=== PATIENT | male | born 1980 | race Caucasian/White ===

== ENCOUNTER 2020-07-29 08:50 | Outpatient (REF) | payer MEDICAID, SELFPAY ==
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
== END 2020-07-29 08:51 | disposition home or self-care (01) ==
LOC: HO.SH 08:50
PROVIDERS: Visit Provider Family Medicine
DX: H90.0 Conductive hearing loss, bilateral (principal); H93.12 Tinnitus, left ear
CPT/HCPCS: 92557; 92567

== ENCOUNTER 2020-10-07 15:11 | Outpatient (REF) | payer MEDICAID, SELFPAY ==
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
== END 2020-10-07 15:12 | disposition home or self-care (01) ==
LOC: HO.HAP 15:11
PROVIDERS: Visit Provider Family Medicine
DX: Z46.1 Encounter for fitting and adjustment of hearing aid (principal); H90.3 Sensorineural hearing loss, bilateral
CPT/HCPCS: 92591

== ENCOUNTER → 2020-10-21 14:46 | Outpatient (BNVA) | payer MEDICAID, SELFPAY | PROVIDERS: PCP Family Medicine; Visit Provider Nurse Practitioner Family | DX: M46.1 Sacroiliitis, not elsewhere classified (principal); M53.3 Sacrococcygeal disorders, not elsewhere classified | CPT/HCPCS: 99202 ==

== ENCOUNTER 2020-10-23 08:49 | Outpatient (REF) | payer MEDICAID, SELFPAY | END 2020-10-23 08:50 | disposition home or self-care (01) | LOC: HO.HAP 08:49 | PROVIDERS: Visit Provider Family Medicine | DX: Z46.1 Encounter for fitting and adjustment of hearing aid (principal); H90.3 Sensorineural hearing loss, bilateral | CPT/HCPCS: V5011; V5020; V5160; V5261; V5266 ==

== ENCOUNTER 2020-10-30 14:48 | Outpatient (REF) | payer MEDICAID, SELFPAY | END 2020-10-30 14:49 | disposition home or self-care (01) | LOC: HO.HAP 14:48 | PROVIDERS: Visit Provider Family Medicine | DX: Z13.89 Encounter for screening for other disorder (principal) ==

== ENCOUNTER → 2020-11-05 10:18 | Outpatient (BNVA) | payer MEDICAID, SELFPAY | PROVIDERS: PCP Family Medicine; Visit Provider Nurse Practitioner Family | DX: M53.3 Sacrococcygeal disorders, not elsewhere classified (principal); M46.1 Sacroiliitis, not elsewhere classified | CPT/HCPCS: 99212 ==

== ENCOUNTER 2020-12-10 06:06 | Outpatient (REF) | payer MEDICAID, SELFPAY ==
--- NOTE | ~2020-12-10 | FL_ITS ---
EXAMINATION: XR FLUOROSCOPY WITH IMAGES CLINICAL INFORMATION: Sacrococcygeal disorder. COMPARISON: None. TECHNIQUE: Fluoroscopy performed by Lizz Ortiz NP Fluoroscopy time: 0.3 minutes DAP: 3.41 Gycm2 Images: 1 FINDINGS: A single lateral view of the sacrum reveals needle positioned along the posterior sacrum and contrast opacifying the posterior sacral epidural space. FL/FL guidance in treatment room IMPRESSION: Fluoroscopy was provided to Lizz Ortiz for sacral epidural injection.
== END 2020-12-10 06:07 | disposition home or self-care (01) ==
LOC: HO.RADIR 06:06
PROVIDERS: Visit Provider Anesthesiology
DX: M53.3 Sacrococcygeal disorders, not elsewhere classified (principal)
CPT/HCPCS: 62323; J3300; Q9967

== ENCOUNTER → 2021-01-17 10:47 | Outpatient (BNVA) | payer MEDICAID, SELFPAY | PROVIDERS: PCP Family Medicine; Visit Provider Nurse Practitioner Family | DX: M53.3 Sacrococcygeal disorders, not elsewhere classified (principal); M46.1 Sacroiliitis, not elsewhere classified | CPT/HCPCS: 99212 ==

== ENCOUNTER 2021-01-28 12:00 | Outpatient (REF) | payer MEDICAID, SELFPAY | END 2021-01-28 12:01 | LOC: HO.HAP 12:00 | PROVIDERS: Visit Provider Family Medicine | DX: Z46.1 Encounter for fitting and adjustment of hearing aid (principal) | CPT/HCPCS: V5266 ==

== ENCOUNTER 2021-02-25 06:53 | Outpatient (REF) | payer MEDICAID, SELFPAY ==
--- NOTE | ~2021-02-25 | FL_ITS ---
EXAMINATION: XR FLUOROSCOPY WITH IMAGES CLINICAL INFORMATION: M53.3 - Sacrococcygeal disorders, not elsewhere classified COMPARISON: Fluoroscopic spot views 12/10/2020 TECHNIQUE: Fluoroscopy performed by Lizz Ortiz NP. Fluoroscopy time: 0.2 minutes DAP: 5.47 Gycm2 Images: 1 FINDINGS: There is a spinal needle overlying mid coccyx with tip just beyond the anterior cortex. There is contrast seen in the soft tissues overlying the anterior coccyx. No vascular communication. FL/FL guidance in treatment room IMPRESSION: Fluoroscopy for pain management procedure.
== END 2021-02-25 06:54 | disposition home or self-care (01) ==
LOC: HO.RADIR 06:53
PROVIDERS: Visit Provider Anesthesiology
DX: M53.3 Sacrococcygeal disorders, not elsewhere classified (principal)
CPT/HCPCS: 64999; J3300; Q9967

== ENCOUNTER 2021-03-05 08:04 | Outpatient (REF) | payer MEDICAID, SELFPAY ==
--- NOTE | 2021-03-05 08:17 | MHC.AU.P13 ---
Hearing Instrument Problem Date of Visit: 03/05/21 Right Ear: It Technical Specialist: Phonak Model: Audeo P70-13T Serial Number: [id number] Repair Warranty: 01/06/2024 Battery Size: 13 Color: P8 Black Wrapping Machine Helper: Size 1 M Type of Dome: Small power Type of Wax Guard: Cerushield Dispensed By: [facility] Date of Fittin10/23/2020 Left Ear: It Technical Specialist: Phonak Model: Audeo P70-13T Serial Number: [id number] Repair Warranty: 01/06/2024 Battery Size: 13 Color: P8 Black Wrapping Machine Helper: Size 1 M Type of Wax Guard: Cerushield Dispensed By: [facility] Date of Fittin10/23/2020 Follow-Up Summary: Right aid dropped off - lost dome. Cleaned and replaced wax guard and small power dome - amplifying clearly. Recommendations: Recommendations: Hearing instrument follow-up or maintenance as needed. Signature: Provider: OLIVE Flynn
== END 2021-03-05 08:05 | disposition home or self-care (01) ==
LOC: HO.HAP 08:04
PROVIDERS: Visit Provider Family Medicine
DX: Z13.89 Encounter for screening for other disorder (principal)

== ENCOUNTER → 2021-04-02 09:47 | Outpatient (BNVA) | payer MEDICAID, SELFPAY | PROVIDERS: PCP Family Medicine; Visit Provider Anesthesiology ==

== ENCOUNTER 2021-06-10 12:36 | Outpatient (REF) | payer MEDICAID, SELFPAY | END 2021-06-10 12:37 | disposition home or self-care (01) | LOC: HO.HAP 12:36 | PROVIDERS: Visit Provider Family Medicine | DX: Z46.1 Encounter for fitting and adjustment of hearing aid (principal); H90.3 Sensorineural hearing loss, bilateral | CPT/HCPCS: V5266 ==

== ENCOUNTER 2021-06-17 06:28 | Outpatient (REF) | payer MEDICAID, SELFPAY ==
--- NOTE | ~2021-06-17 | FL_ITS ---
EXAMINATION: XR FLUOROSCOPY WITH IMAGES CLINICAL INFORMATION: M46.1 - Sacroiliitis, not elsewhere classified COMPARISON: None. TECHNIQUE: Fluoroscopy performed by pain management physician. Fluoroscopy time: 0.2 minutes DAP: 5.47 Gycm2 Images: 1 FINDINGS: There is a spinal needle overlying the lower left sacroiliac joint. Some trace contrast is seen in the soft tissues and likely early intra-articular contrast. FL/FL guidance in treatment room IMPRESSION: Fluoroscopy for pain management procedure.
== END 2021-06-17 06:29 | disposition home or self-care (01) ==
LOC: HO.RADIR 06:28
PROVIDERS: Visit Provider Anesthesiology
DX: M47.16 Other spondylosis with myelopathy, lumbar region (principal); M46.1 Sacroiliitis, not elsewhere classified
CPT/HCPCS: 27096; J3300; Q9967

== ENCOUNTER 2021-06-17 09:56 | Outpatient (REF) | payer MEDICAID, SELFPAY | END 2021-06-17 09:57 | disposition home or self-care (01) | LOC: HO.HAP 09:56 | PROVIDERS: Visit Provider Family Medicine | DX: Z13.89 Encounter for screening for other disorder (principal) ==

== ENCOUNTER 2021-06-18 10:54 | Outpatient (REF) | payer MEDICAID, SELFPAY | END 2021-06-18 10:55 | disposition home or self-care (01) | LOC: HO.HAP 10:54 | PROVIDERS: Visit Provider Family Medicine | DX: Z13.89 Encounter for screening for other disorder (principal) ==

== ENCOUNTER 2021-07-03 10:56 | Day surgery (SDC) | payer MEDICAID, SELFPAY ==
[2021-06-27 09:18] VITALS: BMI 37.3
[2021-06-27 09:55] VITALS: BMI 37.3
--- NOTE | 2021-07-02 10:19 | P.CONAN_ITS ---
Documented by User: Paulina Bang NP 07/02/21 10:20 HPI - Anesthesia Eval Consult details Narrative: 40yo M for Bilateral Medial Branch Block L3-L4-DR L5 PMFSH Active Problems Active Problems: All Active Problems (Updated 06/27/21 @ 09:56 by Carla Ochoa RN) Sacroiliitis (Acute) Sacrococcygeal pain (Acute) Spondylosis, lumbar, with myelopathy (Acute) Past Medical History Medical History (Updated 06/27/21 @ 09:56 by Carla Ochoa RN) COVID-19 vaccine series completed Spondylosis, lumbar, with myelopathy Surgical History Surgical History (Updated 06/27/21 @ 09:18 by Carla Ochoa RN) S/P epidural steroid injection Social History Social History (System 10/10/20 @ 11:41 by Magda Hummel) Patient Tobacco Use Status: Never used Tobacco Use of substances other than those prescribed or required for medical reasons: No Have you been hit, kicked, punched, or otherwise hurt by someone within the past year? If so, by whom?: No Are you DNR?: No Advance Directives: No Advance Directives Information Provided: No Advance Directives on File: No Recently lost weight without trying: No Eating poorly because of decreased appetite: No Nutrition Risks: No Nutritional Risk Poor oral hygiene: No Meds Allergies Allergy/AdvReac Type Severity Reaction Status Date / Time No Known Drug Allergies Allergy Unknown NKDA Verified 07/03/21 11:35 Home Medications Medication Instructions Recorded Confirmed Last Taken Type aspirin 325 mg tablet 325 mg PO DAILY 10/21/20 06/27/21 06/26/21 08:00 History baclofen 20 mg tablet 30 mg PO BID tab 10/21/20 06/27/21 Unknown History gabapentin 300 mg capsule 300 mg PO BID 10/21/20 06/27/21 Unknown History zolpidem 10 mg tablet (Ambien) 10 mg PO BEDTIME PRN 10/21/20 06/27/21 Unknown History Exam Exam Date and Time: July 02, 2021 1019 Height,Weight and Vital Signs: Height 5 ft 10 in Weight 117.934 kg Assessment and Plan Assessment Anesthesia Assessment: Chart Reviewed Documented by User: Chong Duarte MD 07/03/21 12:45 [facility] Past Medical History Medical History (Updated 06/27/21 @ 09:56 by Carla Ochoa RN) COVID-19 vaccine series completed Spondylosis, lumbar, with myelopathy Family History Family history of problems with anesthesia: No Surgical History Surgical History (Updated 06/27/21 @ 09:18 by Carla Ochoa RN) S/P epidural steroid injection Social History Social History (System 10/10/20 @ 11:41 by Magda Hummel) Patient Tobacco Use Status: Never used Tobacco Use of substances other than those prescribed or required for medical reasons: No Have you been hit, kicked, punched, or otherwise hurt by someone within the past year? If so, by whom?: No Are you DNR?: No Advance Directives: No Advance Directives Information Provided: No Advance Directives on File: No Recently lost weight without trying: No Eating poorly because of decreased appetite: No Nutrition Risks: No Nutritional Risk Poor oral hygiene: No Meds Allergies Allergy/AdvReac Type Severity Reaction Status Date / Time No Known Drug Allergies Allergy Unknown NKDA Verified 07/03/21 11:35 Home Medications Medication Instructions Recorded Confirmed Last Taken Type aspirin 325 mg tablet 325 mg PO DAILY 10/21/20 06/27/21 06/26/21 08:00 History baclofen 20 mg tablet 30 mg PO BID tab 10/21/20 06/27/21 Unknown History gabapentin 300 mg capsule 300 mg PO BID 10/21/20 06/27/21 Unknown History zolpidem 10 mg tablet (Ambien) 10 mg PO BEDTIME PRN 10/21/20 06/27/21 Unknown History Assessment and Plan Assessment Anesthesia Assessment: Anesthesia Plan Discussed Final Anesthetic Review Family History of Problems with Anesthesia: No NPO: Yes ASA Class: II Final Preanesthetic Review: No Changes in Pt Med Stat, Meds/Allgs Chart Reviewed, Consent Obtained/Reviewed and Anes Risks/Benef Reviewed Patient Risk: Intermediate Procedure Risk: Low Assessment/Block/Sedation in SS: Assess/Block/Sedation-SS Anesthetic Plan Anesthetic Plan: MAC: and Regional Block Disposition: Standard PACU
--- NOTE | ~2021-07-03 | FL_ITS ---
EXAMINATION: XR FLUOROSCOPY WITH IMAGES CLINICAL INFORMATION: Medial branch block COMPARISON: None. TECHNIQUE: Fluoroscopy performed by Dr. Harry sage. Fluoroscopy time: 0.7 minutes DAP: 13.1 mGycm2 Images: 6 FINDINGS: There are needles positioned bilaterally on the lateral aspect of L5, L4 pedicles with contrast opacifying the adjacent soft tissues. No gross bony abnormality seen. FL/FL guidance in OR IMPRESSION: Fluoroscopy provided to referring physician for pain management.
[2021-07-03 11:51] VITALS: BP 141/87; PULSE 83; RESP 20; TEMP 36.6; O2SAT 98
[2021-07-03] MEDS: Lactated Ringers 1,000 ML 100 ML IVCONT (12:15)
--- NOTE | 2021-07-03 12:49 | P.HPSUR_ITS ---
Pre-Procedural Eval Section A Date of Service: 07/03/21 The patient is an INPATIENT: No Changes since office visit: Yes Patient answered all questions Section B Chief Complaint: spondylosis lumbar Details of Present Illness: as above Relevant Family History (Specify if Yes): No Relevant Social History: None Present Medications: see Short Stay Collaborative assessment Medical History: No relevant PMH History of Previous Operations: No relevant previous surgery Allergies: Allergies Allergy/AdvReac Type Severity Reaction Status Date / Time No Known Drug Allergies Allergy Unknown NKDA Verified 07/03/21 11:35 Review of Systems Sugical H&P ROS: Negative: Constitution, Cardiovascular, Respiratory, Neurological, Psychiatric, Hem-Onc, Allergic/Immunologic, Gastrointestinal, Genitourinary, Musculoskeletal, Integumentary, Endocrine and Eyes/Ears/Nose/Throat Exam Surgical H&P Exam: Normal: HEENT, Normal: Heart, Normal: Lungs, Normal: Extre mities, Normal: Abdomen, Normal: Skin and Normal: Neurological Plan Diagnosis/Plan: Unchanged I have reviewed the history and physical and performed a pertinent physical examination on my patient. No changes have occurred unless specified.
--- NOTE | 2021-07-03 13:21 | P.BOP_ITS ---
Brief Operative Note Date of Service: 07/03/21 Pre-op diagnosis: spondylosis lumbar spine Post-op diagnosis: same Procedure: diagnostic MBB L3- L4- DRL5 bilateral Implants: none Surgeon: Harry Cabral MD Anesthesia: MAC Was an Hydroelectric Plant Technician used for this Procedure?: No Estimated blood loss (mL): 0 Condition: stable Disposition: PACU
[2021-07-03 13:24] VITALS: BP 132/87; PULSE 70; RESP 16; TEMP 36.3; O2SAT 96
--- NOTE | 2021-07-03 13:28 | W.PM.OPN ---
Operative Note Operative Note Date of Service: 07/03/21 Narrative: Informed consent was obtained, risks benefits, alternatives were explained to the patient. The patient was taken to OR where he was positioned prone on OR table. [place] [employer] was applied and patient was moderately sedated. After that time-out was performed delineating correct site and side of the procedure name the patient need for antibiotic prophylaxis which is none, need for DVT prophylaxis, risk of fire. The lower back of the patient was prepped with ChloraPrep and draped with sterile utility towels. Sterilely draped C-arm was brought over the operating field and sq picture of L4-5 vertebra as and sacral bone were delineated on the screen. The point of interest were delineated as connection of superior articular process of L4 bilaterally with corresponding transverse processes of the same vertebra, as well as connection of superior articular process of L5 bilaterally with corresponding transverse processes as well as connection of the superior articular process of S1 bilaterally with bilateral sacral alae. The point of interest was injected with small amount of lidocaine 2% and after that 22 gauge 5 in needles were driven to were the point of interest in tunnel vision fashion. When needle gently contacted the bone small amount of the contrast was injected into each needle position demonstrating no intravascular and no intrathecal uptake of the contrast. After that small amount of bupivacaine 0.5% no more than 1 cc was injected into each needle position. After that needle was removed sterile dressing was applied. The patient was tolerated procedure well. He was taking outside of the operating room to recovery room where he recovered uneventfully. He went home without immediate complications.
[2021-07-03 13:40] VITALS: BP 116/74; PULSE 69; RESP 16; TEMP 36.3; O2SAT 96
--- NOTE | 2021-07-03 14:29 | PC.NURSE ---
PT STATING THAT HE HAS DRIVEN HIMSELF TO PROCEDURE. PT REEDUCATED ON NEED FOR RIDE RELATED TO ANESTHESIA. PT REFUSING ALL OFFERS OF SHUTTLE RIDE AND TAXI VOUCHER. PT STATING THAT HE HAS NO ONE TO PICK HIM UP. PT REFUSING ALL OFFERS OF TRANSPORTATION AND STATING HE IS NOT LEAVING HIS TRUCK HERE. BINDER SELECTOR LUC NOTIFIED AND INVOLVED. PT SIGNED AMA FORM WITHOUT ISSUE.
== END 2021-07-03 14:36 | disposition home or self-care (01) ==
PROVIDERS: PCP Internal Medicine Geriatric Medicine; Visit Provider Anesthesiology
PROC: (CPT 64493; principal; 2021-07-03 12:30)
DX: M47.16 Other spondylosis with myelopathy, lumbar region (principal); M46.1 Sacroiliitis, not elsewhere classified; M54.5 Low back pain
CPT/HCPCS: 64493; 64494; J2250; J3010; Q9967

== ENCOUNTER → 2021-07-10 11:11 | Outpatient (BNVA) | payer MEDICAID, SELFPAY | PROVIDERS: PCP Family Medicine; Visit Provider Anesthesiology ==

== ENCOUNTER → 2021-07-17 10:12 | Outpatient (BNVA) | payer MEDICAID, SELFPAY | PROVIDERS: PCP Family Medicine; Visit Provider Anesthesiology ==

== ENCOUNTER 2021-08-19 06:29 | Outpatient (REF) | payer MEDICAID, SELFPAY ==
--- NOTE | ~2021-08-19 | FL_ITS ---
EXAMINATION: XR FLUOROSCOPY WITH IMAGES CLINICAL INFORMATION: Sacroiliitis COMPARISON: None. TECHNIQUE: Fluoroscopy performed by Lizz Ortiz NP. Fluoroscopy time: 0.1 minutes DAP: 4.3 Gycm2 Images: 2 FINDINGS: Images demonstrate needle placement and contrast injection over the bilateral inferior sacroiliac joints. FL/FL guidance in treatment room IMPRESSION: Fluoroscopic guidance for pain management procedure.
== END 2021-08-19 06:30 | disposition home or self-care (01) ==
LOC: HO.RADIR 06:29
PROVIDERS: Visit Provider Anesthesiology
DX: M47.16 Other spondylosis with myelopathy, lumbar region (principal)
CPT/HCPCS: Q9967

== ENCOUNTER → 2021-08-27 10:55 | Outpatient (BNVA) | payer MEDICAID, SELFPAY | PROVIDERS: PCP Family Medicine; Visit Provider Anesthesiology | DX: M47.16 Other spondylosis with myelopathy, lumbar region (principal); M46.1 Sacroiliitis, not elsewhere classified | CPT/HCPCS: 99212 ==

== ENCOUNTER 2021-10-17 11:05 | Day surgery (SDC) | payer MEDICAID, SELFPAY ==
[2021-10-08 14:14] VITALS: BMI 37.5
--- NOTE | 2021-10-16 16:58 | HO.ANESPROP2 ---
Documented by User: Paulina Bang NP 10/16/21 16:59 HPI - Anesthesia Eval Consult details Narrative: 41yo M for bilateral L3-L4-L5 therapeutic Medial Branch Block s/p same 06/2021 with TIVA PMFSH Active Problems Active Problems: All Active Problems (Updated 08/27/21 @ 12:41 by Harry Cabral MD) Sacroiliitis (Acute) Sacrococcygeal pain (Acute) Chronic pain syndrome (Acute) Spondylosis, lumbar, with myelopathy (Acute) Past Medical History Medical History (Updated 08/27/21 @ 12:41 by Harry Cabral MD) Chronic pain syndrome COVID-19 vaccine series completed Spondylosis, lumbar, with myelopathy Family History Family history of problems with anesthesia: No Surgical History Surgical History (Updated 10/08/21 @ 14:10 by Carla Ochoa RN) History of surgery S/P epidural steroid injection Social History Social History (System 10/10/20 @ 11:41 by Magda Hummel) Patient Tobacco Use Status: Never used Tobacco Use of substances other than those prescribed or required for medical reasons: No Have you been hit, kicked, punched, or otherwise hurt by someone within the past year? If so, by whom?: No Are you DNR?: No Advance Directives: No Advance Directives Information Provided: Yes (informational brochure mailed) Advance Directives on File: No Recently lost weight without trying: No Eating poorly because of decreased appetite: No Nutrition Risks: No Nutritional Risk Poor oral hygiene: No Meds Allergies Allergy/AdvReac Type Severity Reaction Status Date / Time No Known Drug Allergies Allergy Unknown NKDA Verified 08/27/21 11:33 Home Medications Medication Instructions Recorded Confirmed Last Taken Type aspirin 325 mg tablet 325 mg PO DAILY 10/21/20 10/08/21 06/26/21 08:00 History baclofen 20 mg tablet 30 mg PO BID tab 10/21/20 10/08/21 Unknown History gabapentin 300 mg capsule 300 mg PO BID 10/21/20 10/08/21 Unknown History zolpidem 10 mg tablet (Ambien) 10 mg PO BEDTIME PRN 10/21/20 10/08/21 Unknown History Exam Exam Date and Time: October 16, 2021 1658 Height,Weight and Vital Signs: Height 5 ft 10 in Weight 118.841 kg Assessment and Plan Assessment Anesthesia Assessment: Chart Reviewed Final Anesthetic Review Family History of Problems with Anesthesia: No Documented by User: Fam Mejía 10/17/21 12:34 [facility] Past Medical History Medical History (Updated 08/27/21 @ 12:41 by Harry Cabral MD) Chronic pain syndrome COVID-19 vaccine series completed Spondylosis, lumbar, with myelopathy Functional capacity: independent ambulation Surgical History Surgical History (Updated 10/08/21 @ 14:10 by Carla Ochoa RN) History of surgery S/P epidural steroid injection History of Problems with Anesthesia: No Social History Social History (System 10/10/20 @ 11:41 by Magda Hummel) Patient Tobacco Use Status: Never used Tobacco Use of substances other than those prescribed or required for medical reasons: No Have you been hit, kicked, punched, or otherwise hurt by someone within the past year? If so, by whom?: No Are you DNR?: No Advance Directives: No Advance Directives Information Provided: Yes (informational brochure mailed) Advance Directives on File: No Recently lost weight without trying: No Eating poorly because of decreased appetite: No Nutrition Risks: No Nutritional Risk Poor oral hygiene: No Meds Allergies Allergy/AdvReac Type Severity Reaction Status Date / Time No Known Drug Allergies Allergy Unknown NKDA Verified 08/27/21 11:33 Home Medications Medication Instructions Recorded Confirmed Last Taken Type aspirin 325 mg tablet 325 mg PO DAILY 10/21/20 10/08/21 06/26/21 08:00 History baclofen 20 mg tablet 30 mg PO BID tab 10/21/20 10/08/21 Unknown History gabapentin 300 mg capsule 300 mg PO BID 10/21/20 10/08/21 Unknown History zolpidem 10 mg tablet (Ambien) 10 mg PO BEDTIME PRN 10/21/20 10/08/21 Unknown History Exam Airway Mallampati Class: II Neck ROM: Full Loose/Missing/Broken Teeth: Yes Heart: rrr Lungs: bl breath sounds Assessment and Plan Final Anesthetic Review History of Problems with Anesthesia: No NPO: Yes ASA Class: III Patient Risk: Intermediate Procedure Risk: Intermediate Anesthetic Plan Anesthetic Plan: MAC: Disposition: Standard PACU
--- NOTE | ~2021-10-17 | FL_ITS ---
EXAMINATION: XR FLUOROSCOPY WITH IMAGES CLINICAL INFORMATION: Medial branch block COMPARISON: None. TECHNIQUE: Fluoroscopy performed by Dr. Harry Cabral. Fluoroscopy time: 0.9 minutes DAP: 19 mGycm2 Images: 6 FINDINGS: Images demonstrate needle placement and contrast injection adjacent to the bilateral lateral L3, L4 and L5 vertebral bodies. FL/FL guidance in OR IMPRESSION: Fluoroscopy guidance for pain management procedure.
[2021-10-17 11:44] VITALS: BP 107/74; PULSE 97; RESP 16; TEMP 36.9; O2SAT 97
[2021-10-17] MEDS: Lactated Ringers 1,000 ML 100 ML IVCONT (11:45)
--- NOTE | 2021-10-17 12:07 | MHC.SHP ---
Pre-Procedural Eval Section A Date of Service: 10/17/21 The patient is an INPATIENT: No Changes since office visit: Yes Patient answered all questions The History & Physical has been completed within 30 days and I have reviewed it.: No Section B Chief Complaint: spondylosis,lumar with myelopathy Details of Present Illness: as above Relevant Family History (Specify if Yes): No Relevant Social History: None Present Medications: see Short Stay Collaborative assessment Medical History: Significant History History of Previous Operations: No relevant previous surgery Allergies: Allergies Allergy/AdvReac Type Severity Reaction Status Date / Time No Known Drug Allergies Allergy Unknown NKDA Verified 08/27/21 11:33 Review of Systems Sugical H&P ROS: Negative: Cardiovascular, Respiratory, Neurological, Psychiatric, Hem-Onc, Allergic/Immunologic, Gastrointestinal, Genitourinary, Musculoskeletal, Integumentary, Endocrine and Eyes/Ears/Nose/Throat and Yes, Specify: Constitution (morbid obesity) Exam Surgical H&P Exam: Normal: HEENT, Normal: Heart, Normal: Lungs, Normal: Extremities, Normal: Abdomen, Normal: Skin and Normal: Neurological Plan Diagnosis/Plan: Unchanged I have reviewed the history and physical and performed a pertinent physical examination on my patient. No changes have occurred unless specified.
--- NOTE | 2021-10-17 12:09 | MHC.SHP ---
Pre-Procedural Eval Section A Date of Service: 10/17/21 Section B Chief Complaint: spondylosis,lumar with myelopathy Details of Present Illness: as above Relevant Family History (Specify if Yes): No Relevant Social History: None Present Medications: None Medical History: Significant History History of Previous Operations: No relevant previous surgery Allergies: Allergies Allergy/AdvReac Type Severity Reaction Status Date / Time No Known Drug Allergies Allergy Unknown NKDA Verified 08/27/21 11:33 Review of Systems Sugical H&P ROS: Negative: Cardiovascular, Respiratory, Neurological, Psychiatric, Hem-Onc, Allergic/Immunologic, Gastrointestinal, Genitourinary, Musculoskeletal, Integumentary, Endocrine and Eyes/Ears/Nose/Throat and Yes, Specify: Constitution (morbid obesity) Exam Surgical H&P Exam: Normal: HEENT, Normal: Heart, Normal: Lungs, Normal: Extremities, Normal: Abdomen, Normal: Skin and Normal: Neurological Plan Diagnosis/Plan: Unchanged I have reviewed the history and physical and performed a pertinent physical examination on my patient. No changes have occurred unless specified.
--- NOTE | 2021-10-17 13:39 | P.BOP_ITS ---
Brief Operative Note Date of Service: 10/17/21 Pre-op diagnosis: spondylosis lumbar spine Post-op diagnosis: same Procedure: bilateral Medial branch block L3-L4 dorsal ramus L5 therapeutic Implants: none Surgeon: Harry Cabral MD Anesthesia: MAC Was an Associate Manager used for this Procedure?: No Estimated blood loss (mL): 0 Pathology: none sent Condition: stable Disposition: PACU
--- NOTE | 2021-10-17 13:41 | P.OP_ITS ---
Operative Note Operative Note Date of Service: 10/17/21 Narrative: After obtaining informed consent the patient was brought to the operating room, he was positioned prone on the operating table, [employer] monitors were applied and patient was moderately sedated. Time-out was performed delineating name and date of , correct side of the procedure, DVT risk, antibiotic ? Needs, risk of fire. Patient's lower back and upper buttocks were prepped with ChloraPrep and draped with sterile utility towels.? C-arm was brought over the operating field and picture of the L4 and L5 vertebra as well as upper portion of the sacral bone was demonstrated on the screen. the point of interest were delineated as connection of the superior articular processes of L4 bilaterally with transverse processes of L4 bilaterally, as well as connection of superior articular pr ocesses of L5 bilaterally with transfer processes of L5 bilaterally, as well as connection of superior articular processes of S1 bilaterally with sacral alae. The projection of the points of interest to the skin was injected with small amount of lidocaine 2% and after that 22 gauge 5 inch needle was driven to the point of interest sequentially under anterior posterior view in tunnel vision fashion. When needle gently contacted the bone small amount of the contrast was injected demonstrating no intrathecal and no intravascular uptake of the contrast. After that small amount of the bupivacaine 0.5% no more than 1.5 cc mixed with Kenalog was injected into the each needle position. Total dose of Kenalog was 80 mg. The patient tolerated procedure well he was taken outside of the operating room to recovery room where he recovered uneventfully. He went home without immediate complications.
[2021-10-17 13:42] VITALS: BP 95/61; PULSE 76; RESP 16; TEMP 36.9; O2SAT 95
[2021-10-17 13:57] VITALS: BP 121/78; PULSE 86; RESP 16; TEMP 36.9; O2SAT 97
== END 2021-10-17 14:56 | disposition home or self-care (01) ==
PROVIDERS: Visit Provider Anesthesiology
PROC: (CPT 64493; principal; 2021-10-17 13:00)
DX: M47.16 Other spondylosis with myelopathy, lumbar region (principal); M46.1 Sacroiliitis, not elsewhere classified; G89.4 Chronic pain syndrome; Z87.81 Personal history of (healed) traumatic fracture
CPT/HCPCS: 64493; 64494 ×2; J2250; J3010; J3300; Q9967

== ENCOUNTER 2021-10-28 12:58 | Outpatient (REF) | payer MEDICAID, SELFPAY | END 2021-10-28 12:59 | disposition home or self-care (01) | LOC: HO.HAP 12:58 | PROVIDERS: PCP General Practice; Visit Provider General Practice | DX: Z13.89 Encounter for screening for other disorder (principal) ==

== ENCOUNTER 2021-12-03 09:29 | Outpatient (REF) | payer MEDICAID, SELFPAY | END 2021-12-03 09:30 | disposition home or self-care (01) | LOC: HO.HAP 09:29 | PROVIDERS: Visit Provider General Practice | DX: Z46.1 Encounter for fitting and adjustment of hearing aid (principal); H90.0 Conductive hearing loss, bilateral; H93.12 Tinnitus, left ear | CPT/HCPCS: V5266 ==

== ENCOUNTER → 2021-12-15 10:11 | Outpatient (BNVA) | payer MEDICAID, SELFPAY | PROVIDERS: PCP General Practice; Visit Provider Anesthesiology ==

== ENCOUNTER 2022-01-13 05:58 | Outpatient (REF) | payer MEDICARE, MEDICAID, SELFPAY ==
--- NOTE | ~2022-01-13 | FL_ITS ---
EXAMINATION: XR FLUOROSCOPY WITH IMAGES CLINICAL INFORMATION: Chronic pain syndrome. COMPARISON: None. TECHNIQUE: Fluoroscopy performed by Lizz Ortiz. Fluoroscopy time: 0.3 minutes DAP: 0.72 Gy-cm2 Images: 2 FINDINGS: There are 2 images of the lumbar spine revealing needle positioned posterior to the L3 vertebra for pain management reasons. Visualized vertebral heights, alignment and disc heights are normal. FL/FL guidance in treatment room IMPRESSION: Fluoroscopy guidance was provided to referrer for pain management purpose.
== END 2022-01-13 05:59 | disposition home or self-care (01) ==
LOC: HO.RADIR 05:58
PROVIDERS: Visit Provider Anesthesiology
DX: G89.4 Chronic pain syndrome (principal); M53.3 Sacrococcygeal disorders, not elsewhere classified; M46.1 Sacroiliitis, not elsewhere classified; M47.816 Spondylosis without myelopathy or radiculopathy, lumbar region
CPT/HCPCS: 62323; J1170; J2270; Q9967

== ENCOUNTER 2022-01-13 20:21 | Emergency (ER) | payer MEDICARE, MEDICAID, SELFPAY ==
[2022-01-13 22:20] VITALS: BP 117/79; PULSE 79; RESP 20; TEMP 36.8; O2SAT 98; BMI 39.4
--- NOTE | 2022-01-13 23:34 | ED_ITS ---
HPI - Allergic Reaction General Chief complaint: Allergic Reaction Stated complaint: here this am, allergic reaction to morphine Time Seen by Provider: 01/13/22 21:54 Source: patient Mode of arrival: ambulatory Limitations: no limitations History of Present Illness HPI narrative: Patient with chronic pain syndrome cauda equina compressions had ITTD trial with morphine 100 mcg earlier today since he received the medicine patient been itching all day no rash no shortness of breath no tongue or lip swelling patient never received morphine in the past Related Data Home Medications Medication Instructions Recorded Confirmed aspirin 325 mg tablet 325 mg PO DAILY 10/21/20 10/08/21 baclofen 20 mg tablet 30 mg PO BID tab 10/21/20 10/08/21 gabapentin 300 mg capsule 300 mg PO BID 10/21/20 10/08/21 zolpidem 10 mg tablet (Ambien) 10 mg PO BEDTIME PRN 10/21/20 10/08/21 Previous Rx's Medication Instructions Recorded hydroxyzine HCl 50 mg tablet 50 mg PO Q8H PRN #20 tab 01/14/22 Allergies Allergy/AdvReac Type Severity Reaction Status Date / Time No Known Drug Allergies Allergy Unknown NKDA Verified 01/13/22 22:26 Review of Systems Review of Systems: Yes all other systems are reviewed and are negative [facility] Past Medical History Medical History Cauda equina compression Chronic pain syndrome Chronic pain syndrome COVID-19 vaccine series completed Spondylosis of lumbar region without myelopathy or radiculopathy Surgical History History of surgery S/P epidural steroid injection Social History Social History Patient Tobacco Use Status: Never used Tobacco Advance Directives: No Advance Directives Information Provided: No Physical Exam ED Vital Signs: Vital Signs - 24 hr 01/13/22 22:20 Temperature 98.3 F Pulse Rate 79 Respiratory Rate 20 Blood Pressure 117/79 Pulse Oximetry 98 BMI result Body Mass Index 39.4 Appearance: Alert. Oriented X3. No acute distress. ENT: Pharynx normal. Oral Mucosa moist Neck: Normal inspection. Neck supple. CVS: Normal heart rate and rhythm. Pulses normal. Respiratory: No respiratory distress. Equal air entry bilateral, no wheezing/rales/rhonchi Abdomen: Soft and nontender. Skin: Skin warm and dry. Normal skin color. Normal skin turgor. No rash noticed Extremities: No lower extremity edema. No calf tenderness Neuro: Oriented X 3. MDM - Allergic Reaction MDM Narrative Medical decision making narrative: Patient itching is likely from the side effect of morphine injection 1 which was given in the pain clinic earlier intrathecally. Patient feels better after Atarax and Decadron will discharge patient home Atarax Discharge Plan Discharge Clinical Impression: Adverse reaction to drug Patient Disposition: Home, Self-Care Instructions: General Allergic Reaction (ED) Additional Instructions: Your itching is likely from side effect of morphine injection we anticipate it to get better with time Take Atarax for itching as needed Prescriptions: New hydroxyzine HCl 50 mg tablet 50 mg PO Q8H PRN (Reason: itching) Qty: 20 0RF No Action baclofen 20 mg tablet 30 mg PO BID 0RF aspirin 325 mg tablet 325 mg PO DAILY 0RF gabapentin 300 mg capsule 300 mg PO BID 0RF zolpidem [Ambien] 10 mg tablet 10 mg PO BEDTIME PRN (Reason: Insomnia) 0RF
[2022-01-13] MEDS: hydrOXYzine HCL 50 MG/ML VIAL IM (23:50)
[2022-01-13] MEDS: dexAMETHasone 2 MG TABLET 10 MG PO (23:51)
== END 2022-01-14 01:00 | disposition home or self-care (01) ==
PROVIDERS: Emergency Provider Internal Medicine
DX: R21 Rash and other nonspecific skin eruption (principal); T40.2X5A Adverse effect of other opioids, initial encounter; Y92.9 Unspecified place or not applicable
CPT/HCPCS: 96372; 99283; 99284; J8540

== ENCOUNTER → 2022-01-19 08:54 | Outpatient (BNVA) | payer MEDICAID, SELFPAY | PROVIDERS: PCP General Practice; Visit Provider Anesthesiology | DX: M46.1 Sacroiliitis, not elsewhere classified (principal); M47.816 Spondylosis without myelopathy or radiculopathy, lumbar region; G89.4 Chronic pain syndrome; M53.3 Sacrococcygeal disorders, not elsewhere classified; G83.4 Cauda equina syndrome; M48.061 Spinal stenosis, lumbar region without neurogenic claudication | CPT/HCPCS: 99212 ==

== ENCOUNTER 2022-05-01 10:59 | Day surgery (SDC) | payer MEDICARE, MEDICAID, SELFPAY ==
[2022-05-01] VITALS (9 sets, daily range): BP systolic 105–137; BP diastolic 74–94; PULSE 88–113; RESP 18–28; TEMP 36.1–37; O2SAT 91–98; BMI 37.5
--- NOTE | ~2022-05-01 | FL_ITS ---
EXAMINATION: XR FLUOROSCOPY WITH IMAGES CLINICAL INFORMATION: Lumbar spine stimulator trial COMPARISON: Fluoroscopic spot views 01/13/2022 TECHNIQUE: Fluoroscopy performed by Dr. Harry Cabral. Fluoroscopy time: 1.5 minutes. Cumulative Dose: 113 mGy. DAP: 25.8 Gy-cm2. Images: 3. FINDINGS: There is a spinal stimulator electrode seen ascending the posterior spinal canal. The electrode tip is region of mid thoracic spine, estimated at T7-T8. There is no visible kinking or defect of the lead. FL/FL guidance in OR IMPRESSION: Fluoroscopy for pain management procedure.
[2022-05-01] MEDS: Lactated Ringers 1,000 ML 100 ML IVCONT (11:31)
--- NOTE | 2022-05-01 13:14 | MHC.SHP ---
Pre-Procedural Eval Section A Date of Service: 05/01/22 The patient is an INPATIENT: No Changes since office visit: Yes Patient answered all questions The History & Physical has been completed within 30 days and I have reviewed it.: No Section B Chief Complaint: chronic pain Details of Present Illness: chronic pain syndrome Relevant Family History (Specify if Yes): No Relevant Social History: None Present Medications: see Short Stay Collaborative assessment Medical History: No relevant PMH History of Previous Operations: Relevant previous surgery/procedure and date(s) Allergies: Allergies Allergy/AdvReac Type Severity Reaction Status Date / Time morphine Allergy Mild Itching Verified 05/01/22 11:33 Review of Systems Sugical H&P ROS: Negative: Cardiovascular, Respiratory, Neurological, Psychiatric, Hem-Onc, Allergic/Immunologic, Gastrointestinal, Genitourinary, Musculoskeletal, Integumentary, Endocrine and Eyes/Ears/Nose/Throat and Yes, Specify: Constitution (morbid obesity) Exam Surgical H&P Exam: Normal: HEENT, Normal: Heart, Normal: Lungs, Normal: Extremities, Normal: Skin and Normal: Neurological and Significant Findings: Abdomen (enlarged due to s/q and i/a fat) Plan Diagnosis/Plan: Unchanged I have reviewed the history and physical and performed a pertinent physical examination on my patient. No changes have occurred unless specified.
--- NOTE | 2022-05-01 13:15 | PM.OP ---
Brief Operative Note Date of Service: 05/01/22 Pre-op diagnosis: spondylosis lumbar spina, spinal stenosis Post-op diagnosis: same Procedure: trial of Nevro SCS. Implants: none permanent Surgeon: Harry Cabral MD Anesthesia: GETA Was an Job Training Supervisor used for this Procedure?: No Estimated blood loss (mL): 1 Pathology: none sent Condition: stable Disposition: PACU
--- NOTE | 2022-05-01 13:15 | HO.ANESPROP2 ---
[facility] Active Problems Active Problems: All Active Problems (Updated 01/19/22 @ 09:07 by Harry Cabral MD) 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 (Acute) Cauda equina compression (Acute) Chronic pain syndrome (Acute) Spondylosis of lumbar region without myelopathy or radiculopathy (Acute) Sacroiliitis (Acute) Sacrococcygeal pain (Acute) Chronic pain syndrome (Acute) Past Medical History Medical History Cauda equina compression Chronic pain syndrome Chronic pain syndrome 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 COVID-19 vaccine series completed Spondylosis of lumbar region without myelopathy or radiculopathy Family History Family history of problems with anesthesia: No Surgical History Surgical History History of surgery S/P epidural steroid injection History of Problems with Anesthesia: No Social History Social History Patient Tobacco Use Status: Never used Tobacco Are you DNR?: No Advance Directives: No Advance Directives Information Provided: Yes Advance Directives on File: No Nutrition Risks: No Nutritional Risk Meds Allergies Allergy/AdvReac Type Severity Reaction Status Date / Time morphine Allergy Mild Itching Verified 05/01/22 11:33 Active Medications: Current Medications Lactated Ringer's (Lr) 1,000 mls @ 100 mls/hr IVCONT .Q10H DELORES Last Admin: 05/01/22 11:31 Dose: 100 mls/hr Ondansetron HCl (Ondansetron Hcl 4 Mg/2 Ml Vial) 4 mg IVPUSH ONCE PRN PRN Reason: Nausea and Vomiting Home Medications Medication Instructions Recorded Confirmed Last Taken Type baclofen 20 mg tablet 30 mg PO BID 10/21/20 10/08/21 Unknown History gabapentin 300 mg capsule 300 mg PO BID 10/21/20 10/08/21 Unknown History zolpidem 10 mg tablet (Ambien) 10 mg PO BEDTIME PRN Insomnia 10/21/20 10/08/21 Unknown History Exam Exam Date and Time: May 01, 2022 1315 Height,Weight and Vital Signs: Height 5 ft 10 in Weight 118.842 kg Last Vital Signs Temp 97.8 F 05/01/22 11:29 Pulse 88 05/01/22 11:29 Resp 20 05/01/22 11:29 BP 137/94 H 05/01/22 11:29 Pulse Ox 94 05/01/22 11:29 O2 Del Method 05/01/22 11:29 Airway Mallampati Class: IV TM Dist: >3cm Neck ROM: Full Loose/Missing/Broken Teeth: No Heart: rrr Lungs: clear Assessment and Plan Final Anesthetic Review Family History of Problems with Anesthesia: No History of Problems with Anesthesia: No NPO: Yes ASA Class: II Final Preanesthetic Review: No Changes in Pt Med Stat, Meds/Allgs Chart Reviewed, Consent Obtained/Reviewed and Anes Risks/Benef Reviewed Patient Risk: Intermediate Procedure Risk: Low Anesthetic Plan Anesthetic Plan: GA Disposition: Standard PACU
--- NOTE | 2022-05-01 13:25 | PC.NURSE ---
Dr. De Jesus updated that audible hoarse voice noted during admission and slightly diminshed lung sounds in bases bilaterally. pt stated this is his baseline for hoarse voice. Dr. De Jesus assessed patient and stated okay to proceed. no interventions at this time.
--- NOTE | 2022-05-01 15:11 | W.PM.OPN ---
Operative Note Operative Note Date of Service: 05/01/22 Narrative: Mr. Moralez is very pleasant 41 years old gentleman who came today into the operating room for the trial of spinal cord stimulator Nevro for the treatment of spondylosis of the lumbar spine and spinal stenosis.. Preoperatively patient received Cefazolin 3 g approximately 30 min before procedure. After obtaining informed consent patient was brought to the operating room, HE was positioned supine on the stretcher, [employer] monitors were applied and patient was administered general endotracheal anesthesia. After that patient was transferred prone to the operating room table with all pressure points protected.? ? Time-out was performed delineating correct site, side, the nature of the procedure, patient's allergy, preoperative antibiotic if needed.? All operating room staff was participating in OR time-out procedure. Patient's entire back was prepped with ChloraPrep twice and draped with full body fenestrated drape.? Sterilely draped C-arm was brought over operating field and sqare picture of T11-T12 L1 L2 vertebrae as were demonstrated on the screen.? Attention FIRST? was concentrated on the L1-L2 epidural interspace.? The location of the projection of the right pedicle center of the _L3 vertebra was found on the skin using C-arm.? This location was injected with mixture of lidocaine 2% and Marcaine 0.5% 5 cc.? After that 11 blade was used to make a daniel on the skin.? 10 cm 14 gauge introducer epidural needle was inserted through the daniel and advanced to L1-L2 epidural interspace.? The advancement of the needle was performed on anterior posterior and lateral views.?MARIAMA to air was used to detect epidural space. That advancement was proven to be very difficult. Multiple attempts were made to reach epidural space with proper angle of the epidural needle. Unfortunately the needle either went to lamina above were lamina below the was very narrow distance between the lamina of this to vertebra. The decision was made to switch the target to T12-L1 epidural interspace. The 15 cm Coude epidural needle was brought up on the table and inserted through the previously made daniel in the skin. the needle was advancing to were the T12-L1 epidural interspace on anterior posterior and lateral views.Guitar wire and loss of resistance technique were used to locate epidural space.? When guitar wire was spread in the epidural fashion, epidural lead was inserted through the skin and it was advanced to top T8 position PRACTICALLY at THE MIDLINE.? After that location of the projection of the LEFT pedicle center of the L3 vertebra was found on the skin using C-arm.? This location was injected with mixture of lidocaine 2% and Marcaine 0.5% 5 cc.? After that 11 blade was used to make a daniel on the skin.? 10 cm 14 gauge introducer epidural needle was inserted through the daniel and advanced to L1- L2 epidural interspace. Again the advancement of the needle was proven to be very difficult and on the right side it seem to be even more complicated because of the significant ridges of the bones preventing advancement of the needle to the epidural interspace. One attempt was made to reach T12-L1 epidural interspace using 15 cm coude epidural needle however the angle was very Flat there and needle was very difficult to manipulate. the decision was made to continue the trial with 1 epidural lead only. The patient spinal stenosis and disc degeneration probably played significant role in the found anatomy. The position of the lead verified on anterior posterior and lateral views,The anchoring devices were dislodged on the lead and advanced to the level of the skin.? The anchoring device was sutured with two 0-0 silk sutures to the skin of the patient.? The screws were tighten on the anchoring devices until 3 clicks were heard. The leads were connected to testing device.? Bacitracin ointment was applied to the entrance point of the needle entrance on the right. the contralateral left daniel on the skin was glued with Mastisol and covered with to Steri-Strips. Sterile dressing applied. The lead was connected to stimulating device which was taped to the skin. The patient tolerated procedure well. He was taking outside of the operating room to recovery room where he recovered uneventfully.
== END 2022-05-01 17:10 | disposition home or self-care (01) ==
PROVIDERS: PCP General Practice; Visit Provider Anesthesiology
PROC: (CPT 63650; principal; 2022-05-01 11:50)
DX: M46.1 Sacroiliitis, not elsewhere classified (principal); M47.816 Spondylosis without myelopathy or radiculopathy, lumbar region; G89.4 Chronic pain syndrome; M53.3 Sacrococcygeal disorders, not elsewhere classified; G83.4 Cauda equina syndrome; M48.061 Spinal stenosis, lumbar region without neurogenic claudication; Z79.899 Other long term (current) drug therapy; Z88.8 Allergy status to other drugs, medicaments and biological substances; Z98.890 Other specified postprocedural states
CPT/HCPCS: 63650 ×2; C1713; C1897; J0330; J0690; J1100; J2250; J2405; J2795; J3010

== ENCOUNTER → 2022-05-07 11:12 | Outpatient (BNVA) | payer MEDICARE, SELFPAY | PROVIDERS: PCP General Practice; Visit Provider Anesthesiology | DX: G89.4 Chronic pain syndrome (principal); M46.1 Sacroiliitis, not elsewhere classified; M47.816 Spondylosis without myelopathy or radiculopathy, lumbar region; M53.3 Sacrococcygeal disorders, not elsewhere classified; G83.4 Cauda equina syndrome; M48.061 Spinal stenosis, lumbar region without neurogenic claudication | CPT/HCPCS: 99212 ==

== ENCOUNTER 2022-06-22 19:35 | Outpatient (REF) | payer MEDICARE, SELFPAY | END 2022-06-22 19:36 | disposition home or self-care (01) | LOC: HO.MRI 19:35 | PROVIDERS: Visit Provider Anesthesiology | DX: Z13.89 Encounter for screening for other disorder (principal) ==

== ENCOUNTER 2022-08-24 09:52 | Outpatient (REF) | payer SELFPAY ==
--- NOTE | 2022-08-24 15:25 | MHC.AU.HFU ---
Hearing Instrument Follow-Up- Binaural Date of Visit: 08/24/22 Right Ear: Yecenia Medranoeo P70-13T SN: [id number] Color: Velvet Black Repair Warranty: 01/06/2024 Battery Size: 13 Manager Paid: Size 1 M Type of Mold: Small power dome Type of Wax Guard: Cerushield Dispensed By: [facility] Date of Fittin10/23/2020 Left Ear: Yecenia Medranoeo P70-13T SN: [id number] Color: Velvet Black Repair Warranty: 01/06/2024 Loss and Damage Warranty: Battery Size: 13 Manager Paid: Size 1 M Type of Mold: Small power dome Type of Wax Guard: Cerushield Dispensed By: [facility] Date of Fittin10/23/2020 Follow-Up Summary: Evette dropped off his right hearing aid reporting that it is not working. Microphones blocked with debris, wax guard plugged, and rust in battery compartment and door. Cleaned hearing aid and battery compartment. Cleaned and vacuumed microphones. Replaced dome and wax guard. A listening check demonstrated that the hearing aid is in good working order. Recommendations: Hearing instrument maintenance in 6 months, or sooner if needed. Please contact our clinic with any questions or concerns. Diagnosis Code(s): Primary Diagnosis: H90.3 Bilateral Sensorineural Hearing Loss Signature: Provider: Antoinette Albrecht, [facility]
== END 2022-08-24 09:53 | disposition home or self-care (01) ==
LOC: HO.HAP 09:52
PROVIDERS: Visit Provider General Practice
DX: Z13.89 Encounter for screening for other disorder (principal)
CPT/HCPCS: 92592

== ENCOUNTER 2022-08-31 10:56 | Outpatient (REF) | payer SELFPAY | END 2022-08-31 10:57 | disposition home or self-care (01) | LOC: HO.HAP 10:56 | PROVIDERS: Visit Provider General Practice | DX: Z13.89 Encounter for screening for other disorder (principal) ==

== ENCOUNTER 2022-11-16 09:39 | Outpatient (REF) | payer SELFPAY | END 2022-11-16 09:40 | disposition home or self-care (01) | LOC: HO.HAP 09:39 | PROVIDERS: Visit Provider General Practice | DX: Z46.1 Encounter for fitting and adjustment of hearing aid (principal); H90.3 Sensorineural hearing loss, bilateral | CPT/HCPCS: 92592 ==

== ENCOUNTER 2022-12-01 13:41 | Outpatient (REF) | payer SELFPAY | END 2022-12-01 13:42 | disposition home or self-care (01) | LOC: HO.HAP 13:41 | PROVIDERS: Visit Provider General Practice | DX: Z13.89 Encounter for screening for other disorder (principal) ==

== ENCOUNTER 2023-01-15 08:20 | Outpatient (REF) | payer SELFPAY | END 2023-01-15 08:21 | disposition home or self-care (01) | LOC: HO.HAP 08:20 | PROVIDERS: Visit Provider General Practice | DX: Z13.89 Encounter for screening for other disorder (principal) ==

== ENCOUNTER 2023-03-19 16:25 | Outpatient (REF) | payer MEDICARE, MEDICAID, SELFPAY ==
--- NOTE | ~2023-03-19 | XR_ITS ---
EXAMINATION: XR KNEE, LEFT CLINICAL INFORMATION: Pain. COMPARISON: None available. TECHNIQUE: AP, lateral, tunnel, and sunrise views of the left knee. FINDINGS: Bony alignment and mineralization are normal. The lateral, medial and patellofemoral joint space compartments are well-maintained. There is a tiny peripheral osteophyte of the lateral articular margin of the patella. No fracture, dislocation or significant joint effusion is seen. There is no foreign body. XR/XR knee LT 4V IMPRESSION: 1. There is trace osteoarthritic change of the left patellofemoral compartment. 2. No fracture, dislocation or left knee joint effusion is seen.
== END 2023-03-19 16:26 | disposition home or self-care (01) ==
LOC: HO.HHCX 16:25
PROVIDERS: Visit Provider General Practice
DX: M25.562 Pain in left knee (principal)
CPT/HCPCS: 73564

== ENCOUNTER 2023-04-14 08:24 | Outpatient (REF) | payer SELFPAY | END 2023-04-14 08:25 | disposition home or self-care (01) | LOC: HO.HAP 08:24 | PROVIDERS: Visit Provider General Practice | DX: Z13.89 Encounter for screening for other disorder (principal) ==

== ENCOUNTER 2023-04-23 10:48 | Outpatient (REF) | payer SELFPAY | END 2023-04-23 10:49 | disposition home or self-care (01) | LOC: HO.HAP 10:48 | PROVIDERS: Visit Provider General Practice | DX: Z13.89 Encounter for screening for other disorder (principal) ==

== ENCOUNTER 2023-07-29 08:31 | Outpatient (REF) | payer SELFPAY | END 2023-07-29 08:32 | disposition home or self-care (01) | LOC: HO.HAP 08:31 | PROVIDERS: Visit Provider General Practice | DX: Z13.89 Encounter for screening for other disorder (principal) ==

== ENCOUNTER 2023-08-17 09:40 | Outpatient (REF) | payer SELFPAY | END 2023-08-17 09:41 | disposition home or self-care (01) | LOC: HO.HAP 09:40 | PROVIDERS: PCP General Practice; Visit Provider General Practice | DX: Z13.89 Encounter for screening for other disorder (principal) ==

== ENCOUNTER 2023-09-23 10:00 | Outpatient (RCR) | payer MEDICARE, SELFPAY | END 2023-10-14 14:27 | disposition home or self-care (01) | LOC: HO.PT 10:00 | PROVIDERS: PCP General Practice; Visit Provider General Practice | DX: M46.1 Sacroiliitis, not elsewhere classified (principal) | CPT/HCPCS: 97110; 97150; 97162; 97530 ==

== ENCOUNTER 2024-01-05 10:06 | Outpatient (AMB) | payer MEDICARE, SELFPAY ==
--- NOTE | 2024-01-05 10:24 | A.OFFVIS_ITS ---
Intake Vital Signs 01/05/24 10:33 Height 5 ft 10 in BP 138/82 Blood Pressure Location Lt brachial Position Sitting Respiration 16 Pulse 95 Pulse Source Pulse Oximeter Pulse Oximetry (%) 97 Oxygen Delivery Method Room Air Intake Visit Reasons: Returning Back Pain (SHARI:08/10/22) Intake Note: Patient comes in to discuss back pain. Reports pain 7/10. Allergies morphine Allergy (Mild, Verified 01/05/24 10:33) Itching HPI HPI Comments History of Present Illness Details Krzysztof is back in my office after a long period of absence. He was under my care for a long period of time in 2020 and 2021, he received multiple procedures from us and none of them were satisfactory for his pain control. He reports pain in the lower back with radiation into the right lower extremity. Eventually we attempted to perform trial of Nevro SCS, however the access to the epidural space was extremely difficult. I was able to manage to advance 1 electrode to the T8 position and we went for the trial. He reported 60% pain improvement on a trial however due to the difficulty of a trial I referred him to the neurosurgeon to insert a paddle stimulator. Unfortunately neurosurgeon did not want to do the procedure. He is back in my office today with complaining on pain in severity 10. He is on disability because of his pain. He reports that he has not able to perform most of the activities of daily living. His social interactions are compromised because of his pain. He is suffering from chronic pain syndrome. I offered him to consider intrathecal drug delivery system pain pump including non opioid medications such as Prialt, bupivacaine, clonidine. I briefly explained to him spinal cord absorption of the different drugs, the nature of the device, the nature of the trial. I gave him [employer] brochure to read. He had his psychological evaluation done 2 years ago. We need to schedule him for psychological evaluation. After psychological evaluation will be completed we will start trialing him. I need to contact [facility] on how much [id number] this patient who is on public assistance would need to pay for Prialt. [facility] Medical History (Updated 06/05/22 @ 15:08 by Harry Cabral MD) 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 Cauda equina compression Chronic pain syndrome Spondylosis of lumbar region without myelopathy or radiculopathy Chronic pain syndrome COVID-19 vaccine series completed Surgical History History of surgery S/P epidural steroid injection Social History Patient Tobacco Use Status: Never used Tobacco Review of Systems Const All systems reviewed & are unremarkable except as noted in HPI and below ENT Reports Normal hearing present Neuro Reports Normal hearing present, Denies Abnormal speech present and Denies confusion Psych Denies confusion Physical Exam Vital Signs: Last Vital Signs Pulse 95 01/05/24 10:33 Resp 16 01/05/24 10:33 BP 138/82 01/05/24 10:33 Pulse Ox 97 01/05/24 10:33 Oxygen Delivery Method Room Air 01/05/24 10:33 Const General: cooperative, healthy appearing, comfortable, no acute distress, alert and well groomed; No confusion Nutritional Appearance: obese Orientation/consciousness: patient oriented x3 and No confusion HEENT Head: Yes normocephalic and Yes atraumatic Ears: hearing grossly normal bilaterally Eyes General: appearance normal, both eyes and all related structures Eyelids: Yes eyelids normal Pupils: Equal, round and reactive pupils present EOM: EOMs intact bilaterally Neck Neck: Yes normal visual inspection and Yes no JVD Resp Effort & Inspection: normal respiratory effort, able to speak in complete sentences and no audible wheezes Cardio Jugular venous distension: no JVD Neuro General: patient oriented x3, gait normal, moves all extremities and No confusion Cranial nerves: Yes Equal, round and reactive pupils present and Yes Normal hearing present Speech: No Abnormal speech present Psych Appearance: grossly normal Mental Status: mental status grossly normal Speech and movement: Normal speech and movement present Affect: normal affect Attitude: cooperative Thought process: Normal thought process present Thought content: Normal thought content present Insight: Good insight present (Psych) Judgement: Good judgement present (Psych) Assessment & Plan Assessment & Plan (1) Chronic pain syndrome: Code(s): G89.4 - Chronic pain syndrome (2) 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: Code(s): G83.4 - Cauda equina syndrome; M48.061 - Spinal stenosis, lumbar region without neurogenic claudication Plan Spinal stenosis and chronic pain syndrome will be diagnosis with which we will go for the trial. He needs to go for psychological evaluation again. After that we will schedule him for the 1st trial. Patient Instructions: I here by testify that I spent 38 minutes in conversation with this patient as well as evaluating his prior records, prior images, and organize this note. Coding Level of Care Code Est Pt Level 4 (56884) Diagnoses Chronic pain syndrome G89.4 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 G83.4; M48.061
[2024-01-05 10:33] VITALS: BP 138/82; PULSE 95; RESP 16; O2SAT 97
== END 2024-01-05 10:54 | disposition home or self-care (01) ==
PROVIDERS: PCP General Practice; Visit Provider Anesthesiology
DX: G89.4 Chronic pain syndrome (principal); G83.4 Cauda equina syndrome; M48.061 Spinal stenosis, lumbar region without neurogenic claudication
CPT/HCPCS: 99214

== ENCOUNTER → 2024-01-05 10:06 | Outpatient (BNVA) | payer MEDICARE, SELFPAY | PROVIDERS: PCP General Practice; Visit Provider Anesthesiology | DX: M48.061 Spinal stenosis, lumbar region without neurogenic claudication (principal); G89.4 Chronic pain syndrome; G83.4 Cauda equina syndrome | CPT/HCPCS: 99212 ==

== ENCOUNTER → 2024-01-12 11:09 | Outpatient (REF) | payer MEDICARE, SELFPAY | LOC: HO.SL 11:09 | PROVIDERS: PCP General Practice; Visit Provider General Practice | DX: G47.33 Obstructive sleep apnea (adult) (pediatric) (principal); R40.0 Somnolence | CPT/HCPCS: 95806 ==

== ENCOUNTER → 2024-01-12 19:00 | Outpatient (BNV) | payer MEDICARE, SELFPAY | PROVIDERS: PCP General Practice; Visit Provider Internal Medicine | DX: G47.33 Obstructive sleep apnea (adult) (pediatric) (principal) | CPT/HCPCS: 95806 ==

== ENCOUNTER → 2024-02-08 13:54 | Outpatient (BNVA) | payer MEDICARE, SELFPAY | PROVIDERS: PCP General Practice; Visit Provider Anesthesiology ==

== ENCOUNTER 2024-03-10 10:34 | Outpatient (REF) | payer MEDICARE, SELFPAY | END 2024-03-10 10:35 | disposition home or self-care (01) | LOC: HO.SH 10:34 | PROVIDERS: Visit Provider General Practice | DX: H90.0 Conductive hearing loss, bilateral (principal) | CPT/HCPCS: 92553; 92555; 92567 ==

== ENCOUNTER 2024-03-14 09:12 | Outpatient (REF) | payer SELFPAY ==
--- NOTE | 2024-03-14 13:41 | MHC.AU.HA3 ---
Hearing Instrument Follow-Up- Binaural Date of Visit: 03/14/24 Right Ear: Robert, Model, Color, Serial Number: Yecenia Troncoso [id number] SN: [id number] Color: Velvet Black Environmental Sampler Repair Warranty: 01/06/2024 Environmental Sampler Loss and Damage Warranty: [facility] Service Plan: 10/23/2021 Battery Size: 13 Registered Sales Assistant/Slim Tube: Size 1 M Earmold/Dome/CShell/SlimTip:Small power dome Type of Wax Guard: Cerushield Dispensed By: [facility] Date of Fittin10/23/2020 Left Ear: Robert, Model, Color, Serial Number: Yecenia Troncoso [id number] SN: [id number] Color: Velvet Black Environmental Sampler Repair Warranty: 01/07/2024 Environmental Sampler Loss and Damage Warranty: [facility] Service Plan: 10/23/2021 Battery Size: 13 Registered Sales Assistant/Slim Tube: Size 1 M Earmold/Dome/CShell/SlimTip: Small power dome Type of Wax Guard: Cerushield Dispensed By: [facility] Date of Fittin10/23/2020 Follow-Up Summary: Krzysztof is here with both hearing aids, the right senior javascript engineer missing the bottom half and the left hearing aid completely . Replaced right senior javascript engineer. Left aid out of warranty. When I asked about his current health insurance, he showed me a Medicare card, [employer] card, and [facility] [employer] card. Rebecca checked eligibility- we are not in-network for hearing aid services. It appears his local options are [facility], [facility], and [facility]. Krzysztof will contact location of his choice for further hearing aid services as his left aid is not working and due to the change in his hearing should consider reprogramming with addition of earmolds, and will reach out to his PCP regarding the ENT referral we discussed at his hearing test last week. No charge for today as we cannot bill insurance and he has Medicaid. Diagnosis Code(s): Primary Diagnosis: H90.3 Bilateral Sensorineural Hearing Loss Signature: Provider: Russell Hussein, [facility]
== END 2024-03-14 09:13 | disposition home or self-care (01) ==
LOC: HO.HAP 09:12
PROVIDERS: Visit Provider General Practice
DX: Z13.89 Encounter for screening for other disorder (principal)

== ENCOUNTER → 2024-04-18 19:30 | Outpatient (BNV) | payer MEDICARE, MEDICAID, SELFPAY | PROVIDERS: PCP General Practice; Visit Provider Internal Medicine | DX: G47.33 Obstructive sleep apnea (adult) (pediatric) (principal) | CPT/HCPCS: 95811 ==

== ENCOUNTER → 2024-04-18 20:30 | Outpatient (REF) | payer MEDICARE, MEDICAID, SELFPAY | LOC: HO.SL 20:30 | PROVIDERS: PCP General Practice; Visit Provider General Practice | DX: G47.33 Obstructive sleep apnea (adult) (pediatric) (principal) | CPT/HCPCS: 95811 ==

== ENCOUNTER 2024-06-09 13:53 | Outpatient (REF) | payer MEDICARE, MEDICAID, SELFPAY ==
--- NOTE | 2024-06-13 11:20 | MHC.AU.MED ---
Medical Clearance for Hearing Instrumentation Date: 06/13/24 Patient Name: Krzysztof Moralez Jr Date of : 1980 Referring Provider: Araceli White MD We have seen your patient on 06/13/24 and have determined that they are a candidate for amplification (See accompanying report). Specifically, they would benefit from: Hearing aid use in both ears There is a statute that addresses Medical Evaluation Requirements prior to fitting a patient with a hearing aid. According to [place] statute [facility] CMR:6.03(1), (a) General. Except as provided in 265 CMR 6.03(1)(b), a parasitologist shall not sell a hearing aid unless the prospective user has presented to the parasitologist a written statement signed by a licensed physician that states that the patient's hearing loss has been medically evaluated and the patient may be considered a candidate for a hearing aid. The medical evaluation must have taken place within the preceding six months. Please note: Due to the [place] Statute referenced above, we cannot accept a signature other than that of a licensed physician. LOCUM TEN[employer] PSYCHIATRIST and PA signatures cannot be accepted. I am in agreement with the above recommendation. There is no medical contraindication for hearing instrumentation. Physician Signature Date Physician Name (Printed)
--- NOTE | 2024-07-04 11:17 | MHC.AU.HA1 ---
Hearing Aid Evaluation Date of Visit: 06/13/24 Historical Information: Description of Hearing: Severe to moderate sensorineural hearing loss bilaterally Current personal amplification information, if applicable: Karyna Ornelas Summary: Krzysztof states his insurance has gone back to just [employer], verified by Tricia. He states he lost one hearing aid and the other is broken, can not find it. Discussed options for new hearing aids as a matching pair is recommended- Krzysztof would prefer rechargeable aids, with custom earmolds due to change in hearing since last evaluation. Impressions taken without incident. Will request medical clearance and prior authorization as he is less than 5 years from his original fit date. Hearing Aid Prescription: Based on the individual?s shared listening needs, communication environments, dexterity, desire for connectivity, and personal preferences, the following prescription for amplification has been made: Right ear: Make, Model, Color: Phonak Audeo L70-R Color: Velvet Black Battery Size: 13 Parts Representative/Slim Tube: Size 1 P Type of Earmold/Dome/CShell/SlimTip: Cshell Left ear: Left ear prescription to be same as Right Hearing Aid above: Make, Model, Color: Phonak Audeo L70-R Color: Velvet Black Battery Size: 13 Parts Representative/Slim Tube: Size 1 P Type of Earmold/Dome/CShell/SlimTip: Cshell Accessories/Assistive Technology Recommended: Plan of Care: Patient wishes to purchase hearing aids as prescribed Action Taken/Action Needed: Earmold Impressions Taken Prior authorization to be requested Medical Clearance to be requested from PCP/ENT Primary Diagnosis: H90.3 Bilateral Sensorineural Hearing Loss Signature: Provider: Russell Hussein, [facility]
== END 2024-06-09 13:54 | disposition home or self-care (01) ==
LOC: HO.HAP 13:53
PROVIDERS: Visit Provider General Practice
DX: Z46.1 Encounter for fitting and adjustment of hearing aid (principal); H90.3 Sensorineural hearing loss, bilateral
CPT/HCPCS: 92591; V5275

== ENCOUNTER 2024-08-25 13:41 | Outpatient (REF) | payer MEDICARE, MEDICAID, SELFPAY | END 2024-08-25 13:42 | disposition home or self-care (01) | LOC: HO.HAP 13:41 | PROVIDERS: Visit Provider General Practice | DX: Z46.1 Encounter for fitting and adjustment of hearing aid (principal); H90.3 Sensorineural hearing loss, bilateral | CPT/HCPCS: V5011; V5160; V5261; V5264 ==

== ENCOUNTER 2024-09-15 13:54 | Outpatient (REF) | payer MEDICARE, MEDICAID, SELFPAY | END 2024-09-15 13:55 | disposition home or self-care (01) | LOC: HO.HAP 13:54 | PROVIDERS: Visit Provider General Practice | DX: Z13.89 Encounter for screening for other disorder (principal) ==

== ENCOUNTER 2024-11-08 08:54 | Outpatient (REF) | payer MEDICARE, MEDICAID, SELFPAY | END 2024-11-08 08:55 | disposition home or self-care (01) | LOC: HO.HAP 08:54 | PROVIDERS: Visit Provider General Practice | DX: Z13.89 Encounter for screening for other disorder (principal) ==

== ENCOUNTER 2024-12-01 13:28 | Outpatient (REF) | payer MEDICARE, MEDICAID, SELFPAY ==
--- OUTSIDE RECORDS SUMMARY | 2024-12-01 13:49 | XMS_ITS | Encounter Summary ---
Author Organization [employer] Address [address] [place] [address] Care Team Providers Care Director Of Blood Name Role Phone Araceli White MD Primary Care Provider [phone] Reason for Visit * Reason Comments Pre-visit Planning SDOH screening negat darnell and tobacco screening negative Encounter Details Date Type Department Care Team (Late st Contact Info) Description 11/24/2024 Patient Outreach [facility] [address] [place] [address] Araceli White MD [address] [place] [address] Pre-visit Planning (SDOH screening negative and tobacco screening negative) Social History Tobacco Use Types Packs/Day Years Used Date Smoking Tobacco: Never Smokeless Tobacco: Never Alcohol Use Standard Drinks/Week Comments Never 0 (1 standard drink = 0.6 oz pur e alcohol) Depression Answer Date Recorded Patient Health Questionnaire-9 Score 0 04/10/2024 Patient Health Questionnaire-9 Score 0 04/10/2024 Last PHQ-9: Questionnaire Data Not on file 0 04/10/2024 Housing Stability Answer Date Recorded What is your housing situation today? I have [place] aleman 03/30/[address] you li ve. Do you have problems with any of the following? None of the above 03/30/2024 Food Insecurity Answer Date Recorded Within the past 12 months, y ou worried that your food would run out before you got money to buy more: Never True 03/30/2024 Within the past 12 months,th e food you bought just didn't last and you didn't have enough money to get more: Never True Transportation Answer Date Recorded In the past 12 months, has l ack of transportation kept you from medical appts, meetings, work or from getting things needed for daily living? No 03/30/2024 Utilities Answer Date Recorded In the past 12 months, has t he electric, gas, oil or water company threatened to shut off services in your home? No 03/30/2024 Depression Answer Date Recorded Patient Health Questionnaire-2 Score 0 04/10/2024 Internet Access Answer Date Recorded Internet Access Q1 Yes 06/12/2024 Internet Access Q2 Not on file 06/12/2024 Sex and Gender Information Value Date Recorded Sex Assigned at Male 08/10/2022 10:36 AM EDT Legal Sex Male 10:36 AM EDT Gender Identity Male 08/10/2022 10:36 AM EDT Sexual Orientation Straight 08/10/2022 10 :36 AM EDT documented as of this encounter Progress Notes * Idalmis Márquez - 11/24/2024 9:55 AM EST CC Idalmis placed successful outbound call to patient for pre-visit planning. Patient name and confirmed. Patient confirms appt date and time, and has transportation. Biggest concern for appointment at this time is none Patient advised to bring to appointment a photo id and insurance card. Appropriate screenings completed in anticipation of appointment. documented in this encounter Plan of Treatment Upcoming Encounters Date Type Department Care Team (Late st Contact Info) Description 12/08/2024 2:15 PM EST Office Visit [facility] [address] [place] [address] Araceli White MD [address] [place] [address] documented as of this encounter Visit Diagnoses Not on filedocumented in this encounter Additional Health Concerns Assessment Noted Time PHQ-9 Depression Total Score: 0 04/10/20 24 11:14 AM EDT documented as of this encounter Care Teams Director Of Blood Relationship Specialty Start Date End Date Araceli White MD [address] [place] [address] PCP - General Family Medicine 06/04/21 documented as of this encounter
--- OUTSIDE RECORDS SUMMARY | 2024-12-01 13:49 | XMS_ITS | Encounter Summary ---
Author Organization [employer] Address [address] [place] [address] Care Team Providers Care Firer Low Pressure Name Role Phone Araceli White MD Primary Care Provider [phone] Reason for Referral * Consultation (Routine) - Authorized Specialty Diagnoses / Procedures Referred By Contac t Referred To Contact Audiology Diagnoses Conductive hearing loss, bilateral Araceli White MD [address] [place] [address] Phone: tel: fax: [facility] Audiology [address] [place], [place] Phone: tel: fax: Referral ID Status Reason Start Date Expiration Date Visits Requested Visits Authorized [id number] Authorized Specialty Services Required 02/06/2024 02/05/2025 1 1 Encounter Details Date Type Department Care Team (Late st Contact Info) Description 02/06/2024 Orders Only [facility] [address] [place], [place] [phone] Araceli White MD [address] [place], [place] [phone] Conductive hearing loss, bilateral (Primary Dx) Social History Tobacco Use Types Packs/Day Years Used Date Smoking Tobacco: Never Smokeless Tobacco: Never Alcohol Use Standard Drinks/Week Comments Never 0 (1 standard drink = 0.6 oz pur e alcohol) Depression Answer Date Recorded Patient Health Questionnaire-9 Score 0 01/18/2023 Housing Stability Answer Date Recorded What is your housing situation today? I have lat[place] aleman 08/16/[address] you li ve. Do you have problems with any of the following? None of the above 08/16/2023 Food Insecurity Answer Date Recorded Within the past 12 months, y ou worried that your food would run out before you got money to buy more: Never True 08/16/2023 Within the past 12 months,th e food you bought just didn't last and you didn't have enough money to get more: Never True 03/2023 Transportation Answer Date Recorded In the past 12 months, has l ack of transportation kept you from medical appts, meetings, work or from getting things needed for daily living? No 08/16/2023 Utilities Answer Date Recorded In the past 12 months, has t he electric, gas, oil or water company threatened to shut off services in your home? No 08/16/2023 Depression Answer Date Recorded Patient Health Questionnaire-2 Score 0 01/18/2023 Sex and Gender Information Value Date Recorded Sex Assigned at Male 08/10/2022 10:36 AM EDT Legal Sex Male 10:36 AM EDT Gender Identity Male 08/10/2022 10:36 AM EDT Sexual Orientation Straight 08/10/2022 10 :36 AM EDT documented as of this encounter Plan of Treatment Upcoming Encounters Date Type Department Care Team (Late st Contact Info) Description 12/08/2024 2:15 PM EST Office Visit [facility] [address] [place] [address] Araceli White MD [address] [place] [address] documented as of this encounter Procedures Procedure Name Priority Date/Time Associated Diagnosis Comments AMB REFERRAL TO AUDIOLOGY Routine 04/25/2024 Conductive hearing loss, bilateral documented in this encounter Results * Referral to Audiology (04/25/2024) Araceli White MD OUTPATIENT REFERRAL ORDERABLES Final Result documented in this encounter Visit Diagnoses Diagnosis Conductive hearing loss, bilateral- Primary documented in this encounter Additional Health Concerns Assessment Noted Time PHQ-9 Depression Total Score: 0 04/10/20 23 9:54 AM EDT documented as of this encounter Care Teams Firer Low Pressure Relationship Specialty Start Date End Date Araceli White MD [address] [place] [address] PCP - General Family Medicine 06/04/21 documented as of this encounter
--- OUTSIDE RECORDS SUMMARY | 2024-12-01 13:50 | XMS_ITS | Clinical Summary ---
Author Organization [employer] Address [address] [place] [address] 7 [place] [address] Care Team Providers Care Family Resource Coordinator Name Role Phone Araceli White MD Primary Care Provider [phone] Allergies Active Allergy Reactions Criticality Noted Date Comments Morphine 07/22/2022 Medications clonazePAM (KlonoPIN) 0.5 MG tablet Take 0.5 mg by mouth if needed in the morning and at bedtime. 3 Active BinaxNOW COVID-19 Ag Home Test kit TEST DIRECTED TODAY 2 Active ramelteon (Rozerem) 8 MG tablet Take 8 mg by mouth at bedtime. 3 Active risperiDONE (RisperDAL) 2 MG tablet Take 2 mg by mouth at bedtime. 3 Active risperiDONE (RisperDAL) 0.5 MG tablet Take 0.5 mg by mouth in the morning. 3 Active risperiDONE (RisperDAL) 1 MG tablet Take 1 mg by mouth in the morning. 4 Active cholecalciferol (Vitamin D3) 25 MCG (1000 UT) tabletIndicatio ns:Vitamin D deficiency Take 1 tablet (25 mcg) by mouth in the morning. 90 tablet 3 4 Active dulaglutide (Trulicity) 0.75 MG/0.5ML solution pen-injectorInd ications:Type 2 diabetes mellitus without complication, without long-term current use of insulin (CMS/HCC) Inject 0.75 mg under the skin 1 (one) time per week. Already on Metformin, severe obesity, JAMSHID, and HTN 4 each 11 4 Active metFORMIN (Glucophage) 500 MG tabletIndicatio ns:Type 2 diabetes mellitus without complication, without long-term current use of insulin (CMS/HCC) Take 1 tablet (500 mg) by mouth with breakfast and with evening meal. For weight loss 180 tablet 3 4 07/17/20 25 Active phentermine 15 MG capsule TAKE 1 CAPSULE BY MOUTH BEFORE BREAKFAST 30 capsule 3 5 Active Active Problems Problem Noted Date Diagnosed Date Morbid obesity with BMI of 45.0-49.9, adult 11/2023 Severe sleep apnea 04/10/2024 Assessment & Plan (07/17/2024 2:32 PM EDT): Will order CPAP at settings per titration study: CPAP 04/2024, needs to have full facemask setting 23/19cm with warm humidification Assessment & Plan (04/10/2024 11:56 AM EDT): Needs in lab titration to being CPAP therapy AHI 99, lowest O2 sat 60% Daytime somnolence 12/14/2023 Assessment & Plan (12/14/2023 10:31 AM EST): Will obtain HOME sleep study due to fatigue, heavy snoring, neck circ 19 inches, metabolic syndrome F/u with me after sleep study is obtained Type 2 diabetes mellitus wit hout complication, without long-term current use of insulin 10/19/2023 Assessment & Plan (07/17/2024 2:33 PM EDT): Continue Metformin 500mg BID Start Trulicity .75mg weekly for DM2 and weight loss Assessment & Plan (04/10/2024 11:57 AM EDT): Continue Metformin 500mg BID Due for lipids and microalbuminuria Assessment & Plan (12/14/2023 10:32 AM EST): Current A1c: 6.1 BMP: Lab Results Component Value Date CREATININE 0.90 01/18/2023 Microalbumin: Foot Exam: Complete at follow up Eye Exam: Discuss at follow up Lipid panel: ASCVD: Calculate pending updated labs Statin: Yes ASA: No ADRIANA/ARB: No Encouraged regular aerobic exercise for improved glycemic control Encouraged daily foot checks Encouraged lean protein snacks and to avoid foods high in sugar and simple carbohydrates Treatment Goals: A1c goal: <7% FBG goal: <130 2 hour post prandial goal: <180 Acute pain of left knee 03/19/2023 Assessment & Plan (03/22/2023 4:50 PM EDT): Exam difficult to complete with florencia greenfield on, no clear ligamental laxity or instability Xray today to evaluate for effusion, loose bodies RICE therapy Likely recommend PT after xray results Class 2 obesity 01/18/2023 Assessment & Plan (04/10/2024 11:57 AM EDT): Metformin may help with weight gain induced by antipsychotic medication He can also begin phentermine 15mg daily Assessment & Plan (01/18/2023 1:09 PM EDT): Trying to lose weight Labs checked today Anemia 08/29/2022 Assessment & Plan (01/18/2023 1:09 PM EDT): CBC due today Backache 08/29/2022 Chronic low back pain 08/29/2022 Assessment & Plan (01/18/2023 1:10 PM EDT): Awaiting possible spinal nerve stimulator from [facility] Continue rest, activity modification, medications for now Conductive hearing loss, bilateral 08/29/2022 Developmental academic disorder 08/29/2022 Inflammation of sacroiliac joint 08/29/2022 Insomnia 08/29/2022 Intervertebral disc disorder 08/29/2022 Assessment & Plan (04/10/2024 12:01 PM EDT): Will verify with Dr Cabral's office is he is approved for sacral stimulator implant Low hemoglobin and low hematocrit 08/29/2022 Mixed anxiety and depressive disorder 08/29/2022 Assessment & Plan (04/10/2024 11:58 AM EDT): Continue psych meds as prescribed (Risperidone and Rozerem) Continue Metformin as treatment in anti=psychotic induced weight gain and DM2 Assessment & Plan (12/14/2023 10:30 AM EST): Continue to look for new psychiatrist Assessment & Plan (01/18/2023 1:10 PM EDT): Continue with Pradeep for therapy and medications Sacral fracture, closed 08/29/2022 Assessment & Plan (12/14/2023 10:30 AM EST): History of in 2019, which was the start of his back pain Tinnitus 08/29/2022 Hearing loss 08/29/2022 Resolved Problems Problem Noted Date Diagnosed Date Resolved Date Hemoglobin low 08/29/2022 01/18/2023 Obesity (BMI 30.0-34.9) 01/24/201601/09 Encounters Date Type Department Care Team Description 11/24/2024 Patient Outreach [facility] [address] [place] [id number] Araceli White MD Pre-visit Planning (SDOH screening negative and tobacco screening negative) 10/26/2024 Refill [facility] [address] [place], [place] [phone] Araceli White MD from Last 3 Months Immunizations Name Administration Dates Next Due Hep A, Adult 07/22/2022,09/06/2019 Hep B, adult 07/22/2022,09/06/2019 Influenza injectable quadriv alent preservative free 07/14/2023,07/22/2022,08/18/2019 Pfizer Covid-19 Vaccine 12+ 03/31/2021, Pfizer Covid-19 Vaccine 12+ Bivalent 11/20/2022 Pfizer Covid-19 Vaccine 12+ hussain-sucrose (Atkins Cap) 12/29/2021 Pneumococcal Conjugate PCV 20 07/14/2024 Tdap 01/17/2021,08/18/2019 Social History Tobacco Use Types Packs/Day Years Used Date Smoking Tobacco: Never Smokeless Tobacco: Never Tobacco Cessation:Counseling Given: Not Answered Alcohol Use Standard Drinks/Week Comments Never 0 [...] Orientation Straight 08/10/2022 10 :36 AM EDT Last Filed Vital Signs Vital Sign Reading Time Taken Comments Blood Pressure 142/85 07/14/2024 1:56 PM EDT Pulse 96 07/14/2024 1:56 PM EDT Temperature 36.2 ??C (97.2 ??F) 07/14/2024 1:56 PM ED T Respiratory Rate 20 07/14/2024 1:56 PM EDT Oxygen Saturation 97% 07/14/2024 1:56 PM EDT Inhaled Oxygen Concentration - - Weight 144 kg (316 lb 12.8 oz) 07/14/2024 1:56 P M EDT Height 177.8 cm (5' 10 ) 07/14/2024 1:56 PM EDT Body Mass Index 45.46 07/14/2024 1:56 PM EDT Plan of Treatment Upcoming Encounters Date Type Department Care Team (Late st Contact Info) Description 12/08/2024 2:15 PM EST Office Visit [facility] [address] [place] [address] Araceli White MD [address] [place], [place] [phone] Health Maintenance Due Date Last Done Comments Diabetes: Foot Exam 1991 Eye Exam 1991 Alcohol/Substance Use Screening 1993 Family Planning (PISQ) 1996 Diabetes: Urine Protein Screening 2000 Hepatitis B Vaccines (3 of 3 - 19+ 3-dose series) 09/16/2022 07/22/2022, 09/06/2019 Lipid Panel 01/19/2024 01/18/2023, 032 10/2021, 11/05/2020 COVID-19 Vaccine ( season) 2024 11/20/2022, 12/29/2021, 03/31/2021, Additional history exists Influenza Vaccine (#1) 2024 , 07/22/2022, 08/18/2019 Diabetes: Hemoglobin A1C 01/12/2025 024, 04/10/2024, 12/10/2023, Additional history exists Depression Screening 04/10/2025 04/10/2024, 04/10/20 24 Tobacco Screening 07/14/2025 07/14/2024 SDOH Screening 11/24/2025 11/24/2024 DTaP/Tdap/Td Vaccines (3 - Td or Tdap) 01/17/2031 01/17/2021, 08/18/2019 Zoster Vaccines (1 of 2) 2031 RSV Patients and Patients Aged 60 years or older (1 - 1-dose 75+ series) 2056 HIV Screening Completed 12/29/2021 Hepatitis C Screening Completed 12/29/2021 Hepatitis A Vaccines Aged Out 07/22/2022, 09/06/20 19 No longer eligible based on patient's age to complete this topic Pneumococcal Vaccine: Pediatrics (0 to 5 Years) and At-Risk Patients (6 to 49) Years) Completed 07/14/2024 HIB Vaccines Aged Out No longer eligi ble based on patient's age to complete this topic HPV Vaccines Aged Out No longer eligi ble based on patient's age to complete this topic IPV Vaccines Aged Out No longer eligi ble based on patient's age to complete this topic Meningococcal Vaccine Aged Out No lydia susana eligible based on patient's age to complete this topic RSV under 20 months Aged Out No longe r eligible based on patient's age to complete this topic Rotavirus Vaccines Aged Out No longer eligible based on patient's age to complete this topic Procedures Procedure Name Priority Date/Time Associated Diagnosis Comments POCT GLYCOSYLATED HEMOGLOBIN (HGB A1C) Routine 07/14/2024 1:58 PM EDT Type 2 diabetes mellitus without complication, without long-term current use of insulin ([facility]) LIPID PANEL, STANDARD Routine 01/18/2023 10:19 AM EDT Morbid obesity with BMI of 45.0-49.9, adult ([facility]) ZZZ HISTORICAL HEPATITIS C AB W/REFL TO HCV RNA, QN, PCR Routine 12/29/2021 10:52 AM EDT HIV 1/2 ANTIGEN/ANTIBODY, FOURTH GENERATION W/RFL Routine 12/29/2021 10:52 AM EDT from Last 3 Months or Most Recently Relevant to Health Maintenance Results * POCT glycosylated hemoglobin (Hgb A1c) (07/14/2024 1:58 PM EDT) Hemoglobin A1C 5.9 4.0 - 6.0 % QC Media Lot # [id number] Lot# Expiration Date [id number] Blood Capillary blood specimen / Unknown 07/14/2024 1:58 PM EDT Araceli White MD POINT OF CARE TEST ENTER/EDIT ORDERABLES Final Result * (ABNORMAL) Lipid Panel, Standard (01/18/2023 10:19 AM EDT) Pathologist [facility] Cholesterol, Total 122 <200 mg/dL [facility] [place] [employer] [facility] HDL Cholesterol 32(L) > OR = 40 mg/dL [facility] [place] [employer] Triglycerides 135 <150 mg/dL [facility] [place] [employer] LDL Cholesterol 68 mg/dL (calc) [facility] [place] [employer] Comment: Reference range: <100 Desirable range <100 mg/dL for primary prevention; ?? <70 mg/dL for patients with CHD or diabetic patients with > or = 2 CHD risk factors. LDL-C is now calculated using the Ruthy calculation, which is a validated novel method providing better accuracy than the Friedewald equation in the estimation of LDL-C. Carlos Alberto LAMBERT et al. WESLEY. 2013;310(19): 6307-9477 (http://education.[employer]/faq/ZVP374) Chol/HDLC Ratio 3.8 <5.0 (calc) [facility] [employer] Non-HDL Cholesterol 90 <130 mg/dL (calc) [facility] [employer] Comment: For patients with diabetes plus 1 major ASCVD risk factor, treating to a non-HDL-C goal of <100 mg/dL (LDL-C of <70 mg/dL) is considered a therapeutic option. Blood Venous blood specimen / Unknown 01/18/2023 10:19 AM EDT 01/18/2023 10:20 AM EDT Narrative [facility] - 01/19/2023 2:16 AM EDT FASTING:YES FASTING: YES us Araceli White MD LAB BLOOD ORDERABLES Final Res ult [facility] [address], [place] [address] [facility] [address] [place] [address] * HEPATITIS C AB W/REFL TO HCV RNA, QN, PCR (12/29/2021 10:52 AM EDT) HEPATITIS C ANTIBODY NON-REACT GERMAN NON-REACT GERMAN [facility] INDEX 0.03 <1.00 [facility] Comment: ?? HCV antibody was non-reactive. There is no laboratory ?? evidence of HCV infection. ?? In most cases, no further action is required. However, if recent HCV exposure is suspected, a test for HCV RNA (test code 23767) is suggested. ?? For additional information please refer to http://[employer]apt[employer]/faq/ODI97n2 (This link is being provided for informational/ educational purposes only.) ?? 12/29/2021 10:5 2 AM EDT Araceli White MD HISTORICAL/NON ORDERABLE LABS Final Result Performing Organization Address City/State/[facility] Co de Phone Number [facility] [address] * HIV 1/2 ANTIGEN/ANTIBODY,FOURTH GENERATION W/RFL (12/29/2021 10:52 AM EDT) HIV-1/2 ANTIGEN AND ANTIBODIES, 4TH GENERATION W/ REFLEX NON-REACT GERMAN NON-REACT GERMAN [facility] Comment: HIV-1 antigen and HIV-1/HIV-2 antibodies were not detected. There is no laboratory evidence of HIV infection. ?? PLEASE NOTE: This information has been disclosed to you from records whose confidentiality may be protected by state law. ??If your state requires such protection, then the state law prohibits you from making any further disclosure of the information without the specific written consent of the person to whom it pertains, or as otherwise permitted by law. A general authorization for the release of medical or other information is NOT sufficient for this purpose. ? For additional information please refer to http://[employer]apt[employer]/faq/UMP150 (This link is being provided for informational/ educational purposes only.) ? The performance of this assay has not been clinically validated in patients less than 2 years old. ?? 12/29/2021 10:5 2 AM EDT Araceli White MD LAB BLOOD ORDERABLES Final Res ult [facility] [address] from Last 3 Months or Most Recently Relevant to Health Maintenance Insurance [facility] STANDARD [place] [phone] Care Teams Family Resource Coordinator Relationship Specialty Start Date End Date Araceli White MD [address] [place] [id number] PCP - General Family Medicine 06/04/21
--- OUTSIDE RECORDS SUMMARY | 2024-12-01 13:50 | XMS_ITS | Encounter Summary ---
Author Organization [employer] Address [address] [facility] 7t [place] [address] Care Team Providers Care Adult Caregiver Name Role Phone Araceli White MD Primary Care Provider [phone] Encounter Details Date Type Department Care Team ([facility] st Contact Info) Description 09/27/2023 Telephone [facility] [address] [place], [place] [phone] Araceli White MD [address] [place], [place] [phone] Social History Tobacco Use Types Packs/Day Years Used Date Smoking Tobacco: Never Smokeless Tobacco: Never Alcohol Use Standard Drinks/Week Comments Never 0 (1 standard drink = 0.6 oz pur e alcohol) Depression Answer Date Recorded Patient Health Questionnaire-9 Score 0 01/18/2023 Housing Stability Answer Date Recorded What is your housing situation today? I have latoniaclark aleman 08/16/[address] you [...] Description 12/08/2024 2:15 PM EST Office Visit [facility] [address] [place] [address] Araceli White MD [address] [place] [address] documented as of this encounter Visit Diagnoses Not on filedocumented in this encounter Additional Health Concerns Assessment Noted Time PHQ-9 Depression Total Score: 0 01/19/20 23 9:54 AM EDT documented as of this encounter Care Teams Adult Caregiver Relationship Specialty Start Date End Date Araceli White MD [address] [place] [address] PCP - General Family Medicine 06/04/21 documented as of this encounter
--- OUTSIDE RECORDS SUMMARY | 2024-12-01 13:50 | XMS_ITS | Clinical Summary ---
Author Organization [facility] [employer] [facility] ity Address [address] [place] [address] Care Team Providers Care Odd Job Worker Name Role Phone Unavailable Primary Care Provider Unavailabl e Social History Tobacco Use Types Packs/Day Years Used Date Smoking Tobacco: Never Assessed Sex and Gender Information Value Date Recorded Sex Assigned at Not on file Legal Sex Male 5:36 AM EST Gender Identity Not on file Sexual Orientation Not on file Plan of Treatment Health Maintenance Due Date Last Done Comments DTaP,Tdap,and Td Vaccines (1 - Tdap) 2000 Hepatitis B Vaccines (1 of 3 - 19+ 3-dose series) 2000 COVID-19 Vaccine (2023-2 5 season) 2024 Influenza Vaccine (#1) 2024 HIB Vaccines Aged Out No longer eligi ble based on patient's age to complete this topic HPV Vaccines Aged Out No longer eligi ble based on patient's age to complete this topic Hepatitis A Vaccines Aged Out No long er eligible based on patient's age to complete this topic IPV Vaccines Aged Out No longer eligi ble based on patient's age to complete this topic MMR Vaccines Aged Out No longer eligi ble based on patient's age to complete this topic Meningococcal ACWY Vaccine Aged Out N o longer eligible based on patient's age to complete this topic Meningococcal B Vacine Aged Out No lo nger eligible based on patient's age to complete this topic Pneumococcal Vaccine: Pediat rics (0 to 5 Years) and At-Risk Patients (6 to 64 Years) Aged Out No longer eligible b ased on patient's age to complete this topic RSV Immunization Patients Un karie 20 months Aged Out No longer eligible b ased on patient's age to complete this topic Varicella Vaccines Aged Out No longer eligible based on patient's age to complete this topic
--- OUTSIDE RECORDS SUMMARY | 2024-12-01 13:50 | XMS_ITS | Encounter Summary ---
Author Organization [employer] Address [address] [facility] 7t [place] [address] Care Team Providers Care Trip Follower Name Role Phone Araceli White MD Primary Care Provider [phone] Encounter Details Date Type Department Care Team (Late Contact Info) Description 01/20/2023 Orders Only [facility] [address] [place], [place] [phone] Araceli White MD [address] [place] [address] Prediabetes (Primary Dx) Social History Tobacco Use Types Packs/Day Years Used Date Smoking Tobacco: Never Smokeless Tobacco: Never Alcohol Use Standard Drinks/Week Comments Never 0 (1 standard drink = 0.6 oz pur e alcohol) Depression Answer Date Recorded Patient Health Questionnaire-9 Score 0 01/18/2023 Depression Answer Date Recorded Patient Health Questionnaire-2 Score 0 01/18/2023 Sex and Gender Information Value Date Recorded Sex Assigned at Male 08/10/2022 10:36 AM EDT Legal Sex Male 10:36 AM EDT Gender Identity Male 08/10/2022 10:36 AM EDT Sexual Orientation Straight 08/10/2022 10 :36 AM EDT COVID-19 Exposure Response Date Recorded In the last 10 days, have yo u been in contact with someone who was confirmed or suspected to have Coronavirus/COVID-19? No / Unsure 01/18/2023 9:36 AM EDT documented as of this encounter Plan of Treatment Upcoming Encounters Date Type Department Care Team (Late Contact Info) Description 12/08/2024 2:15 PM EST Office Visit [facility] [address] [place] [address] Araceli White MD [address] [place] [address] documented as of this encounter Visit Diagnoses Diagnosis Prediabetes- Primary Other abnormal glucose documented in this encounter Additional Health Concerns Assessment Noted Time PHQ-9 Depression Total Score: 0 01/19/20 23 9:54 AM EDT documented as of this encounter Care Teams Trip Follower Relationship Specialty Start Date End Date Araceli White MD [address] [place] [address] PCP - General Family Medicine 06/04/21 documented as of this encounter
--- OUTSIDE RECORDS SUMMARY | 2024-12-01 13:50 | XMS_ITS | Clinical Summary ---
Author Organization [facility] Address [address] [place] [address] Care Team Providers Care Paper Tube Cutter Name Role Phone Vic Ocampo MD Primary Care Provider [phone] Source Comments PLEASE NOTE, if this patient is a minor, it may be UNLAWFUL to discuss sensitive information that is contained in these records (such as FAMILY PLANNING, MENTAL HEALTH or SUBSTANCE ABUSE) with the minor patient's parent or other person without the patient's specific authorization.[facility] Allergies No known active allergies Medications No known medications Active Problems Problem Noted Date Diagnosed Date Obesity (BMI 30.0-34.9) 01/24/2016 Family History Medical History Relation Name Comments Diabetes Brother Diabetes Father Hypertension Father Diabetes Mother Hypertension Mother Relation Name Status Comments Brother Alive Father Alive Mother Alive Sister Alive Social History Tobacco Use Types Packs/Day Years Used Date Smoking Tobacco: Never Alcohol Use Standard Drinks/Week Comments Not Asked 0 (1 standard drink = 0.6 oz pur e alcohol) Sex and Gender Information Value Date Recorded Sex Assigned at Not on file Legal Sex Male 8:44 AM PST Gender Identity Not on file Sexual Orientation Not on file Last Filed Vital Signs Vital Sign Reading Time Taken Comments Blood Pressure 100/72 01/24/2016 8:49 AM EDT Pulse 86 01/24/2016 8:49 AM EDT Temperature 37 ??C (98.6 ??F) 01/24/2016 8:49 AM EDT Respiratory Rate 14 01/24/2016 8:49 AM EDT Oxygen Saturation - - Inhaled Oxygen Concentration - - Weight 103 kg (227 lb) 01/24/2016 8:49 AM EDT Height 172.7 cm (5' 8 ) 01/24/2016 8:49 AM EDT Body Mass Index 34.52 01/24/2016 8:49 AM EDT Plan of Treatment Health Maintenance Due Date Last Done Comments Hepatitis C Screening 1981 Tobacco Screening 1981 Hypertension Screening (#1) 01/23/2017 Imm-Hepatitis B (3 of 3 - 19 + 3-dose series) 09/16/2022 07/22/2022, 09/06/2019 [id number] (3 - 2023- season) 2024 021, 03/08/2021 Imm-Influenza (#1) 2024 07/22/2022, 08/18/2019 Alcohol and Drug Screen 10/11/2024 01/24/2016 Depression Annual Screen 10/11/2024 Diabetes Screening 01/18/2026 01/18/2023, 0 12/29/2021, 11/05/2020, Additional history exists Lipid Screening 01/19/2028 01/18/2023, 01/24/2016 Imm-DTaP/Tdap/Td (3 - Td or Tdap) 01/17/2031 021, 08/18/2019 HIV Screening Completed 12/29/2021 Procedures Procedure Name Priority Date/Time Associated Diagnosis Comments HEMOGLOBIN GLYCOSYLATED A1C Routine 01/24/2016 9:20 AM EDT Family history of diabetes insipidus LIPID PANEL Routine 01/24/2016 9:20 AM EDT Obesity (BMI 30.0-34.9) from Last 3 Months or Most Recently Relevant to Health Maintenance Results * HEMOGLOBIN, GLYCOSYLATED (A1C) (01/24/2016 9:20 AM EDT) GLYCATED HEMOGLOBIN A1C 4.9 <6.5 % [facility] [employer] [facility] ESTIMATED AVERAGE GLUCOSE 94 mg/dL [facility] Blood specimen (specimen) Blood / Unknown 01/24/2016 9:20 AM EDT 01/24/2016 11:13 AM EDT N[facility]ative [facility] 01/25/2016 11:31 AM EDT [place] [address] [place] [address] PT ID [id number] ORD# [id number] Vic Ocampo MD LAB - BLOOD DRAW Final Result [facility] [address] [place] [address], [place] [phone] * (ABNORMAL) LIPID PANEL (01/24/2016 9:20 AM EDT) CHOLESTEROL 102 0 - 200 mg/dL [facility] TRIGLYCERIDES 66 0 - 150 mg/dL [facility] HDL CHOLESTEROL 36(L) >40 mg/dL [facility] LDL CALCULATED 53 0 - 100 mg/dL [facility] TC-HDLC RATIO 2.8 0 - 4.4 mg/dL [facility] Blood specimen (specimen) Blood / Unknown 01/24/2016 9:20 AM EDT 01/24/2016 11:13 AM EDT Narrative [facility] - 01/24/2016 4:00 PM EDT [place] [address] [place] [address] PT ID [id number] ORD# [id number] Vic Ocampo MD LAB - BLOOD DRAW Final Result Performing Organization Address City/[facility]/ZIP Co de Phone Number [facility] [address] [place] [address], [place] [phone] from Last 3 Months or Most Recently Relevant to Health Maintenance Insurance [facility] [employer] [facility] Member Subscriber Plan / Payer (Ef fective 2015-Present) Name:Krzysztof Moralez Relation to Subscriber:Self Name:Krzysztof Moralez Payer ID:[id number] Group ID:[id number] Type:Medicaid Address: [facility] [address] [place] [address] Care Teams Paper Tube Cutter Relationship Specialty Start Date End Date Vic Ocampo MD [address] [place] [phone] PCP - General Internal Medicine 11/11/15
== END 2024-12-01 13:29 | disposition home or self-care (01) ==
LOC: HO.HAP 13:28
PROVIDERS: Visit Provider General Practice
DX: Z13.89 Encounter for screening for other disorder (principal)

== ENCOUNTER → 2024-12-14 08:42 | Outpatient (BNVA) | payer MEDICARE, MEDICAID, SELFPAY | PROVIDERS: PCP General Practice; Visit Provider Surgery ==

== ENCOUNTER 2024-12-15 08:07 | Outpatient (AMB) | payer MEDICARE, MEDICAID, SELFPAY ==
--- OUTSIDE RECORDS SUMMARY | 2024-12-15 08:18 | XMS_ITS | Encounter Summary ---
Author Organization [employer] Address [address] [facility] 7t [place] [address] Care Team Providers Care Packing Checker Name Role Phone Araceli White MD Primary Care Provider [phone] Encounter Details Date Type Department Care Team (Latest Contact Info) Description 12/08/2024 Travel Social History Tobacco Use Types Packs/Day Years [...] as of this encounter Plan of Treatment Not on file documented as of this encounter Visit Diagnoses Not on filedocumented in this encounter Additional Health Concerns Assessment Noted Time PHQ-9 Depression Total Score: 0 04/10/20 24 11:14 AM EDT documented as of this encounter Care Teams Packing Checker Relationship Specialty Start Date End Date Araceli White MD [address] [place] [address] PCP - General Family Medicine 06/04/21 documented as of this encounter
--- OUTSIDE RECORDS SUMMARY | 2024-12-15 08:18 | XMS_ITS | Encounter Summary ---
Author Organization [employer] Address [address] [facility] 7 [place] [address] Care Team Providers Care Aquatics Manager Name Role Phone Araceli White MD Primary Care Provider [phone] Reason for Visit * Reason Comments Diabetes Encounter Details Date Type Department Care Team ([facility] st Contact Info) Description 12/08/2024 2:15 PM EST Office Visit [facility] [address] [place], [place] [phone] Araceli White MD [address] [place] [address] Severe sleep apnea (Primary Dx); Type 2 diabetes mellitus without complication, without long-term current use of insulin (CMS/HCC); Dietary counseling; Exercise counseling; Class 3 severe obesity with serious comorbidity and body mass index (BMI) of 40.0 to 44.9 in adult, unspecified obesity type (CMS/HCC); Inflammation of sacroiliac joint (CMS/HCC); Mixed anxiety and depressive disorder; Conductive hearing loss, bilateral Social History Tobacco Use Types Packs/Day Years [...] AM EDT documented as of this encounter Last Filed Vital Signs Vital Sign Reading Time Taken Comments Blood Pressure 122/81 12/08/2024 2:15 PM EST Pulse 92 12/08/2024 2:15 PM EST Temperature 36.1 ??C (97 ??F) 12/08/2024 2:15 PM EST Respiratory Rate 17 12/08/2024 2:15 PM EST Oxygen Saturation 96% 12/08/2024 2:15 PM EST Inhaled Oxygen Concentration - - Weight 142 kg (313 lb) 12/08/2024 2:15 PM EST Height 177.8 cm (5' 10 ) 12/08/2024 2:15 PM EST Body Mass Index 44.91 12/08/2024 2:15 PM EST documented in this encounter Progress Notes * Araceli White MD - 12/08/2024 2:15 PM EST SUBJECTIVE: Krzysztof Moralez is a 44 y.o. year old male who presents for chronic disease management. Deniesrecent illness, ER visit, or hospitalization. Acute Concerns: Doing well, wants to learn about weight loss surgery Interim Updates: Obesity Making lifestyle changes- eating less sugar and junk food. On Metformin and Trulicity due to DM2 and severe JAMSHID Could not start Phentermine due to coverage issues Likely due in part to anti-psychotic medications, as well as lifestyle Will also self-refer to [facility] weight management JAMSHID Very severe JAMSHID with AHI 99, lowest O2 sat 60% Needs in-office titration to ensure best results Had titration study at [facility] for CPAP 04/2024, needs to have full facemask setting 23/19cm with warm humidification Started with CPAP 08/2024 and sleeping better Chronic LBP, cauda equina trialled meds, MARK, nerve branch blocks and most recently spinal cord stimulator Awaiting NSG who can implant spinal cord stimulator, working with pain mgmt on this, may need to goto [place] or [place] Most recent note from Pain Mgmt, Dr Cabral 12/2023, needs psych eval for Sprint dev Open to trying PT again and acupuncture L knee pain Xray 03/2023 with mild patellofemoral arthritis Painful to bear weight at times, feels it might give out S/P joint injection in October 2023, which helped for a few days Anxiety/depression/insomnia Follows with psychiatrist at [facility] for anxiety/depression, insomnia Taking Risperidone and ramelteon Anemia- took iron/vit C for 6 months DM2 On Metformin 500mg BID, Trulicity 0.75mg weekly A1C 6.1 Health maintenance: Labs- done 03/2023 Imms- declines flu Colonoscopy- at age 46 Patient Active Problem List Diagnosis Anemia Backache Chronic low back pain Conductive hearing loss, bilateral 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 No pertinent surgical history. No family history on file. Social History Social History Narrative Lives with AFAB partner and 4 year old son, Has 20 and 26 year old children as well works Review of Systems Constitutional: Negative. Respiratory: Positive for cough and shortness of breath. Cardiovascular: Negative. Gastrointestinal: Negative. Musculoskeletal: Positive for arthralgias and back pain. Psychiatric/Behavioral: Positive for dysphoric mood. OBJECTIVE: Vitals: 12/08/24 1415 BP: 122/81 BP Location: Right arm Patient Position: Sitting BP Cuff Size: Large adult Pulse: 92 Resp: 17 Temp: 97 ??F (36.1 ??C) TempSrc: Temporal SpO2: 96% Weight: 313 lb (142 kg) Height: 5' 10 (1.778 m) Physical Exam Vitals and nursing note reviewed. Constitutional: Appearance: Normal appearance. He is normal weight. HENT: Head: Normocephalic and atraumatic. Cardiovascular: Rate and Rhythm: Normal rate and regular rhythm. Pulses: Normal pulses. Heart sounds: Normal heart sounds. Pulmonary: Effort: Pulmonary effort is normal. Breath sounds: Normal breath sounds. Musculoskeletal: Cervical back: Normal range of motion and neck supple. Skin: General: Skin is warm and dry. Capillary Refill: Capillary refill takes less than 2 seconds. Neurological: General: No focal deficit present. Mental Status: He is alert and oriented to person, place, and time. Psychiatric: Mood and Affect: Mood normal. Behavior: Behavior normal. ASSESSMENT/PLAN Problem List Items Addressed This Visit Conductive hearing loss, bilateral Inflammation of sacroiliac joint (CMS/HCC) Current Assessment & Plan Chronic low back pain Offered Sprint device Mixed anxiety and depressive disorder Type 2 diabetes mellitus without complication, without long-term current use of insulin ([facility]) Current Assessment & Plan Current A1c: 6.1 Continue Metformin 500mg BID Increase Trulicity to 1.5mg weekly for DM2 and weight loss BMP: Lab Results Component Value Date CREATININE 0.90 01/18/2023 Microalbumin: Foot Exam: Complete at follow up Eye Exam: Discuss at follow up Lipid panel: ordered ASCVD: Calculate pending updated labs Statin: Yes ASA: No ADRIANA/ARB: No Encouraged regular aerobic exercise for improved glycemic control Encouraged daily foot checks Encouraged lean protein snacks and to avoid foods high in sugar and simple carbohydrates Treatment Goals: A1c goal: <7% FBG goal: <130 2 hour post prandial goal: <180 Relevant Medications Dulaglutide 1.5 MG/0.5ML solution auto-injector Other Relevant Orders POCT Glucose (Completed) POCT HGB A1C (Completed) Comprehensive Metabolic Panel Severe sleep apnea - Primary Current Assessment & Plan Wearing CPAP at settings per titration study: PSG 04/2024, needs to have full facemask setting 23/19cm with warm humidification Wearing about 6 hours nightly Feels refreshed and more alert during the day Class 3 severe obesity with serious comorbidity and body mass index (BMI) of 40.0 to 44.9 in adult (CMS/[facility]) Current Assessment & Plan Increase Trulicity to 1.5mg weekly, no side effects noted Continue lifestyle management changes Will self-refer to weight management Other Visit Diagnoses Dietary counseling contiune low sugar diet Exercise counseling walk 30-40 minutes a day Follow Up: 4-6 months or sooner prn Allergies Allergen Reactions Morphine Current Outpatient Medications: escitalopram (Lexapro) 10 MG tablet, Take 10 mg by mouth in the morning., Disp: , Rfl: zolpidem (Ambien) 10 MG tablet, Take 10 mg by mouth if needed at bedtime for sleep., Disp: , Rfl: BinaxNOW COVID-19 Ag Home Test kit, TEST DIRECTED TODAY, Disp: , Rfl: cholecalciferol (Vitamin D3) 25 MCG (1000 UT) tablet, Take 1 tablet (25 mcg) by mouth in the morning., Disp: 90 tablet, Rfl: 3 clonazePAM (KlonoPIN) 0.5 MG tablet, Take 0.5 mg by mouth if needed in the morning and at bedtime.,Disp: , Rfl: Dulaglutide 1.5 MG/0.5ML solution auto-injector, Inject 1.5 mg under the skin 1 (one) time per week., Disp: 2 mL, Rfl: 11 metFORMIN (Glucophage) 500 MG tablet, Take 1 tablet (500 mg) by mouth with breakfast and with evening meal. For weight loss, Disp: 180 tablet, Rfl: 3 ramelteon (Rozerem) 8 MG tablet, Take 8 mg by mouth at bedtime., Disp: , Rfl: risperiDONE (RisperDAL) 0.5 MG tablet, Take 0.5 mg by mouth in the morning., Disp: , Rfl: risperiDONE (RisperDAL) 1 MG tablet, Take 1 mg by mouth in the morning., Disp: , Rfl: risperiDONE (RisperDAL) 2 MG tablet, Take 2 mg by mouth at bedtime., Disp: , Rfl: simvastatin (Zocor) 20 MG tablet, Take 1 tablet (20 mg) by mouth at bedtime., Disp: 90 tablet, Rfl:3 Yoruba Translation: Patient is bilingual and declines translation services documented in this encounter Miscellaneous Notes * Assessment & Plan Note - Araceli White MD - 12/08/2024 3:22 PM ESTAssociated Problem(s): Class 3 severe obesity with serious comorbidity and body mass index (BMI) of40.0 to 44.9 in adult ([facility]) Increase Trulicity to 1.5mg weekly, no side effects noted Continue lifestyle management changes Will self-refer to weight management * Assessment & Plan Note - Araceli White MD - 12/08/2024 3:19 PM ESTAssociated Problem(s): Type 2 diabetes mellitus without complication, without long-term current useof insulin ([facility]) Current A1c: 6.1 Continue Metformin 500mg BID Increase Trulicity to 1.5mg weekly for DM2 and weight loss BMP: Lab Results Component Value Date CREATININE 0.90 01/18/2023 Microalbumin: Foot Exam: Complete at follow up Eye Exam: Discuss at follow up Lipid panel: ordered ASCVD: Calculate pending updated labs Statin: Yes ASA: No ADRIANA/ARB: No Encouraged regular aerobic exercise for improved glycemic control Encouraged daily foot checks Encouraged lean protein snacks and to avoid foods high in sugar and simple carbohydrates Treatment Goals: A1c goal: <7% FBG goal: <130 2 hour post prandial goal: <180 * Assessment & Plan Note - Araceli White MD - 12/08/2024 3:17 PM ESTAssociated Problem(s): Inflammation of sacroiliac joint ([facility]) Chronic low back pain Offered Sprint device * Assessment & Plan Note - Araceli White MD - 12/08/2024 3:16 PM ESTAssociated Problem(s): Severe sleep apnea Wearing CPAP at settings per titration study: PSG 04/2024, needs to have full facemask setting 23/19cm with warm humidification Wearing about 6 hours nightly Feels refreshed and more alert during the day documented in this encounter Plan of Treatment Scheduled Orders Name Type Priority Associated Diagnoses Orde r Schedule Comprehensive Metabolic Panel Lab Routine Type 2 diabetes mellitus without complication, without long-term current use of insulin ([facility]) Expected: 12/08/2024 (Approximate), Expires: 12/08/2025 documented as of this encounter Procedures Procedure Name Priority Date/Time Associated Diagnosis Comments POCT GLYCATED HEMOGLOBIN, TOTAL Routine 12/08/2024 2:21 PM EST Type 2 diabetes mellitus without complication, without long-term current use of insulin ([facility]) POCT GLUCOSE Routine 12/08/2024 2:18 PM EST Type 2 diabetes mellitus without complication, without long-term current use of insulin ([facility]) documented in this encounter Results * (ABNORMAL) POCT HGB A1C (12/08/2024 2:21 PM EST) Hemoglobin A1C 6.1(A) 4.0 - 6.0 % QC Media Lot # [id number] Lot# Expiration Date Blood 12/08/2024 2:21 PM EST Araceli White MD POINT OF CARE TEST ENTER/EDIT ORDERABLES Final Result * POCT Glucose (12/08/2024 2:18 PM EST) Glucose Blood, POC 109 60 - 200 mg/dL QC Media Lot # [id number] Lot# Expiration Date ,720,018 Blood Capillary blood specimen / Unknown 12/08/2024 2:18 PM EST Araceli White MD POINT OF CARE TEST ENTER/EDIT ORDERABLES Final Result documented in this encounter Visit Diagnoses Diagnosis Severe sleep apnea- Primary Type 2 diabetes mellitus without complication, without long-term current use of insulin ([facility]) Dietary counseling Dietary surveillance and counseling Exercise counseling Class 3 severe obesity with serious comorbidity and body mass index (BMI) of 40.0 to 44.9 in adult, unspecified obesity type (CMS/HCC) Inflammation of sacroiliac joint (CMS/[facility]) Sacroiliitis, not elsewhere classified Mixed anxiety and depressive disorder Dysthymic disorder Conductive hearing loss, bilateral documented in this encounter Additional Health Concerns Assessment Noted Time PHQ-9 Depression Total Score: 0 04/10/20 24 11:14 AM EDT documented as of this encounter Care Teams Aquatics Manager Relationship Specialty Start Date End Date Araceli White MD [address] [place] [id number] PCP - General Family Medicine 06/04/21 documented as of this encounter
--- OUTSIDE RECORDS SUMMARY | 2024-12-15 08:19 | XMS_ITS | Encounter Summary ---
Author Organization [employer] Address [address] [facility] 7t [place] [address] Care Team Providers Care Orthopedic Shoe Fitter Name Role Phone Araceli White MD Primary Care Provider [phone] Reason for Referral * Consultation (Routine) - Authorized Specialty Diagnoses / Procedures Referred By Contac t Referred To Contact Audiology Diagnoses Conductive hearing loss, bilateral Araceli White MD [address] [place] [address] Phone: tel: fax: [facility] [address] Floor [place], [place] Phone: tel: fax: Referral ID Status Reason Start Date Expiration Date Visits Requested Visits Authorized [id number] Authorized Specialty Services Required 02/06/2024 02/05/2025 1 1 Encounter Details Date Type Department Care Team (Late st Contact Info) Description 02/06/2024 Orders Only [facility] MED[facility] [address] [place], [place] [phone] Araceli White MD [address] [place], [place] [phone] Conductive hearing loss, bilateral (Primary Dx) Social [...] on file documented as of this encounter Procedures Procedure [...] documented as of this encounter Care Teams Orthopedic Shoe Fitter Relationship Specialty Start Date End Date Araceli White MD [address] [place] [id number] PCP - General Family Medicine 06/04/21 documented as of this encounter
--- OUTSIDE RECORDS SUMMARY | 2024-12-15 08:19 | XMS_ITS | Encounter Summary ---
Author Organization [employer] Address [address] [facility] [address] [place] [address] Care Team Providers Care Riding Double Name Role Phone Araceli White MD Primary Care Provider [phone] Reason for Visit * Reason Comments Pre-visit Planning SDOH screening negat darnell and tobacco screening negative Encounter Details Date Type Department Care Team (Late st Contact Info) Description 11/24/2024 Patient Outreach [facility] MED[facility]INE [address] [place] [address] Araceli White MD [address] [place] [address] Pre-visit Planning (SDOH screening negative and tobacco [...] documented in this encounter Plan of Treatment Not on file documented as of this encounter Visit Diagnoses Not on filedocumented in this encounter Additional Health Concerns Assessment Noted Time PHQ-9 Depression Total Score: 0 04/10/20 24 11:14 AM EDT documented as of this encounter Care Teams Riding Double Relationship Specialty Start Date End Date Araceli White MD [address] [place] [address] PCP - General Family Medicine 06/04/21 documented as of this encounter
--- OUTSIDE RECORDS SUMMARY | 2024-12-15 08:19 | XMS_ITS | Encounter Summary ---
Author Organization [employer] Address [address] [facility] 7t [place] [address] Care Team Providers Care Copra Sampler Name Role Phone Araceli White MD Primary Care Provider [phone] Encounter Details Date Type Department Care Team (Late st Contact Info) Description 01/20/2023 Orders Only [facility]INE [address] [place], [place] [phone] Araceli White MD [address] [place], [place] [phone] Prediabetes (Primary Dx) Social History Tobacco Use [...] documented as of this encounter Care Teams Copra Sampler Relationship Specialty Start Date End Date Araceli White MD [address] [place] [address] PCP - General Family Medicine 06/04/21 documented as of this encounter
--- OUTSIDE RECORDS SUMMARY | 2024-12-15 08:19 | XMS_ITS | Encounter Summary ---
Author Organization [employer] Address [address] [facility] 7[address] [place] [address] Care Team Providers Care Maintenance Mechanic Supervisor Name Role Phone Araceli White MD Primary Care Provider [phone] Encounter Details Date Type Department Care Team ([facility] st Contact Info) Description 09/27/2023 Telephone [facility] MED[facility]INE [address] [place], [place] [phone] Araceli White MD [address] [place], [place] [phone] Social History Tobacco Use Types Packs/Day Years [...] documented as of this encounter Care Teams Maintenance Mechanic Supervisor Relationship Specialty Start Date End Date Araceli White MD [address] [place] [address] PCP - General Family Medicine 06/04/21 documented as of this encounter
--- OUTSIDE RECORDS SUMMARY | 2024-12-15 08:19 | XMS_ITS | Clinical Summary ---
Author Organization [employer] [facility] ity Address [address] [place] [address] Care Team Providers Care Knit Goods Press Hand Name Role Phone Unavailable Primary Care Provider [...]
--- OUTSIDE RECORDS SUMMARY | 2024-12-15 08:20 | XMS_ITS | Clinical Summary ---
Author Organization [employer] Address [address] [facility] 7 [place] [address] Care Team Providers Care Swimming Pool Maintenance Supervisor Name Role Phone Araceli White MD Primary Care Provider [phone] Allergies Active Allergy Reactions Criticality Noted Date Comments Morphine 07/22/2022 Medications clonazePAM (KlonoPIN) 0.5 MG tablet Take 0.5 mg by mouth if needed in the morning and at bedtime. 11/04/19 23 Active BinaxNOW COVID-19 Ag Home Test kit TEST DIRECTED TODAY 05/27/20 22 Active ramelteon (Rozerem) 8 MG tablet Take 8 mg by mouth at bedtime. 12/12/19 23 Active risperiDONE (RisperDAL) 2 MG tablet Take 2 mg by mouth at bedtime. 11/13/19 23 Active risperiDONE (RisperDAL) 0.5 MG tablet Take 0.5 mg by mouth in the morning. 12/12/19 23 Active risperiDONE (RisperDAL) 1 MG tablet Take 1 mg by mouth in the morning. 03/07/20 24 Active cholecalcifero l (Vitamin D3) 25 MCG (1000 UT) tabletIndicati ons:Vitamin D deficiency Take 1 tablet (25 mcg) by mouth in the morning. 90 tablet 3 04/10/20 24 Active metFORMIN (Glucophage) 500 MG tabletIndicati ons:Type 2 diabetes mellitus without complication, without long-term current use of insulin (CMS/HCC) Take 1 tablet (500 mg) by mouth with breakfast and with evening meal. For weight loss 180 tablet 3 07/17/20 24 025 Active escitalopram (Lexapro) 10 MG tablet Take 10 mg by mouth in the morning. 11/15/19 25 Active zolpidem (Ambien) 10 MG tablet Take 10 mg by mouth if needed at bedtime for sleep. 11/15/19 25 Active Dulaglutide 1.5 MG/0.5ML solution auto-injectorI ndications:Typ e 2 diabetes mellitus without complication, without long-term current use of insulin (CMS/HCC) Inject 1.5 mg under the skin 1 (one) time per week. 2 mL 11 12/08/19 25 Active simvastatin (Zocor) 20 MG tablet Take 1 tablet (20 mg) by mouth at bedtime. 90 tablet 3 12/08/19 25 026 Active dulaglutide (Trulicity) 0.75 MG/0.5ML solution pen-injectorIn dications:Type 2 diabetes mellitus without complication, without long-term current use of insulin (CMS/HCC) Inject 0.75 mg under the skin 1 (one) time per week. Already on Metformin, severe obesity, JASMHID, and HTN 4 each 07/14/20 24 025 Discontinued(Re order (will not trigger notification to Pharmacy)) phentermine 15 MG capsule TAKE 1 CAPSULE BY MOUTH BEFORE BREAKFAST 30 capsule 3 10/26/19 25 025 Discontinued(Co st of medication) Active Problems Problem Noted Date Diagnosed Date Class 3 severe obesity with serious comorbidity and body mass index (BMI) of 40.0 to 44.9 in adult 12/08/2024 Assessment & Plan (12/08/2024 3:22 PM EST): Increase Trulicity to 1.5mg weekly, no side effects noted Continue lifestyle management changes Will self-refer to weight management Severe sleep apnea 04/10/2024 Assessment & Plan (12/08/2024 3:16 PM EST): Wearing CPAP at settings per titration study: PSG 04/2024, needs to have full facemask setting 23/19cm with warm humidification Wearing about 6 hours nightly Feels refreshed and more alert during the day Assessment & Plan (07/17/2024 2:32 PM EDT): [...] use of insulin 10/19/2023 Assessment & Plan (12/08/2024 3:19 PM EST): Current A1c: 6.1 Continue Metformin 500mg BID [...] <130 2 hour post prandial goal: <180 Assessment & Plan (07/17/2024 2:33 PM EDT): [...] therapy Likely recommend PT after xray results Anemia 08/29/2022 Assessment & Plan (01/18/2023 1:09 PM EDT): CBC due today Backache 08/29/2022 Chronic low back pain 08/29/2022 Assessment & Plan (01/18/2023 1:10 PM EDT): Awaiting possible spinal nerve stimulator from [facility] Continue rest, activity modification, medications for now Conductive hearing loss, bilateral 08/29/2022 Developmental academic disorder 08/29/2022 Inflammation of sacroiliac joint 08/29/2022 Assessment & Plan (12/08/2024 3:17 PM EST): Chronic low back pain Offered Sprint device Insomnia 08/29/2022 Intervertebral disc disorder 08/29/2022 Assessment & Plan (04/10/2024 12:01 PM EDT): Will verify with Dr Cabral's office is he is approved for sacral stimulator implant Mixed anxiety and depressive disorder 08/29/2022 Assessment [...] Problem Noted Date Diagnosed Date Resolved Date Morbid obesity with BMI of 45.0-49.9, adult 07/12/2024 12/08/2024 Class 2 obesity 01/18/2023 12/08/2024 Assessment & Plan (04/10/2024 11:57 AM EDT): Metformin may help with weight gain induced by antipsychotic medication He can also begin phentermine 15mg daily Assessment & Plan (01/18/2023 1:09 PM EDT): Trying to lose weight Labs checked today Hemoglobin low 08/29/2022 01/18/2023 Low hemoglobin and low hematocrit 08/29/2022 12/08/2024 Obesity (BMI 30.0-34.9) 01/24/201601/09 Encounters Date Type Department Care Team Description 12/08/2024 2:15 PM EST Office Visit [facility] [address] [place] [phone] Araceli White MD Severe sleep apnea (Primary Dx); Type 2 diabetes mellitus without complication, without long-term current use of insulin (CMS/HCC); Dietary counseling; Exercise counseling; Class 3 severe obesity with serious comorbidity and body mass index (BMI) of 40.0 to 44.9 in adult, unspecified obesity type (CMS/HCC); Inflammation of sacroiliac joint (CMS/HCC); Mixed anxiety and depressive disorder; Conductive hearing loss, bilateral 12/08/2024 Travel 11/24/2024 Patient Outreach [facility] [address] [place] [phone] Araceli White MD Pre-visit Planning (SDOH screening negative and tobacco screening negative) 10/26/2024 Refill [facility] [address] [place] [address] Araceli White MD from Last 3 Months [...] Mass Index 44.91 12/08/2024 2:15 PM EST Plan of Treatment Health Maintenance Due Date Last Done Comments Diabetes: Foot Exam 1991 Eye Exam 1991 Diabetes: Urine Protein Screening 2000 Hepatitis B Vaccines (3 of 3 - 19+ 3-dose series) 09/16/2022 07/22/2022, 09/06/2019 Lipid Panel 01/19/2024 01/18/2023, 0310/2021, 11/05/2020 COVID-19 Vaccine ( season) 2024 11/20/2022, 12/29/2021, 03/31/2021, Additional history exists Influenza Vaccine (#1) 2024 , 07/22/2022, 08/18/2019 Depression Screening 04/10/2025 04/10/2024, 04/10/20 24 Diabetes: Hemoglobin A1C 06/07/2025 025, 07/14/2024, 04/10/2024, Additional history exists SDOH Screening 11/24/2025 11/24/2024 Alcohol/Substance Use Screening 12/08/2025 12/08/2024 Family Planning (PISQ) 12/08/2025 12/08/2024 Tobacco Screening 12/08/2025 12/08/2024 DTaP/Tdap/Td Vaccines (3 - Td or Tdap) [...] complication, without long-term current use of insulin ([facility]) POCT GLUCOSE Routine 12/08/2024 2:18 PM EST Type 2 diabetes mellitus without complication, without long-term current use of insulin ([facility]) LIPID PANEL, STANDARD Routine 01/18/2023 10:19 AM EDT Morbid obesity with BMI of 45.0-49.9, adult ([facility]) ZZZ HISTORICAL HEPATITIS C AB W/REFL TO HCV RNA, QN, PCR Routine 12/29/2021 10:52 AM EDT HIV 1/2 ANTIGEN/ANTIBODY, FOURTH GENERATION W/RFL Routine 12/29/2021 10:52 AM EDT from Last 3 Months or Most Recently Relevant to Health Maintenance Results * (ABNORMAL) POCT HGB A1C (12/08/2024 2:21 PM EST) Pathologist [facility] Hemoglobin A1C 6.1(A) 4.0 - 6.0 % QC Media Lot # [id number] Lot# Expiration Date Blood 12/08/2024 2:21 PM EST Araceli White MD POINT OF CARE TEST ENTER/EDIT ORDERABLES Final Result * POCT Glucose (12/08/2024 2:18 PM EST) Pathologist [facility] Glucose Blood, POC 109 60 - 200 mg/dL QC Media Lot # [id number] Lot# Expiration Date Blood Capillary blood specimen / Unknown 12/08/2024 2:18 PM EST Araceli White MD POINT OF CARE TEST ENTER/EDIT ORDERABLES Final Result * (ABNORMAL) Lipid Panel, Standard (01/18/2023 10:19 AM EDT) Pathologist [facility] Cholesterol, Total 122 <200 mg/dL [email or web address] HDL Cholesterol 32(L) > OR = 40 mg/dL [email or web address] Triglycerides 135 <150 mg/dL [email or web address] LDL Cholesterol 68 mg/dL (calc) [email or web address] Comment: Reference range: <100 Desirable range <100 mg/dL for primary prevention; ?? <70 mg/dL for patients with CHD or diabetic patients with > or = 2 CHD risk factors. LDL-C is now calculated using the Ruthy calculation, which is a validated novel method providing better accuracy than the Friedewald equation in the estimation of LDL-C. Carlos Alberto LAMBERT et al. WESLEY. 2013;310(19): 3336-9143 (http://education.[employer]/faq/YDZ351) Chol/HDLC Ratio 3.8 <5.0 (calc) [email or web address] Non-HDL Cholesterol 90 <130 mg/dL (calc) [email or web address] Comment: For patients with diabetes plus 1 major ASCVD risk factor, treating to a non-HDL-C goal of <100 mg/dL (LDL-C of <70 mg/dL) is considered a therapeutic option. Blood Venous blood specimen / Unknown 01/18/2023 10:19 AM EDT 01/18/2023 10:20 AM EDT Narrative [facility] - 01/19/2023 2:16 AM EDT FASTING:YES FASTING: YES Araceli White MD LAB BLOOD ORDERABLES Final Res ult [facility] [address], [place] [address] [facility] [address] [place] [address] * HEPATITIS C AB W/REFL TO HCV RNA, QN, PCR (12/29/2021 10:52 AM EDT) HEPATITIS C ANTIBODY NON-REACT GERMAN NON-REACT GERMAN [facility] INDEX 0.03 <1.00 [facility] Comment: ?? HCV antibody was non-reactive. There is no laboratory ?? evidence of HCV infection. ?? In most cases, no further action is required. However, if recent HCV exposure is suspected, a test for HCV RNA (test code 07002) is suggested. ?? For additional information please refer to http://education.[employer]/faq/DZM21h6 (This link is being provided for informational/ educational purposes only.) ?? 12/29/2021 10:5 2 AM EDT Araceli White MD HISTORICAL/NON ORDERABLE LABS Final Result Performing Organization Address City/[facility]/ZIP Co de Phone Number [facility] [address] * HIV 1/2 ANTIGEN/ANTIBODY,FOURTH GENERATION W/RFL (12/29/2021 10:52 AM EDT) HIV-1/2 ANTIGEN AND ANTIBODIES, 4TH GENERATION W/ REFLEX NON-REACT GERMAN NON-REACT GERMAN [facility] Comment: HIV-1 antigen and HIV-1/HIV-2 [...] ? For additional information please refer to http://education.[employer]/faq/RSA628 (This link is being provided for informational/ educational purposes only.) ? The performance of this assay has not been clinically validated in patients less than 2 years old. ?? 12/29/2021 10:5 2 AM EDT us Araceli White MD LAB BLOOD ORDERABLES Final Res ult [facility] [address] from Last 3 Months or Most Recently Relevant to Health Maintenance Insurance [facility]IC[place] [address] [place] [phone] Care Teams Swimming Pool Maintenance Supervisor Relationship Specialty Start Date End Date Araceli White MD [address] [place] [phone] PCP - General Family Medicine 06/04/21
--- NOTE | 2024-12-15 14:22 | A.OFFVIS_ITS ---
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 BMI 44.4 Allergies morphine Allergy (Mild, Verified 12/15/24 14:22) Itching Medication List - Last Reconciled 12/15/24 by Morris Borrego MD atorvastatin 20 mg PO DAILY clonazepam 0.5 mg PO BID PRN metformin 500 mg PO BID risperidone 2 mg PO BEDTIME risperidone 1 mg PO BEDTIME zolpidem 10 mg PO BEDTIME PRN HPI HPI TV OTOLARYNGOLOGY SURGEON 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 BMI 44.4: Details: Start time: 2.15pm, End time: 2.53pm ?I spent 33 minutes speaking with the patient on the phone plus an additional 5 minutes reviewing and updating records for a total of 38 minutes HPI Comments Details: Previous weight loss efforts: self diets Wakes up: 7am, Sleeps: 10.30pm Breakfast: skips Lunch: skips Dinner: 4pm (rice, beans, burgers, hot dogs) Snacks: before dinner (oatmeal), after dinner (oatmeal) Exercise: none Fluids: Coffee (2 cups/day with milk and sugar), tea: none, soda: Regular Pepsi (5-6 cans/day), juice: (orange juice: 6 glasses/day, daily), ETOH: none PFSH Medical History (Updated 12/15/24 @ 14:27 by Morris Borrego MD) Anxiety Depression DJD (degenerative joint disease) Hyperlipidemia Sleep apnea treated with continuous positive airway pressure (CPAP) Non-insulin dependent type 2 diabetes mellitus Morbid obesity 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 Cauda equina compression Chronic pain syndrome Spondylosis of lumbar region without myelopathy or radiculopathy Chronic pain syndrome COVID-19 vaccine series completed Surgical History History of surgery S/P epidural steroid injection Social History Patient Tobacco Use Status: Never used Tobacco Telehealth Telehealth Telehealth Platform: Telephone Location of provider rendering services: practice address Location of patient: address on file Patient Identification confirmed using: Name, : Yes Telehealth method: voice only Patient verbally consented to treatment: Yes Patient verbally consented to billing insurance company: Yes Patient informed of any privacy concerns related to visit: Yes Minutes spent on Phone/Video with Pt.: 38 Assessment & Plan Assessment & Plan (1) Morbid obesity: Code(s): E66.01 - Morbid (severe) obesity due to excess calories Category: Medical Plan: 1.? Plan for lap sleeve gastrectomy. If diaphragmatic or ventral hernias are present at time of surgery, these will be repaired laparoscopically as well. I emphasized the importance of close follow-up, adherence to instructions and good communication. The surgery does not replace the need to change your lifestlyle which is the cause of the obesity problem. The surgery provides the motivation to try again to change your lifestyle, it reduces the appetite and make the transition to a better lifestyle easier and doubles the amount of weight you would lose compared to doing the lifestyle change without the surgery . You will need to be on a liquid diet with protein shakes for 2 weeks before surgery to maximize weight loss and boost your nutritional status to recover better from surgery and also for the first two weeks after surgery to let the stomach heal before we introduce other foods. After the first 2 weeks we will introduce protein bars and soft foods like scrambled eggs, cottage cheese and yogurt and after the 6th week will introduce meat, fish and cooked vegetables in small amounts. Over time you should be able to eat everything in small amounts. Side effects like nausea, vomiting, heartburn or abdominal pain are not common in the practice unless you are not following in the practice. This operation requires lifetime commitment to following in our practice and communication with me. You will much less weight and experience side effects if you don?t communicate or not following in the practice. Complications are rare and in our practice is about 1/10 of the national average. However, you can develop bleeding that may require transfusion (hasn?t happened for year in the practice), you may from complications (we did not have any deaths in the practice) and infections. Infections are usually a result of breakdown in communication or not understanding or following directions correctly. They are difficult to treat, they can happen during the first 6 weeks, they may require to be in the hospital for weeks or even months, not being able to eat by mouth and you may have drains and surgeries to try and correct the issue. Other risks and complications include possible conversion to an open procedure, leaks, small bowel obstruction, blood clots, cardiac, or pulmonary complications, as assisted complications such as ulcers, insufficient weight loss and vitamin deficiencies. 2. Nutritional counseling. Start with one CELEBRATE REBUILD protein (buy at [facility] gift [facility]) shake (TWO scoops in 8oz low fat unsweetened almond milk each) at 8am-10am, 1 protein bar (CELEBRATE protein bars, buy at [facility] [employer] shop) at 11am-1pm, one CELEBRATE REBUILD protein (buy at [facility] [employer]) shake (TWO scoops in 8oz low fat unsweetened almond milk each) at 2pm-4pm, dinner at 5pm (12 forks of protein and 12 forks of salad/vegetables), one more protein bar after dinner at 7pm-9pm AND another HALF protein bar at 9pm-10pm. So you do 2 protein shakes, 2.5 protein bars and one meal per day. Meal to include lean meat (beef, fish, pork, turkey, chicken), or [place] yogurt, or egg whites, or beans with a salad with olive oil and fruits (berries, pears, apples, kiwi). Avoid salt, breads, potatoes, rice, pasta, desserts. 3. Each shake would be drunk slowly, like coffee in a period of 2 hours. 4. Cut each bar in 4 pieces and eat each piece in 30min ?to make each bar last 2 hours. 5. I emphasized the importance of measuring accurately the food portion and measure it when serving the food in plate 6. The meal portions include 12 full-size forks of meat and 12 full-size forks of salad. You always eat the meat portion but you can replace up to 6 forks for salad/vegetables with rice, potatoes or pasta, or a fruit ?if you like. The less you do it the better weight loss will be. 7. One full-size fork is what it can be scooped on the fork without falling aside and not what can be bit with the fork. Use regular forks like those you find in a typical restaurant. 8.? Please buy the body composition scale we discussed and send me weight measurements as soon as possible and then once a week. Always include your diet and exercise plan. Alternatively come weekly at the office for weight checks and send me the measurements. 9. Start walking outside daily, tracking calories with a goal of 300 calories per day, daily. Goal is to burn 2000 calories per week on exercise, which means either 300 calories daily, or 400 calories 5 days per week, or 500 calories 4 days per week, or 650 calories 3 days per week. 10. The best choice would be to purchase a stationary bike at home that can track calories. Let me know if you do so I can give you an exercise plan. 11. Goal is to lose at least 1.5-2lbs per week 12. Goal to lose 10% of your weight before surgery, which is about 31lbs. Ultimate weight goal: 278lbs before surgery 13. Please follow the diet plan exactly without any change. If you don't like something about the plan or you feel hungry you need to communicate with me so I can help you revise the plan. You should not change the plan yourself 14. To be scheduled for EGD to assess the stomach's anatomy. The possibility of biopsies was discussed. Patient needs to avoid use of NSAIDs and aspirin for 1 week prior to EGD. You must be on liquids only the day before your endoscopy. Risks of perforation and bleeding was discussed with the patient. This will be an outpatient procedure with IV sedation. Orders: Orders Insulin Today E11.9 - Type 2 diabetes mellitus without complications, E66.01 - Morbid (severe) obesity due to excess calories, E78.5 - Hyperlipidemia, unspecified Complete Blood Count Auto Diff Today E11.9 - Type 2 diabetes mellitus without complications, E66.01 - Morbid (severe) obesity due to excess calories, E78.5 - Hyperlipidemia, unspecified Lipid Panel Today E11.9 - Type 2 diabetes mellitus without complications, E66.01 - Morbid (severe) obesity due to excess calories, E78.5 - Hyperlipidemia, unspecified IRON PROFILE Today E11.9 - Type 2 diabetes mellitus without complications, E66.01 - Morbid (severe) obesity due to excess calories, E78.5 - Hyperlipidemia, unspecified Vitamin B12 and Folate Today E11.9 - Type 2 diabetes mellitus without complications, E66.01 - Morbid (severe) obesity due to excess calories, E78.5 - Hyperlipidemia, unspecified Vitamin A Today E11.9 - Type 2 diabetes mellitus without complications, E66.01 - Morbid (severe) obesity due to excess calories, E78.5 - Hyperlipidemia, unspecified TSH reflex Free T4 Today E11.9 - Type 2 diabetes mellitus without complications, E66.01 - Morbid (severe) obesity due to excess calories, E78.5 - Hyperlipidemia, unspecified Ferritin Today E11.9 - Type 2 diabetes mellitus without complications, E66.01 - Morbid (severe) obesity due to excess calories, E78.5 - Hyperlipidemia, unspecified Vitamin D 25-OH Total Today E11.9 - Type 2 diabetes mellitus without complications, E66.01 - Morbid (severe) obesity due to excess calories, E78.5 - Hyperlipidemia, unspecified XR chest 2V Today E11.9 - Type 2 diabetes mellitus without complications, E66.01 - Morbid (severe) obesity due to excess calories, E78.5 - Hyperlipidemia, unspecified ECG 12 lead EKG Today E11.9 - Type 2 diabetes mellitus without complications, E66.01 - Morbid (severe) obesity due to excess calories, E78.5 - Hyperlipidemia, unspecified FL upper GI w air Today E11.9 - Type 2 diabetes mellitus without complications, E66.01 - Morbid (severe) obesity due to excess calories, E78.5 - Hyperlipidemia, unspecified Hemoglobin A1c Today E11.9 - Type 2 diabetes mellitus without complications, E66.01 - Morbid (severe) obesity due to excess calories, E78.5 - Hyperlipidemia, unspecified H Pylori Breath Test Today E11.9 - Type 2 diabetes mellitus without complications, E66.01 - Morbid (severe) obesity due to excess calories, E78.5 - Hyperlipidemia, unspecified Comprehensive Met. Panel Today E11.9 - Type 2 diabetes mellitus without complications, E66.01 - Morbid (severe) obesity due to excess calories, E78.5 - Hyperlipidemia, unspecified Zinc Today E11.9 - Type 2 diabetes mellitus without complications, E66.01 - Morbid (severe) obesity due to excess calories, E78.5 - Hyperlipidemia, unspecified C Reactive Protein Today E11.9 - Type 2 diabetes mellitus without complications, E66.01 - Morbid (severe) obesity due to excess calories, E78.5 - Hyperlipidemia, unspecified Vitamin B1 Today E11.9 - Type 2 diabetes mellitus without complications, E66.01 - Morbid (severe) obesity due to excess calories, E78.5 - Hyperlipidemia, unspecified US abdomen comp w elastography Today E11.9 - Type 2 diabetes mellitus without complications, E66.01 - Morbid (severe) obesity due to excess calories, E78.5 - Hyperlipidemia, unspecified Referrals Behavioral Health Referral E11.9 - Type 2 diabetes mellitus without complications, E66.01 - Morbid (severe) obesity due to excess calories, E78.5 - Hyperlipidemia, unspecified Nutrition/Dietitian Referral E11.9 - Type 2 diabetes mellitus without complications, E66.01 - Morbid (severe) obesity due to excess calories, E78.5 - Hyperlipidemia, unspecified
[2024-12-15 14:31] VITALS: BMI 44.4
== END 2024-12-15 14:54 | disposition home or self-care (01) ==
LOC: HO.HBS 08:07
PROVIDERS: PCP General Practice; Visit Provider Surgery
DX: E66.813 Obesity, class 3 (principal); Z68.41 Body mass index [BMI] 40.0-44.9, adult
CPT/HCPCS: 99203

== ENCOUNTER → 2024-12-15 08:07 | Outpatient (BNVA) | payer MEDICARE, MEDICAID, SELFPAY | PROVIDERS: PCP General Practice; Visit Provider Surgery ==

== ENCOUNTER 2025-01-18 08:24 | Outpatient (REF) | payer MEDICARE, MEDICAID, SELFPAY ==
--- NOTE | ~2025-01-18 | XR_ITS ---
EXAMINATION: XR CHEST CLINICAL INFORMATION: E66.01 - Morbid (severe) obesity due to excess calories COMPARISON: None available. TECHNIQUE: 2 views of the chest were obtained. FINDINGS: The cardiac, hilar, and mediastinal contours are normal. The lungs are clear bilaterally. There is no pneumothorax or pleural effusion. There is no focal osseous or soft tissue abnormality. XR/XR chest 2V IMPRESSION: Normal chest. Electronically signed by: Arnold Chu MD 01/18/2025 09:17 AM EDT
--- NOTE | ~2025-01-18 | US_ITS ---
EXAMINATION: US ABDOMEN COMPLETE WITH LIVER ELASTOGRAPHY HISTORY: E66.01 - Morbid (severe) obesity due to excess calories TECHNIQUE: Real-time grayscale ultrasound imaging of the abdomen was performed and images were reviewed. COMPARISON: There are no prior studies for comparison. FINDINGS: Liver: The right lobe of the liver measures 20.1 cm in size. The left lobe of the liver measures 12.1 cm in size. The liver demonstrates increased echotexture, consistent with steatosis. The liver surface appears nodular, suggestive of cirrhosis. No focal mass or intrahepatic biliary ductal dilatation is identified. There is normal hepatopedal flow in the portal vein. Ultrasound elastography of the liver was performed with 10 separate measurements of the liver parenchyma with the patient in the supine position. Measurements were obtained approximately 2 cm below Renetta's capsule and perpendicular to the capsule. Images are of satisfactory quality. The median shear wave velocity is 1.53 m/s. The interquartile range/median (IQR/median) is 0.21. Gallbladder and biliary tree: Numerous shadowing calculi are noted in the gallbladder. There is no wall thickening or pericholecystic fluid. There is no sonographic Fajardo sign. The common bile duct is normal in caliber measuring 3 mm. Kidneys: The right kidney measures 10.9 cm in length. The left kidney measures 13.1 cm in length. The kidneys are unremarkable, without evidence of masses, hydronephrosis, or calculi. Pancreas: The pancreatic head, neck, and body are unremarkable. The pancreatic tail is obscured by bowel gas. Spleen: The spleen is normal in size and contour, measuring 11.9 cm in length. Abdominal aorta and inferior vena cava: The visualized portions of the abdominal aorta and inferior vena cava are normal in caliber. There is no free fluid in the abdomen. US/US abdomen comp w elastography IMPRESSION: 1. Hepatomegaly and hepatic steatosis. Nodular liver contour, suggestive of cirrhosis. 2. Cholelithiasis. The median shear wave velocity in the liver is 1.53 m/s, corresponding to a median liver stiffness of 7.10 kPa. The IQR/median value is 0.21. This is indicative of a poor quality data set, and the estimated liver stiffness may be unreliable. Findings are indicative of a low elastography value which rules out advanced chronic liver disease in asymptomatic patients. REFERENCE: Society of Radiologists in Ultrasound Liver Stiffness Thresholds (2020): LIVER STIFFNESS THRESHOLDS: *Shear wave velocity less than 1.3 m/s (Liver Stiffness equal or less than 5 kPa): High probability of being normal. *Shear wave velocity less than 1.7 m/s (Liver Stiffness less than 9 kPa): In the absence of other known clinical signs, rules out compensated advanced chronic liver disease. *Shear wave velocity between 1.7-2.1 m/s (Liver Stiffness 9-13 kPa): Suggestive of compensated advanced chronic liver disease but need further test for confirmation. *Shear wave velocity between 2.1-2.4 m/s (Liver Stiffness 13-17 kPa): Rules in compensated advanced chronic liver disease. *Shear wave velocity greater than 2.4 m/s (Liver Stiffness over 17 kPa): Suggestive of clinically significant portal hypertension. QUALITY OF DATA SET: *IQR/Median value equal or less than 0.15 implies a quality data set. *IQR/Median value over 0.15 implies a poor quality data set. SIGNIFICANT CHANGE FROM PRIOR EXAM: Significant change if liver stiffness measurement is 10% or greater from prior exam. OTHER CONSIDERATIONS: The stage of liver fibrosis may be overestimated in the setting of acute hepatitis, liver inflammation, elevated liver function tests, hepatic vascular congestion, obstructive cholestasis, non-fasting state, and infiltrative diseases such as amyloidosis and lymphoma. In some patients with NAFLD, the liver stiffness thresholds for compensated advanced chronic liver disease may be lower. In causes other than viral hepatitis and NAFLD, liver stiffness thresholds are not well established. Electronically signed by: Tate Lowery MD 01/18/2025 09:29 AM EDT
--- OUTSIDE RECORDS SUMMARY | 2025-01-18 08:35 | XMS_ITS | Encounter Summary ---
Author Organization [employer] Address [address] [facility] [address] [place] [address] Care Team Providers Care Auto Body Straightener Name Role Phone Araceli White MD Primary Care Provider [phone] Encounter Details Date Type Department Care Team (Late st Contact Info) Description 01/20/2023 Orders Only [facility] [address] [place], [place] [phone] Araceli White MD [address] [place], [place] [phone] Prediabetes (Primary Dx) Social History Tobacco Use [...] documented as of this encounter Care Teams Auto Body Straightener Relationship Specialty Start Date End Date Araceli White MD [address] [place] [address] PCP - General Family Medicine 06/04/21 documented as of this encounter
--- OUTSIDE RECORDS SUMMARY | 2025-01-18 08:35 | XMS_ITS | Encounter Summary ---
Author Organization [employer] Address [address] [facility] 7t [place] [address] Care Team Providers Care Rn Dialysis Name Role Phone Araceli Whtie MD Primary Care Provider [phone] Reason for Referral * Consultation (Routine) - Authorized Specialty Diagnoses / Procedures Referred By Contac t Referred To Contact Audiology Diagnoses Conductive hearing loss, bilateral Araceli White MD [address] [place] [address] Phone: tel: fax: [facility] [address] 1st Floor [place], [place] Phone: tel: fax: Referral ID Status Reason Start Date Expiration Date Visits Requested Visits Authorized [id number] Authorized Specialty Services Required 02/06/2024 02/05/2025 1 1 Encounter Details Date Type Department Care Team (Late st Contact Info) Description 02/06/2024 Orders Only [facility] MEDICINE [address] [place], [place] [phone] Araceli White MD [address] [place], [place] [phone] Conductive hearing loss, bilateral (Primary Dx) Social [...] documented as of this encounter Care Teams Rn Dialysis Relationship Specialty Start Date End Date Araceli White MD [address] [place] [address] PCP - General Family Medicine 06/04/21 documented as of this encounter
--- OUTSIDE RECORDS SUMMARY | 2025-01-18 08:35 | XMS_ITS | Clinical Summary ---
Author Organization [facility] Address [address] [place] [address] Care Team Providers Care Television Mechanic Name Role Phone Vic Ocampo MD Primary Care Provider [phone] Source Comments PLEASE NOTE, if this patient [...] Health Maintenance Due Date Last Done Comments Anxiety Screening 1981 Hepatitis C Screening 1981 Tobacco Screening 1981 Hypertension Screening (#1) 01/23/2017 Imm-Hepatitis B (3 of 3 - 19 + 3-dose series) 09/16/2022 07/22/2022, 09/06/2019 Tak-MMNGU-10 ( season) 2024 021, 03/08/2021 Imm-Influenza (#1) 2024 07/22/2022, 08/18/2019 Alcohol and Drug Screen 10/11/2024 01/24/2016 Depression Annual Screen 10/11/2024 Diabetes Screening 01/18/2026 01/18/2023, 0 01/18/2023, 01/18/2023, Additional history exists Lipid Screening 01/19/2028 01/18/2023, [...] EDT) GLYCATED HEMOGLOBIN A1C 4.9 <6.5 % [facility] EST[facility] AVERAGE GLUCOSE 94 mg/dL [facility] Blood specimen (specimen) Blood / Unknown 01/24/2016 9:20 AM EDT 01/24/2016 11:13 AM EDT Narrative [facility] - 01/25/2016 11:31 AM EDT [employer] [address] [place] [address] PT ID [id number] ORD# [id number] Vic Ocampo MD LAB - BLOOD DRAW Final Result [facility] [address] [place] [address], [place] [phone] * (ABNORMAL) LIPID PANEL (01/24/2016 9:20 AM EDT) CHOLESTEROL 102 0 - 200 mg/dL [facility] TRIGLYCERIDES 66 0 - 150 mg/dL [facility] HDL CHOLESTEROL 36(L) >40 mg/dL [facility] LDL CALCULATED 53 0 - 100 mg/dL [facility] TC-HDLC RATIO 2.8 0 - 4.4 mg/dL [facility] Blood specimen (specimen) Blood / Unknown 01/24/2016 9:20 AM EDT 01/24/2016 11:13 AM EDT [facility] - 01/24/2016 4:00 PM EDT [facility] [employer] [address] [place] [address] PT ID [id number] ORD# [id number] Vic Ocampo MD LAB - BLOOD DRAW Final Result Performing Organization Address City/[facility]/ZIP Co de Phone Number [facility] [address] [place] [address], [place] [phone] from Last 3 Months or Most Recently Relevant to Health Maintenance Insurance [facility] HE[employer] [facility] Member Subscriber Plan / Payer (Ef fective 2015-Present) Name:Krzysztof Moralez Relation to Subscriber:Self Name:Krzysztof Moralez Payer ID:[id number] Group ID:[id number] Type:Medicaid Address: [facility] [address] [place] [address] Care Teams Television Mechanic Relationship Specialty Start Date End Date Vic Ocampo MD [address] [place] [address] PCP - General Internal Medicine 11/11/15
--- OUTSIDE RECORDS SUMMARY | 2025-01-18 08:35 | XMS_ITS | Clinical Summary ---
Author Organization [employer] [facility] ity Address [address] [place] [address] Care Team Providers Care Manager Inside Name Role Phone Unavailable Primary Care Provider [...] age to complete this topic Meningococcal B Vaccine Aged Out No l onger eligible based on patient's age to complete [...]
--- OUTSIDE RECORDS SUMMARY | 2025-01-18 08:35 | XMS_ITS | Clinical Summary ---
Author Organization [employer] Address [address] [place] [address] 7 [place] [address] Care Team Providers Care Juice Tester Name Role Phone Araceli White MD Primary Care Provider Allergies Active Allergy Reactions Criticality Noted Date [...] the morning. 90 tablet 3 4 Active metFORMIN (Glucophage) 500 MG tabletIndicatio ns:Type 2 diabetes mellitus without complication, without long-term current use of insulin (CMS/HCC) Take 1 tablet (500 mg) by mouth with breakfast and with evening meal. For weight loss 180 tablet 3 4 07/17/20 25 Active escitalopram (Lexapro) 10 MG tablet Take 10 mg by mouth in the morning. Active zolpidem (Ambien) 10 MG tablet Take 10 mg by mouth if needed at bedtime for sleep. Active Dulaglutide 1.5 MG/0.5ML solution auto-injectorIn dications:Type 2 diabetes mellitus without complication, without long-term current use of insulin (CMS/HCC) Inject 1.5 mg under the skin 1 (one) time per week. 2 mL 11 Active simvastatin (Zocor) 20 MG tablet Take 1 tablet (20 mg) by mouth at bedtime. 90 tablet 3 5 12/08/19 26 Active Active Problems Problem Noted Date Diagnosed [...] EDT): Awaiting possible spinal nerve stimulator from [facility] Continue rest, activity modification, medications for now [...] Description 12/08/2024 2:15 PM EST Office Visit [facility] MEDICINE [address] [place] [address] Araceli White MD Severe sleep apnea (Primary [...] loss, bilateral 12/08/2024 Travel 11/24/2024 Patient Outreach [facility] MEDICINE [address] [place] [address] Araceli White MD Pre-visit Planning (SDOH screening negative and tobacco screening negative) 10/26/[address] [address] Araceli White MD from Last 3 Months [...] 09/16/2022 07/22/2022, 09/06/2019 Lipid Panel 01/19/2024 01/18/2023, 12/10, 11/05/2020 COVID-19 Vaccine ( season) 2024 11/20/2022, [...] complication, without long-term current use of insulin ([facility]) POCT GLUCOSE Routine 12/08/2024 2:18 PM EST Type 2 diabetes mellitus without complication, without long-term current use of insulin ([facility]) LIPID PANEL, STANDARD Routine 01/18/2023 10:19 AM EDT Morbid obesity with BMI of 45.0-49.9, adult ([facility]) ZZZ HISTORICAL HEPATITIS C AB [...] Media Lot # [id number] Lot# Expiration Date 193 Blood 12/08/2024 2:21 PM EST Araceli White MD POINT OF CARE TEST ENTER/EDIT ORDERABLES Final Result * POCT Glucose (12/08/2024 2:18 PM EST) Glucose Blood, POC 109 60 - 200 mg/dL QC Media Lot # [id number] Lot# Expiration Date [id number] Blood Capillary blood specimen / Unknown 12/08/2024 2:18 PM EST Araceli White MD POINT OF CARE TEST ENTER/EDIT ORDERABLES Final Result * (ABNORMAL) Lipid Panel, Standard (01/18/2023 10:19 AM EDT) [facility] Cholesterol, Total 122 <200 mg/dL [employer] HDL Cholesterol 32(L) > OR = 40 mg/dL [employer] Triglycerides 135 <150 mg/dL [employer] LDL Cholesterol 68 mg/dL (calc) [employer] Comment: Reference range: <100 Desirable range <100 mg/dL for primary prevention; ?? <70 mg/dL for patients with CHD or diabetic patients with > or = 2 CHD risk factors. LDL-C is now calculated using the Carlos Alberto-Jorge calculation, which is a validated novel method providing better accuracy than the Friedewald equation in the estimation of LDL-C. Carlos Alberto SS et al. WESLEY. 2013;310(19): 9667-5642 (http://education.@Pay.[place]/faq/IRT608) Chol/HDLC Ratio 3.8 <5.0 (calc) [employer] Non-HDL Cholesterol 90 <130 mg/dL (calc) [employer] Comment: For patients with diabetes plus 1 major ASCVD risk factor, treating to a non-HDL-C goal of <100 mg/dL (LDL-C of <70 mg/dL) is considered a therapeutic option. Blood Venous blood specimen / Unknown 01/18/2023 10:19 AM EDT 01/18/2023 10:20 AM EDT Narrative [facility] - 01/19/2023 2:16 AM EDT FASTING:YES FASTING: YES Araceli White MD LAB BLOOD ORDERABLES Final Res ult [facility] [address], [place] [address] [employer] [facility] [address] [place] [address] * HEPATITIS C AB W/REFL TO HCV RNA, QN, PCR (12/29/2021 10:52 AM EDT) HEPATITIS C ANTIBODY NON-REACT GERMAN NON-REACT GERMAN [facility] INDEX 0.03 <1.00 [facility] Comment: ?? HCV antibody was non-reactive. There is no laboratory ?? evidence of HCV infection. ?? In most cases, no further action is required. However, if recent HCV exposure is suspected, a test for HCV RNA (test code 76691) is suggested. ?? For additional information please refer to http://education.GRID/faq/XQE92p4 (This link is being provided for informational/ educational purposes only.) ?? 12/29/2021 10:5 2 AM EDT Araceli White MD HISTORICAL/NON ORDERABLE LABS Final Result Performing Organization Address City/[facility]/ZIP Co de Phone Number [facility] [address] * HIV 1/2 ANTIGEN/ANTIBODY,FOURTH GENERATION W/RFL (12/29/2021 10:52 AM EDT) HIV-1/2 ANTIGEN AND ANTIBODIES, 4TH GENERATION W/ REFLEX NON-REACT GERMAN NON-REACT GERMAN [facility] Comment: HIV-1 antigen and HIV-1/HIV-2 [...] ? For additional information please refer to http://education.GRID/faq/GRR547 (This link is being provided for informational/ educational purposes only.) ? The performance of this assay has not been clinically validated in patients less than 2 years old. ?? 12/29/2021 10:5 2 AM EDT us Araceli White MD LAB BLOOD ORDERABLES Final Res ult [facility] [address] from Last 3 Months or Most Recently Relevant to Health Maintenance [place] [address] [place] [address] STANDARD MEDICARE Care Teams Juice Tester Relationship Specialty Start Date End Date Araceli White MD [address] [place] [address] PCP - General Family Medicine 06/04/21
--- OUTSIDE RECORDS SUMMARY | 2025-01-18 08:35 | XMS_ITS | Encounter Summary ---
Author Organization [employer] Address [address] [facility] 7t [place] [address] Care Team Providers Care Home Health Outreach Coordinator Name Role Phone Araceli White MD Primary Care Provider [phone] Encounter Details Date Type Department Care Team ([facility] st Contact Info) Description 09/27/2023 Telephone [facility] MEDICINE [address] [place], [place] [phone] Araceli White MD [address] [place], [place] [phone] Social History Tobacco Use Types Packs/Day Years [...] documented as of this encounter Care Teams Home Health Outreach Coordinator Relationship Specialty Start Date End Date Araceli White MD [address] [place] [address] PCP - General Family Medicine 06/04/21 documented as of this encounter
[2025-01-18 09:21] LABS: MANUAL DIFF FLAG NO
[2025-01-18 10:26] LABS: Basophils Percent Auto 0.6 % (0-2); Eosinophils Absolute Auto 0.1 X10*3/uL (0.0-0.4); Eosinophils Percent Auto 1.6 % (0-4); Hematocrit 40.3 % (42.0-52.0); Hemoglobin 13.4 g/dl (14.0-18.0); Imm Gran Abs Auto 0.04 X10*3/uL (0.00-0.03); Imm Gran Pct Auto 0.6 % (0.0-0.4); Lymphocytes Absolute Auto 1.9 X10*3/uL (1.2-4.9); Lymphocytes Percent Auto 28.6 % (20-40); Mean Corpuscular HGB Conc 33.3 g/dl (31.0-36.0); Mean Corpuscular Hemoglobin 28.3 pg (27.0-33.0); Mean Corpuscular Volume 85.2 fL (80.0-98.0); Mean Platelet Volume 9.4 fL (9.4-12.4); Monocytes Absolute Auto 0.5 X10*3/uL (0.1-1.2); Monocytes Percent Auto 7.7 % (2-11); Neutrophils Absolute Auto 4.1 x10*3/uL (2.0-8.3); Neutrophils Percent Auto 60.9 % (45-73); Platelet Count 256 X10*3/uL (160-400); Red Blood Count 4.73 X10*6/uL (4.60-5.80); Red Cell Distribution Width 12.8 % (11.0-16.0); White Blood Count 6.7 X10*3/uL (4.8-10.8)
[2025-01-18 10:32] LABS: Estimated Average Glucose 123 mg/dL; Hemoglobin A1C 144.2493 umol/L; Hemoglobin A1c % 5.9 % (<6.0)
[2025-01-18 11:14] LABS: Alanine Aminotransferase 40 U/L (0-40); Albumin Level 4.1 g/dL (3.5-5.0); Alkaline Phosphatase 77 U/L (39-117); Anion Gap 11 (12-20); Aspartate Amino Transferase 27 U/L (5-37); Bilirubin Total 0.6 mg/dL (0.0-1.0); Blood Urea Nitrogen 10 mg/dL (9-16); C Reactive Protein 0.66 mg/dL (< or = 0.50); Calcium 9.3 mg/dL (8.4-10.2); Carbon Dioxide 27 mmol/L (22-29); Chloride 108 mmol/L (96-108); Cholesterol 105 mg/dL (<200); Estimated Glomerular Filt Rate > 60; Glucose Random 111 mg/dL (60-115); HDL Cholesterol 30 mg/dL (>40); Iron 72 mcg/dL (45-160); LDL Cholesterol Calculated 61 mg/dL (<100); Percent Iron Saturation 22 % (15-50); Potassium 4.1 mmol/L (3.3-5.1); Sodium 142 mmol/L (135-145); Total Iron Binding Capacity 329 mcg/dL (228-428); Total Protein 7.2 g/dL (6.5-8.0); Triglycerides 71 mg/dL (<150); Unsaturated Iron Binding 257 ug/dL
[2025-01-18 11:43] LABS: Ferritin 40 ng/mL (20-250); TSH reflex Free T4 1.86 uIU/mL (0.32-4.0); Vitamin D 25-OH Total 11.9 ng/mL (>30)
[2025-01-18 11:49] LABS: Folate 12.4 ng/mL (> or = 4.0); Vitamin B12 246 pg/mL (200-900)
[2025-01-18 11:56] LABS: Insulin 20 uU/mL (2-29)
[2025-01-21 23:28] LABS: Zinc 57 mcg/dL (60-130)
[2025-01-23 16:03] LABS: Vitamin A 35 mcg/dL (38-98)
[2025-01-30 15:18] LABS: Vitamin B1 9 nmol/L (8-30)
== END 2025-01-18 08:25 | disposition home or self-care (01) ==
LOC: HO.US 08:24
PROVIDERS: PCP General Practice; Visit Provider Surgery
DX: E66.01 Morbid (severe) obesity due to excess calories (principal); E11.9 Type 2 diabetes mellitus without complications; E78.5 Hyperlipidemia, unspecified
CPT/HCPCS: 36415; 71046; 76700; 76981; 80053; 80061; 82306; 82607; 82728; 82746; 83036; 83525; 83540; 84425; 84443; 84590; 84630; 85025; 86140

== ENCOUNTER → 2025-01-18 08:26 | Outpatient (BNV) | payer MEDICARE, MEDICAID, SELFPAY | PROVIDERS: PCP General Practice; Visit Provider Radiology Diagnostic Radiology | DX: E66.01 Morbid (severe) obesity due to excess calories (principal) | CPT/HCPCS: 71046; 76700; 76981 ==

== ENCOUNTER 2025-02-02 10:47 | Day surgery (SDC) | payer MEDICARE, MEDICAID, SELFPAY ==
--- OUTSIDE RECORDS SUMMARY | 2025-01-31 07:33 | XMS_ITS | Encounter Summary ---
Author Organization [employer] Address [address] [facility] 7t [place] [address] Care Team Providers Care Concrete Polisher Name Role Phone Araceli White MD Primary Care Provider [phone] Encounter Details Date Type Department Care Team ([facility] st Contact Info) Description 09/27/2023 Telephone [facility] MEDICINE [address] [place], [place] [phone] Araceli White MD [address] [place], [place] [phone] Social History Tobacco Use Types Packs/Day Years [...] documented as of this encounter Care Teams Concrete Polisher Relationship Specialty Start Date End Date Araceli White MD [address] [place] [address] PCP - General Family Medicine 06/04/21 documented as of this encounter
--- OUTSIDE RECORDS SUMMARY | 2025-01-31 07:33 | XMS_ITS | Encounter Summary ---
Author Organization [employer] Address [address] [facility] 7t [place] [address] Care Team Providers Care Caretaker Resort Name Role Phone Araceli White MD Primary Care Provider [phone] Reason for Referral * Consultation (Routine) - Authorized Specialty Diagnoses / Procedures Referred By Contac t Referred To Contact Audiology Diagnoses Conductive hearing loss, bilateral Araceli White MD [address] [place] [address] Phone: tel: fax: [facility] [place] Audiology [address] 1[address] Floor [place], [place] Phone: tel: fax: Referral ID Status Reason Start Date Expiration Date Visits Requested Visits Authorized [id number] Authorized Specialty Services Required 02/06/2024 02/05/2025 1 1 Encounter Details Date Type Department Care Team (Late st Contact Info) Description 02/06/2024 Orders Only [facility] MEDICINE [address] [place], [place] [phone] Araceli White MD [address] [place], [place] [phone] Conductive hearing loss, bilateral (Primary Dx) Social [...] documented as of this encounter Care Teams Caretaker Resort Relationship Specialty Start Date End Date Araceli White MD [address] [place] [address] PCP - General Family Medicine 06/04/21 documented as of this encounter
--- OUTSIDE RECORDS SUMMARY | 2025-01-31 07:34 | XMS_ITS | Encounter Summary ---
Author Organization [employer] Address [address] [facility] 7t [place] [address] Care Team Providers Care Suction Operator Name Role Phone Araceli White MD Primary Care Provider [phone] Encounter Details Date Type Department Care Team (Late st Contact Info) Description 01/20/2023 Orders Only [facility] MEDICINE [address] [place], [place] [phone] Araceli White MD [address] [place], [place] [phone] Prediabetes (Primary Dx) Social History Tobacco Use [...] documented as of this encounter Care Teams Suction Operator Relationship Specialty Start Date End Date Araceli White MD [address] [place] [address] PCP - General Family Medicine 06/04/21 documented as of this encounter
--- OUTSIDE RECORDS SUMMARY | 2025-01-31 07:34 | XMS_ITS | Clinical Summary ---
Author Organization [employer] [facility] ity Address [address] [place] [address] Care Team Providers Care Parimutuel Ticket Seller Name Role Phone Unavailable Primary Care Provider [...] Vaccine (2023-2 5 season) 2024 Influenza Vaccine (Season Ended) 2025 HIB Vaccines Aged Out No longer eligi [...]
--- OUTSIDE RECORDS SUMMARY | 2025-01-31 07:34 | XMS_ITS | Clinical Summary ---
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 [address] [place] [phone] Araceli White MD Severe sleep apnea (Primary [...] 12/08/2024 Travel 11/24/2024 Patient Outreach [facility] [address] [place] [phone] Araceli White MD Pre-visit Planning (SDOH screening negative and tobacco screening negative) from Last 3 Months Immunizations Name Administration [...] - 19+ 3-dose series) 09/16/2022 07/22/2022, 09/06/2019 COVID-19 Vaccine ( season) 2024 11/20/2022, 12/29/2021, 03/31/2021, Additional history exists Influenza Vaccine (#1) 2024 , 07/22/2022, 08/18/2019 Depression Screening 04/10/2025 04/10/2024, 04/10/20 24 Diabetes: Hemoglobin A1C 07/20/2025 025, 12/08/2024, 07/14/2024, Additional history exists SDOH Screening 11/24/2025 11/24/2024 Alcohol/Substance Use Screening 12/08/2025 12/08/2024 Family Planning (PISQ) 12/08/2025 12/08/2024 Tobacco Screening 12/08/2025 12/08/2024 Lipid Panel 01/18/2026 01/18/2025, 04/1 , 12/29/2021, Additional history exists DTaP/Tdap/Td Vaccines (3 - Td or Tdap) 01/17/2031 01/17/2021, 08/18/2019 Zoster Vaccines (1 of 2) 2031 RSV Patients and Patients Aged 60 years or older (1 - 1-dose 75+ series) 2056 HIV Screening Completed 12/29/2021 Hepatitis C Screening Completed 12/29/2021 Hepatitis A Vaccines Aged Out 07/22/2022, 11/27/20 19 No longer eligible based on patient's [...] Procedure Name Priority Date/Time Associated Diagnosis Comments VITAMIN B1 Routine 01/18/2025 9:14 AM EDT VITAMIN A Routine 01/18/2025 9:14 AM EDT ZINC Routine 01/18/2025 9:14 AM EDT INSULIN Routine 01/18/2025 9:14 AM EDT VITAMIN B12/FOLATE, SERUM PANEL Routine 01/18/2025 9:14 AM EDT TSH W/REFLEX TO FT4 Routine 01/18/2025 9 :14 AM EDT VITAMIN D,25-OH,TOTAL,IA Routine 01/18/2025 9:14 AM EDT FERRITIN Routine 01/18/2025 9:14 AM EDT LIPID PANEL, STANDARD Routine 01/18/2025 9:14 AM EDT C-REACTIVE PROTEIN Routine 01/18/2025 9: 14 AM EDT IRON AND TOTAL IRON BINDING CAPACITY Routine 01/18/2025 9:14 AM EDT COMPREHENSIVE METABOLIC PANEL Routine 01/18/2025 9:14 AM EDT HEMOGLOBIN A1C Routine 01/18/2025 9:14 AM EDT CBC WITH AUTO DIFFERENTIAL Routine 01/18/2025 9:14 AM EDT XR CHEST 2 VIEWS Routine 01/18/2025 9:00 AM EDT US ABDOMEN COMPLETE WITH ELASTOGRAPHY Routine 01/18/2025 8:45 AM EDT POCT GLYCATED HEMOGLOBIN, TOTAL Routine 12/08/2024 2:21 PM EST Type 2 diabetes mellitus without complication, without long-term current use of insulin (CMS/HCC) POCT GLUCOSE Routine 12/08/2024 2:18 PM EST Type 2 diabetes mellitus without complication, without long-term current use of insulin (CMS/HCC) ZZZ HISTORICAL HEPATITIS C AB W/REFL TO HCV RNA, QN, PCR Routine 12/29/2021 10:52 AM EDT HIV 1/2 ANTIGEN/ANTIBODY, FOURTH GENERATION W/RFL Routine 12/29/2021 10:52 AM EDT from Last 3 Months or Most Recently Relevant to Health Maintenance Results * (ABNORMAL) Vitamin D, 25-Hydroxy, Total, Immunoassay (01/18/2025 9:14 AM EDT) Pathologist [facility] Vitamin D 25-OH Total 11.9(L) >30 ng/mL [facility] Comment: Health Based Reference Values*< 20 ??ng/mL ??Fxxiniito65-16 ng/mL ??Insufficient> 30 ??ng/mL ??Sufficient*Maci GONZALEZ. N Engl J Med. 2007;357:266-280There is no well-established upper level of normal vitamin Dlevels. Some laboratories use 50 ng/mL as an upper limit ofnormal. However, toxicity is patient-dependent and may occurat any level. Careful correlation with the patient'spresentation is necessary and, if there is concern forvitamin D toxicity, treatment should be consideredirrespective of the serum level.Care must be taken in interpreting Vitamin D results fromdifferent laboratories and methodologies. ??Published datademonstrated that results from patients undergoinghemodialysis may show a negative bias when tested withvarious automated 25-OH vitamin D assays when compared toLC- MS/MS.When testing samples from patients whose predominant form ofVitamin D is Vitamin D2, such as patients receiving VitaminD2 supplementation, results that are subtherapeutic shouldbe confirmed with another method such as LC-MS/MS. 01/18/2025 9:14 AM EDT 01/18/2025 9:20 AM EDT Generic External Data Provider LAB BLOOD ORDERAB LES Final Result Performing Organization Address [facility] Co de Phone Number [facility] [address] [place] [phone] * Vitamin B12 (Cobalamin) and Folate Panel, Serum (01/18/2025 9:14 AM EDT) Vitamin B12 246 200 - 900 pg/mL [facility] Comment:NORMAL 200-900 PG/ML INDETERMINATE 160-199 PG/ML DEFICIENT < 160 PG/ML Folate 12.4 > or = 4.0 ng/mL [facility] Comment:Reference Values:> o r = 4.0 ng/mL< 4.0 ng/mL suggests folate deficiency Methotrexate, aminopterin and folinic acid(leucovorin) are chemotherapeutic agents whose molecularstructures are similar to folate; therefore, the Architectfolate assay cannot be used for patients using these drugs. 01/18/2025 9:14 AM EDT 01/18/2025 9:20 AM EDT Generic External Data Provider LAB BLOOD ORDERAB LES Final Result Performing Organization Address [facility] Co de Phone Number [facility] [address] [place] [phone] * TSH with Reflex to Free T4 (01/18/2025 9:14 AM EDT) TSH reflex Free T4 1.86 0.32 - 4.0 uIU/mL [facility] 01/18/2025 9:14 AM EDT 01/18/2025 9:20 AM EDT us Generic External Data Provider LAB BLOOD ORDERAB LES Final Result Performing Organization Address City/State/[facility] Co de Phone Number [facility] [address] [place] [phone] * (ABNORMAL) CBC auto differential (01/18/2025 9:14 AM EDT) [facility] White Blood Count 6.7 4.8 - 10.8 X10*3/uL [facility] Red Blood Count 4.73 4.60 - 5.80 X10*6/uL [facility] Hemoglobin 13.4(L) 14.0 - 18.0 g/dl [facility] Hematocrit 40.3(L) 42.0 - 52.0 % [facility] Mean Corpuscular Volume 85.2 80.0 - 98.0 fL [facility] Mean Corpuscular Hemoglobin 28.3 27.0 - 33.0 pg [facility] Mean Corpuscular HGB Conc 33.3 31.0 - 36.0 g/dl [facility] Red Cell Distribution Width 12.8 11.0 - 16.0 % [facility] Platelet Count 256 160 - 400 X10*3/uL [facility] Mean Platelet Volume 9.4 9.4 - 12.4 fL [facility] Neutrophils Percent Auto 60.9 45 - 73 % [facility] Imm Gran Pct Auto 0.6(H) 0.0 - 0.4 % [facility] Lymphocytes Percent Auto 28.6 20 - 40 % [facility] Monocytes Percent Auto 7.7 2 - 11 % [facility] Eosinophils Percent Auto 1.6 0 - 4 % [facility] Basophils Percent Auto 0.6 0 - 2 % [facility] NRBC Pct Auto 0.0 0.0 - 0.2 /100WBC [facility] Neutrophils Absolute Auto 4.1 2.0 - 8.3 x10*3/uL [facility] Imm Gran Abs Auto 0.04(H) 0.00 - 0.03 X10*3/uL [facility] Lymphocytes Absolute Auto 1.9 1.2 - 4.9 X10*3/uL [facility] Monocytes Absolute Auto 0.5 0.1 - 1.2 X10*3/uL [facility] Eosinophils Absolute Auto 0.1 0.0 - 0.4 X10*3/uL [facility] Basophils Absolute Auto 0.0 0.0 - 0.2 X10*3/uL [facility] NRBC Abs Auto 0.000 0.0 - 0.012 X10*3/uL [facility] 01/18/2025 9:14 AM EDT 01/18/2025 9:20 AM EDT us Generic External Data Provider LAB BLOOD ORDERAB LES Final Result Performing Organization Address [facility]/ZIP Co de Phone Number [facility] [address] [place] [phone] * Iron And Total Iron Binding Capacity (01/18/2025 9:14 AM EDT) Iron 72 45 - 160 mcg/dL [facility] Total Iron Binding Capacity 329 228 - 428 mcg/dL [facility] Percent Iron Saturation 22 15 - 50 % [facility] Unsaturated Iron Binding 257 ug/dL [facility] 01/18/2025 9:14 AM EDT 01/18/2025 9:20 AM EDT us Generic External Data Provider LAB BLOOD ORDERAB LES Final Result Performing Organization Address [facility]/ZIP Co de Phone Number [facility] [address] [place] [phone] * Insulin (01/18/2025 9:14 AM EDT) Insulin 20 2 - 29 uU/mL [facility] Comment:This test was perfor med using the Velazquez chemiluminescentmethod. Values obtained from different assay methods cannot beused interchangeably. This insulin assay shows a possiblecross-reactivity with antibodies generated against insulin(immunoreactive insulin and some patients treated withbovine or porcine insulin). Insulin levels may be measuredlower in patients with insulin autoimmune syndrome orfamilial high pro-insulinemia. 01/18/2025 9:14 AM EDT 01/18/2025 9:20 AM EDT Generic External Data Provider LAB BLOOD ORDERAB LES Final Result Performing Organization Address [facility] Co de Phone Number [facility] [address] [place] [phone] * (ABNORMAL) Zinc (01/18/2025 9:14 AM EDT) Zinc 57(A) 60 - 130 mcg/dL [facility] Comment:This test was develo ped and its analytical performancecharacteristics have been determined by [employer] [place]. It hasnot been cleared or approved by the U.S. Food and DrugAdministration. This assay has been validated pursuantto the CLIA regulations and is used for clinicalpurposes.THIS TEST WAS PERFORMED AT:[facility] [place] [id number] RILEY MD,PHD 01/18/2025 9:14 AM EDT 01/18/2025 9:20 AM EDT Generic External Data Provider LAB BLOOD ORDERAB LES Final Result Performing Organization Address [facility] de Phone Number [facility] [address] [place] [phone] * (ABNORMAL) Vitamin A (01/18/2025 9:14 AM EDT) [facility] Vitamin A (Retinol) 35(A) 38 - 98 mcg/dL [facility] Comment:Vitamin supplementat ion within 24 hours prior toblood draw may affect the accuracy of the results.This test was developed and its analytical performancecharacteristics have been determined by [employer] [place]. It hasnot been cleared or approved by the U.S. Food and DrugAdministration. This assay has been validated pursuantto the CLIA regulations and is used for clinicalpurposes.THIS TEST WAS PERFORMED AT:[employer] [place] [id number] RILEY MD,PHD 01/18/2025 9:14 AM EDT 01/18/2025 9:20 AM EDT Generic External Data Provider LAB BLOOD ORDERAB LES Final Result Performing Organization Address [facility]/ZIP Co de Phone Number [facility] [address] [place] [address] [phone] * (ABNORMAL) C-reactive Protein (01/18/2025 9:14 AM EDT) [facility] C Reactive Protein 0.66(H) < or = 0.50 mg/dL [facility] 01/18/2025 9:14 AM EDT 01/18/2025 9:20 AM EDT Generic External Data Provider LAB BLOOD ORDERAB LES Final Result Performing Organization Address City/[facility]/ZIP Co de Phone Number [facility] [address] [place] [phone] * Vitamin B1 (01/18/2025 9:14 AM EDT) [facility] Vitamin B1 9 8 - 30 nmol/L [facility] Comment:Vitamin supplementat ion within 24 hours prior toblood draw may affect the accuracy of the results.This test was developed and its analytical performancecharacteristics have been determined by [employer] [place]. It hasnot been cleared or approved by the U.S. Food and DrugAdministration. This assay has been validated pursuantto the CLIA regulations and is used for clinicalpurposes.THIS TEST WAS PERFORMED AT:[facility] [place] [address]USCZLPBKAJAL RILEY MD,PHD 01/18/2025 9:14 AM EDT 01/18/2025 9:20 AM EDT us Generic External Data Provider LAB BLOOD ORDERAB LES Final Result Performing Organization Address [facility] Co de Phone Number [facility] [address] [place] [phone] * Hemoglobin A1c (01/18/2025 9:14 AM EDT) Hemoglobin A1c 5.9 <6.0 % [facility] Comment:Hemoglobin A1C Refer ence Range Adults: 4.8 - 6.0 % Non diabetic: < 6.0 % Goal: < 7.0 %Additional Action Suggested: > 8.0 %Note: Hemoglobin A1c results are invalid for patients with abnormal amounts of HbF. Blood transfusions may impact the HbA1c concentration in the patient sample. Estimated Average Glucose 123 mg/dL [facility] Comment:eAG = Estimated ave rage glucose which is %A1C expressed asaverage glucose, using the formula of the U5Y-KzevgteCuhxmxb Glucose study (ADAG), Diabetes Care, Vol.31,#8,May. 2007 01/18/2025 9:14 AM EDT 01/18/2025 9:20 AM EDT us Generic External Data Provider LAB BLOOD ORDERAB LES Final Result Performing Organization Address [facility] Co de Phone Number [facility] [address] [place] [phone] * Ferritin (01/18/2025 9:14 AM EDT) Ferritin 40 20 - 250 ng/mL [facility] 01/18/2025 9:14 AM EDT 01/18/2025 9:20 AM EDT us Generic External Data Provider LAB BLOOD ORDERAB LES Final Result Performing Organization Address City/[facility]/ZIP Co de Phone Number [facility] [address] [place] [phone] * (ABNORMAL) Lipid Panel, Standard (01/18/2025 9:14 AM EDT) Triglycerides 71 <150 mg/dL [facility] Comment:Desirable Triglyceri de: less than 150 mg/dLBorderline High Triglyceride 150-199 mg/dLHigh Triglyceride: 200-499 mg/dLVery High Triglyceride: greater than or equal to 5OO mg/dL Cholesterol 105 <200 mg/dL [facility] Comment:Desirable Cholestero l: less than 200 mg/dLBorderline High Cholesterol: 200-239 mg/dLHigh Cholesterol: greater than 239 mg/dL LDL Cholesterol Calculated 61 <100 mg/dL [facility] Comment:Desirable LDL: less than 100 mg/dLNear Optimal/Above Optimal LDL: 110- 129 mg/dLBorderline High LDL: 130-159 mg/dLHigh LDL: 160-189 mg/dLVery High LDL: greater than or equal to 190 mg/dL HDL Cholesterol 30(L) >40 mg/dL [facility] Comment:Desirable HDL: great er than 40 mg/dL Note: This HDL assay may give artificially low results in patients with liver disease. 01/18/2025 9:14 AM EDT 01/18/2025 9:20 AM EDT us Generic External Data Provider LAB BLOOD ORDERAB LES Final Result Performing Organization Address City/[facility]/ZIP Co de Phone Number [facility] [address] [place] [phone] * (ABNORMAL) Comprehensive Metabolic Panel (01/18/2025 9:14 AM EDT) Sodium 142 135 - 145 mmol/L [facility] Potassium 4.1 3.3 - 5.1 mmol/L [facility] Chloride 108 96 - 108 mmol/L [facility] Carbon Dioxide 27 22 - 29 mmol/L [facility] Anion Gap 11(L) 12 - 20 [facility] Urea Nitrogen (BUN) 10 9 - 16 mg/dL [facility] Creatinine, Serum 0.74 0.5 - 1.4 mg/dL [facility] Estimated Glomerular Filt Rate >60 [facility] Comment:Chronic Kidney Disea se: Estimated GFR < 60 mL/min/1.83e9Nfsptq Kidney Disease: Estimated GFR < 15 mL/min/1.73m2 Glucose 111 60 - 115 mg/dL [facility] Calcium 9.3 8.4 - 10.2 mg/dL [facility] Bilirubin, Total 0.6 0.0 - 1.0 mg/dL [facility] Aspartate Amino Transferase 27 5 - 37 U/L [facility] Alanine Aminotransferase 40 0 - 40 U/L [facility] Total Protein 7.2 6.5 - 8.0 g/dL [facility] Albumin Level 4.1 3.5 - 5.0 g/dL [facility] Alkaline Phosphatase 77 39 - 117 U/L [facility] 01/18/2025 9:14 AM EDT 01/18/2025 9:20 AM EDT us Generic External Data Provider LAB BLOOD ORDERAB LES Final Result [facility] [address] [place], [place] [phone] * XR Chest 2 Views (01/18/2025 9:00 AM EDT) Anatomical Region Laterality Modality Chest Radiographic Jeannie ging 01/18/2025 9:00 AM EDT Narrative 01/18/2025 9:19 AM EDT ? [facility] ?[address] ?[place] [address] ?XRay Report ? Signed ? Patient: Kirt,Krzysztof Jr ?MR#: MM ?? [id number] ? : 1980 ?Acct:[id number] ? Age/Sex: 44 / M ?ADM Date: 01/18/25 ? Loc: HO.US ? Attending Dr: Morris Borrego MD ? Ordering Physician: Morris Borrego MD ?? Date of Service: 01/18/25 ?? Procedure(s): XR chest 2V ?? Accession Number(s): [id number] ? cc: Araceli White; Morris Borrego MD ? EXAMINATION: ?? XR CHEST ? CLINICAL INFORMATION: ?? E66.01 - Morbid (severe) obesity due to excess calories ? COMPARISON: ?? None available. ? TECHNIQUE: ?? 2 views of the chest were obtained. ? FINDINGS: ?? The cardiac, hilar, and mediastinal contours are normal. ? The lungs are clear bilaterally. There is no pneumothorax or pleural ?? effusion. ? There is no focal osseous or soft tissue abnormality. ? XR/XR chest 2V ?? IMPRESSION: ?? Normal chest. ? Electronically signed by: ??Arnold Chu MD ??01/18/2025 09:17 AM EDT RP ? Dictated By: ?Arnold Chu MD ? Signed By: ?<Electronically signed by Arnold Chu MD in OV> ?01/18/25 0917 ? DD/ 0900 ? TD/TT: 01/18/25 0907 ? Cnp: ? Procedure Note Gisell Kennedy - 01/18/[address] [address] XRay Report Signed Patient: Krzysztof Moralez [facility]#: MM [id number] : 1980Acct:[id number] Age/Sex: 44 / MADM Date: 01/18/25 Loc: HO.US Attending Dr: Morris Borrego MD Ordering Physician: Morris Borrego MD Date of Service: 01/18/25 Procedure(s): XR chest 2V Accession Number(s): [id number] cc: Araceli White; Morris Borrego MD EXAMINATION: XR CHEST CLINICAL INFORMATION: E66.01 - Morbid (severe) obesity due to excess calories COMPARISON: None available. TECHNIQUE: 2 views of the chest were obtained. FINDINGS: The cardiac, hilar, and mediastinal contours are normal. The lungs are clear bilaterally. There is no pneumothorax or pleural effusion. There is no focal osseous or soft tissue abnormality. XR/XR chest 2V IMPRESSION: Normal chest. Electronically signed by: Arnold Chu MD 01/18/2025 09:17 AM EDT Dictated By: Arnold Chu MD Signed By: <Electronically signed by Arnold Chu MD in OV> 01/18/25916 DD/ 9 TD/TT: 01/18/25 0907 Cnp: [facility] External Provider IMG XR PROCEDURES Final Result * US Abdomen Comp w elastography (01/18/2025 8:45 AM EDT) Anatomical Region Laterality Modality Abdomen Ultrasound 01/18/2025 8:45 AM EDT Narrative 01/18/2025 9:32 AM EDT ? [facility] ?[address] ?[place] [address] ? Ultrasound Report ? Signed ? Patient: Kirt,Krzysztof Jr ?MR#: MM ?? [id number] ? : 1980 ?Acct:[id number] ? Age/Sex: 44 / M ?ADM Date: 01/18/ ? Loc: HO.US ? Attending Dr: Morris Borrego MD ? Ordering Physician: Morris Borrego MD ?? Date of Service: 01/18/25 ?? Procedure(s): US abdomen comp w elastography ?? Accession Number(s): [id number] ? cc: Araceli White; Morris Borrego MD ? EXAMINATION: ??US ABDOMEN COMPLETE WITH LIVER ELASTOGRAPHY ? HISTORY: E66.01 - Morbid (severe) obesity due to excess calories ? TECHNIQUE: Real-time grayscale ultrasound imaging of the abdomen was ?? performed and images were reviewed. ? COMPARISON: There are no prior studies for comparison. ? FINDINGS: ?? Liver: ??The right lobe of the liver measures 20.1 cm in size. The left ?? lobe of the liver measures 12.1 cm in size. The liver demonstrates ?? increased echotexture, consistent with steatosis. The liver surface ?? appears nodular, suggestive of cirrhosis. ??No focal mass or ?? intrahepatic biliary ductal dilatation is identified. ??There is normal ?? hepatopedal flow in the portal vein. ? Ultrasound elastography of the liver was performed with 10 separate ?? measurements of the liver parenchyma with the patient in the supine ?? position. ??Measurements were obtained approximately 2 cm below ?? Renetta's capsule and perpendicular to the capsule. ??Images are of ?? satisfactory quality. ? The median shear wave velocity is 1.53 m/s. ?? The interquartile range/median (IQR/median) is 0.21. ? Gallbladder and biliary tree: Numerous shadowing calculi are noted in ?? the gallbladder. There is no wall thickening or pericholecystic fluid. ? There is no sonographic Fajardo sign. ??The common bile duct is normal in ?? caliber measuring 3 mm. ? Kidneys: ??The right kidney measures 10.9 cm in length. The left kidney ?? measures 13.1 cm in length. ??The kidneys are unremarkable, without ?? evidence of masses, hydronephrosis, or calculi. ? Pancreas: The pancreatic head, neck, and body are unremarkable. The ?? pancreatic tail is obscured by bowel gas. ? Spleen: The spleen is normal in size and contour, measuring 11.9 cm in ?? length. ? Abdominal aorta and inferior vena cava: The visualized portions of the ?? abdominal aorta and inferior vena cava are normal in caliber. ? There is no free fluid in the abdomen. ? US/US abdomen comp w elastography ?? IMPRESSION: ? 1. Hepatomegaly and hepatic steatosis. Nodular liver contour, ?? suggestive of cirrhosis. ? 2. Cholelithiasis. ? The median shear wave velocity in the liver is 1.53 m/s, corresponding ?? to a median liver stiffness of 7.10 kPa. ??The IQR/median value is 0.21. ?? This is indicative of a poor quality data set, and the estimated liver ?? stiffness may be unreliable. ?? Findings are indicative of a low elastography value which rules out ?? advanced chronic liver disease in asymptomatic patients. ? REFERENCE: ?? Society of Radiologists in Ultrasound Liver Stiffness Thresholds (2019): ? LIVER STIFFNESS THRESHOLDS: ?? *Shear wave velocity less than 1.3 m/s (Liver Stiffness equal or less ?? than 5 kPa): ??High probability of being normal. ?? *Shear wave velocity less than 1.7 m/s (Liver Stiffness less than 9 ?? kPa): ??In the absence of other known clinical signs, rules out ?? compensated advanced chronic liver disease. ?? *Shear wave velocity between 1.7-2.1 m/s (Liver Stiffness 9-13 kPa): ? Suggestive of compensated advanced chronic liver disease but need ?? further test for confirmation. ?? *Shear wave velocity between 2.1-2.4 m/s (Liver Stiffness 13-17 kPa): ? Rules in compensated advanced chronic liver disease. ?? *Shear wave velocity ??greater than 2.4 m/s (Liver Stiffness over 17 ?? kPa): ??Suggestive of clinically significant portal hypertension. ? QUALITY OF DATA SET: ?? *IQR/Median value equal or less than 0.15 implies a quality data set. ?? *IQR/Median value over 0.15 implies a poor quality data set. ? SIGNIFICANT CHANGE FROM PRIOR EXAM: ?? Significant change if liver stiffness measurement is 10% or greater ?? from prior exam. ? OTHER CONSIDERATIONS: ?? The stage of liver fibrosis may be overestimated in the setting of ?? acute hepatitis, liver inflammation, elevated liver function tests, ?? hepatic vascular congestion, obstructive cholestasis, non-fasting ?? state, and infiltrative diseases such as amyloidosis and lymphoma. ??In ?? some patients with NAFLD, the liver stiffness thresholds for ?? compensated advanced chronic liver disease may be lower. ??In causes ?? other than viral hepatitis and NAFLD, liver stiffness thresholds are ?? not well established. ? Electronically signed by: ??Tate Lowery MD ??01/18/2025 09:29 AM EDT ?? RP ? Dictated By: ?Tate Lowery MD ? Signed By: ?<Electronically signed by Tate Lowery MD in OV> ?01/18/25 0929 ? DD/ 0845 ? TD/TT: 01/18/25 0859 ? Cnp: ? Procedure Note Donotuseinterpreter, Image - 01/18/[address] [address] Ultrasound Report Signed Patient: Krzysztof Moralez [facility]#: [id number] : 1980Acct:[id number] Age/Sex: 44 / MADM Date: 01/18/25 Loc: HO.US Attending Dr: Morris Borrego MD Ordering Physician: Morris Borrego MD Date of Service: 01/18/25 Procedure(s): US abdomen comp w elastography Accession Number(s): [id number] cc: Araceli White; Morris Borrego MD EXAMINATION: US ABDOMEN COMPLETE WITH LIVER ELASTOGRAPHY HISTORY: E66.01 - Morbid (severe) obesity due to excess calories TECHNIQUE: Real-time grayscale ultrasound imaging of the abdomen was performed and images were reviewed. COMPARISON: There are no prior studies for comparison. FINDINGS: Liver: The right lobe of the liver measures 20.1 cm in size. The left lobe of the liver measures 12.1 cm in size. The liver demonstrates increased echotexture, consistent with steatosis. The liver surface appears nodular, suggestive of cirrhosis. No focal mass or intrahepatic biliary ductal dilatation is identified. There is normal hepatopedal flow in the portal vein. Ultrasound elastography of the liver was performed with 10 separate measurements of the liver parenchyma with the patient in the supine position. Measurements were obtained approximately 2 cm below Renetta's capsule and perpendicular to the capsule. Images are of satisfactory quality. The median shear wave velocity is 1.53 m/s. The interquartile range/median (IQR/median) is 0.21. Gallbladder and biliary tree: Numerous shadowing calculi are noted in the gallbladder. There is no wall thickening or pericholecystic fluid. There is no sonographic Fajardo sign. The common bile duct is normal in caliber measuring 3 mm. Kidneys: The right kidney measures 10.9 cm in length. The left kidney measures 13.1 cm in length. The kidneys are unremarkable, without evidence of masses, hydronephrosis, or calculi. Pancreas: The pancreatic head, neck, and body are unremarkable. The pancreatic tail is obscured by bowel gas. Spleen: The spleen is normal in size and contour, measuring 11.9 cm in length. Abdominal aorta and inferior vena cava: The visualized portions of the abdominal aorta and inferior vena cava are normal in caliber. There is no free fluid in the abdomen. US/US abdomen comp w elastography IMPRESSION: 1. Hepatomegaly and hepatic steatosis. Nodular liver contour, suggestive of cirrhosis. 2. Cholelithiasis. The median shear wave velocity in the liver is 1.53 m/s, corresponding to a median liver stiffness of 7.10 kPa. The IQR/median value is 0.21. This is indicative of a poor quality data set, and the estimated liver stiffness may be unreliable. Findings are indicative of a low elastography value which rules out advanced chronic liver disease in asymptomatic patients. REFERENCE: Society of Radiologists in Ultrasound Liver Stiffness Thresholds (2020): LIVER STIFFNESS THRESHOLDS: *Shear wave velocity less than 1.3 m/s (Liver Stiffness equal or less than 5 kPa): High probability of being normal. *Shear wave velocity less than 1.7 m/s (Liver Stiffness less than 9 kPa): In the absence of other known clinical signs, rules out compensated advanced chronic liver disease. *Shear wave velocity between 1.7-2.1 m/s (Liver Stiffness 9-13 kPa): Suggestive of compensated advanced chronic liver disease but need further test for confirmation. *Shear wave velocity between 2.1-2.4 m/s (Liver Stiffness 13-17 kPa): Rules in compensated advanced chronic liver disease. *Shear wave velocity greater than 2.4 m/s (Liver Stiffness over 17 kPa): Suggestive of clinically significant portal hypertension. QUALITY OF DATA SET: *IQR/Median value equal or less than 0.15 implies a quality data set. *IQR/Median value over 0.15 implies a poor quality data set. SIGNIFICANT CHANGE FROM PRIOR EXAM: Significant change if liver stiffness measurement is 10% or greater from prior exam. OTHER CONSIDERATIONS: The stage of liver fibrosis may be overestimated in the setting of acute hepatitis, liver inflammation, elevated liver function tests, hepatic vascular congestion, obstructive cholestasis, non-fasting state, and infiltrative diseases such as amyloidosis and lymphoma. In some patients with NAFLD, the liver stiffness thresholds for compensated advanced chronic liver disease may be lower. In causes other than viral hepatitis and NAFLD, liver stiffness thresholds are not well established. Electronically signed by: Tate Lowery MD 01/18/2025 09:29 AM EDT RP Dictated By: Tate Lowery MD Signed By: <Electronically signed by Tate Lowery MD in OV> 01/18/2529 DD/ 0845 TD/TT: 01/18/2559 Cnp: [facility] External Provider IMG US PROCEDURES Final Result * (ABNORMAL) POCT HGB A1C (12/08/2024 2:21 PM EST) Pathologist [facility] Hemoglobin A1C 6.1(A) 4.0 - 6.0 % QC Media Lot # [id number] Lot# Expiration Date Blood 12/08/2024 2:21 PM EST Result [facility] Araceli White MD POINT OF CARE TEST ENTER/EDIT ORDERABLES Final Result * POCT Glucose (12/08/2024 2:18 PM EST) [facility] Glucose Blood, POC 109 60 - 200 mg/dL QC Media Lot # [id number] Lot# Expiration Date Blood Capillary blood specimen / Unknown 12/08/2024 2:18 PM EST Result [facility] Araceli White MD POINT OF CARE TEST ENTER/EDIT ORDERABLES Final Result * HEPATITIS C AB W/REFL TO HCV RNA, QN, PCR (12/29/2021 10:52 AM EDT) HEPATITIS C ANTIBODY NON-REACT GERMAN NON-REACT GERMAN [facility] INDEX 0.03 <1.00 [facility] Comment: ?? HCV antibody was non-reactive. There is no laboratory ?? evidence of HCV infection. ?? In most cases, no further action is required. However, if recent HCV exposure is suspected, a test for HCV RNA (test code 01924) is suggested. ?? For additional information please refer to http://[employer] / HangPic.Han[employer] Archives/faq/AWR68d4 (This link is being provided for informational/ educational purposes only.) ?? 12/29/2021 10:5 2 AM EDT Araceli White MD HISTORICAL/NON ORDERABLE LABS Final Result Performing Organization Address [facility] de Phone Number [facility] [address] * HIV 1/2 ANTIGEN/ANTIBODY,FOURTH GENERATION W/RFL (12/29/2021 10:52 AM EDT) HIV-1/2 ANTIGEN AND ANTIBODIES, 4TH GENERATION W/ REFLEX NON-REACT GERMAN NON-REACT GERMAN [facility] Comment: HIV-1 antigen and HIV-1/HIV-2 [...] ? For additional information please refer to http://Play [employer] Pictures / HangPic.Hanzo Archives/faq/WJO184 (This link is being provided for informational/ educational purposes only.) ? The performance of this assay has not been clinically validated in patients less than 2 years old. ?? 12/29/2021 10:5 2 AM EDT Araceli White MD LAB BLOOD ORDERABLES Final Res ult Performing Organization Address [facility] de Phone Number [facility] [address] from Last 3 Months or Most Recently Relevant to Health Maintenance Insurance [facility] STANDARD MEDICARE Care Teams Dual Hose Cementer Relationship Specialty Start Date End Date Araceli White MD [address] [place] [address] [phone] PCP - General Family Medicine 06/04/21
--- OUTSIDE RECORDS SUMMARY | 2025-01-31 07:34 | XMS_ITS | Clinical Summary ---
Author Organization [facility] Address [address] [place] [address] Care Team Providers Care International Logistics Coordinator Name Role Phone Vic Ocampo MD Primary Care Provider [phone] Source Comments PLEASE NOTE, if this patient [...] 19 + 3-dose series) 09/16/2022 07/22/2022, 09/06/2019 Wyz-DTEXX-51 ( season) 2024 021, 03/08/2021 Imm-Influenza (#1) [...] EDT) GLYCATED HEMOGLOBIN A1C 4.9 <6.5 % [facility] ESTIMATED AVERAGE GLUCOSE 94 mg/dL [facility] Blood specimen (specimen) Blood / Unknown 01/24/2016 9:20 AM EDT 01/24/2016 11:13 AM EDT Narrative [facility] - 01/25/2016 11:31 AM EDT [employer] [address] [place] [address] PT ID [id number] ORD# [id number] Vic Ocampo MD LAB - BLOOD DRAW Final Result [facility] [address] [place] [address], [place] [phone] * (ABNORMAL) LIPID PANEL (01/24/2016 9:20 AM EDT) CHOLESTEROL 102 0 - 200 mg/dL [facility] TRIGLYCERIDES 66 0 - 150 mg/dL [facility] HDL CHOLESTEROL 36(L) >40 mg/dL [facility] LDL CALCULATED 53 0 - 100 mg/dL [facility] TC-HDLC RATIO 2.8 0 - 4.4 mg/dL [facility] Blood specimen (specimen) Blood / Unknown 01/24/2016 9:20 AM EDT 01/24/2016 11:13 AM EDT [facility] - 01/24/2016 4:00 PM EDT [facility] [address] [place] [address] PT ID [id number] ORD# [id number] Vic Ocampo MD LAB - BLOOD DRAW Final Result Performing Organization Address City/[facility]/ZIP Co de Phone Number [facility] [address] [place] [address], [place] [phone] from Last 3 Months or Most Recently Relevant to Health Maintenance Insurance [facility] [employer] Member Subscriber Plan / Payer (Ef fective 2015-Present) Name:Krzysztof Moralez Relation to Subscriber:Self Name:Krzysztof Moralez Payer ID:[id number] Group ID:[id number] Type:Medicaid Address: [facility] [address] [place] [address] Care Teams International Logistics Coordinator Relationship Specialty Start Date End Date Vic Ocampo MD [address] [place] [address] PCP - General Internal Medicine 11/11/15
--- NOTE | 2025-02-01 09:14 | P.CONAN_ITS ---
Documented by User: Paulina Bang NP 02/01/25 09:14 HPI - Anesthesia Eval Consult details Narrative: 44yo M for Upper Endoscopy BMI 44.4 PMFSH Active Problems Active Problems: All Active Problems Vitamin B12 deficiency (Acute) Vitamin D deficiency (Acute) Anxiety (Acute) Depression (Acute) DJD (degenerative joint disease) (Acute) Hyperlipidemia (Acute) Sleep apnea treated with continuous positive airway pressure (CPAP) (Acute) Non-insulin dependent type 2 diabetes mellitus (Acute) Morbid obesity (Acute) Spinal stenosis of thoracic region (Acute) 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 (Acute) Cauda equina compression (Acute) Chronic pain syndrome (Acute) Spondylosis of lumbar region without myelopathy or radiculopathy (Acute) Sacroiliitis (Acute) Sacrococcygeal pain (Acute) Chronic pain syndrome (Acute) Past Medical History Medical History (Updated 02/02/25 @ 11:47 by Monet Gandhi RN) Diabetes Anxiety Depression DJD (degenerative joint disease) Hyperlipidemia Sleep apnea treated with continuous positive airway pressure (CPAP) Non-insulin dependent type 2 diabetes mellitus Morbid obesity 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 Cauda equina compression Chronic pain syndrome Spondylosis of lumbar region without myelopathy or radiculopathy Chronic pain syndrome COVID-19 vaccine series completed Family History Family history of problems with anesthesia: No Surgical History Surgical History History of surgery S/P epidural steroid injection History of Problems with Anesthesia: No Social History Social History Patient Tobacco Use Status: Never used Tobacco Use of substances other than those prescribed or required for medical reasons: No Are you DNR?: No Advance Directives: No Advance Directives Information Provided: Yes Poor oral hygiene: No Meds Allergies Allergy/AdvReac Type Severity Reaction Status Date / Time morphine Allergy Mild Itching Verified 12/15/24 14:22 Home Medications ?Medication ?Instructions ?Recorded ?Confirmed ?Last Taken ?Type risperidone 2 mg tablet 2 mg PO BEDTIME 08/10/22 12/15/24 Unknown History atorvastatin 20 mg tablet 20 mg PO DAILY 12/14/24 12/15/24 Unknown History clonazepam 0.5 mg tablet 0.5 mg PO BID PRN anxiety 12/14/24 12/15/24 Unknown History metformin 500 mg tablet 500 mg PO BID 12/14/24 12/15/24 Unknown History risperidone 1 mg tablet 1 mg PO BEDTIME 12/14/24 12/15/24 Unknown History zolpidem 10 mg tablet 10 mg PO BEDTIME PRN 12/14/24 12/15/24 Unknown History dulaglutide 1.5 mg/0.5 mL mg subcut 02/02/25 12/15/24 History subcutaneous pen injector (Trulicity) Assessment and Plan Assessment Anesthesia Assessment: Chart Reviewed Final Anesthetic Review Family History of Problems with Anesthesia: No History of Problems with Anesthesia: No Documented by User: Loy Houston MD 02/02/25 12:34 [facility] Past Medical History Medical History (Updated 02/02/25 @ 11:47 by Monet Gandhi RN) Diabetes Anxiety Depression DJD (degenerative joint disease) Hyperlipidemia Sleep apnea treated with continuous positive airway pressure (CPAP) Non-insulin dependent type 2 diabetes mellitus Morbid obesity 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 Cauda equina compression Chronic pain syndrome Spondylosis of lumbar region without myelopathy or radiculopathy Chronic pain syndrome COVID-19 vaccine series completed Surgical History Surgical History History of surgery S/P epidural steroid injection Social History Social History Patient Tobacco Use Status: Never used Tobacco Use of substances other than those prescribed or required for medical reasons: No Are you DNR?: No Advance Directives: No Advance Directives Information Provided: Yes Poor oral hygiene: No Meds Allergies Allergy/AdvReac Type Severity Reaction Status Date / Time morphine Allergy Mild Itching Verified 12/15/24 14:22 Home Medications ?Medication ?Instructions ?Recorded ?Confirmed ?Last Taken ?Type risperidone 2 mg tablet 2 mg PO BEDTIME 08/10/22 12/15/24 Unknown History atorvastatin 20 mg tablet 20 mg PO DAILY 12/14/24 12/15/24 Unknown History clonazepam 0.5 mg tablet 0.5 mg PO BID PRN anxiety 12/14/24 12/15/24 Unknown History metformin 500 mg tablet 500 mg PO BID 12/14/24 12/15/24 Unknown History risperidone 1 mg tablet 1 mg PO BEDTIME 12/14/24 12/15/24 Unknown History zolpidem 10 mg tablet 10 mg PO BEDTIME PRN 12/14/24 12/15/24 Unknown History dulaglutide 1.5 mg/0.5 mL mg subcut 02/02/25 12/15/24 History subcutaneous pen injector (Trulicity) Exam Airway Mallampati Class: III TM Dist: >3cm Neck ROM: Full Assessment and Plan Assessment Anesthesia Assessment: Anesthesia Plan Discussed Final Anesthetic Review NPO: Yes ASA Class: III Final Preanesthetic Review: No Changes in Pt Med Stat, Meds/Allgs Chart Reviewed, Consent Obtained/Reviewed and Anes Risks/Benef Reviewed Patient Risk: Intermediate Procedure Risk: Low Anesthetic Plan Anesthetic Plan: TIVA Disposition: Standard PACU
[2025-02-02 11:50] VITALS: BMI 44.0
[2025-02-02 12:02] VITALS: BP 127/78; PULSE 78; RESP 16; TEMP 36.7; O2SAT 95
[2025-02-02 12:09] LABS: Glucose, Whole Blood 86 mg/dL (60-115)
[2025-02-02] MEDS: Lactated Ringers 1,000 ML 80 ML IVCONT (12:12)
--- NOTE | 2025-02-02 12:22 | MHC.SHP ---
Pre-Procedural Eval Section A - 24 Hr Update-Section A only Date of Service: 02/02/25 The patient is an INPATIENT: No The patient has been examined within 24 hours of the surgical procedure. The History & Physical has been completed within 30 days and I have reviewed it.: Yes Section B - Complete if H&P > 30 days Chief Complaint: Morbid (severe) obesity due to excess calories Relevant Family History (Specify if Yes): No Relevant Social History: None Present Medications: None Medical History: No relevant PMH History of Previous Operations: No relevant previous surgery Allergies: Allergies Allergy/AdvReac Type Severity Reaction Status Date / Time morphine Allergy Mild Itching Verified 12/15/24 14:22 Review of Systems Sugical H&P ROS: Negative: Constitution, Cardiovascular, Respiratory, Neurological, Psychiatric, Hem-Onc, Allergic/Immunologic, Gastrointestinal, Genitourinary, Musculoskeletal, Integumentary, Endocrine and Eyes/Ears/Nose/Throat Exam Surgical H&P Exam: Normal: HEENT, Normal: Heart, Normal: Lungs, Normal: Extremities, Normal: Abdomen, Normal: Skin and Normal: Neurological Plan Diagnosis/Plan: Unchanged (EGD to assess the stomach's anatomy. Risks of bleeding and perforation were discussed with the patient and he is in agreement with the plan.) I have reviewed the history and physical and performed a pertinent physical examination on my patient. No changes have occurred unless specified. Time Spent With Patient Time: Total time managing care of this patient today ____ minutes.
--- NOTE | 2025-02-02 12:27 | PM.OP ---
Brief Operative Note Date of Service: 02/02/25 Pre-op diagnosis: Morbid obesity Post-op diagnosis: same (& small diaphragmatic hernia ) Procedure: PROCEDURE DATE: 02/02/2025 PREOPERATIVE DIAGNOSIS: GERD POSTOPERATIVE DIAGNOSIS: ?Same as above. Small diaphragmatic hernia PROCEDURE: Xdcqaalb-eiroag-txortjiuehnw with biopsies Surgeon: ?Matthew Borrego M.D.. Ph.D. [place] Roofer Helper: None ? Anesthesia: IV sedation Estimated blood loss: ?Minimal FINDINGS AND PROCEDURE: ? OPERATIVE INDICATIONS: ?The patient is a 44 year old male known to me who is interested in bariatric surgery. Based on this information I recommended an upper endoscopy to evaluate the stomach's anatomy. Risks and complications of the surgery were discussed with the patient in advance particularly the possibility of perforation or bleeding that may require surgical intervention. The patient understood the risks and was in agreement with the plan. ? PROCEDURE: After informed consent was obtained by the patient, the patient was ?transferred to the Operating Room and was placed in the supine position.? After successful induction of IV sedation, a mouth block was inserted and the patient was placed in the left lateral decubitus position. An upper endoscopy was performed next, the oropharynx and esophagus appeared within the normal limits. There was a small 2cm hiatal hernia. The z-line was smooth. Two biopsies were obtained from the distal esophagus 2-3 cm proximal to the GE junction and two additional biopsies from the GE junction. The stomach was entered and it appeared to be of normal size. There was no gastritis. There was no stricture or ulcer. A biopsy was obtained from the gastric fundus and the antrum. No significant bleeding was noted from any of the biopsy sites. Retroflexion of the scope confirmed the presence of a small diaphragmatic hernia. The scope was then advanced into the duodenum which appeared to be normal as well. At that point the duodenum ?and the stomach were decompressed and the scope was withdrawn from the patient's mouth. The patient extubated and was transferred in stable condition to the Recovery Room for further care. I was present and performed all steps of the procedure. There were no residents to assist with this case. Matthew Borrego M.D., Ph.D. Surgeon: Morris Borrego MD Anesthesia: MAC Was an [place]ra [place]ta Roofer Helper used for this Procedure?: No Estimated blood loss (mL): 0 IV fluids (mL): 400 Urine output (mL): 0 (No [place] to record output) Pathology: other (1) antrum x1, 2) fundus x1, 3) GE junction x2, 4) distal esophagus x2) Condition: stable Disposition: PACU
[2025-02-02 12:45] VITALS: BP 109/70; PULSE 80; RESP 12; TEMP 36.1
[2025-02-02 12:55] VITALS: BP 122/82; PULSE 80; RESP 12; TEMP 36.9; O2SAT 95
== END 2025-02-02 14:14 | disposition home or self-care (01) ==
PROVIDERS: PCP General Practice; Visit Provider Surgery
PROC: 0DJ08ZZ Inspection of Upper Intestinal Tract, Via Natural or Artificial Opening Endoscopic (ICD-10-PCS; CPT 43235; principal; 2025-02-02 13:00)
DX: K21.9 Gastro-esophageal reflux disease without esophagitis (principal); E66.01 Morbid (severe) obesity due to excess calories; Z68.41 Body mass index [BMI] 40.0-44.9, adult; K44.9 Diaphragmatic hernia without obstruction or gangrene; E11.9 Type 2 diabetes mellitus without complications; E78.5 Hyperlipidemia, unspecified; M47.896 Other spondylosis, lumbar region; G83.4 Cauda equina syndrome; G89.4 Chronic pain syndrome; G47.33 Obstructive sleep apnea (adult) (pediatric); F32.A Depression, unspecified; F41.9 Anxiety disorder, unspecified; Z79.84 Long term (current) use of oral hypoglycemic drugs; Z99.89 Dependence on other enabling machines and devices; Z79.899 Other long term (current) drug therapy; Z88.5 Allergy status to narcotic agent; Z98.890 Other specified postprocedural states
CPT/HCPCS: 43239; 82947; 88305; 88313; 88342; J2003; J2704

== ENCOUNTER → 2025-02-02 10:47 | Outpatient (BNV) | payer MEDICARE, MEDICAID, SELFPAY | PROVIDERS: PCP General Practice; Visit Provider Surgery | DX: K44.9 Diaphragmatic hernia without obstruction or gangrene (principal) | CPT/HCPCS: 43239 ==

== ENCOUNTER 2025-02-13 08:17 | Outpatient (REF) | payer MEDICARE, MEDICAID, SELFPAY ==
--- OUTSIDE RECORDS SUMMARY | 2025-02-13 08:29 | XMS_ITS | Encounter Summary ---
Author Organization [employer] Address [address] [facility] [address] [place] [address] Care Team Providers Care Charger Name Role Phone Araceli White MD Primary Care Provider [phone] Encounter Details Date Type Department Care Team (Late st Contact Info) Description 01/20/2023 Orders Only [facility] [address] [place], [place] [phone] Araceli White MD [address] [place], [place] [phone] Prediabetes (Primary Dx) Social History Tobacco Use [...] documented as of this encounter Care Teams Charger Relationship Specialty Start Date End Date Araceli White MD [address] [place] [address] PCP - General Family Medicine 06/04/21 documented as of this encounter
--- OUTSIDE RECORDS SUMMARY | 2025-02-13 08:29 | XMS_ITS | Encounter Summary ---
Author Organization [employer] Address [address] [facility] [address] [place] [address] Care Team Providers Care Claim Auditor Name Role Phone Araceli White MD Primary Care Provider [phone] Encounter Details Date Type Department Care Team (Late st Contact Info) Description 09/27/2023 Telephone [facility] [address] [place], [place] [phone] Araceli White MD [address] [place], [place] [phone] Social History Tobacco Use Types Packs/Day Years [...] documented as of this encounter Care Teams Claim Auditor Relationship Specialty Start Date End Date Araceli White MD [address] [place] [address] PCP - General Family Medicine 06/04/21 documented as of this encounter
--- OUTSIDE RECORDS SUMMARY | 2025-02-13 08:29 | XMS_ITS | Clinical Summary ---
Author Organization [employer] [facility] ity Address [address] [place] [address] Care Team Providers Care Machine Packager Name Role Phone Unavailable Primary Care Provider [...]
--- OUTSIDE RECORDS SUMMARY | 2025-02-13 08:29 | XMS_ITS | Encounter Summary ---
Author Organization [employer] Address [address] [facility] [address] [place] [address] Care Team Providers Care Lumber Checker Name Role Phone Araceli White MD Primary Care Provider [phone] Reason for Referral * Consultation (Routine) - Closed Specialty Diagnoses / Procedures Referred By Contac t Referred To Contact Audiology Diagnoses Conductive hearing loss, bilateral Araceli White MD [address] [place] [address] Phone: tel: fax: [facility] Audiology [address] Floor [place], [place] Phone: tel: fax: Referral ID Status Reason Start Date Expiration Date V isits Requested Visits Authorized [id number] Closed Specialty Services Required 02/06/2024 02/05/2025 1 1 Encounter Details Date Type Department Care Team (Late st Contact Info) Description 02/06/2024 Orders Only [facility] [address] [place], [place] [phone] Araceli White MD [address] [place], [place] [phone] Conductive hearing loss, bilateral (Primary Dx) Social [...] documented as of this encounter Care Teams Lumber Checker Relationship Specialty Start Date End Date Araceli White MD [address] [place] [address] PCP - General Family Medicine 06/04/21 documented as of this encounter
--- OUTSIDE RECORDS SUMMARY | 2025-02-13 08:30 | XMS_ITS | Clinical Summary ---
Author Organization [employer] Address [address] [facility] [address] [place] [address] Care Team Providers Care Computer Technical Support Specialist Name Role Phone Araceli White MD Primary Care Provider [phone] Allergies Active Allergy Reactions Criticality Noted Date [...] complication, without long-term current use of insulin (CMS/[facility]) Inject 1.5 mg under the skin 1 [...] EDT): Awaiting possible spinal nerve stimulator from [facility] Continue rest, activity modification, medications for now [...] Encounters Date Type Department Care Team Description 02/02/2025 Orders Only GENERIC EXTERNAL DATA DEPARTMENT Provider, Generic External Data 01/18/2025 Orders Only [facility] External Provider, [facility] 12/08/2024 2:15 PM EST Office Visit [facility] [address] [place] [phone] Araceli White MD Severe sleep apnea (Primary [...] loss, bilateral 12/08/2024 Travel 11/24/2024 Patient Outreach [facility] [address] [place] [phone] Araceli White MD Pre-visit Planning (SDOH screening [...] housing situation today? I have [employer]oniacl[employer] aleman 03/30/[address] you [...] Screening 12/08/2025 12/08/2024 Lipid Panel 01/18/2026 01/18/2025, 01/09, 12/29/2021, Additional history exists DTaP/Tdap/Td Vaccines (3 [...] Procedure Name Priority Date/Time Associated Diagnosis Comments HEMATOXYLIN AND EOSIN STAIN Routine 02/02/2025 12:34 PM EDT GLUCOSE, WHOLE BLOOD Routine 02/02/2025 12:06 PM EDT VITAMIN B1 Routine 01/18/2025 9:14 AM EDT [...] Recently Relevant to Health Maintenance Results * Hematoxylin and Eosin Stain (02/02/2025 12:34 PM EDT) 02/02/2025 12:3 4 PM EDT 02/02/2025 1:05 PM EDT [facility] - 02/06/2025 2:20 PM EDT ----- ------- Name: Krzysztof Moralez Jr ? Age/Sex: 44/M ? : 1980 Unit#: [id number] ?? Attend Dr: Morris Borrego MD ?Re02/02/25 ?Status: DEP SDC ? Location: HO.SSS ?Disch: ? ----- ------- SPEC : [id number] ? RECD: 02/02/25-1301 ? STATUS: ??SOUT ? REQ NUM: [id number] ? MOUNIKA: 02/02/25-1234 ? SUBM DR: Morris Borrego MD ? ENTERED: ??02/02/25-1310 ?SP TYPE: Surgical ? OTHR DR: Araceli White ? ORDERED: ??HE Stain/9, Gross Micro L4/4, IHC/2, Special st. 2/2, H. pylori/2, AB/PAS/2 ? Diagnosis ?? A. ??Stomach, antrum, biopsy: ??Antral-type mucosa with mild chronic inactive inflammation; ?? no Helicobacter organisms seen. ? B. ??Stomach, fundus, biopsy: ??Antral-type mucosa with mild chronic inactive inflammation; ?? no Helicobacter organisms seen. ? C. ??EG junction, biopsy: ??Squamous mucosa within normal limits; no inflammation seen. ? D. ??Esophagus, biopsy: ??Squamous epithelium within normal limits; no inflammation seen. ?Clinical History Pre-Op Dx: ??Obesity Post-Op Dx: Small diaphragmatic hernia ?Microscopic Description A-D. ??Microscopic sections examined. ??No metaplastic changes are seen, supported by AB/PAS stains (A and B); no Helicobacter organisms are seen, supported by H. pylori immunostain (A and B). ? Material Received ?? A. Antrum bx's ?? B. Fundus bx's ?? C. EG junction bx's ?? D. Esophagus bx's ? Gross Description Received in four parts. Part A: ??Received in formalin labeled ?antrum bx (sic)? is a 0.25 cm rubbery, pink-red irregular tissue fragment, submitted in toto in a cassette labeled A. Part B: ??Received in formalin labeled ?fundus bx (sic)? is a 0.3 cm delcid-pink rubbery irregular tissue fragment, submitted in toto in a cassette labeled B. Part C: ??Received in formalin labeled ?EG junction bx's? are 2 delcid- pink irregular tissue fragments each measuring 0.25 cm, submitted in toto in a cassette labeled C. Part D: ??Received in formalin labeled ?esophagus bx (sic)? are 2 atkins-white rectangular ? CONTINUED ON NEXT PAGE ----- ------- Name: Krzysztof Moralez Jr ? Age/Sex: 44/M ? : 1980 Unit#: [id number] ?? Attend Dr: Morris Borrego MD ?Re02/02/25 ?Status: DEP SDC ? Location: HO.SSS ?Disch: ? ----- ------- SPEC : [id number] ? RECD: 02/02/25-1304 ? STATUS: ??SOUT ? REQ NUM: [id number] ? MOUNIKA: 02/02/25-1234 ? SUBM DR: Morris Borrego MD ? ENTERED: ??02/02/25-1310 ?SP TYPE: Surgical ? OTHR DR: Araceli White ? ORDERED: ??HE Stain/9, Gross Micro L4/4, IHC/2, Special st. 2/2, H. pylori/2, AB/PAS/2 ? Gross Description ?(Continued) tissue fragments measuring 0.25 and 0.35 cm, submitted in toto in a cassette labeled Xena ORNELAS Special studies ordered and performed: Immunostain for H. pylori on A and B; AB/PAS stains on A and B Copies To: ?? Araceli White ?? [address] [facility] ?? [place] [address] ?? [phone] ?? Morris Borrego MD ?? [facility] ?? [address] ?? [place] [address] ?? [phone] ----- ------- Signed (signature on file) Brian Rivera MD 02/06/251419 ? ----- ------- ? END OF REPORT ? us Generic External Data Provider LAB BLOOD ORDERAB LES Final Result [facility] [address] [place] [address] [phone] * Glucose, Whole Blood (02/02/2025 12:06 PM EDT) Glucose, Whole Blood 86 60 - 115 mg/dL [facility] Comment:METER #: [id number] 02/02/2025 12:0 6 PM EDT 02/02/2025 12:09 PM EDT us Generic External Data Provider LAB BLOOD ORDERAB LES Final Result [facility] [address] [place] [phone] * (ABNORMAL) Vitamin D, 25-Hydroxy, Total, Immunoassay (01/18/2025 9:14 AM EDT) Vitamin D 25-OH Total 11.9(L) >30 ng/mL [facility] Comment: Health Based Reference Values*< 20 ??ng/mL ??Dfconagza61-77 ng/mL ??Insufficient> 30 ??ng/mL ??Sufficient*Maci GONZALEZ. N [...] ORDERAB LES Final Result Performing Organization Address City/[facility]/ZIP Co de Phone Number [facility] [address] [place] [phone] * Vitamin B12 (Cobalamin) and Folate Panel, Serum (01/18/2025 9:14 AM EDT) Vitamin B12 246 200 - 900 pg/mL [facility] Comment:NORMAL 200-900 PG/ML INDETERMINATE 160-199 PG/ML DEFICIENT < 160 PG/ML Folate 12.4 > or = 4.0 ng/mL [facility] Comment:Reference Values:> o r = 4.0 ng/mL< 4.0 ng/mL suggests folate deficiency Methotrexate, aminopterin and folinic acid(leucovorin) are chemotherapeutic agents whose molecularstructures are similar to folate; therefore, the Architectfolate assay cannot be used for patients using these drugs. 01/18/2025 9:14 AM EDT 01/18/2025 9:20 AM EDT us Generic External Data Provider LAB BLOOD ORDERAB LES Final Result Performing Organization Address [facility] Co de Phone Number [facility] [address] [place] [phone] * TSH with Reflex to Free T4 (01/18/2025 9:14 AM EDT) TSH reflex Free T4 1.86 0.32 - 4.0 uIU/mL [facility] 01/18/2025 9:14 AM EDT 01/18/2025 9:20 AM EDT us Generic External Data Provider LAB BLOOD ORDERAB LES Final Result Performing Organization Address City/[facility]/ZIP Co de Phone Number [facility] [address] [place] [phone] * (ABNORMAL) CBC auto differential (01/18/2025 9:14 AM EDT) White Blood Count 6.7 4.8 - 10.8 X10*3/uL [facility] Red Blood Count 4.73 4.60 - 5.80 X10*6/uL [facility] Hemoglobin 13.4(L) 14.0 - 18.0 g/dl [facility] Hematocrit 40.3(L) 42.0 - 52.0 % [facility] Mean Corpuscular Volume 85.2 80.0 - 98.0 fL [facility] Mean Corpuscular Hemoglobin 28.3 27.0 - 33.0 pg [facility] Mean Corpuscular HGB Conc 33.3 31.0 - 36.0 g/dl [facility] Red Cell Distribution Width 12.8 11.0 - 16.0 % [facility] Platelet Count 256 160 - 400 X10*3/uL [facility] Mean Platelet Volume 9.4 9.4 - 12.4 fL [facility] Neutrophils Percent Auto 60.9 45 - 73 % [facility] Imm Gran Pct Auto 0.6(H) 0.0 - 0.4 % [facility] Lymphocytes Percent Auto 28.6 20 - 40 % [facility] Monocytes Percent Auto 7.7 2 - 11 % [facility] Eosinophils Percent Auto 1.6 0 - 4 % [facility] Basophils Percent Auto 0.6 0 - 2 % [facility] NRBC Pct Auto 0.0 0.0 - 0.2 /100WBC [facility] Neutrophils Absolute Auto 4.1 2.0 - 8.3 x10*3/uL [facility] Imm Gran Abs Auto 0.04(H) 0.00 - 0.03 X10*3/uL [facility] Lymphocytes Absolute Auto 1.9 1.2 - 4.9 X10*3/uL [facility] Monocytes Absolute Auto 0.5 0.1 - 1.2 X10*3/uL [facility] Eosinophils Absolute Auto 0.1 0.0 - 0.4 X10*3/uL [facility] Basophils Absolute Auto 0.0 0.0 - 0.2 X10*3/uL [facility] NRBC Abs Auto 0.000 0.0 - 0.012 X10*3/uL [facility] 01/18/2025 9:14 AM EDT 01/18/2025 9:20 AM EDT Generic External Data Provider LAB BLOOD ORDERAB LES Final Result Performing Organization Address [facility] Phone Number [facility] [address] [place] [phone] * Iron And Total Iron Binding Capacity (01/18/2025 9:14 AM EDT) Pathologist [facility] Iron 72 45 - 160 mcg/dL [facility] Total Iron Binding Capacity 329 228 - 428 mcg/dL [facility] Percent Iron Saturation 22 15 - 50 % [facility] Unsaturated Iron Binding 257 ug/dL [facility] 01/18/2025 9:14 AM EDT 01/18/2025 9:20 AM EDT [facility] External Data Provider LAB BLOOD ORDERAB LES Final Result Performing Organization Address [facility] Number [facility] [address] [place] [phone] * Insulin (01/18/2025 9:14 AM EDT) [facility] Insulin 20 2 - 29 uU/mL [facility] Comment:This test was perfor med [...] ORDERAB LES Final Result Performing Organization Address [facility]/ZIP Co de Phone Number [facility] [address] [place] [phone] * (ABNORMAL) Zinc (01/18/2025 9:14 AM EDT) Zinc 57(A) 60 - 130 mcg/dL [facility] Comment:This test was develo ped and its analytical performancecharacteristics have been determined by [employer] [facility] [place], [place]. It hasnot been cleared or approved by the U.S. Food and DrugAdministration. This assay has been validated pursuantto the CLIA regulations and is used for clinicalpurposes.THIS TEST WAS PERFORMED AT:[employer] [address] [id number] RILEY MD,PHD 01/18/2025 9:14 AM EDT 01/18/2025 9:20 AM EDT Generic External Data Provider LAB BLOOD ORDERAB LES Final Result Performing Organization Address [facility] de Phone Number [facility] [address] [place] [phone] * (ABNORMAL) Vitamin A (01/18/2025 9:14 AM EDT) Vitamin A (Retinol) 35(A) 38 - 98 mcg/dL [facility] Comment:Vitamin supplementat ion within 24 hours prior toblood draw may affect the accuracy of the results.This test was developed and its analytical performancecharacteristics have been determined by [employer] [facility] [place], [place]. It hasnot been cleared or approved by the [employer] Food and DrugAdministration. This assay has been validated pursuantto the CLIA regulations and is used for clinicalpurposes.THIS TEST WAS PERFORMED AT:[employer] [id number] [place] [id number] RILEY MD,PHD 01/18/2025 9:14 AM EDT 01/18/2025 9:20 AM EDT Generic External Data Provider LAB BLOOD ORDERAB LES Final Result Performing Organization Address [facility] de Phone Number [facility] [address] [place] [phone] * (ABNORMAL) C-reactive Protein (01/18/2025 9:14 AM EDT) Pathologist [facility] C Reactive Protein 0.66(H) < or = 0.50 mg/dL [facility] 01/18/2025 9:14 AM EDT 01/18/2025 9:20 AM EDT Generic External Data Provider LAB BLOOD ORDERAB LES Final Result Performing Organization Address [facility] de Phone Number [facility] [address] [place] [phone] * Vitamin B1 (01/18/2025 9:14 AM EDT) [facility] Vitamin B1 9 8 - 30 nmol/L [facility] Comment:Vitamin supplementat ion within 24 hours prior toblood draw may affect the accuracy of the results.This test was developed and its analytical performancecharacteristics have been determined by [employer] [place], [place]. It hasnot been cleared or approved by the U.S. Food and DrugAdministration. This assay has been validated pursuantto the CLIA regulations and is used for clinicalpurposes.THIS TEST WAS PERFORMED AT:[employer] [place] [address]TSOKJLPKAJAL RILEY MD,PHD 01/18/2025 9:14 AM EDT 01/18/2025 9:20 AM EDT us Generic External Data Provider LAB BLOOD ORDERAB LES Final Result Performing Organization Address [facility] Co de Phone Number [facility] [address] [place] [phone] * Hemoglobin A1c (01/18/2025 9:14 AM EDT) Hemoglobin A1c 5.9 <6.0 % [facility] Comment:Hemoglobin A1C Refer ence Range Adults: 4.8 - 6.0 % Non diabetic: < 6.0 % Goal: < 7.0 %Additional Action Suggested: > 8.0 %Note: Hemoglobin A1c results are invalid for patients with abnormal amounts of HbF. Blood transfusions may impact the HbA1c concentration in the patient sample. Estimated Average Glucose 123 mg/dL [facility] Comment:eAG = Estimated ave rage glucose which is %A1C expressed asaverage glucose, using the formula of the X4P-MxrktlyTmsagiv Glucose study (ADAG), Diabetes Care, Vol.31,#8,2007 01/18/2025 9:14 AM EDT 01/18/2025 9:20 AM EDT Generic External Data Provider LAB BLOOD ORDERAB LES Final Result Performing Organization Address [facility] Co de Phone Number [facility] [address] [place] [phone] * Ferritin (01/18/2025 9:14 AM EDT) Ferritin 40 20 - 250 ng/mL [facility] 01/18/2025 9:14 AM EDT 01/18/2025 9:20 AM EDT us Generic External Data Provider LAB BLOOD ORDERAB LES Final Result Performing Organization Address [facility] Co de Phone Number [facility] [address] [place] [phone] * (ABNORMAL) Lipid Panel, Standard (01/18/2025 9:14 AM EDT) Triglycerides 71 <150 mg/dL [facility] Comment:Desirable Triglyceri de: less than 150 mg/dLBorderline High Triglyceride 150-199 mg/dLHigh Triglyceride: 200-499 mg/dLVery High Triglyceride: greater than or equal to 5OO mg/dL Cholesterol 105 <200 mg/dL [facility] Comment:Desirable Cholestero l: less than 200 mg/dLBorderline High Cholesterol: 200-239 mg/dLHigh Cholesterol: greater than 239 mg/dL LDL Cholesterol Calculated 61 <100 mg/dL [facility] Comment:Desirable LDL: less than 100 mg/dLNear Optimal/Above Optimal LDL: 110- 129 mg/dLBorderline High LDL: 130-159 mg/dLHigh LDL: 160-189 mg/dLVery High LDL: greater than or equal to 190 mg/dL HDL Cholesterol 30(L) >40 mg/dL [facility] Comment:Desirable HDL: great er than 40 mg/dL Note: This HDL assay may give artificially low results in patients with liver disease. 01/18/2025 9:14 AM EDT 01/18/2025 9:20 AM EDT us Generic External Data Provider LAB BLOOD ORDERAB LES Final Result [facility] [address] [place] [phone] * (ABNORMAL) Comprehensive Metabolic Panel (01/18/2025 9:14 AM EDT) Sodium 142 135 - 145 mmol/L [facility] Potassium 4.1 3.3 - 5.1 mmol/L [facility] Chloride 108 96 - 108 mmol/L [facility] Carbon Dioxide 27 22 - 29 mmol/L [facility] Anion Gap 11(L) 12 - 20 [facility] Urea Nitrogen (BUN) 10 9 - 16 mg/dL [facility] Creatinine, Serum 0.74 0.5 - 1.4 mg/dL [facility] Estimated Glomerular Filt Rate >60 [facility] Comment:Chronic Kidney Disea se: Estimated GFR < 60 mL/min/1.51c5Egunkd Kidney Disease: Estimated GFR < 15 mL/min/1.73m2 Glucose 111 60 - 115 mg/dL [facility] Calcium 9.3 8.4 - 10.2 mg/dL [facility] Bilirubin, Total 0.6 0.0 - 1.0 mg/dL [facility] Aspartate Amino Transferase 27 5 - 37 U/L [facility] Alanine Aminotransferase 40 0 - 40 U/L [facility] Total Protein 7.2 6.5 - 8.0 g/dL [facility] Albumin Level 4.1 3.5 - 5.0 g/dL [facility] Alkaline Phosphatase 77 39 - 117 U/L [facility] 01/18/2025 9:14 AM EDT 01/18/2025 9:20 AM EDT us Generic External Data Provider LAB BLOOD ORDERAB LES Final Result Performing Organization Address City/State/[facility] Co de Phone Number [facility] [address] [place] [phone] * XR Chest 2 Views (01/18/2025 9:00 AM EDT) Anatomical Region Laterality Modality Chest Radiographic Jeannie ging 01/18/2025 9:00 AM EDT Narrative 01/18/2025 9:19 AM EDT ? [facility] ?[address] ?[place] [address] ?XRay Report ? Signed ? Patient: Kirt,Krzysztof Jr ?MR#: MM ?? [id number] ? : 1980 ?Acct:[id number] ? Age/Sex: 44 / M ?ADM Date: 04/10/25 ? Loc: HO.US ? Attending Dr: Morris Borrego MD ? Ordering Physician: Morris Borrego MD ?? Date of Service: 01/18/25 ?? Procedure(s): XR chest 2V ?? Accession Number(s): [id number] ? cc: Araceli White; Morris Borrego MD [...] DD/ 0900 ? TD/TT: 01/18/25 0907 ? Brazing Machine Operator Automatic: ? Procedure Note Gisell Kennedy - 01/18/2025 [place] [address] XRay Report Signed Patient: Krzysztof Moralez MR#: [id number] : 1980Acct:[id number] Age/Sex: 44 / MADM Date: 01/18/25 Loc: . Attending Dr: Morris Borrego MD Ordering Physician: Morris Borrego MD Date of Service: 01/18/25 Procedure(s): XR chest 2V Accession Number(s): [id number] cc: Araceli White; Morris Borrego MD EXAMINATION: [...] MD in OV> 01/18/25916 DD/ 9 TD/TT: 01/18/25906 Brazing Machine Operator Automatic: [facility] External Provider IMG XR PROCEDURES Final Result * US Abdomen Comp w elastography (01/18/2025 8:45 AM EDT) Anatomical Region Laterality Modality Abdomen Ultrasound 01/18/2025 8:45 AM EDT Narrative 01/18/2025 9:32 AM EDT ? [facility] ?[address] ?[place] [address] ? Ultrasound Report ? Signed ? Patient: Krzysztof Moralez ?MR#: [id number] ?? [id number] ? : 1980 ?Acct:[id number] ? Age/Sex: 44 / M ?ADM Date: 01/18/25 ? Loc: HO.US ? Attending Dr: Morris Borrego MD ? Ordering Physician: Morris Borrego MD ?? Date of Service: 01/18/25 ?? Procedure(s): US abdomen comp w elastography ?? Accession Number(s): [id number] ? cc: Araceli White; Morris Borrego MD [...] DD/ 0845 ? TD/TT: 01/18/25 0859 ? Brazing Machine Operator Automatic: ? Procedure Note Gisell Kennedy - 01/18/[address] [address] Ultrasound Report Signed Patient: Krzysztof Moralez [facility]#: [id number] : 1980Acct:[id number] Age/Sex: 44 / MADM Date: 01/18/25 Loc: HO.US Attending Dr: Morris Borrego MD Ordering Physician: Morris Borrego MD Date of Service: 01/18/25 Procedure(s): US abdomen comp w elastography Accession Number(s): [id number] cc: Araceli White; Morris Borrego MD EXAMINATION: [...] Tate Lowery MD 01/18/2025 09:29 AM EDT Dictated By: Tate Lowery MD Signed By: <Electronically signed by Tate Lowery MD in OV> 01/18/25 0929 DD/ 0845 TD/TT: 01/18/25 0859 Brazing Machine Operator Automatic: Result [facility] External Provider IMG US PROCEDURES Final Result * (ABNORMAL) POCT HGB A1C (12/08/2024 2:21 PM EST) Pathologist [facility] Hemoglobin A1C 6.1(A) 4.0 - 6.0 % QC Media Lot # [id number] Lot# Expiration Date Blood 12/08/2024 2:21 PM EST Result [facility] Araceli White MD POINT OF CARE TEST ENTER/EDIT ORDERABLES Final Result * POCT Glucose (12/08/2024 2:18 PM EST) Pathologist [facility] Glucose Blood, POC 109 60 - 200 mg/dL QC Media Lot # [id number] Lot# Expiration Date Blood Capillary blood specimen / Unknown 12/08/2024 2:18 PM EST Result [facility] Araceli White MD POINT OF CARE TEST ENTER/EDIT ORDERABLES Final Result * HEPATITIS C AB W/REFL TO HCV RNA, QN, PCR (12/29/2021 10:52 AM EDT) Pathologist [facility] HEPATITIS C ANTIBODY NON-REACT GERMAN NON-REACT GERMAN [facility] INDEX 0.03 <1.00 [facility] Comment: ?? HCV antibody was non-reactive. There is no laboratory ?? evidence of HCV infection. ?? In most cases, no further action is required. However, if recent HCV exposure is suspected, a test for HCV RNA (test code 99798) is suggested. ?? For additional information please refer to http://education.Schoolfy.[employer]/faq/GHR65g2 (This link is being provided for informational/ educational purposes only.) ?? 12/29/2021 10:5 2 AM EDT Result [facility] Araceli White MD HISTORICAL/NON ORDERABLE LABS Final Result [facility] [address] * HIV 1/2 ANTIGEN/ANTIBODY,FOURTH GENERATION W/RFL (12/29/2021 10:52 AM EDT) HIV-1/2 ANTIGEN AND ANTIBODIES, 4TH GENERATION W/ REFLEX NON-REACT GERMAN NON-REACT GERMAN [facility] Comment: HIV-1 antigen and HIV-1/HIV-2 [...] ? For additional information please refer to http://education.Kmsocial/faq/ZXW909 (This link is being provided for informational/ educational purposes only.) ? The performance of this assay has not been clinically validated in patients less than 2 years old. ?? 12/29/2021 10:5 2 AM EDT us Araceli White MD LAB BLOOD ORDERABLES Final Res ult Performing Organization Address City/[facility] Co de Phone Number [facility] [address] from Last 3 Months or Most Recently Relevant to Health Maintenance Insurance [facility] [employer] MEDICARE Care Teams Computer Technical Support Specialist Relationship Specialty Start Date End Date Araceli White MD [address] [place] [phone] PCP - General Family Medicine 06/04/21
== END 2025-02-13 08:18 | disposition home or self-care (01) ==
LOC: HO.HAP 08:17
PROVIDERS: Visit Provider General Practice
DX: Z46.1 Encounter for fitting and adjustment of hearing aid (principal); H90.3 Sensorineural hearing loss, bilateral
CPT/HCPCS: V5264

== ENCOUNTER 2025-02-26 11:13 | Outpatient (AMB) | payer MEDICARE, MEDICAID, SELFPAY ==
--- NOTE | 2025-02-26 11:05 | MHC.WMTHER ---
Intake Intake Visit Reasons: TV BH Intake Allergies morphine Allergy (Mild, Verified 12/15/24 14:22) Itching [facility] Medical History (Updated 02/02/25 @ 20:58 by Morris Borrego MD) Diabetes Anxiety Depression DJD (degenerative joint disease) Hyperlipidemia Sleep apnea treated with continuous positive airway pressure (CPAP) Non-insulin dependent type 2 diabetes mellitus Morbid obesity 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 Cauda equina compression Chronic pain syndrome Spondylosis of lumbar region without myelopathy or radiculopathy Chronic pain syndrome COVID-19 vaccine series completed Surgical History History of surgery S/P epidural steroid injection Social History Patient Tobacco Use Status: Never used Tobacco Behavioral Health Assessment Weight Management Therapy Therapy Notes Details The patient is a 44-year-old male presenting for his initial visit to begin the behavioral health assessment as part of the surgical weight loss program. He was referred to the [facility] by his primary care provider at [facility] due to physical challenges related to his weight. He is seeking alternatives to improve his overall health and quality of life. Presenting Concerns Referral Source WMP-Provider. Reason for referral Completion of behavioral health assessment as part of process for weight-loss surgery. Precipitating Event Obesity. Living Situation Current Living Situation Rent At risk of losing current housing? No Satisfied with current living situation? Yes Comments PT live with his and 2 children. Food/Weight/Diet Expectations of change PT started the program on 12/15/2024 at 309Lbs, and his most recent weight as of 02/23/2025 is 304Lbs. The initial goal is to lose 10% of his weight before surgery, which is about 31 lbs. Ultimate weight goal: 278 lbs. before surgery. PT wants to be under 180 lbs. PT is implementing the following: Current meal plan: 2 shakes, 1.5 bars, and 1 meal per day. Exercise plan: None Scale: No yet. Communication w/ provider: unclear. History/Relationship with food Example of meals before starting the program: Breakfast: Lunch: Dinner: Snacks: Drinks/Liquids: History/Relationship with weight In the last 10 years, the patient's Lowest weight was and highest Social History Family history and relationship PT is 6 years ago. He has 3 children, the youngest is 5 years with current . The 2 oldest are step-children from the 's first marriage. He has 6 siblings, parents are alive. Pt reports he has good family relationships. 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 Developmental history and status PT was in special Ed in school. Currently [facility]. Social support Parents, . Community support Orthodox community. PCP. Hindu/Spirituality Sikhism. Cultural/Ethnic information , Irish. PT was born in [place]. Legal Involvement and History Current or historical involvement with the legal system? None reported. Education Highest grade completed HS. Preferred learning style Visual Currently enrolled in educational program? No Interested in further educational program? No Employment Employment Status Unemployed (Disabled since 2008 after an accident. ) Wants help to find employment? No Meaningful activities watch sports, play basketball, and softball. Financial Situation Describe current financial situation Comfortable and Occasional struggle Financial assistance? Food [place], SSI, Disability and Other Service Service? No Mental Health and Addiction Treatment Current/Past substance abuse? No Comments Alcohol: None. Cigarettes/Tobacco: None. Cannabis/Edibles: None. Current/Past addictive behavior concerns? No Psychiatric history PT currently receives outpatient psychiatric treatment with [facility], and gets prescribed: -Clonazepam 0.5mg, 1 as needed. -Risperidone 2mg 1 at day. -Zolpidem 10mg. 1 at bedtime for sleep. He doesn't know his diagnosis. He believes he has anxiety and a little bit of bipolarity . He reports that he gets easily desperate and anxious when people are on him. When upset, he gets away to walk and cool off as he has a hx of being explosive and having anger outbursts. PT also reports issues with sleeping due to insomnia, and Zolpidem helps him to sleep better and wakes up relaxed. He used Clonazepam when getting upset to calm down. Pt also shared anxiety issues when being in large crowds, if he has to wait too long, etc. Medical and Physical Health Summary Additional Medical History not covered in history None additional. Sexual History concerns None reported. Physical exam in the last year? Yes Pain Screening Current pain? Yes Pain in the last few months? Yes Comments Back pain. He had a back injury and currently suffers and gets treatment for chronic pain. Pain is worse at night. Questionnaires PHQ-9 Over the last 2 weeks, how often have you been bothered by any of the following problems? 1. Little interest or pleasure in doing things: nearly every day 2. Feeling down, depressed, or hopeless: nearly every day 3. Trouble falling or staying asleep, or sleeping too much: nearly every day 4. Feeling tired or having little energy: not at all (Left blank) 5. Poor appetite or overeating: not at all 6. Feeling bad about yourself - or that you are a failure or have let yourself or your family down: not at all 7. Trouble concentrating on things, such as reading the newspaper or watching television: more than half the days 8. Moving or speaking so slowly that other people could have noticed. Or the opposite - being so fidgety or restless that you have been moving around a lot more than usual: not at all 9. Thoughts that you would be better off or of hurting yourself in some way: not at all Total score: 11 Depression Screening Interpretation: Positive (From new PT pack, completed on 12/14/24) Depression Screening Done: Yes Source: Developed by Drs. Tate Ellis, Nury Vazquez, Andrea Baires and colleagues, with an educational samantha from [employer]. Assessment & Plan Assessment & Plan (1) Anxiety: Code(s): F41.9 - Anxiety disorder, unspecified (2) Pre-bariatric surgery psychological evaluation: Code(s): Z71.89 - Other specified counseling Plan The patient is not cleared at this time, as the behavioral health assessment is still in progress. He is scheduled to return in two weeks to continue the evaluation. The Binge Eating Scale (BES) will be reviewed at the next visit, and a new PHQ-9 will be completed at that time. Next Appointment: March 14, 2025, at 10:00 AM via telehealth. Telehealth Telehealth Telehealth Platform: [facility] Location of provider rendering services: other Location of patient: address on file Patient Identification confirmed using: Name, : Yes Telehealth method: voice only Patient verbally consented to treatment: Yes Patient verbally consented to billing insurance company: Yes Patient informed of any privacy concerns related to visit: Yes Minutes spent on Phone/Video with Pt.: 55 Coding Level of Care Code New Pt Tele Psy Diag Eval (47990) Patient Type New Diagnoses Anxiety F41.9 Pre-bariatric surgery psychological evaluation Z71.89 Time Spent (min) 55
--- OUTSIDE RECORDS SUMMARY | 2025-02-26 11:56 | XMS_ITS | Encounter Summary ---
Author Organization [employer] Address [address] [place] [address] Care Team Providers Care Model Builder Display Name Role Phone Araceli White MD Primary Care Provider [phone] Encounter Details Date Type Department Care Team (Late st Contact Info) Description 09/27/2023 Telephone [facility] MEDICINE [address] [place], [place] [phone] Araceli White MD [address] [place], [place] [phone] Social History Tobacco Use Types Packs/Day Years [...] documented as of this encounter Care Teams Model Builder Display Relationship Specialty Start Date End Date Araceli White MD [address] [place] [address] PCP - General Family Medicine 06/04/21 documented as of this encounter
--- OUTSIDE RECORDS SUMMARY | 2025-02-26 11:56 | XMS_ITS | Clinical Summary ---
Author Organization [facility] Address [address] [place] [address] Care Team Providers Care Certified Medical Aide Name Role Phone Vic Ocampo MD Primary Care Provider [phone] Source Comments PLEASE NOTE, if this patient [...] 19 + 3-dose series) 09/16/2022 07/22/2022, 09/06/2019 [id number] ( season) 2024 021, 03/08/2021 Imm-Influenza (#1) [...] Recently Relevant to Health Maintenance Results * A1C future lab (01/24/2016 9:20 AM EDT) GLYCATED HEMOGLOBIN A1C 4.9 <6.5 % [facility] ESTIM[facility]ER[facility] GLUCOSE 94 mg/dL [facility] Blood specimen (specimen) Blood / Unknown 01/24/2016 9:20 AM EDT 01/24/2016 11:13 AM EDT [facility]ative [facility] 01/25/2016 11:31 AM EDT [employer] [address] [place] [address] PT ID [id number] ORD# [id number] Vic Ocampo MD LAB - BLOOD DRAW Final Result [facility] [address] [place] [address], [place] [phone] * (ABNORMAL) lipid future lab (01/24/2016 9:20 AM EDT) CHOLESTEROL 102 0 [...] 9:20 AM EDT 01/24/2016 11:[address] [facility] - 01/24/2016 4:00 PM EDT [facility] [email or web address] [address] [place] [address] PT ID [id number] ORD# [id number] Vic Ocampo MD LAB - BLOOD DRAW Final Result Performing Organization Address City/[facility]/ZIP Co de Phone Number [facility] [address] [place] [address], [place] [phone] from Last 3 Months or Most Recently Relevant to Health Maintenance Insurance [facility] Member Subscriber Plan / Payer (Ef fective 2015-Present) Name:Krzysztof Moralez Relation to Subscriber:Self Name:Krzysztof Moralez Payer ID:[id number] Group ID:[id number] Type:Medicaid Address: [facility] [address] [place] [address] Care Teams Certified Medical Aide Relationship Specialty Start Date End Date Vic Ocampo MD [address] [place] [phone] PCP - General Internal Medicine 11/11/15
--- OUTSIDE RECORDS SUMMARY | 2025-02-26 11:56 | XMS_ITS | Encounter Summary ---
Author Organization [employer] Address [address] [facility] [address] [place] [address] Care Team Providers Care Shirt Ironer Supervisor Name Role Phone Araceli White MD Primary Care Provider [phone] Reason for Referral * Consultation (Routine) - Closed Specialty Diagnoses / Procedures Referred By Contac t Referred To Contact Audiology Diagnoses Conductive hearing loss, bilateral Araceli White MD [address] [place] [address] Phone: tel: fax: [facility] [address] [place], [place] Phone: tel: fax: Referral ID Status Reason Start Date Expiration Date V isits Requested Visits Authorized [id number] Closed Specialty Services Required 02/06/2024 02/05/2025 1 1 Encounter Details Date Type Department Care Team (Late st Contact Info) Description 02/06/2024 Orders Only [facility] MEDICINE [address] [place], [place] [phone] Araceli White MD [address] [place], [place] [phone] Conductive hearing loss, bilateral (Primary Dx) Social [...] documented as of this encounter Care Teams Shirt Ironer Supervisor Relationship Specialty Start Date End Date Araceli White MD [address] [place] [phone] PCP - General Family Medicine 06/04/21 documented as of this encounter
--- OUTSIDE RECORDS SUMMARY | 2025-02-26 11:56 | XMS_ITS | Clinical Summary ---
Author Organization [employer] Address [address] [facility] [address] [place] [address] Care Team Providers Care Residential Glazier Name Role Phone Araceli White MD Primary Care Provider [phone] Allergies Active Allergy Reactions Criticality Noted Date [...] complication, without long-term current use of insulin (CMS/[facility]) Inject 1.5 mg under the skin 1 [...] EDT): Awaiting possible spinal nerve stimulator from [facility] Continue rest, activity modification, [...] Provider, Generic External Data 01/18/2025 Orders Only [facility] External Provider, [facility] 12/08/2024 2:15 PM EST Office Visit [facility] [address] [place] [phone] Araceli White MD Severe sleep apnea (Primary Dx); Type 2 diabetes mellitus without complication, without long-term current use of insulin (CMS/HCC); Dietary counseling; Exercise counseling; Class 3 severe obesity with serious comorbidity and body mass index (BMI) of 40.0 to 44.9 in adult, unspecified obesity type (CMS/HCC); Inflammation of sacroiliac joint (CMS/HCC); Mixed anxiety and depressive disorder; Conductive hearing loss, bilateral 12/08/2024 Travel from Last 3 Months Immunizations Immunization Administration Dates Next Due Hep A, Adult [...] 4 PM EDT 02/02/2025 1:05 PM EDT [facility] - 02/06/2025 2:20 PM EDT ----- ------- Name: KirtGeneshawnee Jones ? Age/Sex: 44/M ? : 1980 Unit#: [id number] ?? Attend Dr: Morris Borrego MD ?Re02/02/25 ?Status: DEP SDC ? Location: HO.SSS ?Disch: ? ----- ------- SPEC : [id number] ? RECD: 02/02/25-5 ? STATUS: ??SOUT ? REQ NUM: [id number] ? MOUNIKA: 02/02/25-1234 ? SUBM DR: Morris Borrego MD ? ENTERED: ??02/02/25-131 ?SP TYPE: Surgical ? OTHR DR: Araceli [...] ? Age/Sex: 44/M ? : 1980 Unit#: [id number] ?? Attend Dr: Morris Borrego MD ?Re02/02/25 ?Status: DEP SDC ? Location: HO.SSS ?Disch: ? ----- ------- SPEC : [id number] ? RECD: 02/02/25-1305 ? STATUS: ??SOUT ? REQ NUM: [id number] ? MOUNIKA: 02/02/25-1234 ? SUBM DR: Morris Borrego MD ? ENTERED: ??02/02/25-1310 ?SP TYPE: Surgical ? OTHR DR: Araceli White ? ORDERED: ??HE Stain/9, Gross Micro L4/4, IHC/2, Special st. 2/2, H. pylori/2, AB/PAS/2 ? Gross Description ?(Continued) tissue fragments measuring 0.25 and 0.35 cm, submitted in toto in a cassette labeled Xena HUNGMerritt Special studies ordered and performed: Immunostain for H. pylori on A and B; AB/PAS stains on A and B Copies To: ?? Araceli White ?? [address] [facility] ?? [place] [address] ?? [phone] ?? Morris Borrego MD ?? [facility] ?? [address] ?? [place] ?? [phone] ----- ------- Signed (signature on file) Brian Rivera MD 02/06/25 1420 ? ----- ------- ? END OF REPORT ? us Generic External Data Provider LAB BLOOD ORDERAB LES Final Result [facility] [address] [place] [address] [phone] * Glucose, Whole Blood (02/02/2025 12:06 PM EDT) Glucose, Whole Blood 86 60 - 115 mg/dL [facility] Comment:METER #: [id number] 02/02/2025 12:0 6 PM EDT 02/02/2025 12:09 PM EDT Generic External Data Provider LAB BLOOD ORDERAB LES Final Result Performing Organization Address [facility] Co de Phone Number [facility] [address] [place] [phone] * (ABNORMAL) Vitamin D, 25-Hydroxy, Total, Immunoassay (01/18/2025 9:14 AM EDT) [facility] Vitamin D 25-OH Total 11.9(L) >30 ng/mL [facility] Comment: Health Based Reference Values*< 20 ??ng/mL ??Gnysubmcl49-96 ng/mL ??Insufficient> 30 ??ng/mL ??Sufficient*Maci GONZALEZ. N [...] ORDERAB LES Final Result Performing Organization Address City/[facility] Co de Phone Number [facility] [address] [place] [phone] * Vitamin B12 (Cobalamin) and Folate Panel, Serum (01/18/2025 9:14 AM EDT) Pathologist [facility] Vitamin B12 246 200 - 900 pg/mL [facility] Comment:NORMAL 200-900 PG/ML INDETERMINATE 160-199 PG/ML DEFICIENT < 160 PG/ML Folate 12.4 > or = 4.0 ng/mL [facility] Comment:Reference Values:> o r = 4.0 ng/mL< 4.0 ng/mL suggests folate deficiency Methotrexate, aminopterin and folinic acid(leucovorin) are chemotherapeutic agents whose molecularstructures are similar to folate; therefore, the Architectfolate assay cannot be used for patients using these drugs. 01/18/2025 9:14 AM EDT 01/18/2025 9:20 AM EDT us Generic External Data Provider LAB BLOOD ORDERAB LES Final Result Performing Organization Address [facility] de Phone Number [facility] [address] [place] [phone] * TSH with Reflex to Free T4 (01/18/2025 9:14 AM EDT) [facility] TSH reflex Free T4 1.86 0.32 - 4.0 uIU/mL [facility] 01/18/2025 9:14 AM EDT 01/18/2025 9:20 AM EDT us Generic External Data Provider LAB BLOOD ORDERAB LES Final Result Performing Organization Address [facility] Co de Phone Number [facility] [address] [place] [phone] * (ABNORMAL) CBC auto differential (01/18/2025 9:14 AM EDT) [facility] White Blood Count 6.7 4.8 - 10.8 X10*3/uL [facility] Red Blood Count 4.73 4.60 - 5.80 X10*6/uL [facility] Hemoglobin 13.4(L) 14.0 - 18.0 g/dl [facility] Hematocrit 40.3(L) 42.0 - 52.0 % [facility] Mean Corpuscular Volume 85.2 80.0 - 98.0 fL [facility] Mean Corpuscular Hemoglobin 28.3 27.0 - 33.0 pg [facility] Mean Corpuscular HGB Conc 33.3 31.0 - 36.0 g/dl [facility] Red Cell Distribution Width 12.8 11.0 - 16.0 % [facility] Platelet Count 256 160 - 400 X10*3/uL [facility] Mean Platelet Volume 9.4 9.4 - 12.4 fL [facility] Neutrophils Percent Auto 60.9 45 - 73 % [facility] Imm Gran Pct Auto 0.6(H) 0.0 - 0.4 % [facility] Lymphocytes Percent Auto 28.6 20 - 40 % [facility] Monocytes Percent Auto 7.7 2 - 11 % [facility] Eosinophils Percent Auto 1.6 0 - 4 % [facility] Basophils Percent Auto 0.6 0 - 2 % [facility] NRBC Pct Auto 0.0 0.0 - 0.2 /100WBC [facility] Neutrophils Absolute Auto 4.1 2.0 - 8.3 x10*3/uL [facility] Imm Gran Abs Auto 0.04(H) 0.00 - 0.03 X10*3/uL [facility] Lymphocytes Absolute Auto 1.9 1.2 - 4.9 X10*3/uL [facility] Monocytes Absolute Auto 0.5 0.1 - 1.2 X10*3/uL [facility] Eosinophils Absolute Auto 0.1 0.0 - 0.4 X10*3/uL [facility] Basophils Absolute Auto 0.0 0.0 - 0.2 X10*3/uL [facility] NRBC Abs Auto 0.000 0.0 - 0.012 X10*3/uL [facility] 01/18/2025 9:14 AM EDT 01/18/2025 9:20 AM EDT us Generic External Data Provider LAB BLOOD ORDERAB LES Final Result Performing Organization Address [facility] Co nj Phone Number [facility] [address] [place] [phone] * Iron And Total Iron Binding Capacity (01/18/2025 9:14 AM EDT) Iron 72 45 - 160 mcg/dL [facility] Total Iron Binding Capacity 329 228 - 428 mcg/dL [facility] Percent Iron Saturation 22 15 - 50 % [facility] Unsaturated Iron Binding 257 ug/dL [facility] 01/18/2025 9:14 AM EDT 01/18/2025 9:20 AM EDT Generic External Data Provider LAB BLOOD ORDERAB LES Final Result Performing Organization [facility] [address] [place] [phone] * Insulin (01/18/2025 9:14 AM EDT) Insulin 20 2 - 29 uU/mL [facility] Comment:This test was perfor med [...] ORDERAB LES Final Result Performing Organization Address [facility]/State/ZIP Co de Phone Number [facility] [address] [place] [address] [phone] * (ABNORMAL) Zinc (01/18/2025 9:14 AM EDT) Zinc 57(A) 60 - 130 mcg/dL [facility] Comment:This test was develo ped and its analytical performancecharacteristics have been determined by [place]. It hasnot been cleared or approved by the U.S. Food and DrugAdministration. This assay has been validated pursuantto the CLIA regulations and is used for clinicalpurposes.THIS TEST WAS PERFORMED AT:[id number] [place] [address]VBRMACXKAJAL RILEY MD,PHD 01/18/2025 9:14 AM EDT 01/18/2025 9:20 AM EDT us Generic External Data Provider LAB BLOOD ORDERAB LES Final Result [facility] [address] [place] [address] [phone] * (ABNORMAL) Vitamin A (01/18/2025 9:14 AM EDT) Pathologist [facility] Vitamin A (Retinol) 35(A) 38 - 98 mcg/dL [facility] Comment:Vitamin supplementat ion within 24 hours prior toblood draw may affect the accuracy of the results.This test was developed and its analytical performancecharacteristics have been determined by [place]. It hasnot been cleared or approved by the U.S. Food and DrugAdministration. This assay has been validated pursuantto the CLIA regulations and is used for clinicalpurposes.THIS TEST WAS PERFORMED AT:[id number] [place] [address]UTJTHUAKAJAL RILEY MD,PHD 01/18/2025 9:14 AM EDT 01/18/2025 9:20 AM EDT us Generic External Data Provider LAB BLOOD ORDERAB LES Final Result Performing Organization Address [facility] de Phone Number [facility] [address] [place] [phone] * (ABNORMAL) C-reactive Protein (01/18/2025 9:14 AM EDT) C Reactive Protein 0.66(H) < or = 0.50 mg/dL [facility] 01/18/2025 9:14 AM EDT 01/18/2025 9:20 AM EDT us Generic External Data Provider LAB BLOOD ORDERAB LES Final Result Performing Organization Address [facility] [address] [place] [phone] * Vitamin B1 (01/18/2025 9:14 AM EDT) Pathologist [facility] Vitamin B1 9 8 - 30 nmol/L [facility] Comment:Vitamin supplementat ion within 24 hours prior toblood draw may affect the accuracy of the results.This test was developed and its analytical performancecharacteristics have been determined by [employer] [place], [place]. It hasnot been cleared or approved by the U.S. Food and DrugAdministration. This assay has been validated pursuantto the CLIA regulations and is used for clinicalpurposes.THIS TEST WAS PERFORMED AT:[id number] [place] [address]QXUHNBCAKJAL RILEY MD,PHD 01/18/2025 9:14 AM EDT 01/18/2025 9:20 AM EDT Generic External Data Provider LAB BLOOD ORDERAB LES Final Result Performing Organization Address [facility] de Phone Number [facility] [address] [place] [address] [phone] * Hemoglobin A1c (01/18/2025 9:14 AM EDT) Hemoglobin A1c 5.9 <6.0 % [facility] Comment:Hemoglobin A1C Refer ence Range Adults: 4.8 - 6.0 % Non diabetic: < 6.0 % Goal: < 7.0 %Additional Action Suggested: > 8.0 %Note: Hemoglobin A1c results are invalid for patients with abnormal amounts of HbF. Blood transfusions may impact the HbA1c concentration in the patient sample. Estimated Average Glucose 123 mg/dL [facility] Comment:eAG = Estimated ave rage glucose which is %A1C expressed asaverage glucose, using the formula of the S0S-NbxlterCkspach Glucose study (ADAG), Diabetes Care, Vol.31,#8,May. 2007 01/18/2025 9:14 AM EDT 01/18/2025 9:20 AM EDT us Generic External Data Provider LAB BLOOD ORDERAB LES Final Result [facility] [address] [place] [phone] * Ferritin (01/18/2025 9:14 AM EDT) Ferritin 40 20 - 250 ng/mL [facility] 01/18/2025 9:14 AM EDT 01/18/2025 9:20 AM EDT Generic External Data Provider LAB BLOOD ORDERAB LES Final Result Performing Organization Address City/[facility]/ZIP Co de Phone Number [facility] [address] [place] [phone] * (ABNORMAL) Lipid Panel, Standard (01/18/2025 9:14 AM EDT) Triglycerides 71 <150 mg/dL [facility] Comment:Desirable Triglyceri de: less than 150 mg/dLBorderline High Triglyceride 150-199 mg/dLHigh Triglyceride: 200-499 mg/dLVery High Triglyceride: greater than or equal to 5OO mg/dL Cholesterol 105 <200 mg/dL [facility] Comment:Desirable Cholestero l: less than 200 mg/dLBorderline High Cholesterol: 200-239 mg/dLHigh Cholesterol: greater than 239 mg/dL LDL Cholesterol Calculated 61 <100 mg/dL [facility] Comment:Desirable LDL: less than 100 mg/dLNear Optimal/Above Optimal LDL: 110- 129 mg/dLBorderline High LDL: 130-159 mg/dLHigh LDL: 160-189 mg/dLVery High LDL: greater than or equal to 190 mg/dL HDL Cholesterol 30(L) >40 mg/dL [facility] Comment:Desirable HDL: great er than 40 mg/dL Note: This HDL assay may give artificially low results in patients with liver disease. 01/18/2025 9:14 AM EDT 01/18/2025 9:20 AM EDT us Generic External Data Provider LAB BLOOD ORDERAB LES Final Result [facility] [address] [place] [phone] * (ABNORMAL) Comprehensive Metabolic Panel (01/18/2025 9:14 AM EDT) Sodium 142 135 - 145 mmol/L [facility] Potassium 4.1 3.3 - 5.1 mmol/L [facility] Chloride 108 96 - 108 mmol/L [facility] Carbon Dioxide 27 22 - 29 mmol/L [facility] Anion Gap 11(L) 12 - 20 [facility] Urea Nitrogen (BUN) 10 9 - 16 mg/dL [facility] Creatinine, Serum 0.74 0.5 - 1.4 mg/dL [facility] Estimated Glomerular Filt Rate >60 [facility] Comment:Chronic Kidney Disea se: Estimated GFR < 60 mL/min/1.64x3Rvijnn Kidney Disease: Estimated GFR < 15 mL/min/1.73m2 Glucose 111 60 - 115 mg/dL [facility] Calcium 9.3 8.4 - 10.2 mg/dL [facility] Bilirubin, Total 0.6 0.0 - 1.0 mg/dL [facility] Aspartate Amino Transferase 27 5 - 37 U/L [facility] Alanine Aminotransferase 40 0 - 40 U/L [facility] Total Protein 7.2 6.5 - 8.0 g/dL [facility] Albumin Level 4.1 3.5 - 5.0 g/dL [facility] Alkaline Phosphatase 77 39 - 117 U/L [facility] 01/18/2025 9:14 AM EDT 01/18/2025 9:20 AM EDT us Generic External Data Provider LAB BLOOD ORDERAB LES Final Result [facility] [address] [place] [phone] [phone] * XR Chest 2 Views (01/18/2025 9:00 AM EDT) Anatomical Region Laterality Modality Chest Radiographic Jeannie ging 01/18/2025 9:00 AM EDT Narrative 01/18/2025 9:19 AM EDT ? [facility] ?[address] ?[place] [address] ?XRay Report ? Signed ? Patient: Kirt,Krzysztof Jr ?MR#: MM ?? [id number] ? : 1980 ?Acct:[id number] ? Age/Sex: 44 / M ?ADM Date: 04/10/25 ? Loc: HO.US ? Attending Dr: Morris Borrego MD ? Ordering Physician: Morris Borrego MD ?? Date of Service: 04/10/25 ?? Procedure(s): XR chest 2V ?? Accession Number(s): [id number] ? cc: Araceli White; Morris Borrego MD [...] DD/ 0900 ? TD/TT: 01/18/25 0907 ? Physically Impaired Teacher: ? Procedure Note Brent, Image - 01/18/2025 [place] [address] XRay Report Signed Patient: Krzysztof Moralez [facility]#: [id number] : 1980Acct:[id number] Age/Sex: 44 / MADM Date: 01/18/25 Loc: HO.US Attending Dr: Morris Borrego MD Ordering Physician: Morris Borrego MD Date of Service: 01/18/25 Procedure(s): XR chest 2V Accession Number(s): [id number] cc: Araceli White; Morris Borrego MD EXAMINATION: [...] Arnold Chu MD in OV> 01/18/25916 DD/ 09 TD/TT: 01/18/25 0907 Physically Impaired Teacher: [facility] External Provider IMG XR PROCEDURES Final Result * US Abdomen Comp w elastography (01/18/2025 8:45 AM EDT) Anatomical Region Laterality Modality Abdomen Ultrasound 01/18/2025 8:45 AM EDT Narrative 01/18/2025 9:32 AM EDT ? [facility] ?[address] ?[place], [place] [address] ? Ultrasound Report ? Signed ? Patient: Krzysztof Moralez Jr ?MR#: MM ?? [id number] ? : 1980 ?Acct:[id number] ? Age/Sex: 44 / M ?ADM Date: 01/18/25 ? Loc: HO.US ? Attending Dr: Morris Borrego MD ? Ordering Physician: Morris Borrego MD ?? Date of Service: 01/18/25 ?? Procedure(s): US abdomen comp w elastography ?? Accession Number(s): [id number] ? cc: Araceli White; Morris Borrego MD [...] Radiologists in Ultrasound Liver Stiffness Thresholds (2020): ? LIVER STIFFNESS THRESHOLDS: ?? *Shear wave [...] DD/ 0845 ? TD/TT: 01/18/25 0859 ? Physically Impaired Teacher: ? Procedure Note Gisell Kennedy - 01/18/[address] [address] Ultrasound Report Signed Patient: Krzysztof Moralez [facility]#: [id number] : 1980Acct:[id number] Age/Sex: 44 / MADM Date: 01/18/25 Loc: HO.US Attending Dr: Morris Borrego MD Ordering Physician: Morris Borrego MD Date of Service: 01/18/25 Procedure(s): US abdomen comp w elastography Accession Number(s): [id number] cc: Araceli White; Morris Borrego MD EXAMINATION: [...] Lowery MD in OV> 01/18/25 0929 DD/ TD/TT: 01/18/2559 Physically Impaired Teacher: [facility] External Provider IMG US PROCEDURES Final Result [...] HEPATITIS C ANTIBODY NON-REACT GERMAN NON-REACT GERMAN [facility] INDEX 0.03 <1.00 [facility] Comment: ?? HCV antibody was non-reactive. There is no laboratory ?? evidence of HCV infection. ?? In most cases, no further action is required. However, if recent HCV exposure is suspected, a test for HCV RNA (test code 15856) is suggested. ?? For additional information please refer to http://education.[employer].Livevol/faq/XMH34f1 (This link is being provided for informational/ educational purposes only.) ?? 12/29/2021 10:5 2 AM EDT Araceli White MD HISTORICAL/NON ORDERABLE LABS Final Result [facility] Any[address] * HIV 1/2 ANTIGEN/ANTIBODY,FOURTH GENERATION W/RFL (12/29/2021 10:52 AM EDT) HIV-1/2 ANTIGEN AND ANTIBODIES, 4TH GENERATION W/ REFLEX NON-REACT GERMAN NON-REACT GERMAN [facility] Comment: HIV-1 antigen and HIV-1/HIV-2 [...] ? For additional information please refer to http://education.Linguee/faq/TCK033 (This link is being provided for informational/ educational purposes only.) ? The performance of this assay has not been clinically validated in patients less than 2 years old. ?? 12/29/2021 10:5 2 AM EDT us Araceli White MD LAB BLOOD ORDERABLES Final Res ult [facility] [address] from Last 3 Months or Most Recently Relevant to Health Maintenance Insurance [facility] STANDARD [place] [phone] Care Teams Residential Glazier Relationship Specialty Start Date End Date Araceli White MD [address] [place] [phone] PCP - General Family Medicine 06/04/21
--- OUTSIDE RECORDS SUMMARY | 2025-02-26 11:56 | XMS_ITS | Encounter Summary ---
Author Organization [employer] Address [address] [facility] [address] [place] [address] Care Team Providers Care Arch Support Technician Name Role Phone Araceli White MD Primary Care Provider [phone] Encounter Details Date Type Department Care Team (Late st Contact Info) Description 01/20/2023 Orders Only [facility] [address] [place], [place] [phone] Araceli White MD [address] [place], [place] [phone] Prediabetes (Primary Dx) Social History Tobacco Use [...] documented as of this encounter Care Teams Arch Support Technician Relationship Specialty Start Date End Date Araceli White MD [address] [place] [address] PCP - General Family Medicine 06/04/21 documented as of this encounter
--- OUTSIDE RECORDS SUMMARY | 2025-02-26 11:56 | XMS_ITS | Clinical Summary ---
Author Organization [employer] [facility] ity Address [address] [place] [address] Care Team Providers Care Security Analyst Name Role Phone Unavailable Primary Care Provider [...]
== END 2025-02-26 12:09 | disposition home or self-care (01) ==
LOC: HO.HBST 11:13
PROVIDERS: PCP General Practice; Visit Provider Counselor Mental Health
DX: F41.9 Anxiety disorder, unspecified (principal); Z71.89 Other specified counseling
CPT/HCPCS: 90791

== ENCOUNTER → 2025-02-26 11:13 | Outpatient (BNVA) | payer MEDICARE, MEDICAID, SELFPAY | PROVIDERS: PCP General Practice; Visit Provider Counselor Mental Health | DX: Z13.89 Encounter for screening for other disorder (principal) ==

== ENCOUNTER 2025-03-14 15:12 | Outpatient (AMB) | payer MEDICARE, MEDICAID, SELFPAY ==
--- NOTE | 2025-03-14 15:00 | A.OFFWM_ITS ---
Intake Intake Visit Reasons: VIDEO Intake Part 2 Allergies morphine Allergy (Mild, Verified 12/15/24 14:22) Itching [facility] Medical History (Updated 02/02/25 @ 20:58 by Morris Borrego MD) Diabetes Anxiety Depression DJD (degenerative joint disease) Hyperlipidemia Sleep apnea treated with continuous positive airway pressure (CPAP) Non-insulin dependent type 2 diabetes mellitus Morbid obesity 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 Cauda equina compression Chronic pain syndrome Spondylosis of lumbar region without myelopathy or radiculopathy Chronic pain syndrome COVID-19 vaccine series completed Surgical History History of surgery S/P epidural steroid injection Social History Patient Tobacco Use Status: Never used Tobacco Behavioral Health Assessment Weight Management Therapy Therapy Notes Details The patient is a 44-year-old male attending a follow-up visit to continue his behavioral health assessment as part of the surgical weight loss program. He was referred to the [facility] Management Program by his primary care provider at [facility] due to physical challenges related to his weight. He is exploring options to enhance his overall health and quality of life. The patient disclosed that he is currently receiving mental health treatment but is uncertain about his diagnosis and cannot confirm the accuracy of the medication dosages listed in his file. He denies any history of hospitalizations, crises, or safety concerns related to suicidal ideation, self- harm, or harm to others. During his initial appointment at [facility], he was provided with assessment tools, His PHQ-9 scores were high, and the BES was incomplete. He will return for a follow-up visit to complete a new PHQ-9 for current results and to finish the BES. The provider will also need to request records from behavioral health providers to verify treatment and support behavioral health clearance. The patient has not yet been cleared as the assessment is still in progress. Presenting Concerns Referral Source [facility]-Provider. Reason for referral Completion of behavioral health assessment as part of process for weight-loss surgery. Precipitating Event Obesity. Living Situation Current Living Situation Rent At risk of losing current housing? No Satisfied with current living situation? Yes Comments PT live with his and 2 children. Food/Weight/Diet Expectations of change PT started the program on 12/15/2024 at 309Lbs, and his most recent weight as of 02/23/2025 is 304Lbs. The initial goal is to lose 10% of his weight before surgery, which is about 31 lbs. Ultimate weight goal: 278 lbs. before surgery. Recent weight 03/12/25: 301Lbs PT wants to be under 180 lbs. PT is implementing the following: Current meal plan: 2 shakes, 1.5 bars, and 1 meal per day. Exercise plan: outdoor walk, 30-45min. Scale: No. Communication w/ provider: Fridays. History/Relationship with food Bigger portions, tend to skip meals or mostly having 1 meal at day and some snacks or soda/juice during his work day. Dinne-out only on special occasions. Example of meals before starting the program: Breakfast: skip. Only has breakfast on Saturdays. Lunch: 1 snicker or a honey bun, not daily. Mostly skip. On Sundays will have lunch after religion. Dinner: @5pm. Rice, beans, pork Late snack: cake. Drinks/Liquids: coffee: 1 medium coffee from [employer] with 3 sugars and 2 creams. Soda: 1-2 at day- 20oz bottle. Energy drinks: 1 Gatorade at day- regular. Juice: 1 cup at day - fruit punch. Tea: none. Alcohol: none. History/Relationship with weight PT reports he was chunky in childhood but not obese, as an adolescent he was overweight but very active. He started gaining weight after getting . In the last 10 years, the patient's Lowest weight was 180Lbs and highest 309 History/Relationship with dieting Try smaller portions, self-diets. Social History Family history and relationship PT is 6 years ago. He has 3 children, the youngest is 5 years with current . The 2 oldest are step-children from the 's first marriage. He has 6 siblings, parents are alive. Pt reports he has good family relationships. Parental/Familial gas reverser obligations 5-year-old son. Developmental history and status PT was in special Ed in school. Currently [facility]. Social support Parents, . Community support Mu-Ism community. PCP. Scientologist/Spirituality Zoroastrianism. Cultural/Ethnic information , Finnish. PT was born in [place]. Legal Involvement and History Current or historical involvement with the legal system? None reported. Education Highest grade completed HS. Preferred learning style Visual Currently enrolled in educational program? No Interested in further educational program? No Employment Employment Status Unemployed (Disabled since 2008 after an accident. ) Wants help to find employment? No Meaningful activities watch sports, play basketball, and softball. Financial Situation Describe current financial situation Comfortable and Occasional struggle Financial assistance? Food [employer], SSI, Disability and Other Service Service? No Mental Health and Addiction Treatment Current/Past substance abuse? No Comments Alcohol: None. Cigarettes/Tobacco: None. Cannabis/Edibles: None. Current/Past addictive behavior concerns? No Psychiatric history PT currently receives outpatient psychiatric treatment with [facility], and gets prescribed: -Clonazepam 0.5mg, 1 as needed. -Risperidone 2mg 1 at day. -Zolpidem 10mg. 1 at bedtime for sleep. He doesn't know his diagnosis. He believes he has anxiety and a little bit of bipolarity . He reports that he gets easily desperate and anxious when people are on him. When upset, he gets away to walk and cool off as he has a hx of being explosive and having anger outbursts. PT also reports issues with sleeping due to insomnia, and Zolpidem helps him to sleep better and wakes up relaxed. He used Clonazepam when getting upset to calm down. Pt also shared anxiety issues when being in large crowds, if he has to wait too long, etc. Medical and Physical Health Summary Additional Medical History not covered in history None additional. Sexual History concerns None reported. Physical exam in the last year? Yes Pain Screening Current pain? Yes Pain in the last few months? Yes Comments Back pain. He had a back injury and currently suffers and gets treatment for chronic pain. Pain is worse at night. Questionnaires Binge Eating Scale Group 1 A. I don't feel self-conscious about my wt. or body size when I'm with others. B. I feel concerned about how I look to others, but it normally does not make me fell disappointed with myself C. I do get self-conscious about my appearance and wt. which makes me feel disappointed in myself. D. I feel very self-conscious about my wt. and frequently I feel intense shame and disgust for myself. I try to avoid social contacts because of my self- consciousness. Response Group 1: C Group 2 A. I don't have any difficulty eating slowly in the proper manner. B. Although I seem to gobble down foods, I don't end up feeling stuffed because of eating to much. C. At times, I tend to eat quickly and then, I feel uncomfortably full afterwards. D. I have the habit of bolting down my food, without really chewing it. When this happens I usually feel uncomfortably stuffed because I've eaten to much. Response Group 2: C Group 3 A. I feel capable to control my eating urges when I want to. B. I feel like I have failed to control my eating more than the average person. C. I feel utterly helpless when it comes to feeling in control of my eating urges. D. Because I feel so helpless about controlling my eating I have become very desperate about trying to get control. Response Group 3: B Group 4 A. I don't have the habit of eating when I'm bored. B. I sometimes eat when I'm bored, but often I'm able to get busy and get my mind off food. C. I have a regular habit of eating when I'm bored, but occasionally, I can use some other activity to get my mind off eating. D. I have a strong habit of eating when I'm bored. Nothing seems to help me breath the habit. Response Group 4: A Group 5 A. I'm usually physically hungry when I eat something. B. Occasionally, I eat something on impulse even though I really am not hungry. C. I have the regular habit of eating foods, that I might not really enjoy, to satisfy a hungry feeling even though physically, I don't need the food. D. Although I'm not physically hungry, I get a hungry feeling in my mouth that only seems to be satisfied when I eat a food, like sandwich, that fills my mouth. Sometimes, when I eat the food to satisfy my mouth hunger, I then spit the food out so I won't gain weight. Response Group 5: A Group 11 A. I don't have any problem stopping eating when I feel full. B. I usually can stop eating when I feel full but occasionally overeat leaving me feeling uncomfortably stuffed. C. I have a problem stopping eating once I start and usually I feel uncomfortably stuffed after I eat a meal. D. Because I have a problem not being able to stop eating when I want, I sometimes have to induce vomiting to relieve my stuffed feeling. Response Group 11: B Group 12 A. I seem to eat just as much when I'm with others, Family social gatherings as when I'm by myself. B. Sometimes, when I'm with other persons, I don't eat as much as I want to eat because I'm self-conscious about my eating. C. Frequently, I eat only a small amount of food when others are present, because I'm very embarrassed about my eating. D. I feel so ashamed about overeating that I pick times to overeat when I know no one will see me. I feel like a closet eater. Response Group 12: A Group 13 A. I eat three meals a day with only an occasional between meal snack. B. I eat 3 meals a day, but I also normally snack between meals. C. When I am snacking heavily, I get in the habit of skipping regular meals. D. There are regular periods when I seem to be continually eating, with no planned meals. Response Group 13: B Group 14 A. I don't think much about trying to control unwanted eating urges. B. At least some of the time, I feel my thoughts are pre-occupied with trying to control my eating urges. C. I feel that frequently I spend much time thinking about how much I ate or about trying not to eat anymore. D. It seems to me that most of my waking hours are pre-occupied by thoughts about eating or not eating. I feel like I'm constantly struggling not to eat. Response Group 14: A Group 15 A. I don't think about food a great deal. B. I have strong craving for food but they last only for brief periods of time. C. I have days when I can't seem to think about anything else but food. D. Most of my days seem to be pre-occupied with thoughts about food. I feel like I live to eat. Response Group 15: D Group 16 A. I usually know whether or not I'm physically hungry. I take the right portion of food to satisfy me. B. Occasionally, I feel uncertain about knowing whether or not I'm physically hungry. A these times it's hard to know how much food I should take to satisfy me. C. Even though I might know how many calories I should eat, I don't have any idea what is a normal amount of food for me. Response Group 16: B Binge Eating Score: 11 (Missed 5 items. ) Score less than 17 Minimal Risk Score between 18-26 Moderate Risk Score between 27-46 High Risk Assessment & Plan Assessment & Plan (1) Anxiety: Code(s): F41.9 - Anxiety disorder, unspecified (2) Pre-bariatric surgery psychological evaluation: Code(s): Z71.89 - Other specified counseling Plan The patient is not yet cleared as the assessment is still in progress. Before clearance can be granted, the following steps need to be completed: 1. The patient must visit the office to sign a new Release of Information (AGUILA) form, as the current one was filled out incorrectly. This will enable us to request records or a letter from his behavioral health provider to confirm his diagnosis and medications, supporting his clearance. 2. During the next visit, the patient will complete the Behavioral Eating Scale (BES), as five items were missed previously. 3. A new PHQ-9 will be administered due to previously high scores. The patient is scheduled to return in 2-3 weeks. Next narayan: 03/28/25 at 9:30am Telehealth Telehealth Telehealth Platform: [facility] Location of provider rendering services: other Location of patient: address on file Patient Identification confirmed using: Name, : Yes Telehealth method: video Patient verbally consented to treatment: Yes Patient verbally consented to billing insurance company: Yes Patient informed of any privacy concerns related to visit: Yes Minutes spent on Phone/Video with Pt.: 45 Coding Level of Care Code Established Pt Tele Psytx 45 mins ([id number]) Patient Type Established Diagnoses Anxiety F41.9 Pre-bariatric surgery psychological evaluation Z71.89 Time Spent (min) 45
--- OUTSIDE RECORDS SUMMARY | 2025-03-14 15:22 | XMS_ITS | Encounter Summary ---
Author Organization [employer] Address [address] [facility] [address] [place] [address] Care Team Providers Care Associate Dean Name Role Phone Araceli White MD Primary Care Provider [phone] Reason for Referral * Consultation (Routine) - Closed Specialty Diagnoses / Procedures Referred By Contac t Referred To Contact Audiology Diagnoses Conductive hearing loss, bilateral Araceli White MD [address] [place] [id number] Phone: tel: fax: [facility] [address] Floor [place], [place] Phone: tel: fax: Referral ID Status Reason Start Date Expiration Date V isits Requested Visits Authorized [id number] Closed Specialty Services Required 02/06/2024 02/05/2025 1 1 Encounter Details Date Type Department Care Team (Late st Contact Info) Description 02/06/2024 Orders Only [facility] [address] [place] [address] [phone] Araceli White MD [address], [place] [phone] Conductive hearing loss, bilateral (Primary Dx) Social [...] Care Team (Late st Contact Info) Description 03/20/2025 9:00 AM EDT Office Visit [facility] [address] [place] [phone] documented as of this encounter Procedures Procedure [...] documented as of this encounter Care Teams Associate Dean Relationship Specialty Start Date End Date Araceli White MD [address] [place] [address] PCP - General Family Medicine 06/04/21 documented as of this encounter
== END 2025-03-14 15:34 | disposition home or self-care (01) ==
LOC: HO.HBST 15:12
PROVIDERS: PCP General Practice; Visit Provider Counselor Mental Health
DX: F41.9 Anxiety disorder, unspecified (principal); Z71.89 Other specified counseling
CPT/HCPCS: 90834

== ENCOUNTER → 2025-03-14 15:12 | Outpatient (BNVA) | payer MEDICARE, MEDICAID, SELFPAY | PROVIDERS: PCP General Practice; Visit Provider Counselor Mental Health | DX: Z13.89 Encounter for screening for other disorder (principal) ==

== ENCOUNTER 2025-03-15 08:24 | Outpatient (REF) | payer MEDICARE, MEDICAID, SELFPAY ==
--- NOTE | ~2025-03-15 | FL_ITS ---
EXAMINATION: XR FLUOROSCOPY UPPER GI WITH AIR CLINICAL INFORMATION: Morbid obesity. Preop COMPARISON: None available. TECHNIQUE: Routine upper GI contrast study was performed in upright and lying position. FINDINGS: No demonstration of thick barium and effervescent granules there is normal propagation bolus from the oral cavity through the pharynx, esophagus into stomach without any evidence of obstruction, narrowing or stricture. On placing patient in supine and prone lying the course, caliber and peristalsis of the stomach is normal. The mucosal pattern of the stomach is normal. The duodenal bulb and sweep is normal. Some finding of a mild gastroesophageal reflux noted. FL/FL upper GI w air IMPRESSION: Mild gastroesophageal reflux without hiatal hernia. Otherwise rest of the upper GI exam is unremarkable. FLUOROSCOPY TIME: 1 minute 53 seconds DOSE AREA PRODUCT: 254.6 uGy-m2 (microgray-meter squared) IMPRESSION: Mild gastroesophageal reflux without hiatal hernia. Electronically signed by: Rinku Briggs MD 03/15/2025 10:09 AM EDT
--- OUTSIDE RECORDS SUMMARY | 2025-03-15 08:39 | XMS_ITS | Encounter Summary ---
Author Organization [employer] Address [address] [facility] [address] [place] [address] Care Team Providers Care Shrub Planter Name Role Phone Araceli White MD Primary Care Provider [phone] Reason for Referral * Consultation (Routine) - Closed Specialty Diagnoses / Procedures Referred By Contac t Referred To Contact Audiology Diagnoses Conductive hearing loss, bilateral Araceli White MD [address] [place] [phone] Phone: tel: fax: [facility] Aud[facility] [address] [place], [place] Phone: tel: fax: Referral ID Status Reason Start Date Expiration Date V isits Requested Visits Authorized [id number] Closed Specialty Services Required 02/06/2024 02/05/2025 1 1 Encounter Details Date Type Department Care Team (Late st Contact Info) Description 02/06/2024 Orders Only [facility] [address] [place] [address] [phone] Araceli White MD [address] [place], [place] [phone] Conductive hearing loss, bilateral (Primary Dx) Social [...] Description 03/20/2025 9:00 AM EDT Office Visit [facility] [address] [place] [phone] documented as of this encounter Procedures Procedure [...] documented as of this encounter Care Teams Shrub Planter Relationship Specialty Start Date End Date Araceli White MD [address] [place] [address] PCP - General Family Medicine 06/04/21 documented as of this encounter
== END 2025-03-15 08:25 | disposition home or self-care (01) ==
LOC: HO.XRAY 08:24
PROVIDERS: PCP General Practice; Visit Provider Surgery
DX: E66.01 Morbid (severe) obesity due to excess calories (principal); E11.9 Type 2 diabetes mellitus without complications; E78.5 Hyperlipidemia, unspecified
CPT/HCPCS: 74246

== ENCOUNTER → 2025-03-15 08:27 | Outpatient (BNV) | payer MEDICARE, MEDICAID, SELFPAY | PROVIDERS: PCP General Practice; Visit Provider Radiology Diagnostic Radiology | DX: Z01.810 Encounter for preprocedural cardiovascular examination (principal); E66.01 Morbid (severe) obesity due to excess calories | CPT/HCPCS: 74246 ==

== ENCOUNTER 2025-03-28 09:46 | Outpatient (AMB) | payer MEDICARE, MEDICAID, SELFPAY ==
--- NOTE | 2025-03-28 09:30 | MHC.WMTHER ---
Intake Intake Visit Reasons: VIDEO BH F/U Allergies morphine Allergy (Mild, Verified 12/15/24 14:22) Itching [facility] Medical History (Updated 02/02/25 @ 20:58 by Morris Borrego MD) Diabetes Anxiety Depression DJD (degenerative joint disease) Hyperlipidemia Sleep apnea treated with continuous positive airway pressure (CPAP) Non-insulin dependent type 2 diabetes mellitus Morbid obesity 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 Cauda equina compression Chronic pain syndrome Spondylosis of lumbar region without myelopathy or radiculopathy Chronic pain syndrome COVID-19 vaccine series completed Surgical History History of surgery S/P epidural steroid injection Social History Patient Tobacco Use Status: Never used Tobacco Behavioral Health Assessment Weight Management Therapy Therapy Notes Details The patient is a 44-year-old male attending a follow-up visit to continue his behavioral health assessment as part of the surgical weight loss program. He was referred to the [facility] by his primary care provider at [facility] due to physical challenges related to his weight. He is exploring options to enhance his overall health and quality of life. During this session, the BES and PHQ-9 were administered. Scores indicated low risk for binge eating and no current symptoms of depression. Patient brought his medications to the session, allowing for confirmation of names and dosages. A records request was submitted to his current behavioral health provider; however, no documentation has been received to date. Based on the current assessment, there are no safety concerns that would prevent the patient from proceeding with the surgical weight loss program. Additionally, he has demonstrated ongoing commitment to program expectations, as confirmed by the surgical team. Presenting Concerns Referral Source WMP-Provider. Reason for referral Completion of behavioral health assessment as part of process for weight-loss surgery. Precipitating Event Obesity. Living Situation Current Living Situation Rent At risk of losing current housing? No Satisfied with current living situation? Yes Comments PT live with his and 2 children. Food/Weight/Diet Expectations of change PT started the program on 12/15/2024 at 309Lbs, and his most recent weight as of 02/23/2025 is 304Lbs. The initial goal is to lose 10% of his weight before surgery, which is about 31 lbs. Ultimate weight goal: 278 lbs. before surgery. Weight 03/12/25: 301 Lbs. Weight 03/26/2025: 291Lbs PT wants to be under 180 lbs. PT is implementing the following: Current meal plan: 2 shakes, 1.5 bars, and 1 meal per day. Exercise plan: outdoor walk, 30-45min. Scale: No. Communication w/ provider: Fridays. History/Relationship with food Bigger portions, tend to skip meals or mostly having 1 meal at day and some snacks or soda/juice during his work day. Dinne-out only on special occasions. Example of meals before starting the program: Breakfast: skip. Only has breakfast on Saturdays. Lunch: 1 snicker or a honey bun, not daily. Mostly skip. On Sundays will have lunch after scientologist. Dinner: @5pm. Rice, beans, pork Late snack: cake. Drinks/Liquids: coffee: 1 medium coffee from [employer] with 3 sugars and 2 creams. Soda: 1-2 at day- 20oz bottle. Energy drinks: 1 Gatorade at day- regular. Juice: 1 cup at day - fruit punch. Tea: none. Alcohol: none. History/Relationship with weight PT reports he was chunky in childhood but not obese, as an adolescent he was overweight but very active. He started gaining weight after getting . In the last 10 years, the patient's Lowest weight was 180Lbs and highest 309 History/Relationship with dieting Tried smaller portions, self-diets. Binge Eating Do you frequently eat large amounts of food in short periods of time, not feeling physically hungry? No Do you feel out of control when you eat a large amount of food in a short period of time? No Do you eat large amounts of food rapidly and typically alone? No Night Eating Do you wake up at least once during the night to eat? No If you wake up in the night, do you find that it is necessary to eat something in order to fall back asleep? No Do you have little or no appetite in the morning and feel very hungry in the evening, often overeating between dinner and when you go to bed? No Social History Family history and relationship PT is 6 years ago. He has 3 children, the youngest is 5 years with current . The 2 oldest are step-children from the 's first marriage. He has 6 siblings, parents are alive. Pt reports he has good family relationships. Parental/Familial manager nursing home obligations 5-year-old son. Developmental history and status PT was in special Ed in school. Currently [facility]. Social support Parents, . Community support Judaism community. PCP. Restorationism/Spirituality Congregational. Cultural/Ethnic information , [place]. PT was born in [place]. Legal Involvement and History Current or historical involvement with the legal system? None reported. Education Highest grade completed HS. Preferred learning style Visual Currently enrolled in educational program? No Interested in further educational program? No Employment Employment Status Unemployed (Disabled since 2008 after an accident. ) Wants help to find employment? No Meaningful activities watch sports, play basketball, and softball. Financial Situation Describe current financial situation Comfortable and Occasional struggle Financial assistance? Food [place], SSI, Disability and Other Service Service? No Mental Health and Addiction Treatment Current/Past substance abuse? No Comments Alcohol: None. Cigarettes/Tobacco: None. Cannabis/Edibles: None. Current/Past addictive behavior concerns? No Psychiatric history PT currently receives outpatient psychiatric treatment with [facility], and gets prescribed: -Clonazepam 0.5mg, 1 as needed. -Risperidone 2mg 1 at day. -Zolpidem 10mg. 1 at bedtime for sleep. He doesn't know his diagnosis. He believes he has anxiety and a little bit of bipolarity . He reports that he gets easily desperate and anxious when people are on him. When upset, he gets away to walk and cool off as he has a hx of being explosive and having anger outbursts. PT also reports issues with sleeping due to insomnia, and Zolpidem helps him to sleep better and wakes up relaxed. He used Clonazepam when getting upset to calm down. Pt also shared anxiety issues when being in large crowds, if he has to wait too long, etc. Medical and Physical Health Summary Additional Medical History not covered in history None additional. Sexual History concerns None reported. Physical exam in the last year? Yes Pain Screening Current pain? Yes Pain in the last few months? Yes Comments Back pain. He had a back injury and currently suffers and gets treatment for chronic pain. Pain is worse at night. Medications Is the patient compliant with medications? Yes Does the patient have Head Guardian in place? Not applicable Does the patient use complimentary health approaches? No Trauma/Abuse History History of trauma? No Questionnaires PHQ-9 Over the last 2 weeks, how often have you been bothered by any of the following problems? 1. Little interest or pleasure in doing things: not at all 2. Feeling down, depressed, or hopeless: not at all 3. Trouble falling or staying asleep, or sleeping too much: not at all 4. Feeling tired or having little energy: not at all 5. Poor appetite or overeating: not at all 6. Feeling bad about yourself - or that you are a failure or have let yourself or your family down: not at all 7. Trouble concentrating on things, such as reading the newspaper or watching television: not at all 8. Moving or speaking so slowly that other people could have noticed. Or the opposite - being so fidgety or restless that you have been moving around a lot more than usual: not at all 9. Thoughts that you would be better off or of hurting yourself in some way: not at all Total score: 0 Depression Screening Interpretation: Negative Depression Screening Done: Yes 64782 - PHQ-9 Billing: Yes Source: Developed by Drs. Tate Ellis, Nury Vazquez, Andrea Baires and colleagues, with an educational samantha from [employer]. Binge Eating Scale Group 1 A. I don't feel self-conscious about my wt. or body size when I'm with others. B. I feel concerned about how I look to others, but it normally does not make me fell disappointed with myself C. I do get self-conscious about my appearance and wt. which makes me feel disappointed in myself. D. I feel very self-conscious about my wt. and frequently I feel intense shame and disgust for myself. I try to avoid social contacts because of my self-consciousness. Response Group 1: C Group 2 A. I don't have any difficulty eating slowly in the proper manner. B. Although I seem to gobble down foods, I don't end up feeling stuffed because of eating to much. C. At times, I tend to eat quickly and then, I feel uncomfortably full afterwards. D. I have the habit of bolting down my food, without really chewing it. When this happens I usually feel uncomfortably stuffed because I've eaten to much. Response Group 2: C Group 3 A. I feel capable to control my eating urges when I want to. B. I feel like I have failed to control my eating more than the average person. C. I feel utterly helpless when it comes to feeling in control of my eating urges. D. Because I feel so helpless about controlling my eating I have become very desperate about trying to get control. Response Group 3: B Group 4 A. I don't have the habit of eating when I'm bored. B. I sometimes eat when I'm bored, but often I'm able to get busy and get my mind off food. C. I have a regular habit of eating when I'm bored, but occasionally, I can use some other activity to get my mind off eating. D. I have a strong habit of eating when I'm bored. Nothing seems to help me breath the habit. Response Group 4: A Group 5 A. I'm usually physically hungry when I eat something. B. Occasionally, I eat something on impulse even though I really am not hungry. C. I have the regular habit of eating foods, that I might not really enjoy, to satisfy a hungry feeling even though physically, I don't need the food. D. Although I'm not physically hungry, I get a hungry feeling in my mouth that only seems to be satisfied when I eat a food, like sandwich, that fills my mouth. Sometimes, when I eat the food to satisfy my mouth hunger, I then spit the food out so I won't gain weight. Response Group 5: A Group 6 A. I don't feel any guilt or self-hate after I overeat. B. After I overeat, occasionally I feel guilt or self-hate. C. Almost all the time I experience strong guilt or self-hate after I overeat. Response Group 6: A Group 7 A. I don't lose total control of my eating when dieting even after periods when I overeat. B. Sometimes when I eat a forbidden food on a diet, I feel like I blew it and eat even more. C. Frequently, I have the habit of saying to myself, I've blown it now, why not go all the way, when I overeat on a diet. When that happens I eat more. D. I have a regular habit of starting a strict diets for myself but I break the diets by going on an eating binge. My life seems to be either a feast or famine. Response Group 7: B Group 8 A. I rarely eat so much food that I feel uncomfortably stuffed afterwards. B. Usually about once a month, I each such a quantity of food, I end up feeling very stuffed. C. I have regular periods during the month when I eat large amounts of food, either at mealtime or at snacks. D. I eat so much food that I regularly feel quite uncomfortable after eating and sometimes a bit nauseous. Response Group 8: B Group 9 A. My level of calorie intake does not go up very high or go down very low on a regular basis. B. Sometimes after I overeat, I will try to reduce my caloric intake to almost nothing to compensate for the excess calories I've eaten. C. I have a regular habit of overeating during the night. It seems that my routine is not to be hungry in the morning but overeat in the evening. D. In my adult years, I have had week-long periods where I practically starve myself. This follows periods when I overeat. It seems I live a life of either feast or famine. Response Group 9: A Group 10 A. I usually am able to stop eating when I want to. I know when enough is enough. B. Every so often, I experience a compulsion to eat which I can't seem to control. C. Frequently, I experience strong urges to eat which I seem unable to control, but at other times I can control my eating urges. D. I feel incapable of controlling urges to eat. I have a fear of not being able to stop eating voluntarily. Response Group 10: A Group 11 A. I don't have any problem stopping eating when I feel full. B. I usually can stop eating when I feel full but occasionally overeat leaving me feeling uncomfortably stuffed. C. I have a problem stopping eating once I start and usually I feel uncomfortably stuffed after I eat a meal. D. Because I have a problem not being able to stop eating when I want, I sometimes have to induce vomiting to relieve my stuffed feeling. Response Group 11: B Group 12 A. I seem to eat just as much when I'm with others, Family social gatherings as when I'm by myself. B. Sometimes, when I'm with other persons, I don't eat as much as I want to eat because I'm self-conscious about my eating. C. Frequently, I eat only a small amount of food when others are present, because I'm very embarrassed about my eating. D. I feel so ashamed about overeating that I pick times to overeat when I know no one will see me. I feel like a closet eater. Response Group 12: A Group 13 A. I eat three meals a day with only an occasional between meal snack. B. I eat 3 meals a day, but I also normally snack between meals. C. When I am snacking heavily, I get in the habit of skipping regular meals. D. There are regular periods when I seem to be continually eating, with no planned meals. Response Group 13: B Group 14 A. I don't think much about trying to control unwanted eating urges. B. At least some of the time, I feel my thoughts are pre-occupied with trying to control my eating urges. C. I feel that frequently I spend much time thinking about how much I ate or about trying not to eat anymore. D. It seems to me that most of my waking hours are pre-occupied by thoughts about eating or not eating. I feel like I'm constantly struggling not to eat. Response Group 14: A Group 15 A. I don't think about food a great deal. B. I have strong craving for food but they last only for brief periods of time. C. I have days when I can't seem to think about anything else but food. D. Most of my days seem to be pre-occupied with thoughts about food. I feel like I live to eat. Response Group 15: D Group 16 A. I usually know whether or not I'm physically hungry. I take the right portion of food to satisfy me. B. Occasionally, I feel uncertain about knowing whether or not I'm physically hungry. A these times it's hard to know how much food I should take to satisfy me. C. Even though I might know how many calories I should eat, I don't have any idea what is a normal amount of food for me. Response Group 16: B Binge Eating Score: 13 Score less than 17 Minimal Risk Score between 18-26 Moderate Risk Score between 27-46 High Risk Assessment & Plan Assessment & Plan (1) Anxiety: Code(s): F41.9 - Anxiety disorder, unspecified (2) Pre-bariatric surgery psychological evaluation: Code(s): Z71.89 - Other specified counseling Plan Based on the current assessment, there are no behavioral health concerns that would interfere with the patient?s ability to proceed with the surgical weight loss program. The patient has demonstrated consistent engagement and commitment to program expectations, as confirmed by the surgical team. Patient is cleared from a behavioral health standpoint and may be submitted for surgery approval when ready. Patient will return for a behavioral health screening and post-operative support visit within 1?3 weeks following surgery. Next narayan: 1-3 Wks PO. Telehealth Telehealth Telehealth Platform: [facility] Location of provider rendering services: other Location of patient: address on file Patient Identification confirmed using: Name, : Yes Telehealth method: voice only Patient verbally consented to treatment: Yes Patient verbally consented to billing insurance company: Yes Patient informed of any privacy concerns related to visit: Yes Minutes spent on Phone/Video with Pt.: 30 Coding Level of Care Code Established Pt Tele Psytx 30 mins (10402) Patient Type Established Diagnoses Anxiety F41.9 Pre-bariatric surgery psychological evaluation Z71.89 Additional Codes PHQ-9 - 49665 - PHQ-9 Billing: Yes ([id number]) Time Spent (min) 30
--- OUTSIDE RECORDS SUMMARY | 2025-03-28 10:50 | XMS_ITS | Encounter Summary ---
Author Organization [employer] Address [address] [facility] [address] [place] [address] Care Team Providers Care Deckhand Sponge Boat Name Role Phone Araceli White MD Primary Care Provider [phone] Reason for Referral * Consultation (Routine) - Closed Specialty Diagnoses / Procedures Referred By Contac t Referred To Contact Audiology Diagnoses Conductive hearing loss, bilateral Araceli White MD [address] [place] [address] Phone: tel: fax: [facility] [address] 1[address] Floor [place], [place] Phone: tel: fax: Referral ID Status Reason Start Date Expiration Date V isits Requested Visits Authorized [id number] Closed Specialty Services Required 02/06/2024 02/05/2025 1 1 Encounter Details Date Type Department Care Team (Late st Contact Info) Description 02/06/2024 Orders Only [facility] MEDICINE [address] [place] [address] [phone] Araceli White MD [address] [place], [place] [phone] Conductive hearing loss, bilateral (Primary Dx) Social [...] documented as of this encounter Care Teams Deckhand Sponge Boat Relationship Specialty Start Date End Date Araceli White MD [address] [place] [phone] PCP - General Family Medicine 06/04/21 documented as of this encounter
== END 2025-03-28 11:07 | disposition home or self-care (01) ==
LOC: HO.HBST 09:46
PROVIDERS: PCP General Practice; Visit Provider Counselor Mental Health
DX: F41.9 Anxiety disorder, unspecified (principal); Z71.89 Other specified counseling
CPT/HCPCS: 90832

== ENCOUNTER → 2025-03-28 09:46 | Outpatient (BNVA) | payer MEDICARE, MEDICAID, SELFPAY | PROVIDERS: PCP General Practice; Visit Provider Counselor Mental Health | DX: Z13.89 Encounter for screening for other disorder (principal) ==

== ENCOUNTER → 2025-03-29 08:48 | Outpatient (REF) | payer MEDICARE, MEDICAID, SELFPAY ==
--- NOTE | 2025-03-29 08:52 | ECG_ITS ---
Test Reason : E66.9 Blood Pressure : */* mmHG Vent. Rate : 62 BPM Atrial Rate : 62 BPM P-R Int : 150 ms QRS Dur : 98 ms QT Int : 390 ms P-R-T Axes : 18 18 10 degrees QTcB Int : 395 ms Normal sinus rhythm Normal ECG No previous ECGs available Referred By: Morris Borrego Electronically Signed By: Yohan Murguia
--- OUTSIDE RECORDS SUMMARY | 2025-03-29 09:17 | XMS_ITS | Encounter Summary ---
Author Organization [employer] Address [address] [facility] [address] [place] [address] Care Team Providers Care Wafer Machine Operator Name Role Phone Araceli White MD Primary Care Provider [phone] Reason for Referral * Consultation (Routine) - Closed Specialty Diagnoses / Procedures Referred By Contac t Referred To Contact Audiology Diagnoses Conductive hearing loss, bilateral Araceli White MD [address] [place] [phone] Phone: tel: fax: [facility] [place] [address] Floor [place], [place] Phone: tel: fax: Referral ID Status Reason Start Date Expiration Date V isits Requested Visits Authorized [id number] Closed Specialty Services Required 02/06/2024 02/05/2025 1 1 Encounter Details Date Type Department Care Team (Late st Contact Info) Description 02/06/2024 Orders Only [facility] MEDICINE [address] [place] [address] [phone] Araceli White MD [address] [place], [place] [phone] Conductive hearing loss, bilateral (Primary Dx) Social [...] documented as of this encounter Care Teams Wafer Machine Operator Relationship Specialty Start Date End Date Araceli White MD [address] [place] [phone] PCP - General Family Medicine 06/04/21 documented as of this encounter
== END ==
LOC: HO.CARD 08:48
PROVIDERS: PCP General Practice; Visit Provider Surgery
DX: E66.01 Morbid (severe) obesity due to excess calories (principal); E11.9 Type 2 diabetes mellitus without complications; E78.5 Hyperlipidemia, unspecified
CPT/HCPCS: 93005

== ENCOUNTER → 2025-03-29 08:52 | Outpatient (BNV) | payer MEDICARE, MEDICAID, SELFPAY | PROVIDERS: PCP General Practice; Visit Provider Internal Medicine Cardiovascular Disease | DX: E66.9 Obesity, unspecified (principal) | CPT/HCPCS: 93010 ==

== ENCOUNTER 2025-04-09 09:08 | Outpatient (AMB) | payer MEDICARE, MEDICAID, SELFPAY ==
--- OUTSIDE RECORDS SUMMARY | 2025-04-09 09:26 | XMS_ITS | Encounter Summary ---
Author Organization [employer] Address [address] [facility] [address] [place] [address] Care Team Providers Care Medical Staff Services Manager Name Role Phone Araceli White MD Primary Care Provider [phone] Reason for Referral * Consultation (Routine) - Closed Specialty Diagnoses / Procedures Referred By Contac t Referred To Contact Audiology Diagnoses Conductive hearing loss, bilateral Araceli White MD [address] [place] [phone] Phone: tel: fax: [facility] [address] Floor [place], [place] Phone: tel: fax: Referral ID Status Reason Start Date Expiration Date V isits Requested Visits Authorized [id number] Closed Specialty Services Required 02/06/2024 02/05/2025 1 1 Encounter Details Date Type Department Care Team (Late st Contact Info) Description 02/06/2024 Orders Only [facility] MEDICINE [address] [place] [address] [phone] Araceli White MD [address] [place], [place] [phone] Conductive hearing loss, bilateral (Primary Dx) Social [...] documented as of this encounter Care Teams Medical Staff Services Manager Relationship Specialty Start Date End Date Araceli White MD [address] [place] [id number] PCP - General Family Medicine 06/04/21 documented as of this encounter
--- NOTE | 2025-04-09 14:05 | A.OFFVIS_ITS ---
VS Expanded 04/09/25 14:12 Height 5 ft 10 in Weight 290 lb 4 oz BMI 41.6 Body Fat % 27 Body Fat Mass 78.4 Fat Free Mass 211.8 Visceral Fat Rating 23 Body Water % 52.7 Body Water Mass 153 Basal Metabolic Rate/Score 2,446 Intake Visit Reasons: TV Pre Op LSG 04/19/2025 Allergies morphine Allergy (Mild, Verified 04/09/25 14:06) Itching Medication List - Last Reconciled 04/09/25 by Morris Borrego MD atorvastatin 20 mg PO DAILY cholecalciferol (vitamin D3) 125 mcg PO DAILY clonazepam 0.5 mg PO BID PRN mecobalamin (vitamin B12) 1,000 mcg sublingual DAILY metformin 500 mg PO BID ondansetron 4 mg PO Q12H pantoprazole 40 mg PO DAILY polyethylene glycol 3350 17 grams PO DAILY sucralfate 10 mL PO BID vitamin A palmitate 10,000 units PO DAILY zinc gluconate 10 mg PO DAILY zolpidem 10 mg PO BEDTIME PRN HPI HPI TV Pre Op LSG 04/19/2025: Details: Start time: 1.53pm, End time: 2.23pm ?I spent 25 minutes speaking with the patient on the phone plus an additional 5 minutes reviewing and updating records for a total of 30 minutes HPI Comments Details: Overall weight loss: 19.4lbs, or 6.3% TBWL Is doing 2 Celebrate Rebuild shakes (2 scoops per shake in almond milk) Exercise: walking outside [facility] Medical History (Updated 02/02/25 @ 20:58 by Morris Borrego MD) Diabetes Anxiety Depression DJD (degenerative joint disease) Hyperlipidemia Sleep apnea treated with continuous positive airway pressure (CPAP) Non-insulin dependent type 2 diabetes mellitus Morbid obesity 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 Cauda equina compression Chronic pain syndrome Spondylosis of lumbar region without myelopathy or radiculopathy Chronic pain syndrome COVID-19 vaccine series completed Surgical History History of surgery S/P epidural steroid injection Social History Patient Tobacco Use Status: Never used Tobacco Telehealth Telehealth Telehealth Platform: Telephone Location of provider rendering services: practice address Location of patient: address on file Patient Identification confirmed using: Name, : Yes Telehealth method: voice only Patient verbally consented to treatment: Yes Patient verbally consented to billing insurance company: Yes Patient informed of any privacy concerns related to visit: Yes Minutes spent on Phone/Video with Pt.: 30 Assessment & Plan Assessment & Plan (1) Morbid obesity: Code(s): E66.01 - Morbid (severe) obesity due to excess calories Category: Medical Plan: 1. Plan for lap sleeve gastrectomy including upper GI endoscopy. All tests has been completed and reviewed and the patient is cleared for the surgery. ?If diaphragmatic or ventral hernias are present at time of surgery, these will be repaired laparoscopically as well. Risks and complications were discussed in detail including possible conversion to an open procedure, anastomotic leak, bleeding requiring transfusion, small bowel obstruction, , DVT and pulmonary embolism, cardiac, or pulmonary complications, as fci complications such as anastomotic ulcer, insufficient weight loss and vitamin deficiencies. I emphasized the importance of close follow-up, adherence to instructions and good communication. So far he has proven to be an excellent communicator and very compliant with all our directions accomplishing a great weight loss. I believe that he is an excellent candidate and he is ready. 2. Preop prescriptions were provided and explained the purpose of each one. Need to be purchased preop. Start Pantoprazole now as you get it from the pharmacy, 1 pill per day. Sucralfate and Zofran are for after surgery as needed. 3. Bowel prep: please do 7 packets ?of Miralax mixing each one with a an 8oz glass of water, crystal light, gatorade zero, or propel ?on 04/17/25 and the same amount on 04/18/25. The Miralax you begin with one packet at a time in 8oz water or crystal light, gatorade zero, or propel ?as early in the day as you can and you do them back to back until you finish them. Continue the protein shakes during ?the bowel prep. 4. Needs to purchase 1oz medicine cups . 5. Needs to purchase Children's liquid Tylenol for postop pain control. 6. He need not to use the Trulicity anymore and stop the Metformin as of tomorrow 04/10/25. Avoid aspirin, motrin, Advil, Aleve, Meloxicam, Excedrin, Ibuprofen, Naproxyn. Tylenol is OK. 7. He needs to purchase the Celebrate multivitamins from the hospital's gift shop, chewable or pills whatever you prefer. 8. Will do basic preop blood work-up on 04/12/25, fasting for 12 hours and is scheduled to see the Anesthesiologist prior to the day of surgery. 9. Importance of adherence to postop folllow-up and recommendations was underscored and he understands that. 10. Continue to avoid the food and bars and continue with 5 Celebrate REBUILD protein shakes (TWO scoops EACH in 8oz almond milk) at 8am-10am, 11am-1pm, 2pm- 4pm, 5pm-7pm and at 8pm-10pm 11. No soups, broths or V8 12. The patient's?medical?history has been reviewed and they are considered low risk for post op DVT and therefore DVT prophylaxis is not considered necessary. Travel after surgery was reviewed. The patient has not disclosed any travel plans during the first 30 days after surgery and they have been advised that within the first 30 days after surgery any bus, plane, train or car travel over 2 hours in duration is contraindicated due to the possibility of developing blood clots from immobility. Any travel, needs to include periods of ambulation of 10 minutes in duration every 2 hours.? Patient was instructed to discuss any plans for travel during this period with their bariatric surgeon.? 13. Use your CPAP daily and bring it to the hospital with your mask 15. Please take at the day of surgery the following medications: NONE 16. Absolutely no smoking or vaping, or marijuana until the surgery and for at least the first 4 weeks. Only nicotine patches are allowed. 17. Send me weight measurements on Wednesday04/11/25, on Wednesday04/15/25 and then on Wednesday04/19/25, the day of surgery before you go to the hospital. 18. Avoid any steroids by mouth for any reason. Let me know if someone prescribes them to you 19. These instructions supersede anything else you read in the handbook, anything you watched in videos or classes or you were told by any other provider. If there is any conflict, you follow the above instructions and nothing else. Orders: Orders Partial Thromboplastin Time Today E11.9 - Type 2 diabetes mellitus without complications, E66.01 - Morbid (severe) obesity due to excess calories, E78.5 - Hyperlipidemia, unspecified Hemoglobin A1c Today E11.9 - Type 2 diabetes mellitus without complications, E66.01 - Morbid (severe) obesity due to excess calories, E78.5 - Hyperlipidemia, unspecified C Reactive Protein Today E11.9 - Type 2 diabetes mellitus without complications, E66.01 - Morbid (severe) obesity due to excess calories, E78.5 - Hyperlipidemia, unspecified Insulin Today E11.9 - Type 2 diabetes mellitus without complications, E66.01 - Morbid (severe) obesity due to excess calories, E78.5 - Hyperlipidemia, unspecified Comprehensive Met. Panel Today E11.9 - Type 2 diabetes mellitus without complications, E66.01 - Morbid (severe) obesity due to excess calories, E78.5 - Hyperlipidemia, unspecified TSH reflex Free T4 Today E11.9 - Type 2 diabetes mellitus without complications, E66.01 - Morbid (severe) obesity due to excess calories, E78.5 - Hyperlipidemia, unspecified Prothrombin Time INR Today E11.9 - Type 2 diabetes mellitus without complications, E66.01 - Morbid (severe) obesity due to excess calories, E78.5 - Hyperlipidemia, unspecified Type and Screen Today E11.9 - Type 2 diabetes mellitus without complications, E66.01 - Morbid (severe) obesity due to excess calories, E78.5 - Hyperlipidemia, unspecified Lipid Panel Today E11.9 - Type 2 diabetes mellitus without complications, E66.01 - Morbid (severe) obesity due to excess calories, E78.5 - Hyperlipidemia, unspecified Complete Blood Count Auto Diff Today E11.9 - Type 2 diabetes mellitus without complications, E66.01 - Morbid (severe) obesity due to excess calories, E78.5 - Hyperlipidemia, unspecified Medications: New polyethylene glycol 3350 Mix each measuring cup with 8oz of water, Crystal light, or Gatorade zero, or Propel and do 7 measuring cups on 04/17/25 and another 7 measuring cups on 04/18/25 17 grams PO DAILY 238 grams 0RF Z01.818 - Encounter for other preprocedural examination pantoprazole 40 mg PO DAILY 90 tabs 0RF K21.9 - Gastro-esophageal reflux disease without esophagitis sucralfate 10 mL PO BID 600 mL 2RF K21.9 - Gastro-esophageal reflux disease without esophagitis ondansetron Only take one every 12 hours as needed if you have nausea 4 mg PO Q12H 20 tabs 0RF nausea and vomiting R11.0 - Nausea
[2025-04-09 14:12] VITALS: BMI 41.6
== END 2025-04-09 14:24 | disposition home or self-care (01) ==
LOC: HO.HBS 09:08
PROVIDERS: PCP General Practice; Visit Provider Surgery
DX: E66.01 Morbid (severe) obesity due to excess calories (principal)
CPT/HCPCS: 99214

== ENCOUNTER → 2025-04-09 09:08 | Outpatient (BNVA) | payer MEDICARE, MEDICAID, SELFPAY | PROVIDERS: PCP General Practice; Visit Provider Surgery | DX: Z13.89 Encounter for screening for other disorder (principal) ==

== ENCOUNTER 2025-04-12 08:54 | Outpatient (REF) | payer MEDICARE, MEDICAID, SELFPAY ==
[2025-04-12 09:45] LABS: MANUAL DIFF FLAG NO
[2025-04-12 10:31] LABS: Hemoglobin A1C 122.6477 umol/L; Total Hemoglobin (HGBA1C) 3387.9092 umol/L
[2025-04-12 10:40] LABS: Hematocrit 38.4 % (42.0-52.0); Hemoglobin 12.8 g/dl (14.0-18.0); Imm Gran Abs Auto 0.03 X10*3/uL (0.00-0.03); Imm Gran Pct Auto 0.5 % (0.0-0.4); Lymphocytes Absolute Auto 1.7 X10*3/uL (1.2-4.9); Mean Corpuscular HGB Conc 33.3 g/dl (31.0-36.0); Mean Corpuscular Hemoglobin 28.5 pg (27.0-33.0); Mean Corpuscular Volume 85.5 fL (80.0-98.0); NRBC Abs Auto 0.000 X10*3/uL (0.0-0.012); NRBC Pct Auto 0.0 /100WBC (0.0-0.2); Platelet Count 242 X10*3/uL (160-400); Red Blood Count 4.49 X10*6/uL (4.60-5.80); White Blood Count 6.0 X10*3/uL (4.8-10.8)
[2025-04-12 10:52] LABS: INTERNATIONAL NORM RATIO 1.0 (0.9-1.1); Prothrombin Time 12.0 SEC (10.9-12.4)
[2025-04-12 10:55] LABS: Partial Thromboplastin Time 33.9 SEC (26.0-36.8)
[2025-04-12 11:09] LABS: Alanine Aminotransferase 32 U/L (0-40); Albumin Level 4.3 g/dL (3.5-5.0); Alkaline Phosphatase 70 U/L (39-117); Anion Gap 10 (12-20); Aspartate Amino Transferase 23 U/L (5-37); Blood Urea Nitrogen 9 mg/dL (9-16); Calcium 8.8 mg/dL (8.4-10.2); Carbon Dioxide 26 mmol/L (22-29); Chloride 108 mmol/L (96-108); Cholesterol 108 mg/dL (<200); Estimated Glomerular Filt Rate > 60; HDL Cholesterol 24 mg/dL (>40); Potassium 3.7 mmol/L (3.3-5.1); Sodium 140 mmol/L (135-145); Total Protein 7.1 g/dL (6.5-8.0); Triglycerides 73 mg/dL (<150)
== END 2025-04-12 08:55 | disposition home or self-care (01) ==
LOC: HO.LAB 08:54
PROVIDERS: Surgery; PCP General Practice; Visit Provider Physician Assistant Surgical
DX: E66.01 Morbid (severe) obesity due to excess calories (principal); E11.9 Type 2 diabetes mellitus without complications; E78.5 Hyperlipidemia, unspecified
CPT/HCPCS: 36415; 80053; 80061; 83036; 83525; 84443; 85025; 85610; 85730; 86140

== ENCOUNTER 2025-05-03 08:37 | Outpatient (AMB) | payer MEDICARE, MEDICAID, SELFPAY ==
--- OUTSIDE RECORDS SUMMARY | 2025-05-03 08:59 | XMS_ITS | Encounter Summary ---
Author Organization [employer] Address [address] [facility] [address] [place] [address] Care Team Providers Care Concrete Craftsman Name Role Phone Araceli White MD Primary Care Provider [phone] Reason for Referral * Consultation (Routine) - Closed Specialty Diagnoses / Procedures Referred By Contac t Referred To Contact Audiology Diagnoses Conductive hearing loss, bilateral Araceli White MD [address] [place] [address] Phone: tel: fax: [facility] Audiology [address] Floor [place], [place] Phone: tel: fax: Referral ID Status Reason Start Date Expiration Date V isits Requested Visits Authorized [id number] Closed Specialty Services Required 02/06/2024 02/05/2025 1 1 Encounter Details Date Type Department Care Team (Late st Contact Info) Description 02/06/2024 Orders Only [facility] MEDICINE [address] [place] [address] [id number] Araceli White MD [address] [place], [place] [phone] Conductive hearing loss, bilateral (Primary Dx) Social [...] as of this encounter Care Teams Concrete Craftsman Relationship Specialty Start Date End Date Araceli White MD [address] [place] [id number] PCP - General Family Medicine 06/04/21 documented as of this encounter
--- OUTSIDE RECORDS SUMMARY | 2025-05-03 08:59 | XMS_ITS | Clinical Summary ---
Author Organization [employer] Address [address] [place] [address] Care Team Providers Care Grants Officer Name Role Phone Unavailable Primary Care Provider [...] 2000 COVID-19 Vaccine (2023-2 5 season) 2024 Depression Screening 10/11/2024 Influenza Vaccine (#1) 2025 HIB Vaccines Aged Out No longer [...] 5 Years) and At-Risk Patients (6 to 49 Years) Aged Out No longer eligible b ased on patient's age to complete this topic RSV Immunization Patients Un karie 20 months Aged Out No longer eligible b ased on patient's age to complete this topic Varicella Vaccines Aged Out No longer eligible based on patient's age to complete this topic
--- OUTSIDE RECORDS SUMMARY | 2025-05-03 08:59 | XMS_ITS | Clinical Summary ---
Author Organization [facility] Address [address] [place] [address] Care Team Providers Care Drum Straightener Name Role Phone Vic Ocampo MD Primary Care Provider [phone] Source Comments PLEASE NOTE, if this patient [...] 86 01/24/2016 8:49 AM EDT Temperature 37 C (98.6 F) 01/24/2016 8:49 AM EDT Respiratory Rate 14 [...] 19 + 3-dose series) 09/16/2022 07/22/2022, 09/06/2019 [id number] ( season) 2024 021, 03/08/2021 Alcohol and Drug Screen 10/11/2024 01/24/2016 Depression Annual Screen 10/11/2024 Imm-Influenza (#1) 2025 07/22/2022, 08/18/2019 Diabetes Screening 01/18/2026 01/18/2023, 0 01/18/2023, 01/18/2023, [...] EDT) GLYCATED HEMOGLOBIN A1C 4.9 <6.5 % [facility] ESTIMATED AVERAGE GLUCOSE 94 mg/dL [facility] Blood specimen (specimen) Blood / Unknown 01/24/2016 9:20 AM EDT 01/24/2016 11:13 AM EDT Narrative [facility] - 01/25/2016 11:31 AM EDT [facility] [address] [place] [address] PT ID [id number] ORD# [id number] Vic Ocampo MD LAB - BLOOD DRAW Final Result [facility] [address] [place] [address], [place] [phone] * (ABNORMAL) lipid future lab (01/24/2016 9:20 AM EDT) CHOLESTEROL 102 0 - 200 mg/dL [facility] TRIGLYCERIDES 66 0 - 150 mg/dL [facility] HDL CHOLESTEROL 36(L) >40 mg/dL [facility] LDL CALCULATED 53 0 - 100 mg/dL [facility] TC-HDLC RATIO 2.8 0 - 4.4 mg/dL [facility] Blood specimen (specimen) Blood / Unknown 01/24/2016 9:20 AM EDT 01/24/2016 11:13 AM EDT Narrative [facility] - 01/24/2016 4:00 PM EDT [facility] [address] [place] [address] PT ID [id number] ORD# [id number] Vic Ocampo MD LAB - BLOOD DRAW Final Result Performing Organization Address City/[facility]/ZIP Co de Phone Number [facility] [address] [place] [address], [place] [phone] from Last 3 Months or Most Recently Relevant to Health Maintenance Insurance [employer] Member Subscriber Plan / Payer (Ef fective 2015-Present) Name:Krzysztof Moralez Relation to Subscriber:Self Name:Krzysztof Moralez Payer ID:[id number] Group ID:[id number] Type:Medicaid Address: [facility] [address] [place] [address] Care Teams Drum Straightener Relationship Specialty Start Date End Date Vic Ocampo MD [address] [place] [phone] PCP - General Internal Medicine 11/11/15
--- NOTE | 2025-05-03 23:44 | A.OFFVIS_ITS ---
VS Expanded 05/03/25 23:49 Height 5 ft 10 in Weight 279 lb 6 oz BMI 40.1 Body Fat % 25.8 Body Fat Mass 72.1 Fat Free Mass 207.2 Visceral Fat Rating 21 Body Water % 53.5 Body Water Mass 149.5 Basal Metabolic Rate/Score 2,401 Intake Visit Reasons: TV Pre Op LSG 05/17/2025 Allergies morphine Allergy (Mild, Verified 05/03/25 23:56) Itching Medication List - Last Reconciled 05/03/25 by Morris Borrego MD atorvastatin 20 mg PO DAILY cholecalciferol (vitamin D3) 125 mcg PO DAILY clonazepam 0.5 mg PO BID PRN mecobalamin (vitamin B12) 1,000 mcg sublingual DAILY metformin 500 mg PO BID ondansetron 4 mg PO Q12H pantoprazole 40 mg PO DAILY polyethylene glycol 3350 17 grams PO DAILY sucralfate 10 mL PO BID vitamin A palmitate 10,000 units PO DAILY zinc gluconate 10 mg PO DAILY zolpidem 10 mg PO BEDTIME PRN HPI HPI TV Pre Op LSG 05/17/2025: Details: I spent 25 minutes with the patient and 5 minutes to complete the note: 12pm- 12.30pm HPI Comments Details: Overall weight loss: 30.2lbs, or 9.75% TBWL Is doing 5 protein shakes per day Exercise: stationary bike for 1 hour daily [facility] Medical History (Updated 05/03/25 @ 12:22 by Carla Ochoa RN) Diabetes Anxiety Depression DJD (degenerative joint disease) Hyperlipidemia Sleep apnea treated with continuous positive airway pressure (CPAP) Non-insulin dependent type 2 diabetes mellitus Morbid obesity 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 Cauda equina compression Chronic pain syndrome Spondylosis of lumbar region without myelopathy or radiculopathy Surgical History (Updated 05/03/25 @ 12:45 by Carla Ochoa RN) S/P placement of nerve stimulator History of surgery S/P epidural steroid injection Social History Patient Tobacco Use Status: Never used Tobacco Telehealth Telehealth Telehealth Platform: Telephone Location of provider rendering services: practice address Location of patient: address on file Patient Identification confirmed using: Name, : Yes Telehealth method: voice only Patient verbally consented to treatment: Yes Patient verbally consented to billing insurance company: Yes Patient informed of any privacy concerns related to visit: Yes Minutes spent on Phone/Video with Pt.: 30 Assessment & Plan Assessment & Plan (1) Morbid obesity: Code(s): E66.01 - Morbid (severe) obesity due to excess calories Category: Medical Plan: 1. Plan for lap sleeve gastrectomy including upper GI endoscopy. All tests has been completed and reviewed and the patient is cleared for the surgery. ?If diaphragmatic or ventral hernias are present at time of surgery, these will be repaired laparoscopically as well. Risks and complications were discussed in detail including possible conversion to an open procedure, anastomotic leak, bleeding requiring transfusion, small bowel obstruction, , DVT and pulmonary embolism, cardiac, or pulmonary complications, as oil heaterman complications such as anastomotic ulcer, insufficient weight loss and vitamin deficiencies. I emphasized the importance of close follow-up, adherence to instructions and good communication. So far he has proven to be an excellent communicator and very compliant with all our directions accomplishing a great we ight loss. I believe that he is an excellent candidate and he is ready. 2. Preop prescriptions were provided and explained the purpose of each one. Need to be purchased preop. Start Pantoprazole now as you get it from the pharmacy, 1 pill per day. Sucralfate and Zofran are for after surgery as needed. 3. Bowel prep: please do 7 packets ?of Miralax mixing each one with a an 8oz glass of water, crystal light, gatorade zero, or propel ?on 05/15/25 and the same amount on 05/16/25. The Miralax you begin with one packet at a time in 8oz water or crystal light, gatorade zero, or propel ?as early in the day as you can and you do them back to back until you finish them. Continue the protein shakes during ?the bowel prep. 4. Needs to purchase 1oz medicine cups . 5. Needs to purchase Children's liquid Tylenol for postop pain control. 6. Continue not to use the Trulicity anymore and the Metformin. Avoid aspirin, motrin, Advil, Aleve, Meloxicam, Excedrin, Ibuprofen, Naproxyn. Tylenol is OK. 7. He needs to purchase the Celebrate multivitamins from the hospital's gift shop, chewable or pills whatever you prefer. 8. Importance of adherence to postop folllow-up and recommendations was underscored and he understands that. 9. Continue to avoid the food and bars and continue with 5 Celebrate REBUILD protein shakes (TWO scoops EACH in 8oz almond milk) at 8am-10am, 11am-1pm, 2pm-4pm, 5pm-7pm and at 8pm-10pm 10. No soups, broths or V8 11. The patient's?medical?history has been reviewed and they are considered low risk for post op DVT and therefore DVT prophylaxis is not considered necessary. Travel after surgery was reviewed. The patient has not disclosed any travel plans during the first 30 days after surgery and they have been advised that within the first 30 days after surgery any bus, plane, train or car travel over 2 hours in duration is contraindicated due to the possibility of developing blood clots from immobility. Any travel, needs to include periods of ambulation of 10 minutes in duration every 2 hours.? Patient was instructed to discuss any plans for travel during this period with their bariatric surgeon.? 12. Use your CPAP daily and bring it to the hospital with your mask 13. Please take at the day of surgery the following medications: NONE 14. Absolutely no smoking or vaping, or marijuana until the surgery and for at least the first 4 weeks. Only nicotine patches are allowed. 15. Send me weight measurements on Wednesday05/06/25 and 05/13/25 then on 05/17/25, the day of surgery before you go to the hospital. 16. Avoid any steroids by mouth for any reason. Let me know if someone prescribes them to you 17. These instructions supersede anything else you read in the handbook, anything you watched in videos or classes or you were told by any other provider. If there is any conflict, you follow the above instructions and nothing else. Orders:
[2025-05-03 23:49] VITALS: BMI 40.1
== END 2025-05-03 23:59 | disposition home or self-care (01) ==
LOC: HO.HBS 08:37
PROVIDERS: PCP General Practice; Visit Provider Surgery
DX: E66.01 Morbid (severe) obesity due to excess calories (principal)
CPT/HCPCS: 99214

== ENCOUNTER 2025-05-17 06:15 | Inpatient (IN) | payer MEDICARE, MEDICAID, SELFPAY ==
[2025-05-04 12:07] VITALS: BMI 40.1
--- NOTE | 2025-05-15 15:01 | HO.ANESPROP2 ---
Documented by User: Paulina Bang NP 05/15/25 15:03 HPI - Anesthesia Eval Consult details Narrative: 44yo M for Gastrectomy Sleeve - EGD, possible diaphragmatic hernia, possible ventral hernia, possible open PMFSH Active Problems Active Problems: All Active Problems Pre-op evaluation (Acute) Zinc deficiency (Acute) Vitamin A deficiency (Acute) Vitamin B12 deficiency (Acute) Vitamin D deficiency (Acute) Spinal stenosis of thoracic region (Acute) Chronic pain syndrome (Acute) Sacrococcygeal pain (Acute) Sacroiliitis (Acute) Anxiety (Acute) Depression (Acute) DJD (degenerative joint disease) (Acute) Hyperlipidemia (Acute) Sleep apnea treated with continuous positive airway pressure (CPAP) (Acute) Non-insulin dependent type 2 diabetes mellitus (Acute) Morbid obesity (Acute) 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 (Acute) Cauda equina compression (Acute) Chronic pain syndrome (Acute) Spondylosis of lumbar region without myelopathy or radiculopathy (Acute) Past Medical History Medical History Cholelithiasis Insomnia Diabetes Anxiety Depression DJD (degenerative joint disease) Hyperlipidemia Sleep apnea treated with continuous positive airway pressure (CPAP) Non-insulin dependent type 2 diabetes mellitus Morbid obesity 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 Cauda equina compression Chronic pain syndrome Spondylosis of lumbar region without myelopathy or radiculopathy Family History Family history of problems with anesthesia: No Surgical History Surgical History History of surgery S/P epidural steroid injection History of Problems with Anesthesia: No Social History Social History Are you a primary health care / medical job titles to a significant other at home: No Do you presently have visiting nurse or other home services: No Patient Tobacco Use Status: Never used Tobacco Use of substances other than those prescribed or required for medical reasons: No Have you been hit, kicked, punched, or otherwise hurt by someone within the past year? If so, by whom?: No Spiritual Healthcare Practices: no Christian Healthcare Practices: no Cultural Healthcare Practices: no Are you DNR?: No Advance Directives: No Advance Directives Information Provided: No Advance Directives on File: No Poor oral hygiene: No Meds Allergies Allergy/AdvReac Type Severity Reaction Status Date / Time morphine Allergy Mild Itching Verified 05/17/25 06:17 Home Medications ?Medication ?Instructions ?Recorded ?Confirmed ?Last Taken ?Type atorvastatin 20 mg tablet 20 mg PO DAILY 12/14/24 05/03/25 05/16/25 History clonazepam 0.5 mg tablet 0.5 mg PO BID PRN anxiety 12/14/24 05/03/25 Unknown History metformin 500 mg tablet 500 mg PO BID 12/14/24 05/03/25 05/16/25 History zolpidem 10 mg tablet 10 mg PO BEDTIME PRN Insomnia 12/14/24 05/03/25 Unknown History Exam Height,Weight and Vital Signs: Height 5 ft 10 in Weight 126.722 kg Pertinent Lab Results Pertinent Lab Results: Laboratory Tests 04/12/25 05/11/25 09:36 08:45 Blood Type O Positive O Positive Antibody Screen NEGATIVE NEGATIVE Laboratory Tests 04/12/25 09:44 WBC 6.0 Hgb 12.8 L Hct 38.4 L Plt Count 242 Sodium 140 Potassium 3.7 Chloride 108 Carbon Dioxide 26 BUN 9 Creatinine 0.76 Narrative Narrative: EKG 03/2025 Vent. Rate : 62 BPM Atrial Rate : 62 BPM P-R Int : 150 ms QRS Dur : 98 ms QT Int : 390 ms P-R-T Axes : 18 18 10 degrees QTcB Int : 395 ms Normal sinus rhythm Normal ECG No previous ECGs available Assessment and Plan Assessment Anesthesia Assessment: Chart Reviewed Final Anesthetic Review Family History of Problems with Anesthesia: No History of Problems with Anesthesia: No Documented by User: Tete Tierney MD 05/17/25 08:13 [facility] Past Medical History Medical History Cholelithiasis Insomnia Diabetes Anxiety Depression DJD (degenerative joint disease) Hyperlipidemia Sleep apnea treated with continuous positive airway pressure (CPAP) Non-insulin dependent type 2 diabetes mellitus Morbid obesity 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 If so, by whom?: No Spiritual Healthcare Practices: no Christian Healthcare Practices: no Cultural Healthcare Practices: no Are you DNR?: No Advance Directives: No Advance Directives Information Provided: No Advance Directives on File: No Poor oral hygiene: No Meds Allergies Allergy/AdvReac Type Severity Reaction Status Date / Time morphine Allergy Mild Itching Verified 05/17/25 06:17 Home Medications ?Medication ?Instructions ?Recorded ?Confirmed ?Last Taken ?Type atorvastatin 20 mg tablet 20 mg PO DAILY 12/14/24 05/03/25 05/16/25 History clonazepam 0.5 mg tablet 0.5 mg PO BID PRN anxiety 12/14/24 05/03/25 Unknown History metformin 500 mg tablet 500 mg PO BID 12/14/24 05/03/25 05/16/25 History zolpidem 10 mg tablet 10 mg PO BEDTIME PRN Insomnia 12/14/24 05/03/25 Unknown History Exam Airway Mallampati Class: III TM Dist: >3cm Neck ROM: Full Loose/Missing/Broken Teeth: No Heart: RRR Lungs: CTA Assessment and Plan Assessment Anesthesia Assessment: Anesthesia Plan Discussed Final Anesthetic Review NPO: Yes ASA Class: III Final Preanesthetic Review: Meds/Allgs Chart Reviewed, Consent Obtained/Reviewed and Anes Risks/Benef Reviewed Patient Risk: Intermediate Procedure Risk: Intermediate Anesthetic Plan Anesthetic Plan: GA Disposition: Standard PACU
[2025-05-17] VITALS (18 sets, daily range): BP systolic 118–152; BP diastolic 70–87; PULSE 64–96; RESP 15–22; TEMP 36.2–36.9; O2SAT 92–100; BMI 39.2
--- OUTSIDE RECORDS SUMMARY | 2025-05-17 06:21 | XMS_ITS | Clinical Summary ---
Author Organization [facility] ity Address [address] [place] [address] Care Team Providers Care Graphic Designer Name Role Phone Unavailable Primary Care Provider [...]
--- OUTSIDE RECORDS SUMMARY | 2025-05-17 06:21 | XMS_ITS | Clinical Summary ---
Author Organization [facility] Address [address] [place] [address] Care Team Providers Care Poultry Inseminator Name Role Phone Vic Ocampo MD Primary Care Provider [phone] Source Comments PLEASE NOTE, if this patient [...] 19 + 3-dose series) 09/16/2022 07/22/2022, 09/06/2019 [id number] ( season) 2024 021, 03/08/2021 Alcohol and [...] EDT) GLYCATED HEMOGLOBIN A1C 4.9 <6.5 % [facility] ESTIMATED AVERAGE GLUCOSE 94 mg/dL [facility] Blood specimen (specimen) Blood / Unknown 01/24/2016 9:20 AM EDT 01/24/2016 11:13 AM EDT [facility]ative [facility] 01/25/2016 11:31 AM EDT [facility] [address] [place] [address] PT ID [id number] ORD# [id number] Vic Ocampo MD LAB - BLOOD DRAW Final Result [facility] [address] [place] [address], [place] [phone] * (ABNORMAL) lipid future lab (01/24/2016 9:20 AM EDT) CHOLESTEROL 102 0 - 200 mg/dL [facility] TRIGLYCERIDES 66 0 - 150 mg/dL [facility] HDL CHOLESTEROL 36(L) >40 mg/dL [facility] LDL CALCULATED 53 0 - 100 mg/dL [facility] TC-HDLC RATIO 2.8 0 - 4.4 mg/dL [facility] Blood specimen (specimen) Blood / Unknown 01/24/2016 9:20 AM EDT 01/24/2016 11:13 AM EDT Narrative [facility] - 01/24/2016 4:00 PM EDT [facility] [address] [place] [address] PT ID [id number] ORD# [id number] Vic Ocampo MD LAB - BLOOD DRAW Final Result Performing Organization Address City/[facility]/ZIP Co de Phone Number [facility] [address] [place] [address], [place] [phone] from Last 3 Months or Most Recently Relevant to Health Maintenance Insurance [facility] [employer] Member Subscriber Plan / Payer (Ef fective 2015-Present) Name:Krzysztof Moralez Relation to Subscriber:Self Name:Krzysztof Moralez Payer ID:[id number] Group ID:[id number] Type:Medicaid Address: [facility] [address] [place] [address] Care Teams Poultry Inseminator Relationship Specialty Start Date End Date Vic Ocampo MD [address] [place] [phone] PCP - General Internal Medicine 11/11/15
[2025-05-17] MEDS: Aprepitant 32 MG/4.4 ML VIAL IVPUSH (06:40)
[2025-05-17] MEDS: Lactated Ringers 1,000 ML 999 ML IV (06:42)
[2025-05-17 06:52] LABS: Glucose, Whole Blood 117 mg/dL (60-115)
--- NOTE | 2025-05-17 07:35 | MHC.SHP ---
Pre-Procedural Eval Section A - 24 Hr Update-Section A only Date of Service: 05/17/25 The patient is an INPATIENT: Yes The patient has been examined within 24 hours of the surgical procedure. The History & Physical has been completed within 30 days and I have reviewed it.: Yes Section B - Complete if H&P > 30 days Chief Complaint: Morbid Obesity Relevant Family History (Specify if Yes): No Relevant Social History: None Present Medications: None Medical History: No relevant PMH History of Previous Operations: No relevant previous surgery Allergies: Allergies Allergy/AdvReac Type Severity Reaction Status Date / Time morphine Allergy Mild Itching Verified 05/17/25 06:17 Review of Systems Sugical H&P ROS: Negative: Constitution, Cardiovascular, Respiratory, Neurological, Psychiatric, Hem-Onc, Allergic/Immunologic, Gastrointestinal, Genitourinary, Musculoskeletal, Integumentary, Endocrine and Eyes/Ears/Nose/Throat Exam Surgical H&P Exam: Normal: HEENT, Normal: Heart, Normal: Lungs, Normal: Extremities, Normal: Abdomen, Normal: Skin and Normal: Neurological Plan Diagnosis/Plan: Unchanged I have reviewed the history and physical and performed a pertinent physical examination on my patient. No changes have occurred unless specified. Time Spent With Patient Time: Total time managing care of this patient today ____ minutes.
--- NOTE | 2025-05-17 07:35 | PM.OP ---
Brief Operative Note Date of Service: 05/17/25 Pre-op diagnosis: Morbid obesity with comorbidities (see below) Post-op diagnosis: same (& congenital abdominal adhesions) Procedure: INITIAL PATIENT BMI ON PRESENTATION AT OUR OFFICE: 44.8 kg/m2 LAST BMI BEFORE SURGERY: 40.1 kg/m2 COMORBIDITIES: sleep apnea on CPAP, non-insulin dependent diabetes, hyperlipidemia, depression, anxiety, insomnia, DJD, cholelithiasis, liver steatosis, GERD ?The patient presented to the Weight Management Program with significant obesity that was negatively impacting the patient's comorbidities as listed above.? The program is a phased program with a special focus on preoperative medical weight management to promote substantial weight loss and prepare the patients for the second phase of the program: bariatric surgery. The patient participated in an intensive weekly lifestyle ?intervention and exercise program during which the patient ?has lost between the initial office visit and the last preoperative visit 33 lbs, or 10.65% of initial actual body weight. It was deemed appropriate for the patient to now have bariatric surgery. In light of the current Covid-19 pandemic and the well documented strong association of obesity and increased risk of worse outcomes if infected with Covid-19 (REFERENCES:https://pubmed.ncbi.nlm.nih.gov/23827101/,?https://pubmed.ncbi.nlm.nih.gov/48810279/), any delay in undergoing bariatric surgery may lead to the patient's worsening health condition and increased?risk of more severe Covid-19 disease if infected. In addition a recent?study from [facility] published in [facility] on 10/06/2021 ([email or web address]) found that, among patients with obesity, substantial weight loss achieved with surgery was associated with improved outcomes of COVID-19 infection. The findings suggest that obesity can be a modifiable risk factor for the severity of COVID-19 infection. In addition, the patient met the BMI-criteria for bariatric surgery based on the BMI on initial presentation. The patient should not be penalized for achieving such weight loss because ?it is not sustainable long-term without surgical intervention and it was achieved in preparation for bariatric surgery ?under my direction and based on my published research ([email or web address]).[email or web address] and?https://www.soard.org/article/[email or web address](21)10230-X/pdf) ?that a 10% preoperative weight loss improves long-term weight loss after surgery and reduces perioperative complications.? Insurance carriers such as [employer] [facility] have endorsed my recommendations ?and have included in their policies criteria to include a 10% preoperative weight loss requirement. PROCEDURE: Esophago-gastroscopy, laparoscopic repair of incarcerated diaphragmatic hernia, laparoscopic lysis of adhesions, laparoscopic sleeve gastrectomy and laparoscopic gastropexy INDICATIONS: This is a 44 year-old male who was electively scheduled for laparoscopic, possibly open sleeve gastrectomy. The risks and complications of the procedure were discussed with the patient in advance, particularly the possibility of ; pulmonary embolism; staple line leak; bleeding; GERD; cardiac, pulmonary, or renal complications; as well as long-term problems such as insufficient weight loss, vitamin deficiency, strictures, or ulcers. The patient understood all the risks, and was in agreement to proceed with surgery. DESCRIPTION OF PROCEDURE: After informed consent was obtained from the patient, the patient was given preoperative antibiotics, and was transferred to the operating room. After successful induction of general anesthesia, pneumatic compression devices were placed on both lower extremities. An upper endoscopy was performed next. The oropharynx and esophagus appeared to be within normal limits. There was a diaphragmatic hernia present of moderate size consistent with the findings of the preoperative upper GI. The stomach was entered. Then after all fluid and air were suctioned and the stomach was fully decompressed, the scope was withdrawn and secured in the mid esophagus. The patient was then prepped and draped in the usual sterile manner, and abdominal access was established at the right upper quadrant with the Parrish technique. A 12 mm blunt port was inserted, and the abdomen was insufflated with CO2 to a pressure of 15 mmHg. Under direct visualization, additional ports were placed, specifically two 5 mm Versi-step ports to the left upper quadrant, and a 5 mm Versi-Step port to the right upper quadrant. 1% lidocaine plain was used to infiltrate all port sites as well as all fascia defects. Following that, the patient was placed in a steep reverse Trendelenburg position. An additional 5 mm port was placed to the right flank for the Mediflex retractor that was used to retract the left lobe of the liver. The gastro-esophageal fat pad was opened with the ultrasonic device (Thunderbeat, Olympus) and the anterior esophagus and hiatus were exposed. The angle of His was opened with the ultrasonic device the fundus of the stomach from any diaphragmatic and splenic attachments. I then opened the gastrocolic ligament between the transverse colon and the greater curvature of the stomach with the ultrasonic device to enter the lesser sac and facilitate the ligation of the short gastric vessels. I started at a mid-point along the greater curvature and using the Thunderbeat, all short gastric vessels were divided all the way to the angle of His until the left luigi was completely dissected at its entirety. I then divided the gastro-colic ligament distally to a distance of about 3-4 cm proximal to the pylorus. There were extensive congenital adhesions between the pancreas and posterior gastric wall. Those were lysed completely with the ultrasonic device. Adhesiolysis took approximately 45 min to complete. The stomach was then divided transversely with one Endo AURORA-45 purple and four AURORA-60 articulating purple loads using the CDC Software stapler and loads. Every effort was made that the gastric sleeve had a tubular shape and an even caliber throughout. Once the sleeve resection was completed, the staple line of the gastric sleeve was reinforced with Hemoclips. The resected stomach was retrieved without difficulty from the Parrish port. A gastropexy was then performed in order to prevent postoperative GERD and partial gastric volvulus. Several interrupted 2.0 Surgidac sutures were placed between the sleeve's staple line and the previously divided greater omentum and gastro-colic ligament using the Endo-Stitch device. ?An upper endoscopy was performed. There was no narrowing at the GE junction. The scope was easily advanced all the way to the pylorus which was clearly visualized. There was no narrowing anywhere and the sleeve's caliber was even throughout. The sleeve's staple line was inspected and there was no evidence of ischemia, bleeding or dehiscence. At that point the gastroscope was withdrawn from the patient?s mouth while we were decompressing the bowel and the stomach from any remaining air. I looked into the lesser sac to see how the sleeve was situating and it was situating well. There was no bleeding from the staple line, spleen, or short gastric vessels. The Mediflex retractor was removed, and the undersurface of the liver was inspected and there was no bleeding. The patient was placed in supine position. I closed the fascial defect of the 12 mm port site with a figure of eight #1 Polysorb suture. Then 30cc Ropivacaine plain with 10 mg of Dexamethasone were used to infiltrate the fascial closure as well as all skin incisions. At this point, the abdomen was deflated, all ports were removed under direct vision, and no bleeding was noted from any of the port sites. The skin incisions were irrigated with saline and were closed with 4-0 absorbable monofilament sutures. Steri-Strips and OpSites were used to cover all incisions. The patient was extubated and was transferred in stable condition to the recovery room for further care. I was present and performed all rodriguez parts of the procedure. Ms. Blankenship was the lpn or medical assistant. There were no residents to assist with this case. Matthew Borrego MD, PhD, FACS Surgeon: Morris Borrego MD Anesthesia: GETA, local and other (TAP block) Was an Funeral Service Manager used for this Procedure?: No Funeral Service Manager: Lelo Blankenship Estimated blood loss (mL): 10 IV fluids (mL): 2,500 Urine output (mL): 0 (No Corado to record output) Pathology: other (1) Stomach) Condition: stable Disposition: PACU
--- NOTE | 2025-05-17 07:39 | PM.PNGS ---
Subjective Subjective Date of Service: 05/18/25 Interval history: Feels well. Mild incisional pain. He is tolerating phase 1 bariatric diet s/p laparoscopic sleeve gastrectomy, lysis of adhesions, diaphragmatic hernia repair and gastropexy Doing well Will check am labs and if OK the patient will be discharged home Physical Exam Vital Signs: Vital Signs: Last Vital Signs Temp 97.6 F 05/17/25 06:33 Pulse 72 05/17/25 06:33 Resp 16 05/17/25 06:33 BP 130/83 05/17/25 06:33 Pulse Ox 95 05/17/25 06:33 O2 Del Method Room Air 05/17/25 06:33 BMI result Body Mass Index 39.2 GI: Inspection: Yes normal to inspection, Yes incision (clean, dry and intact) and Yes obesity Palpation (GI): Soft to palpation Extrem: Right lower extremity: normal to inspection (no calf tenderness) Left lower extremity: normal to inspection (no calf tenderness) Objective Data Active Medications Lactated Ringer's (Lr) 1,000 mls @ 999 mls/hr IV .Q1H1M [facility] Stop: 05/17/25 08:15 Last Admin: 05/17/25 06:42 Dose: 999 mls/hr Documented By: ELISABETH Lactated Ringer's (Lr) 1,000 mls @ 100 mls/hr IVCONT .Q10H [facility] Stop: 05/17/25 10:14 Lactated Ringer's (Lr) 1,000 mls @ 999 mls/hr IV .Q1H1M [facility] Stop: 05/17/25 08:30 Last Admin: 05/17/25 06:51 Dose: Not Given Documented By: ELISABETH Non-Admin Reason: Duplicate Order Labs 05/18/25 05:10 05/18/25 05:10 Labs: Laboratory Results - last 24 hr 05/17/25 06:46 POC Glucose 117 H Procedures Date of Service Date of Service: 05/18/25 Progress Note: A&P Assessment and plan (1) Morbid obesity: Status: Acute Assessment and Plan: s/p laparoscopic sleeve gastrectomy, lysis of adhesions and gastropexy Doing well Will check am labs and if OK the patient will be discharged home (2) Non-insulin dependent type 2 diabetes mellitus: Status: Acute (3) Hyperlipidemia: Status: Acute (4) Anxiety: Status: Acute (5) Depression: Status: Acute (6) DJD (degenerative joint disease): Status: Acute (7) Sleep apnea treated with continuous positive airway pressure (CPAP): Status: Acute (8) GERD (gastroesophageal reflux disease): Status: Acute (9) Insomnia: Status: Acute (10) Cholelithiasis: Status: Acute (11) Status post sleeve gastrectomy: Status: Acute (12) Congenital intra-abdominal adhesions: Status: Acute Time Spent With Patient Time: Total time managing care of this patient today ____ minutes. Quality Stroke Does the patient have a stroke diagnosis?: No VTE Prior VTE?: No VTE Risk Level:: Surgical - moderate VTE Device Contraindication: N/A - Device Ordered VTE Drug Contraindication: Treatment Not Indicated
--- NOTE | 2025-05-17 10:21 | P.DS_ITS ---
DS: Providers Provider Date of Service: 05/18/25 Date of admission: 05/17/25 06:15 Date of discharge: 05/18/25 Primary care physician: Araceli White MD DS: Diagnosis Discharge Diagnosis (1) Morbid obesity: Status: Resolved (2) Non-insulin dependent type 2 diabetes mellitus: Status: Acute (3) Hyperlipidemia: Status: Acute (4) Anxiety: Status: Acute (5) Depression: Status: Acute (6) DJD (degenerative joint disease): Status: Acute (7) Sleep apnea treated with continuous positive airway pressure (CPAP): Status: Acute (8) GERD (gastroesophageal reflux disease): Status: Acute (9) Insomnia: Status: Acute (10) Cholelithiasis: Status: Acute (11) Status post sleeve gastrectomy: Status: Acute (12) Congenital intra-abdominal adhesions: Status: Acute DS: Summary Hospital Course Hospital Course: ADMITTING DIAGNOSIS: morbid obesity, GERD, insomnia, spinal stenosis, chronic pain, anxiety, depression, HLD, DJD, JAMSHID on CPAP, NIDDM DISCHARGE DIAGNOSIS: same, s/p laparoscopic sleeve gastrectomy and gastropexy PAST SURGICAL HISTORY:? S/P placement of nerve stimulator S/P epidural steroid injection PROCEDURE: upper endoscopy, laparoscopic sleeve gastrectomy and gastropexy DISCHARGE SUMMARY: History of Present Illness: The patient is a?44 year-old man with a BMI of?39.2 kg/m2 and associated co- morbidities as described above. The patient had extensive work-up, lost?32.8 lbs preoperatively and was electively scheduled for laparoscopic, possible open sleeve gastrectomy and gastropexy. Risks and complications of the surgery were discussed with the patient in advance, particularly the possibility of , pulmonary embolism, anastomotic leak, bleeding, bowel injury, GERD, cardiac, renal or pulmonary complications. The patient understood all the risks and was in agreement with the surgical plan. Hospital Course: The patient underwent an uneventful laparoscopic sleeve gastrectomy with gastropexy on the day of admission. Postoperatively, the patient was transferred to the surgical floor. The patient received IV acetaminophen and IV Dilaudid for pain control. Patient was started on bariatric phase 1 diet POD #0. On postoperative day one, the patient was feeling well without nausea, vomiting, fevers, or tachycardia. The patient had some mild incisional pain and the abdomen was soft.? ? On the morning of postoperative day one, the patient was continued on 1 ounce of water or ice every half hour. During the day, the patient did fairly well, having some incisional pain, but able to ambulate adequately and to tolerate liquids well. Since the patient is doing well, we decided that the patient was ready to be discharged. The patient was given instructions to follow-up in office next week and to call the office for any fever over 101, persistent abdominal pain, nausea, vomiting, GERD, symptoms of DVT such as calf tenderness, or leg swelling, or pulmonary embolism such as chest pain or shortness of breath.? The patient was also instructed to drink 40-60 ounces of liquids per day using the 1-ounce cups. The patient had been given prescriptions for Tylenol for pain, Zofran prn for nausea, and pantoprazole and carafate previously. The patient was encouraged to ambulate and use the incentive spirometer. The patient was allowed to shower, but no baths, and encouraged to stay active at home. All of these instructions were given to the patient personally. All questions were answered and the patient understood all instructions, the instructions were also given to the patient in print. Time Attestation Discharge Coordination Time (in mins): 30 Quality: Safe Use of Opioids Does Pt have an Active Cancer Diagnosis on the Problem List?: No Quality: Stroke Does the patient have a stroke diagnosis?: No Physical Exam Vital Signs: Vital Signs: Last Vital Signs Temp 98.5 F 05/17/25 10:00 Pulse 96 05/17/25 10:05 Resp 18 05/17/25 10:05 BP 135/81 05/17/25 10:05 Pulse Ox 97 05/17/25 10:05 O2 Del Method Simple Mask 05/17/25 10:05 O2 Flow Rate 6 05/17/25 10:05 BMI result Body Mass Index 39.2 DS: Data Data Completed and Pending Pending studies at discharge: Pending at discharge 05/17/25 09:16 Surgical [PTH] Routine Labs on day of discharge: Laboratory Results - last 24 hr 05/17/25 06:46 POC Glucose 117 H Discharge Plan Discharge Anticipated Discharge Date/Time: 05/18/25 10:15 Patient Disposition: Home, Self-Care Discharge Diagnosis: s/p laparoscopic sleeve gastrectomy and gastropexy Referrals: Araceli White MD [Primary Care Provider, Internal Medicine] - 1 Week Discharge Medications: Continued escitalopram oxalate 10 mg tablet 10 mg PO QAM sucralfate 100 mg/mL suspension 10 ml PO BID Qty: 600 2RF pantoprazole 40 mg tablet,delayed release (DR/EC) 40 mg PO DAILY Qty: 90 0RF ondansetron 4 mg tablet,disintegrating 4 mg PO Q12H Qty: 20 0RF Rx Instructions: Only take one every 12 hours as needed if you have nausea Discontinued cholecalciferol (vitamin D3) 125 mcg (5,000 unit) capsule 125 mcg PO DAILY Qty: 90 0RF mecobalamin (vitamin B12) 1,000 mcg tablet,disintegrating 1,000 mcg sublingual DAILY Qty: 90 0RF Rx Instructions: place tablet under tongue and allow to dissolve for at least30 secs before swallowing vitamin A palmitate 3,000 mcg (10,000 unit) capsule 10,000 unit PO DAILY Qty: 60 0RF zinc gluconate 10 mg lozenge 10 mg PO DAILY Qty: 100 0RF Discharge Orders: Discharge Order (Routine); Ordered 05/18/25 Ordered By: Morris Borrego Activity on Discharge: No heavy lifting Stand Alone Forms: Patient Portal Discharge page Print Language: Bahraini Care Plan Goals: weight loss Health Concerns: obesity Plan of Treatment: No tub baths, sex or returning to work until discussed at first post op appointment. No alcohol, tobacco or illegal drug use. Continue to use incentive spirometer hourly while awake. Walk in home for 5- 10 minutes every 2 hours during the first week. Wear abdominal binder with activity. Follow all meal plan instructions from your bariatric surgeon. Review bariatric handbook and call with any questions. Discharge Instructions 1. Please call your doctor or come back to the emergency room should any new symptoms arise. 2. Activity: abstain from alcohol,? limited stair climbing, no bending, no driving, no exercise, no illicit substances, no lifting, no sex, no tub bath, no work. 4. Diet: follow your bariatric surgeon's recommendations for advancing diet. 5. Dressing Change/Wound Care: Your incisions are covered with waterproof dressings. You can shower with these and pat dry. Do not rub over dressings or incisions. If the area is tender, you may apply an ice pack for short intervals (no more than 20 minutes on, followed by at least 20 minutes off). Do not apply heat. Do not use creams, lotions, or topical antibiotics unless instructed to do so by your surgeon. 6. Call your doctor if: - Your temperature exceeds 101.5 F - You experience excessive pain or swelling - You have an unexpected reaction to medication - You have excessive bleeding - You experience continued vomiting/nausea - Your incision begins to separate - Your incision shows signs of infection such as increased redness, swelling, excessive pain, heat, or drainage (light blood or clear fluid is normal) General instructions: No lifting greater than 10 lbs for the next 6 weeks. No driving within 24 hours of taking narcotic pain medications. If you do not move your bowels in the next 2 days, please take milk of magnesia over the counter. Please follow the post op diet and do not advance your diet until instructed by your surgeon or until you are seen in the office in about 1 week. Please walk around your home every hour or two to prevent blood clots from forming in your legs. You do not need to wake from sleeping to walk. Please sleep in a bed or couch to prevent kinking at the hips and knees. Please take your incentive spirometer (your lung outboard motor assembler) home with you and use it for the next few days to prevent pneumonias. You may shower; no hot tubs, baths or swimming pools. Please make sure you are consuming 40-60 ounces of total fluids per day. Avoid all carbonation. Please call the office with any questions or concerns such as increasing abdominal pain, fever, chills, shortness of breath, chest pain, leg pain or swelling, or redness or drainage from your incisions. Do not hesitate to contact the office with any questions at . The patient's medical history has been reviewed and they are considered low risk for post op DVT and therefore DVT prophylaxis is not considered necessary. Travel after surgery was reviewed. The patient has not disclosed any travel plans during the first 30 days after surgery and they have been advised that within the first 30 days after surgery any bus, plane, train or car travel over 2 hours in duration is contraindicated due to the possibility of developing blood clots from immobility. Any travel, needs to include periods of ambulation of 10 minutes in duration every 2 hours.? The patient was instructed to discuss any plans for travel during this period with their bariatric surgeon. Assessment: s/p laparoscopic sleeve gastrectomy with gastropexy Discharge Date/Time: 05/18/25 09:50
[2025-05-17 10:37] LABS: Hematocrit 38.8 % (42.0-52.0); Hemoglobin 13.1 g/dl (14.0-18.0)
[2025-05-17 10:52] LABS: Anion Gap 9 (12-20); Blood Urea Nitrogen 9 mg/dL (9-16); Calcium 8.5 mg/dL (8.4-10.2); Carbon Dioxide 27 mmol/L (22-29); Chloride 107 mmol/L (96-108); Creatinine Clr Calc Pharmacy 159.1; Estimated Glomerular Filt Rate > 60; Potassium 3.6 mmol/L (3.3-5.1); Sodium 139 mmol/L (135-145)
[2025-05-17] MEDS: Lactated Ringers 1,000 ML 100 ML IVCONT ×3 (11:56→20:21)
[2025-05-17 13:44] LABS: Glucose, Whole Blood 140 mg/dL (60-115)
[2025-05-17 16:06] LABS: Glucose, Whole Blood 139 mg/dL (60-115)
--- NOTE | 2025-05-17 19:37 | PHA.MEDREC ---
Addendum entered by Rosalinda Gutierrez RPh 05/17/25 19:53: [facility] reviewed Original Note: Pharmacy Consult ? Medication Reconciliation Pharmacy has reviewed the medication reconciliation done by nursing. Spoke to patient to confirm med list. Patient states he no longer takes Metformin 500 mg, Atorvistatin 20 or simvastatin 20mg , Clonazepam 0.5 mg, Risperidone 2 mg or Risperidone 1 mg and Zolpidem 10 mg. Patient Did confirm he is taking Lexapro 10 mg and vitamins . Patient last had his medications yesterday.
[2025-05-17 20:20] LABS: Glucose, Whole Blood 130 mg/dL (60-115)
[2025-05-17] MEDS: 0.9 % Sodium Chloride Flush 3 ML SYRINGE IVFLUSH (20:21)
[2025-05-18 00:17] LABS: Glucose, Whole Blood 128 mg/dL (60-115)
[2025-05-18 03:33] VITALS: BP 130/79; PULSE 72; RESP 18; TEMP 36.6; O2SAT 96
[2025-05-18 04:07] LABS: Glucose, Whole Blood 130 mg/dL (60-115)
[2025-05-18 05:46] LABS: MANUAL DIFF FLAG NO
[2025-05-18] MEDS: Lactated Ringers 1,000 ML 100 ML IVCONT (05:53)
[2025-05-18 05:54] LABS: Hematocrit 39.3 % (42.0-52.0); Hemoglobin 12.9 g/dl (14.0-18.0); Imm Gran Abs Auto 0.04 X10*3/uL (0.00-0.03); Imm Gran Pct Auto 0.3 % (0.0-0.4); Lymphocytes Absolute Auto 1.2 X10*3/uL (1.2-4.9); Mean Corpuscular HGB Conc 32.8 g/dl (31.0-36.0); Mean Corpuscular Hemoglobin 28.5 pg (27.0-33.0); Mean Corpuscular Volume 86.8 fL (80.0-98.0); NRBC Abs Auto 0.000 X10*3/uL (0.0-0.012); NRBC Pct Auto 0.0 /100WBC (0.0-0.2); Platelet Count 275 X10*3/uL (160-400); Red Blood Count 4.53 X10*6/uL (4.60-5.80); White Blood Count 11.5 X10*3/uL (4.8-10.8)
[2025-05-18 06:09] LABS: Anion Gap 12 (12-20); Blood Urea Nitrogen 9 mg/dL (9-16); Calcium 9.0 mg/dL (8.4-10.2); Carbon Dioxide 25 mmol/L (22-29); Chloride 107 mmol/L (96-108); Creatinine Clr Calc Pharmacy 182.2; Estimated Glomerular Filt Rate > 60; Potassium 4.1 mmol/L (3.3-5.1); Sodium 140 mmol/L (135-145)
[2025-05-18 08:00] VITALS: BP 143/73; PULSE 73; RESP 18; TEMP 36.6; O2SAT 95
--- NOTE | 2025-05-18 08:27 | HO.POSTANES ---
Post Anesthesia Evaluation Post Anesthesia Evaluation Date of Service: 05/18/25 Vital Signs: Vital Signs Temp Pulse Resp BP Pulse Ox O2 Del Method 05/18/25 08:00 97.9 F 73 18 143/73 H 95 Room Air 05/18/25 03:33 97.9 F 72 18 130/79 96 Room Air 05/17/25 23:27 98.4 F 82 18 133/81 92 Room Air Anesthesia: General Endotracheal-GETA Mental Status: Awake Pain Control: Satisfactory Nausea/Vomiting: None Hydration: Adequate Anesthesia-Related Issues: No Anes. Related Issues
[2025-05-18 09:00] LABS: Glucose, Whole Blood 112 mg/dL (60-115)
[2025-05-18 09:41] VITALS: BP 134/86; PULSE 65; RESP 16; TEMP 36.1; O2SAT 96
--- NOTE | 2025-05-18 09:53 | MHC.CM.PN ---
Patient dc'd home self care via private transport prior to CM assessment.
== END 2025-05-18 09:50 | disposition home or self-care (01) | DRG 621 ==
LOC: HO.SSSA 10:17 → HO.S3 12:47
PROVIDERS: Physician Assistant Surgical; Admitting Provider Surgery; PCP General Practice; Visit Provider Surgery
PROC: 0DB68Z3 Excision of Stomach, Via Natural or Artificial Opening Endoscopic, Vertical (ICD-10-PCS; CPT 43845; principal; 2025-05-17 07:30)
DX: E66.01 Morbid (severe) obesity due to excess calories (principal); Z68.41 Body mass index [BMI] 40.0-44.9, adult; K66.0 Peritoneal adhesions (postprocedural) (postinfection); G47.33 Obstructive sleep apnea (adult) (pediatric); E11.9 Type 2 diabetes mellitus without complications; E78.5 Hyperlipidemia, unspecified; F41.9 Anxiety disorder, unspecified; F32.A Depression, unspecified; G47.00 Insomnia, unspecified; M19.90 Unspecified osteoarthritis, unspecified site; K76.0 Fatty (change of) liver, not elsewhere classified; K21.9 Gastro-esophageal reflux disease without esophagitis; Z79.899 Other long term (current) drug therapy
CPT/HCPCS: 36415; 80048; 82947; 85014; 85018; 85025; 86850; 86900; 86901; 88304; 88305; 88307; 88342; A4649; C9145; J0131; J0690; J1100; J1171; J1308; J1630; J2003; J2250; J2371; J2405; J2704; J2795; J3010; J7120

== ENCOUNTER → 2025-05-17 06:15 | Outpatient (BNV) | payer MEDICARE, MEDICAID, SELFPAY | PROVIDERS: Admitting Provider Surgery; PCP General Practice; Visit Provider Surgery | DX: E66.01 Morbid (severe) obesity due to excess calories (principal); Z90.3 Acquired absence of stomach [part of] | CPT/HCPCS: 99024; 99499 ==

== ENCOUNTER 2025-05-22 08:57 | Outpatient (REF) | payer MEDICARE, MEDICAID, SELFPAY ==
--- OUTSIDE RECORDS SUMMARY | 2025-05-22 09:26 | XMS_ITS | Clinical Summary ---
Author Organization [facility] Address [address] [place] [address] Care Team Providers Care Taker Out Name Role Phone Vic Ocampo MD Primary Care Provider [phone] Source Comments PLEASE NOTE, if this patient [...] 19 + 3-dose series) 09/16/2022 07/22/2022, 09/06/2019 [id number] ( season) 2024 021, 03/08/2021 Alcohol and [...] EDT) GLYCATED HEMOGLOBIN A1C 4.9 <6.5 % [facility] ESTIM[facility] AVERAGE GLUCOSE 94 mg/dL [facility] Blood specimen (specimen) Blood / Unknown 01/24/2016 9:20 AM EDT 01/24/2016 11:13 AM EDT [facility]ative [facility] - 01/25/2016 11:31 AM EDT [employer] [address] [place] [address] PT ID [id number] ORD# [id number] Vic Ocampo MD LAB - BLOOD DRAW Final Result [facility] [address] [place] [address], [place] [phone] * (ABNORMAL) lipid future lab (01/24/2016 9:20 AM EDT) CHOLESTEROL 102 0 - 200 mg/dL [facility] TRIGLYCERIDES 66 0 - 150 mg/dL [facility] HDL CHOLESTEROL 36(L) >40 mg/dL [facility] LDL CALCULATED 53 0 - 100 mg/dL [facility] TC-HDLC RATIO 2.8 0 - 4.4 mg/dL [facility] Blood specimen (specimen) Blood / Unknown 01/24/2016 9:20 AM EDT 01/24/2016 11:13 AM EDT Narrative [facility] - 01/24/2016 4:00 PM EDT [employer] [address] [place] [address] PT ID [id number] ORD# [id number] Vic Ocampo MD LAB - BLOOD DRAW Final Result Performing Organization Address City/[facility]/ZIP Co de Phone Number [facility] [address] [place] [address], [place] [phone] from Last 3 Months or Most Recently Relevant to Health Maintenance Insurance [facility] Member Subscriber Plan / Payer (Ef fective 2015-Present) Name:Krzysztof Moralez Relation to Subscriber:Self Name:Krzysztof Moralez Payer ID:[id number] Group ID:[id number] Type:Medicaid Address: [facility] [address] [place] [address] Care Teams Taker Out Relationship Specialty Start Date End Date Vic Ocampo MD [address] [place] [phone] PCP - General Internal Medicine 11/11/15
--- OUTSIDE RECORDS SUMMARY | 2025-05-22 09:26 | XMS_ITS | Encounter Summary ---
Author Organization [employer] Address [address] [facility] [address]t [place] [address] Care Team Providers Care Electric Mule Driver Name Role Phone Araceli White MD Primary Care Provider [phone] Reason for Referral * Consultation (Routine) - Closed Specialty Diagnoses / Procedures Referred By Contac t Referred To Contact Audiology Diagnoses Conductive hearing loss, bilateral Araceli White MD [address] [place] [address] Phone: tel: fax: [facility] Audiology [address] 1[address] Floor [place], [place] Phone: tel: fax: Referral ID Status Reason Start Date Expiration Date V isits Requested Visits Authorized [id number] Closed Specialty Services Required 02/06/2024 02/05/2025 1 1 Encounter Details Date Type Department Care Team (Late st Contact Info) Description 02/06/2024 Orders Only [facility] MEDICINE [address] [place] [address] [phone] Araceli White MD [address] [place], [place] [phone] Conductive hearing loss, bilateral (Primary Dx) Social [...] documented as of this encounter Care Teams Electric Mule Driver Relationship Specialty Start Date End Date Araceli White MD [address] [place] [phone] PCP - General Family Medicine 06/04/21 documented as of this encounter
--- OUTSIDE RECORDS SUMMARY | 2025-05-22 09:26 | XMS_ITS | Clinical Summary ---
Author Organization [employer] [facility] ity Address [address] [place] [address] Care Team Providers Care Milling Machine Set Up Operator Name Role Phone Unavailable Primary Care Provider [...]
== END 2025-05-22 08:58 | disposition home or self-care (01) ==
LOC: HO.HAP 08:57
PROVIDERS: Visit Provider General Practice
DX: Z13.89 Encounter for screening for other disorder (principal)

== ENCOUNTER 2025-05-23 08:44 | Outpatient (REF) | payer MEDICARE, MEDICAID, SELFPAY ==
--- OUTSIDE RECORDS SUMMARY | 2025-05-23 09:01 | XMS_ITS | Clinical Summary ---
Author Organization [employer] [facility] ity Address [address] [place] [address] Care Team Providers Care Receiving Supervisor Name Role Phone Unavailable Primary Care Provider [...]
--- OUTSIDE RECORDS SUMMARY | 2025-05-23 09:01 | XMS_ITS | Encounter Summary ---
Author Organization [employer] Address [address] [facility] [address] [place] [address] Care Team Providers Care Digital Design Engineer Name Role Phone Araceli White MD Primary Care Provider [phone] Reason for Referral * Consultation (Routine) - Closed Specialty Diagnoses / Procedures Referred By Contac t Referred To Contact Audiology Diagnoses Conductive hearing loss, bilateral Araceli White MD [address] [place] [address] Phone: tel: fax: [facility] [place] [address] 1[address] Floor [place], [place] Phone: tel: fax: Referral ID Status Reason Start Date Expiration Date V isits Requested Visits Authorized [id number] Closed Specialty Services Required 02/06/2024 02/05/2025 1 1 Encounter Details Date Type Department Care Team (Late st Contact Info) Description 02/06/2024 Orders Only [facility] MEDICINE [address] [place] [address] [phone] Araceli White MD [address] [place], [place] [phone] Conductive hearing loss, bilateral (Primary Dx) Social [...] Results * Referral to Audiology (04/25/2024) Araceli hWite MD OUTPATIENT REFERRAL ORDERABLES Final Result documented in this encounter Visit Diagnoses Diagnosis Conductive hearing loss, bilateral- Primary documented in this encounter Additional Health Concerns Assessment Noted Time PHQ-9 Depression Total Score: 0 01/19/20 23 9:54 AM EDT documented as of this encounter Care Teams Digital Design Engineer Relationship Specialty Start Date End Date Araceli White MD [address] [place] [phone] PCP - General Family Medicine 06/04/21 documented as of this encounter
--- OUTSIDE RECORDS SUMMARY | 2025-05-23 09:02 | XMS_ITS | Clinical Summary ---
Author Organization [facility] Address [address] [place] [address] Care Team Providers Care Document Control Coordinator Name Role Phone Vic Ocampo MD Primary Care Provider [phone] Source Comments PLEASE NOTE, if this patient [...] 19 + 3-dose series) 09/16/2022 07/22/2022, 09/06/2019 [id number] ( season) 2024 021, 03/08/2021 Alcohol and [...] EDT) GLYCATED HEMOGLOBIN A1C 4.9 <6.5 % [facility] [facility] ESTIMATED AVERAGE GLUCOSE 94 mg/dL [facility] Blood specimen (specimen) Blood / Unknown 01/24/2016 9:20 AM EDT 01/24/2016 11:13 AM EDT Narrative [facility] - 01/25/2016 11:31 AM EDT [employer] [address] [place] [address] PT ID [id number] ORD# [id number] Vic Ocampo MD LAB - BLOOD DRAW Final Result [facility] [address] [place] [address], [place] [phone] * (ABNORMAL) lipid future lab (01/24/2016 9:20 [...] AM EDT 01/24/2016 11:13 AM EDT Narrative [facility] - 01/24/2016 4:00 PM EDT [employer] [address] [place] [address] PT ID [id number] ORD# [id number] Vic Ocampo MD LAB - BLOOD DRAW Final Result Performing Organization Address City/[facility]/ZIP Co de Phone Number [facility] [address] [place] [address], [place] [phone] from Last 3 Months or Most Recently Relevant to Health Maintenance Insurance [facility] HE[facility] PLAN Member Subscriber Plan / Payer (Ef fective 2015-Present) Name:Krzysztof Moralez Relation to Subscriber:Self Name:Krzysztof Moralez Payer ID:[id number] Group ID:[id number] Type:Medicaid Address: [facility] [address] [place] [address] Care Teams Document Control Coordinator Relationship Specialty Start Date End Date Vic Ocampo MD [address] [place] [phone] PCP - General Internal Medicine 11/11/15
== END 2025-05-23 08:45 | disposition home or self-care (01) ==
LOC: HO.SH 08:44
DX: Z13.89 Encounter for screening for other disorder (principal)

== ENCOUNTER 2025-05-24 14:39 | Outpatient (AMB) | payer MEDICARE, MEDICAID, SELFPAY ==
[2025-05-24 14:50] VITALS: BP 116/66; PULSE 100; TEMP 36.3; O2SAT 96; BMI 36.3
--- NOTE | 2025-05-24 14:50 | MHC.OFFVISWM ---
VS Expanded 05/24/25 14:50 BP 116/66 Blood Pressure Location Rt brachial Blood Pressure Position Sitting Pulse 100 Pulse Source Pulse Oximeter Temp 97.3 F Temperature Source Temporal Artery Scan Pulse Oximetry 96 Oxygen Delivery Method Room Air Height 5 ft 10 in Weight 253 lb BMI 36.3 Body Fat % 34.4 Body Fat Mass 87.0 Fat Free Mass 165.8 Visceral Fat Rating 18.0 Body Water % 46.0 Body Water Mass 116.4 Muscle Mass/Score 157.6 Basal Metabolic Rate/Score 2,275 Intake Visit Reasons: OV PO LSG 05/17/2025 Allergies morphine Allergy (Mild, Verified 05/17/25 06:17) Itching HPI Comments Details: This?a?44?yo male who is s/p LSG without hiatal hernia repair on?05/17/2025. Presents for 1 week post op visit. Weight today is 253 pounds, with a BMI of 36.3. There has been a 56.8 pound weight loss,(initial weight 309.8 pounds) since starting the program on 12/15/2024 reflecting a 18.3 % total body weight loss and a weight loss of 25.7 pounds since surgery (operative weight 278.7 pounds) reflecting a 9.2 % TBWL since surgery. No complaints of nausea, emesis, abdominal pain or reflux. Reports positive bowel movement Present meal plan includes: Celebrate rebuild shake, 1 scoop at 10-12, 2-4, 4-6 Drinking approximately 40-50 oz of fluids. ? Exercise routine includes: Previously walking outside and on the treadmill [facility] Medical History Cholelithiasis Insomnia Diabetes Anxiety Depression DJD (degenerative joint disease) Hyperlipidemia Sleep apnea treated with continuous positive airway pressure (CPAP) Non-insulin dependent type 2 diabetes mellitus Morbid obesity 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 Cauda equina compression Chronic pain syndrome Spondylosis of lumbar region without myelopathy or radiculopathy Surgical History History of surgery S/P epidural steroid injection Social History Household Members: None Housing: Apartment Are you a primary post acute care nurse practitioner to a significant other at home: No Do you presently have visiting nurse or other home services: No Patient Tobacco Use Status: Never used Tobacco Physical Exam GI Inspection: Yes incision (Clean, dry, intact.) Assessment & Plan Assessment & Plan (1) Status post sleeve gastrectomy: Code(s): Z90.3 - Acquired absence of stomach [part of] Category: Surgical Plan: POD 7 s/p LSG on 05/17/[address] Borrego Be sure to text Dr Borrego exactly 1 week after surgery your weight from your home scale so he can adjust your meal plan. Continue meal plan until f/u w Lelo in 2 weeks May shower, no submersion in bath for another week Continue abdominal binder with activity and exercise for the next 2 weeks. Exercise prior to surgery was treadmill and may resume No abdominal exercises for 6 weeks post operatively Will be emailed link to post op video for review Reminded of the pace of drinking, 2 mL per minute, 1 oz/15 min.
--- OUTSIDE RECORDS SUMMARY | 2025-05-24 15:20 | XMS_ITS | Clinical Summary ---
Author Organization [facility] Address [address] [place] [address] Care Team Providers Care Manager Drive Name Role Phone Vic Ocampo MD Primary Care Provider [phone] Source Comments PLEASE NOTE, if this patient [...] 19 + 3-dose series) 09/16/2022 07/22/2022, 09/06/2019 [id number] ( season) 2024 021, 03/08/2021 Alcohol and [...] HEMOGLOBIN A1C 4.9 <6.5 % [facility] [facility] ESTIMATED AVERAGE GLUCOSE 94 mg/dL [facility] Blood specimen (specimen) Blood / Unknown 01/24/2016 9:20 AM EDT 01/24/2016 11:13 AM EDT Narrative [facility] [facility] - 01/25/2016 11:31 AM EDT [employer] [address] [place] [address] PT ID [id number] ORD# [id number] Vic Ocampo MD LAB - BLOOD DRAW Final Result [facility] [address] [place] [address], [place] [phone] * (ABNORMAL) lipid future lab (01/24/2016 9:20 AM EDT) CHOLESTEROL 102 0 - 200 mg/dL [facility] TRIGLYCERIDES 66 0 - 150 mg/dL [facility] HDL CHOLESTEROL 36(L) >40 mg/dL [facility] LDL CALCULATED 53 0 - 100 mg/dL [facility] TC-HDLC RATIO 2.8 0 - 4.4 mg/dL [facility] Blood specimen (specimen) Blood / Unknown 01/24/2016 9:20 AM EDT 01/24/2016 11:[address] [facility] - 01/24/2016 4:00 PM EDT [employer] [address] [place] [address] PT ID [id number] ORD# [id number] Vic Ocampo MD LAB - BLOOD DRAW Final Result Performing Organization Address City/[facility]/ZIP Co de Phone Number [facility] [address] [place] [address], [place] [phone] from Last 3 Months or Most Recently Relevant to Health Maintenance Insurance [facility] Member Subscriber Plan / Payer (Ef fective 2015-Present) Name:Krzysztof Moralez Relation to Subscriber:Self Name:Krzysztof Moralez Payer ID:[id number] Group ID:[id number] Type:Medicaid Address: [facility] [address] [place] [address] Relationship Specialty Start Date End Date Vic Ocampo MD [address] [place] [phone] PCP - General Internal Medicine 11/11/15
--- OUTSIDE RECORDS SUMMARY | 2025-05-24 15:20 | XMS_ITS | Clinical Summary ---
Author Organization [employer] [facility] ity Address [address] [place] [address] Care Team Providers Care Cellular Tower Climber Name Role Phone Unavailable Primary Care Provider [...]
--- OUTSIDE RECORDS SUMMARY | 2025-05-24 15:20 | XMS_ITS | Encounter Summary ---
Author Organization [employer] Address [address] [facility] 7[address] [place] [address] Care Team Providers Care Caramel Candy Maker Name Role Phone Araceli White MD Primary Care Provider [phone] Reason for Referral * Consultation (Routine) - Closed Specialty Diagnoses / Procedures Referred By Contac t Referred To Contact Audiology Diagnoses Conductive hearing loss, bilateral Araceli White MD [address] [place] [phone] Phone: tel: fax: [facility] [address] 1[address] Floor [place], [place] Phone: tel: fax: Referral ID Status Reason Start Date Expiration Date V isits Requested Visits Authorized [id number] Closed Specialty Services Required 02/06/2024 02/05/2025 1 1 Encounter Details Date Type Department Care Team (Late st Contact Info) Description 02/06/2024 Orders Only [facility] [address] [place] [address] [phone] Araceli White MD [address] [place], [place] [phone] Conductive hearing loss, bilateral (Primary Dx) Social [...] documented as of this encounter Care Teams Caramel Candy Maker Relationship Specialty Start Date End Date Araceli White MD [address] [place] [phone] PCP - General Family Medicine 06/04/21 documented as of this encounter
== END 2025-05-24 15:06 | disposition home or self-care (01) ==
LOC: HO.HBS 14:40
PROVIDERS: PCP General Practice; Visit Provider Physician Assistant Surgical
DX: Z90.3 Acquired absence of stomach [part of] (principal)
CPT/HCPCS: 99024

== ENCOUNTER → 2025-05-24 14:39 | Outpatient (BNVA) | payer MEDICARE, MEDICAID, SELFPAY | PROVIDERS: PCP General Practice; Visit Provider Physician Assistant Surgical | DX: Z48.815 Encounter for surgical aftercare following surgery on the digestive system (principal); Z90.3 Acquired absence of stomach [part of]; Z98.84 Bariatric surgery status | CPT/HCPCS: 99212 ==

== ENCOUNTER 2025-05-25 14:00 | Outpatient (AMB) | payer MEDICARE, MEDICAID, SELFPAY ==
--- NOTE | 2025-05-25 14:00 | MHC.WMTHER ---
Intake Intake Visit Reasons: TV PO LSG 05/17/2025 Allergies morphine Allergy (Mild, Verified 05/17/25 06:17) Itching PFSH Medical History Cholelithiasis Insomnia Diabetes Anxiety Depression DJD (degenerative joint disease) Hyperlipidemia Sleep apnea treated with continuous positive airway pressure (CPAP) Non-insulin dependent type 2 diabetes mellitus Morbid obesity 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 Cauda equina compression Chronic pain syndrome Spondylosis of lumbar region without myelopathy or radiculopathy Surgical History History of surgery S/P epidural steroid injection Social History Household Members: None Housing: Apartment Are you a primary childcare administrator to a significant other at home: No Do you presently have visiting nurse or other home services: No Patient Tobacco Use Status: Never used Tobacco Behavioral Health Assessment Weight Management Therapy Therapy Notes Details Subjective: Patient underwent weight loss surgery on 05/17/2025. Preoperative weight was 273 lbs; as of 05/24/2025, current weight is 253 lbs. Patient denies pain or any difficulties with recovery and reports good tolerance of the liquid diet (3 shakes + allowed liquid). Mood remains stable, with no reports of low mood or concerns. Patient?s father and mother have been providing care while his is in [place]. Patient notes experiencing hunger when exposed to the smell of food. Objective: The patient presented for a behavioral health post-operative follow-up. A focused emotional check-in was completed to assess recovery, mood, and adjustment after bariatric surgery. Psychoeducation was provided on common emotional changes post-surgery, and strategies were discussed to distinguish hunger from cravings and manage food-related thoughts. The PHQ-9 was administered to screen for depression. The importance of adhering to Weight Management Program guidelines was reinforced, and the patient was encouraged to utilize available resources, including joining the program?s Facebook group for ongoing support. Assessment/Response: Mental status: WNL Risk reported/identified: None Questionnaires PHQ-9 Over the last 2 weeks, how often have you been bothered by any of the following problems? 1. Little interest or pleasure in doing things: not at all 2. Feeling down, depressed, or hopeless: not at all 3. Trouble falling or staying asleep, or sleeping too much: not at all 4. Feeling tired or having little energy: not at all 5. Poor appetite or overeating: not at all 6. Feeling bad about yourself - or that you are a failure or have let yourself or your family down: not at all 7. Trouble concentrating on things, such as reading the newspaper or watching television: not at all 8. Moving or speaking so slowly that other people could have noticed. Or the opposite - being so fidgety or restless that you have been moving around a lot more than usual: not at all 9. Thoughts that you would be better off or of hurting yourself in some way: not at all Total score: 0 Depression Screening Interpretation: Negative Depression Screening Done: Yes 38645 - PHQ-9 Billing: Yes Source: Developed by Drs. Tate Ellis, Nury Vazquez, Andrea Baires and colleagues, with an educational samantha from [employer]. Assessment & Plan Assessment & Plan (1) Anxiety: Code(s): F41.9 - Anxiety disorder, unspecified Plan -PT advised to contact MD regarding constipation, as he reported no bowel movement since Wednesday.? -No safety concerns or issues were identified that would necessitate behavioral health monitoring, PT advised to continue current MH treatment at [facility]. Telehealth Telehealth Telehealth [facility]: [facility] Location of provider rendering services: practice address Location of patient: address on file Patient Identification confirmed using: Name, : Yes Telehealth method: video Patient verbally consented to treatment: Yes Patient verbally consented to billing insurance company: Yes Patient informed of any privacy concerns related to visit: Yes Minutes spent on Phone/Video with Pt.: 30 Coding Level of Care Code Established Pt Tele Psytx 30 mins (46988) Patient Type Established Diagnoses Anxiety F41.9 Additional Codes PHQ-9 - 79926 - PHQ-9 Billing: Yes ([id number]) Time Spent (min) 30
--- OUTSIDE RECORDS SUMMARY | 2025-05-25 15:09 | XMS_ITS | Clinical Summary ---
Author Organization [facility] Address [address] [place] [address] Care Team Providers Care Physician'S Aide Name Role Phone Vic Ocampo MD Primary Care Provider [phone] Source Comments PLEASE NOTE, if this patient [...] 19 + 3-dose series) 09/16/2022 07/22/2022, 09/06/2019 [id number] ( season) 2024 021, 03/08/2021 Alcohol and [...] EDT) GLYCATED HEMOGLOBIN A1C 4.9 <6.5 % [facility] ESTIMATED AVERAGE GLUCOSE 94 mg/dL [facility] Blood specimen (specimen) Blood / Unknown 01/24/2016 9:20 AM EDT 01/24/2016 11:13 AM EDT [facility] - 01/25/2016 11:31 AM EDT [facility] [address] [place] [address] PT ID [id number] ORD# [id number] Vic Ocampo MD LAB - BLOOD DRAW Final Result [facility] [address] [place] [address], [place] [phone] * (ABNORMAL) lipid future lab (01/24/2016 9:20 AM EDT) CHOLESTEROL 102 0 - 200 mg/dL [facility] TRIGLYCERIDES 66 0 - 150 mg/dL [facility] HDL CHOLESTEROL 36(L) >40 mg/dL [facility] LDL CALCULATED 53 0 - 100 mg/dL [facility] TC-HDLC RATIO 2.8 0 - 4.4 mg/dL [facility] Blood specimen (specimen) Blood / Unknown 01/24/2016 9:20 AM EDT 01/24/2016 11:13 AM EDT Narrative [facility] - 01/24/2016 4:00 PM EDT [facility] [address] [place] [address] PT ID [id number] ORD# [id number] Vic Ocampo MD LAB - BLOOD DRAW Final Result Performing Organization Address City/[facility]/ZIP Co de Phone Number [facility] [address] [place] [address], [place] [phone] from Last 3 Months or Most Recently Relevant to Health Maintenance Insurance [facility] [employer] Member Subscriber Plan / Payer (Ef fective 2015-Present) Name:Krzysztof Moralez Relation to Subscriber:Self Name:Krzysztof Moralez Payer ID:[id number] Group ID:[id number] Type:Medicaid Address: [facility] [address] [place] [address] Care Teams Physician'S Aide Relationship Specialty Start Date End Date Vic Ocampo MD [address] [place] [phone] PCP - General Internal Medicine 11/11/15
--- OUTSIDE RECORDS SUMMARY | 2025-05-25 15:09 | XMS_ITS | Encounter Summary ---
Author Organization [employer] Address [address] [facility] [address] [place] [address] Care Team Providers Care Process Plant Operator Name Role Phone Araceli White MD Primary Care Provider [phone] Reason for Referral * Consultation (Routine) - Closed Specialty Diagnoses / Procedures Referred By Contac t Referred To Contact Audiology Diagnoses Conductive hearing loss, bilateral Araceli White MD [address] [place] [address] Phone: tel: fax: [facility] [address] Floor [place], [place] Phone: tel: fax: Referral ID Status Reason Start Date Expiration Date V isits Requested Visits Authorized [id number] Closed Specialty Services Required 02/06/2024 02/05/2025 1 1 Encounter Details Date Type Department Care Team (Late st Contact Info) Description 02/06/2024 Orders Only [facility] [address] [place] [address] [phone] Araceli White MD [address] [place], [place] [phone] Conductive hearing loss, bilateral (Primary Dx) Social [...] documented as of this encounter Care Teams Process Plant Operator Relationship Specialty Start Date End Date Araceli White MD [address] [place] [phone] PCP - General Family Medicine 06/04/21 documented as of this encounter
== END 2025-05-25 15:11 | disposition home or self-care (01) ==
LOC: HO.HBST 15:08
PROVIDERS: PCP General Practice; Visit Provider Counselor Mental Health
DX: F41.9 Anxiety disorder, unspecified (principal)
CPT/HCPCS: 90832

== ENCOUNTER 2025-06-15 11:00 | Outpatient (AMB) | payer MEDICARE, MEDICAID, SELFPAY ==
--- NOTE | 2025-06-15 11:08 | MHC.OFFVISWM ---
VS Expanded 06/15/25 11:14 BP 109/70 Blood Pressure Location Rt brachial Blood Pressure Position Sitting Pulse 60 Pulse Source Pulse Oximeter Temp 96.6 F L Temperature Source Temporal Artery Scan Pulse Oximetry 97 Oxygen Delivery Method Room Air Height 5 ft 10 in Weight 241 lb 6.4 oz BMI 34.6 Body Fat % 32.9 Body Fat Mass 79.4 Fat Free Mass 161.8 Visceral Fat Rating 16.0 Body Water % 47.3 Body Water Mass 114.0 Muscle Mass/Score 153.8 Basal Metabolic Rate/Score 2,207 Intake Visit Reasons: OV PO LSG 05/17/2025 Allergies morphine Allergy (Mild, Verified 06/15/25 11:11) Itching Medication List - Last Reconciled 06/15/25 by ANGELO Saucedo docusate sodium (Colace) 100 mg PO DAILY escitalopram oxalate 10 mg PO QAM ondansetron 4 mg PO Q12H pantoprazole 40 mg PO DAILY sucralfate 10 mL PO BID HPI Comments Details: This?is a?44?yo M who is s/p LSG 05/17/2025. Presents for 1mo post op visit. Weight at last visit on 05/24/2025 was 253lbs; weight today is 241.4lbs with BMI 34.6, representing 11.6lb weight loss. No complaints of nausea, emesis, abdominal pain or reflux, or constipation. 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 Cauda equina compression Chronic pain syndrome Spondylosis of lumbar region without myelopathy or radiculopathy Surgical History (Updated 05/26/25 @ 00:02 by Brooklyn Coyne) History of surgery S/P epidural steroid injection Social History Household Members: None Housing: Apartment Are you a primary youth care professional to a significant other at home: No Do you presently have visiting nurse or other home services: No Patient Tobacco Use Status: Never used Tobacco Assessment & Plan Assessment & Plan (1) Status post sleeve gastrectomy: Code(s): Z90.3 - Acquired absence of stomach [part of] Category: Medical (2) Obesity: Code(s): E66.9 - Obesity, unspecified Category: Medical Plan Pt doing well 1 mo s/p LSG, no surgical complications. Following meal plan and exercising, can try to increase to goal 2000 melina/week. Contine PPI and carafate until 3mo postop. No heavy lifting until 6w postop. RTC in Jul for phone visit, already scheduled.
[2025-06-15 11:14] VITALS: BP 109/70; PULSE 60; TEMP 35.9; O2SAT 97; BMI 34.6
--- OUTSIDE RECORDS SUMMARY | 2025-06-15 12:02 | XMS_ITS | Clinical Summary ---
Author Organization [employer] Address [address] [place] [address] 7 [place] [address] Care Team Providers Care Product Support Rep Name Role Phone Araceli White MD Primary Care Provider [phone] Allergies Active Allergy Reactions Criticality Noted Date [...] Awaiting possible spinal nerve stimulator from [facility] Continue rest, activity modification, medications for now [...] Encounters Date Type Department Care Team Description 05/21/2025 Patient Outreach [facility] PED[facility] [address] [place] [address] Araceli White MD Transition Of Care (Tcm) (HDF unscheduled. ) 05/09/2025 10:15 AM EDT Office Visit [facility] OPTOMETRY [address] [place], [place] [phone] Osmar, Enriqueta, OD Presbyopia (Primary Dx) 04/12/2025 Telephone [facility] MEDICINE [address] [place] [address] Araceli White MD VNA Services (I informed the patient, that the forms nurse contacted Dr. Morris Borrego, at the [facility]. She was informed that they cannot him for VNA services, because he should be able to continue normal activities after his surgery. If he feels that he needs any services after he has the surgery, he may schedule an appointment with his PCP, and discuss his request at that time. He verbalized understanding.) 04/12/2025 Orders Only GENERIC EXTERNAL DATA DEPARTMENT Provider, Generic External Data 04/10/2025 Telephone [facility] MEDICINE [address] [place] [address] Araceli White MD VNA Services (I called the patient, per the forms nurse, to ask which surgeon will be performing his weight loss surgery. The nurse needs to contact their office, to request VNA services for him, after his procedure. He stated that the surgeon's name is Dr. Morris Borrego, at the [facility]. 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) (Primary Dx) 03/20/2025 Travel 03/15/2025 Orders Only [facility] External Provider, [facility] from Last 3 Months Immunizations Immunization Administration [...] 92 12/08/2024 2:15 PM EST Temperature 36.1 C (97 F) 12/08/2024 2:15 PM EST Respiratory Rate 17 12/08/2024 2:15 PM EST Oxygen Saturation 96% 12/08/2024 2:15 PM EST Inhaled Oxygen Concentration - - Weight 142 kg (313 lb) 12/08/2024 2:15 PM EST Height 177.8 cm (5' 10 ) 12/08/2024 2:15 PM EST Body Mass Index 44.91 12/08/2024 2:15 PM EST Plan of Treatment Health Maintenance Due Date Last Done Comments Disability Screening 1981 Diabetes: Foot Exam 1991 HPV Vaccines (1 - Male 3-dose series) 1996 Diabetes: Urine Protein Screening 2000 Hepatitis B Vaccines (3 of 3 - 19+ 3-dose series) 09/16/2022 07/22/2022, 09/06/2019 Depression Screening 04/10/2025 04/10/2024, 04/10/20 24 COVID-19 Vaccine ( season) 2025 11/20/2022, 12/29/2021, 03/31/2021, Additional history exists Influenza Vaccine (#1) 2025 , 07/22/2022, 08/18/2019 Diabetes: Hemoglobin A1C 10/13/2025 025, 01/18/2025, 12/08/2024, Additional history exists SDOH Screening 11/24/2025 11/24/2024 Alcohol/Substance Use Screening 12/08/2025 12/08/2024 Family Planning (PISQ) 12/08/2025 12/08/2024 Lipid Panel 01/18/2026 01/18/2025, 01/09, 12/29/2021, Additional history exists Tobacco Screening 03/28/2026 03/28/2025 Eye Exam 04/09/2027 04/09/2025 DTaP/Tdap/Td Vaccines (3 - Td or Tdap) [...] Years) and At-Risk Patients (6 to 49) Years Completed 07/14/2024 HIB Vaccines Aged Out No [...] Procedure Name Priority Date/Time Associated Diagnosis Comments CBC WITH AUTO DIFFERENTIAL Routine 04/12/2025 9:44 AM EDT HEMOGLOBIN A1C Routine 04/12/2025 9:44 AM EDT FUNDUS PHOTOS - OU - BOTH EYES Routine 03/20/2025 9:00 AM EDT Diabetes type 2, no ocular involvement (CMS/HCC) FL UPPER GI W AIR Routine 03/15/2025 8:4 0 AM EDT LIPID PANEL, STANDARD Routine 01/18/2025 9:14 AM EDT ZZZ HISTORICAL HEPATITIS C AB W/REFL TO HCV RNA, QN, PCR Routine 12/29/2021 10:52 AM EDT HIV 1/2 ANTIGEN/ANTIBODY, FOURTH GENERATION W/RFL Routine 12/29/2021 10:52 AM EDT from Last 3 Months or Most Recently Relevant to Health Maintenance Results * (ABNORMAL) CBC auto differential (04/12/2025 9:44 AM EDT) White Blood Count 6.0 4.8 - 10.8 X10*3/uL [facility] Red Blood Count 4.49(L) 4.60 - 5.80 X10*6/uL [facility] Hemoglobin 12.8(L) 14.0 - 18.0 g/dl [facility] Hematocrit 38.4(L) 42.0 - 52.0 % [facility] Mean Corpuscular Volume 85.5 80.0 - 98.0 fL [facility] Mean Corpuscular Hemoglobin 28.5 27.0 - 33.0 pg [facility] Mean Corpuscular HGB Conc 33.3 31.0 - 36.0 g/dl [facility] Red Cell Distribution Width 13.0 11.0 - 16.0 % [facility] Platelet Count 242 160 - 400 X10*3/uL [facility] Mean Platelet Volume 9.6 9.4 - 12.4 fL [facility] Neutrophils Percent Auto 61.3 45 - 73 % [facility] Imm Gran Pct Auto 0.5(H) 0.0 - 0.4 % [facility] Lymphocytes Percent Auto 28.8 20 - 40 % [facility] Monocytes Percent Auto 6.7 2 - 11 % [facility] Eosinophils Percent Auto 2.2 0 - 4 % [facility] Basophils Percent Auto 0.5 0 - 2 % [facility] NRBC Pct Auto 0.0 0.0 - 0.2 /100WBC [facility] Neutrophils Absolute Auto 3.7 2.0 - 8.3 x10*3/uL [facility] Imm Gran Abs Auto 0.03 0.00 - 0.03 X10*3/uL [facility] Lymphocytes Absolute Auto 1.7 1.2 - 4.9 X10*3/uL [facility] Monocytes Absolute Auto 0.4 0.1 - 1.2 X10*3/uL [facility] Eosinophils Absolute Auto 0.1 0.0 - 0.4 X10*3/uL [facility] Basophils Absolute Auto 0.0 0.0 - 0.2 X10*3/uL [facility] NRBC Abs Auto 0.000 0.0 - 0.012 X10*3/uL [facility] 04/12/2025 9:44 AM EDT 04/12/2025 9:44 AM EDT us Generic External Data Provider LAB BLOOD ORDERAB LES Final Result [facility] [address] [place] [address] [phone] * Hemoglobin A1c (04/12/2025 9:44 AM EDT) Hemoglobin A1c 5.5 <6.0 % [facility] Comment:Hemoglobin A1C Refer ence Range Adults: 4.8 - 6.0 % Non diabetic: < 6.0 % Goal: < 7.0 %Additional Action Suggested: > 8.0 %Note: Hemoglobin A1c results are invalid for patients with abnormal amounts of HbF. Blood transfusions may impact the HbA1c concentration in the patient sample. Estimated Average Glucose 111 mg/dL [facility] Comment:eAG = Estimated ave rage glucose which is %A1C expressed asaverage glucose, using the formula of the C5D-YcoilwiGpbvvle Glucose study (ADAG), Diabetes Care, Vol.31,#8,2007 04/12/2025 9:44 AM EDT 04/12/2025 9:44 AM EDT us Generic External Data Provider LAB BLOOD ORDERAB LES Final Result [facility] [address] [place] [phone] * Fundus Photos - OU - Both Eyes (03/20/2025 9:00 AM EDT) Narrative Enriqueta Prasad, OD - 04/04/2025 2:46 PM EDT Images from the original result were not included. Right Eye Disc findings include normal observations (Cup-to-disc ratio (C/D): 0.3/0.3, No NVD). Macula findings include normal observations (No CSME). Vessel findings include normal observations. Periphery findings include normal observations (No NVE). Left Eye Disc findings include normal observations (Cup-to-disc ratio (C/D): 0.3/0.3, No NVD). Macula findings include normal observations (No CSME). Vessel findings include normal observations. Periphery findings include normal observations (No NVE). Notes Assessment and Plan: No diabetic retinopathy (DR) noted to extent seen in photos. Will contact patient to schedule him for a refraction. Enriqueta Prasad OD OPHTH PHOTOGRAPHY Final Resul t * FL upper GI w air (03/15/2025 8:40 AM EDT) Anatomical Region Laterality Modality Body Radiographic Jeannie ging 03/15/2025 8:40 AM EDT Narrative 03/15/2025 10:11 AM EDT [address] [address] Fluoroscopy Report Signed Patient: Krzysztof Moralez Jr MR#: [id number] : 1980 Acct:[id number] Age/Sex: 44 / M ADM Date: 03/15/25 Loc: HO.XRAY Attending Dr: Morris Borrego MD Ordering Physician: Morris Borrego MD Date of Service: 03/15/25 Procedure(s): FL upper GI w air Accession Number(s): [id number] cc: Araceli White; Morris Borrego MD EXAMINATION: XR FLUOROSCOPY UPPER GI WITH AIR CLINICAL INFORMATION: Morbid obesity. Preop COMPARISON: None available. TECHNIQUE: Routine upper GI contrast study was performed in upright and lying position. FINDINGS: No demonstration of thick barium and effervescent granules there is normal propagation bolus from the oral cavity through the pharynx, esophagus into stomach without any evidence of obstruction, narrowing or stricture. On placing patient in supine and prone lying the course, caliber and peristalsis of the stomach is normal. The mucosal pattern of the stomach is normal. The duodenal bulb and sweep is normal. Some finding of a mild gastroesophageal reflux noted. FL/FL upper GI w air IMPRESSION: Mild gastroesophageal reflux without hiatal hernia. Otherwise rest of the upper GI exam is unremarkable. FLUOROSCOPY TIME: 1 minute 53 seconds DOSE AREA PRODUCT: 254.6 uGy-m2 (microgray-meter squared) IMPRESSION: Mild gastroesophageal reflux without hiatal hernia. Electronically signed by: Rinku Briggs MD 03/15/2025 10:09 AM EDT Dictated By: Rinku Briggs MD Signed By: <Electronically signed by Rinku Briggs MD in OV> 03/15/25 1009 DD/ 0840 TD/TT: 03/15/25 0910 Sled Maker: LANCE Procedure Note Donotuseinterpreter, Image - 03/15/[address] [address] Fluoroscopy Report Signed Patient: Krzysztof Moralez JrMR#: [id number] : 1980Acct:[id number] Age/Sex: 44 / MADM Date: 03/15/25 Loc: HO.XRAY Attending Dr: Morris Borrego MD Ordering Physician: Morris Borrego MD Date of Service: 03/15/25 Procedure(s): FL upper GI w air Accession Number(s): [id number] cc: Araceli White; Morris Borrego MD EXAMINATION: XR FLUOROSCOPY UPPER GI WITH AIR CLINICAL INFORMATION: Morbid obesity. Preop COMPARISON: None available. TECHNIQUE: Routine upper GI contrast study was performed in upright and lying position. FINDINGS: No demonstration of thick barium and effervescent granules there is normal propagation bolus from the oral cavity through the pharynx, esophagus into stomach without any evidence of obstruction, narrowing or stricture. On placing patient in supine and prone lying the course, caliber and peristalsis of the stomach is normal. The mucosal pattern of the stomach is normal. The duodenal bulb and sweep is normal. Some finding of a mild gastroesophageal reflux noted. FL/FL upper GI w air IMPRESSION: Mild gastroesophageal reflux without hiatal hernia. Otherwise rest of the upper GI exam is unremarkable. FLUOROSCOPY TIME: 1 minute 53 seconds DOSE AREA PRODUCT: 254.6 uGy-m2 (microgray-meter squared) IMPRESSION: Mild gastroesophageal reflux without hiatal hernia. Electronically signed by: Rinku Briggs MD 03/15/2025 10:09 AM EDT Dictated By: Rinku Briggs MD Signed By: <Electronically signed by Rinku Briggs MD in OV> 03/15/25 1009 DD/ 0840 TD/TT: 03/15/25 0910 Sled Maker: LANCE [facility] Exter nal Provider IMG FLUOROSCOPY PROCEDURES Edited Result - Final * (ABNORMAL) Lipid Panel, Standard (01/18/2025 9:14 AM EDT) Triglycerides 71 <150 mg/dL [facility] Comment:Desirable Triglyceri de: less than 150 mg/dLBorderline High Triglyceride 150-199 mg/dLHigh Triglyceride: 200-499 mg/dLVery High Triglyceride: greater than or equal to 5OO mg/dL Cholesterol 105 <200 mg/dL [facility] Comment:Desirable Cholestero l: less than 200 mg/dLBorderline High Cholesterol: 200-239 mg/dLHigh Cholesterol: greater than 239 mg/dL LDL Cholesterol Calculated 61 <100 mg/dL [facility] Comment:Desirable LDL: less than 100 mg/dLNear Optimal/Above Optimal LDL: 110- 129 mg/dLBorderline High LDL: 130-159 mg/dLHigh LDL: 160-189 mg/dLVery High LDL: greater than or equal to 190 mg/dL HDL Cholesterol 30(L) >40 mg/dL [facility] Comment:Desirable HDL: great er than 40 mg/dL Note: This HDL assay may give artificially low results in patients with liver disease. 01/18/2025 9:14 AM EDT 01/18/2025 9:20 AM EDT us Generic External Data Provider LAB BLOOD ORDERAB LES Final Result Performing Organization Address [facility] Co de Phone Number [facility] [address] [place] [address] [phone] * HEPATITIS C AB W/REFL TO HCV RNA, QN, PCR (12/29/2021 10:52 AM EDT) HEPATITIS C ANTIBODY NON-REACT [facility] NON-REACT [facility] INDEX 0.03 <1.00 [facility] Comment: HCV antibody was non-reactive. There is no laboratory evidence of HCV infection. In most cases, no further action is required. However, if recent HCV exposure is suspected, a test for HCV RNA (test code 90630) is suggested. For additional information please refer to http://education.[employer]phorm.Yurpy/faq/XSX18o9 (This link is being provided for informational/ educational purposes only.) 12/29/2021 10:5 2 AM EDT us Araceli White MD HISTORICAL/NON ORDERABLE LABS Final Result Performing Organization Address City/[facility]/ZIP Co de Phone Number [facility] [address] * HIV 1/2 ANTIGEN/ANTIBODY,FOURTH GENERATION W/RFL (12/29/2021 10:52 AM EDT) HIV-1/2 ANTIGEN AND ANTIBODIES, 4TH GENERATION W/ REFLEX NON-REACT GERMAN NON-REACT [facility] Comment: HIV-1 antigen and HIV-1/HIV-2 antibodies were not detected. There is no laboratory evidence of HIV infection. PLEASE NOTE: This information has been disclosed to you from records whose confidentiality may be protected by state law. If your state requires such protection, then the state law prohibits you from making any further disclosure of the information without the specific written consent of the person to whom it pertains, or as otherwise permitted by law. A general authorization for the release of medical or other information is NOT sufficient for this purpose. For additional information please refer to http://[employer]/faq/XWM591 (This link is being provided for informational/ educational purposes only.) The performance of this assay has not been clinically validated in patients less than 2 years old. 12/29/2021 10:5 2 AM EDT Araceli White MD LAB BLOOD ORDERABLES Final Res ult [facility] [address] from Last 3 Months or Most Recently Relevant to Health Maintenance Insurance [facility] STANDARD MEDICARE Care Teams Product Support Rep Relationship Specialty Start Date End Date Araceli White MD [address] [place] [address] [phone] PCP - General Family Medicine 06/04/21
--- OUTSIDE RECORDS SUMMARY | 2025-06-15 12:02 | XMS_ITS | Encounter Summary ---
Author Organization [employer] Address [address] [facility] [address] [place] [address] Care Team Providers Care Refrigerating Engineer Name Role Phone Araceli White MD Primary Care Provider [phone] Encounter Details Date Type Department Care Team ([facility] st Contact Info) Description 01/20/2023 Orders Only [facility] MEDICINE [address] [place], [place] [phone] Araceli White MD [address] [place], [place] [phone] Prediabetes (Primary Dx) Social History Tobacco Use [...] documented as of this encounter Care Teams Refrigerating Engineer Relationship Specialty Start Date End Date Araceli White MD [address] [place] [address] PCP - General Family Medicine 06/04/21 documented as of this encounter
--- OUTSIDE RECORDS SUMMARY | 2025-06-15 12:02 | XMS_ITS | Encounter Summary ---
Author Organization [employer] Address [address] [facility] 7[address] [place] [address] Care Team Providers Care Technical Administrator Name Role Phone Araceli White MD Primary Care Provider [phone] Reason for Referral * Consultation (Routine) - Closed Specialty Diagnoses / Procedures Referred By Contac t Referred To Contact Audiology Diagnoses Conductive hearing loss, bilateral Araceli White MD [address] [place] [phone] Phone: tel: fax: [facility] Audiology [address] 1[address] Floor [place], [place] Phone: tel: fax: Referral ID Status Reason Start Date Expiration Date V isits Requested Visits Authorized [id number] Closed Specialty Services Required 02/06/2024 02/05/2025 1 1 Encounter Details Date Type Department Care Team (Late st Contact Info) Description 02/06/2024 Orders Only [facility] MEDICINE [address] [place] [phone] Araceli White MD [address] [place], [place] [phone] Conductive hearing loss, bilateral (Primary Dx) Social [...] documented as of this encounter Care Teams Technical Administrator Relationship Specialty Start Date End Date Araceli White MD [address] [place] [phone] PCP - General Family Medicine 06/04/21 documented as of this encounter
--- OUTSIDE RECORDS SUMMARY | 2025-06-15 12:02 | XMS_ITS | Clinical Summary ---
Author Organization [facility] ity Address [address] [place] [address] Care Team Providers Care Footwear Sales Representative Name Role Phone Unavailable Primary Care Provider [...] of 3 - 19+ 3-dose series) 2000 Depression Screening 10/11/2024 COVID-19 Vaccine ( - 2023-2 5 season) 2025 Influenza Vaccine (#1) 2025 HIB Vaccines Aged [...]
--- OUTSIDE RECORDS SUMMARY | 2025-06-15 12:02 | XMS_ITS | Encounter Summary ---
Author Organization [employer] Address [address] [facility] 7t [place] [address] Care Team Providers Care Spout Worker Name Role Phone Araceli White MD Primary Care Provider [phone] Encounter Details Date Type Department Care Team ([facility] st Contact Info) Description 09/27/2023 Telephone [facility] MEDICINE [address] [place], [place] [phone] Araceli White MD [address] [place], [place] [phone] Social History Tobacco Use Types Packs/Day Years [...] documented as of this encounter Care Teams Spout Worker Relationship Specialty Start Date End Date Araceli White MD [address] [place] [address] PCP - General Family Medicine 06/04/21 documented as of this encounter
--- OUTSIDE RECORDS SUMMARY | 2025-06-15 12:02 | XMS_ITS | Clinical Summary ---
Author Organization [facility] Address [address] [place] [address] Care Team Providers Care Inset Cutter Name Role Phone Vic Ocampo MD Primary Care Provider [phone] Source Comments PLEASE NOTE, if this patient [...] 19 + 3-dose series) 09/16/2022 07/22/2022, 09/06/2019 [id number] ( season) 2024 021, 03/08/2021 Alcohol and [...] EDT) GLYCATED HEMOGLOBIN A1C 4.9 <6.5 % [facility] EST[facility] AVERAGE GLUCOSE 94 mg/dL [facility] Blood specimen (specimen) Blood / Unknown 01/24/2016 9:20 AM EDT 01/24/2016 11:13 AM EDT Narrative [facility] - 01/25/2016 11:31 AM EDT [employer] [address] [place] [address] PT ID [id number] ORD# [id number] Vic Ocampo MD LAB - BLOOD DRAW Final Result [facility] [address] [place] [address], [place] [phone] * (ABNORMAL) lipid future lab (01/24/2016 9:20 [...] MEDICAL CENTER - 01/24/2016 4:00 PM EDT [employer] [address] [place] [address] PT ID [id number] ORD# [id number] Vic Ocampo MD LAB - BLOOD DRAW Final Result Performing Organization Address City/[facility]/ZIP Co de Phone Number [facility] [address] [place] [address], [place] [phone] from Last 3 Months or Most Recently Relevant to Health Maintenance Insurance [facility] Member Subscriber Plan / Payer (Ef fective 2015-Present) Name:Krzysztof Moralez Relation to Subscriber:Self Name:Krzysztof Moralez Payer ID:[id number] Group ID:[id number] Type:Medicaid Address: [facility] [address] [place] [address] Care Teams Inset Cutter Relationship Specialty Start Date End Date Vic Ocampo MD [address] [place] [phone] PCP - General Internal Medicine 11/11/15
== END 2025-06-15 11:40 | disposition home or self-care (01) ==
LOC: HO.HBS 11:01
PROVIDERS: PCP General Practice; Visit Provider Physician Assistant Surgical
DX: E66.9 Obesity, unspecified (principal); Z68.34 Body mass index [BMI] 34.0-34.9, adult; Z90.3 Acquired absence of stomach [part of]; Z98.84 Bariatric surgery status
CPT/HCPCS: 99024

== ENCOUNTER → 2025-06-15 11:00 | Outpatient (BNVA) | payer MEDICARE, MEDICAID, SELFPAY | PROVIDERS: PCP General Practice; Visit Provider Physician Assistant Surgical | DX: Z48.815 Encounter for surgical aftercare following surgery on the digestive system (principal); Z90.3 Acquired absence of stomach [part of]; E66.9 Obesity, unspecified | CPT/HCPCS: 99212 ==

== ENCOUNTER 2025-07-24 09:03 | Outpatient (REF) | payer MEDICARE, MEDICAID, SELFPAY ==
--- OUTSIDE RECORDS SUMMARY | 2025-07-24 09:44 | XMS_ITS | Encounter Summary ---
Author Organization [employer] Address [address] [facility] 7t [place] [address] Care Team Providers Care Chief Counsel Name Role Phone Araceli White MD Primary Care Provider [phone] Encounter Details Date Type Department Care Team ([facility] st Contact Info) Description 09/27/2023 Telephone [facility] MEDICINE [address] [place], [place] [phone] Araceli White MD [address] [place], [place] [phone] Social History Tobacco Use Types Packs/Day Years [...] Care Team (Late st Contact Info) Description 09/28/2025 10:30 AM EST Office Visit [facility] MEDICINE [address] [place] [address] Araceli White MD [address] [place] [address] documented as of this encounter Visit Diagnoses Not on filedocumented in this encounter Additional Health Concerns Assessment Noted Time PHQ-9 Depression Total Score: 0 01/19/20 23 9:54 AM EDT documented as of this encounter Care Teams Chief Counsel Relationship Specialty Start Date End Date Araceli White MD [address] [place], [place] [phone] PCP - General Family Medicine 06/04/21 documented as of this encounter
--- OUTSIDE RECORDS SUMMARY | 2025-07-24 09:44 | XMS_ITS | Clinical Summary ---
Author Organization [facility] ity Address [address] [place] [address] Care Team Providers Care Manager Inventory Control Name Role Phone Unavailable Primary Care Provider [...] of 3 - 19+ 3-dose series) 2000 HPV Vaccines (1 - 3-dose SCD M series) 2008 Depression Screening 10/11/2024 COVID-19 Vaccine (1 - 2023-2 5 season) 2025 Influenza Vaccine (#1) 2025 RSV Immunization Adult Patie nts (1 - 1-dose 75+ series) 2056 HIB Vaccines Aged Out No longer eligi [...]
--- OUTSIDE RECORDS SUMMARY | 2025-07-24 09:44 | XMS_ITS | Clinical Summary ---
Author Organization [facility] Address [address] [place] [address] Care Team Providers Care Process Engineering Technician Name Role Phone Vic Ocampo MD Primary Care Provider [phone] Source Comments PLEASE NOTE, if this patient [...] Hepatitis C Screening 1981 Tobacco Screening 1981 Imm-HPV (1 - 3-dose SCDM series) 2008 Hypertension Screening (#1) 01/23/2017 Imm-Hepatitis B (3 of 3 - 19 + 3-dose series) 09/16/2022 07/22/2022, 09/06/2019 Alcohol and Drug Screen 10/11/2024 01/24/2016 Depression Annual Screen 10/11/2024 [id number] ( season) 2025 021, 03/08/2021 Imm-Influenza (#1) 2025 07/22/2022, 08/18/2019 Diabetes Screening [...] EDT) GLYCATED HEMOGLOBIN A1C 4.9 <6.5 % [facility] ESTIMATED AVERAGE GLUCOSE 94 mg/dL [facility] Blood specimen (specimen) Blood / Unknown 01/24/2016 9:20 AM EDT 01/24/2016 11:13 AM EDT Narrative [facility] 01/25/2016 11:31 AM EDT [facility] [address] [place] [address] PT ID [id number] ORD# [id number] Vic Ocampo MD LAB - BLOOD DRAW Final Result [facility] [address] [place] [address], [place] [phone] * (ABNORMAL) lipid future lab (01/24/2016 9:20 AM EDT) CHOLESTEROL 102 0 - 200 mg/dL [facility] TRIGLYCERIDES 66 0 - 150 mg/dL [facility] HDL CHOLESTEROL 36(L) >40 mg/dL [facility] LDL CALCULATED 53 0 - 100 mg/dL [facility] TC-HDLC RATIO 2.8 0 - 4.4 mg/dL [facility] Blood specimen (specimen) Blood / Unknown 01/24/2016 9:20 AM EDT 01/24/2016 11:13 AM EDT Narrative [facility] - 01/24/2016 4:00 PM EDT [facility] [address] [place] [address] PT ID [id number] ORD# [id number] Vic Ocampo MD LAB - BLOOD DRAW Final Result [facility] [address] [place] [address], [place] [phone] from Last 3 Months or Most Recently Relevant to Health Maintenance Insurance [facility] [employer] [facility] Member Subscriber Plan / Payer (Ef fective 2015-Present) Name:Krzysztof Moralez Relation to Subscriber:Self Name:Krzysztof Moralez Payer ID:[id number] Group ID:[id number] Type:Medicaid Address: [facility] [address] [place] [address] Care Teams Process Engineering Technician Relationship Specialty Start Date End Date Vic Ocampo MD [address] [place] [address] PCP - General Internal Medicine 11/11/15
--- OUTSIDE RECORDS SUMMARY | 2025-07-24 09:44 | XMS_ITS | Encounter Summary ---
Author Organization [employer] Address [address] [facility] 7 [place] [address] Care Team Providers Care E Commerce Merchandising Coordinator Name Role Phone Araceli White MD Primary Care Provider [phone] Encounter Details Date Type Department Care Team (Late Contact Info) Description 01/20/2023 Orders Only [facility] MEDICINE [address] [place], [place] [phone] Araceli White MD [address] [place] [address] Prediabetes (Primary Dx) Social History Tobacco Use [...] Department Care Team (Late Contact Info) Description 09/28/2025 10:30 AM EST Office Visit [facility] MEDICINE [address] [place] [address] Araceli White MD [address] [place] [address] documented as of this encounter Visit Diagnoses Diagnosis Prediabetes- Primary Other abnormal glucose documented in this encounter Additional Health Concerns Assessment Noted Time PHQ-9 Depression Total Score: 0 01/19/20 23 9:54 AM EDT documented as of this encounter Care Teams E Commerce Merchandising Coordinator Relationship Specialty Start Date End Date Araceli White MD [address] [place] [address] PCP - General Family Medicine 06/04/21 documented as of this encounter
--- OUTSIDE RECORDS SUMMARY | 2025-07-24 09:44 | XMS_ITS | Clinical Summary ---
Author Organization [employer] Address [address] [place] [address] 7 [place] [address] Care Team Providers Care Cement Block Maker Name Role Phone Araceli White MD Primary Care Provider [phone] Allergies Active Allergy Reactions Criticality Noted Date [...] complication, without long-term current use of insulin (HCC) Take 1 tablet (500 mg) by mouth with breakfast and with evening meal. For weight loss 180 tablet 3 4 Active escitalopram (Lexapro) 10 MG tablet Take 10 mg by mouth in the morning. Active zolpidem (Ambien) 10 MG tablet Take 10 mg by mouth if needed at bedtime for sleep. Active Dulaglutide 1.5 MG/0.5ML solution auto-injectorIn dications:Type 2 diabetes mellitus without complication, without long-term current use of insulin (HCC) Inject 1.5 mg under the skin 1 [...] EDT): Awaiting possible spinal nerve stimulator from [facility] Continue rest, activity modification, medications for [...] for therapy and medications Sacral fracture, closed ([facility]) 08/29/2022 Assessment & Plan (12/14/2023 10:30 AM EST): History of in 2019, which was the start of his back pain Tinnitus 08/29/2022 Hearing loss 08/29/2022 Resolved Problems Problem Noted Date Diagnosed Date Resolved Date Morbid obesity with BMI of 4 5.0-49.9, adult ([facility]) 07/12/2024 12/08/2024 Class 2 obesity 01/18/2023 12/08/2024 [...] Department Care Team Description 05/21/2025 Patient Outreach [facility] [address] [place] [address] Araceli White MD Transition Of Care (Tcm) (HDF unscheduled. ) 05/09/2025 10:15 AM EDT Office Visit [facility] OPTOMETRY [address] [place] [address] Osmar, Enriqueta, OD Presbyopia (Primary Dx) from Last 3 Months Immunizations Immunization Administration [...] 12/08/2024 2:15 PM EST Plan of Treatment Upcoming Encounters Date Type Department Care Team (Late st Contact Info) Description 09/28/2025 10:30 AM EST Office Visit [facility] MEDICINE [address] [place] [address] Araceli White MD [address] [place] [address] Health Maintenance Due Date Last Done Comments [...] (PISQ) 12/08/2025 12/08/2024 Lipid Panel 01/18/2026 01/18/2025, 04/, 12/29/2021, Additional history exists Tobacco Screening 03/28/2026 [...] Name Priority Date/Time Associated Diagnosis Comments HEMOGLOBIN A1C Routine 04/12/2025 9:44 AM EDT LIPID PANEL, STANDARD Routine 01/18/2025 9:14 AM EDT [facility] HISTORICAL HEPATITIS C AB W/REFL TO HCV RNA, QN, PCR Routine 12/29/2021 10:52 AM EDT HIV 1/2 ANTIGEN/ANTIBODY, FOURTH GENERATION W/RFL Routine 12/29/2021 10:52 AM EDT from Last 3 Months or Most Recently Relevant to Health Maintenance Results * Hemoglobin A1c (04/12/2025 9:44 AM EDT) Hemoglobin A1c 5.5 <6.0 % [facility] Comment:Hemoglobin A1C Refer ence Range Adults: 4.8 - 6.0 % Non diabetic: < 6.0 % Goal: < 7.0 %Additional Action Suggested: > 8.0 %Note: Hemoglobin A1c results are invalid for patients with abnormal amounts of HbF. Blood transfusions may impact the HbA1c concentration in the patient sample. Estimated Average Glucose 111 mg/dL [facility] Comment:eAG = Estimated ave rage glucose which is %A1C expressed asaverage glucose, using the formula of the T8Z-DrvnbdjNhswptf Glucose study (ADAG), Diabetes Care, Vol.31,#8,2007 04/12/2025 9:44 AM EDT 04/12/2025 9:44 AM EDT Generic External Data Provider LAB BLOOD ORDERAB LES Final Result Performing Organization Address [facility]/ZIP Co de Phone Number [facility] [address] [place] [address] [phone] * (ABNORMAL) Lipid Panel, Standard (01/18/2025 9:14 AM EDT) Triglycerides 71 <150 mg/dL [facility] Comment:Desirable Triglyceri de: less than 150 mg/dLBorderline High Triglyceride 150-199 mg/dLHigh Triglyceride: 200-499 mg/dLVery High Triglyceride: greater than or equal to 5OO mg/dL Cholesterol 105 <200 mg/dL [facility] Comment:Desirable Cholestero l: less than 200 mg/dLBorderline High Cholesterol: 200-239 mg/dLHigh Cholesterol: greater than 239 mg/dL LDL Cholesterol Calculated 61 <100 mg/dL [facility] Comment:Desirable LDL: less than 100 mg/dLNear Optimal/Above Optimal LDL: 110- 129 mg/dLBorderline High LDL: 130-159 mg/dLHigh LDL: 160-189 mg/dLVery High LDL: greater than or equal to 190 mg/dL HDL Cholesterol 30(L) >40 mg/dL [facility] Comment:Desirable HDL: great er than 40 mg/dL Note: This HDL assay may give artificially low results in patients with liver disease. 01/18/2025 9:14 AM EDT 01/18/2025 9:20 AM EDT us Generic External Data Provider LAB BLOOD ORDERAB LES Final Result Performing Organization Address City/[facility]/ZIP Co de Phone Number [facility] [address] [place] [address] [phone] * HEPATITIS C AB W/REFL TO HCV RNA, QN, PCR (12/29/2021 10:52 AM EDT) HEPATITIS C ANTIBODY NON-REACT GERMAN NON-REACT GERMAN [facility] INDEX 0.03 <1.00 [facility] Comment: HCV antibody was non-reactive. There is no laboratory evidence of HCV infection. In most cases, no further action is required. However, if recent HCV exposure is suspected, a test for HCV RNA (test code 42601) is suggested. For additional information please refer to http://Upstream [employer].Happy B[employer] Company/faq/ENG96z6 (This link is being provided for informational/ educational purposes only.) 12/29/2021 10:5 2 AM EDT Araceli White MD HISTORICAL/NON ORDERABLE LABS Final Result Performing Organization Address [facility] de Phone Number [facility] [address] * HIV 1/2 ANTIGEN/ANTIBODY,FOURTH GENERATION W/RFL (12/29/2021 10:52 AM EDT) HIV-1/2 ANTIGEN AND ANTIBODIES, 4TH GENERATION W/ REFLEX NON-REACT GERMAN NON-REACT GERMAN [facility] Comment: HIV-1 antigen and [...] purpose. For additional information please refer to http://[employer].Nebel.TV.Neuron Systems/faq/KGB805 (This link is being provided for informational/ educational purposes only.) The performance of this assay has not been clinically validated in patients less than 2 years old. 12/29/2021 10:5 2 AM EDT Araceli White MD LAB BLOOD ORDERABLES Final Res ult Performing Organization Address [facility] de Phone Number [facility] [address] from Last 3 Months or Most Recently Relevant to Health Maintenance Insurance [facility] STANDARD MEDICARE Care Teams Cement Block Maker Relationship Specialty Start Date End Date Araceli White MD [address] [place] [address] [phone] PCP - General Family Medicine 06/04/21
--- OUTSIDE RECORDS SUMMARY | 2025-07-24 09:44 | XMS_ITS | Encounter Summary ---
Author Organization [employer] Address [address] [facility] 7t [place] [address] Care Team Providers Care Van Driver Helper Name Role Phone Araceli White MD Primary Care Provider [phone] Reason for Referral * Consultation (Routine) - Closed Specialty Diagnoses / Procedures Referred By Contac t Referred To Contact Audiology Diagnoses Conductive hearing loss, bilateral Araceli White MD [address] [place] [address] Phone: tel: fax: [facility] Audiology [address] 1st Floor [place], [place] Phone: tel: fax: Referral ID Status Reason Start Date Expiration Date V isits Requested Visits Authorized [id number] Closed Specialty Services Required 02/06/2024 02/05/2025 1 1 Encounter Details Date Type Department Care Team (Late st Contact Info) Description 02/06/2024 Orders Only [facility] MEDICINE [address] [place] [phone] Araceli White MD [address] [place], [place] [phone] Conductive hearing loss, bilateral (Primary Dx) Social [...] Description 09/28/2025 10:30 AM EST Office Visit [facility] MEDICINE [address] [place] [address] Araceli White MD [address] [place] [address] documented as of this encounter Procedures Procedure [...] documented as of this encounter Care Teams Van Driver Helper Relationship Specialty Start Date End Date Araceli White MD [address] [place] [address] PCP - General Family Medicine 06/04/21 documented as of this encounter
== END 2025-07-24 09:04 | disposition home or self-care (01) ==
LOC: HO.HAP 09:03
PROVIDERS: Visit Provider General Practice
DX: Z13.89 Encounter for screening for other disorder (principal)

== ENCOUNTER 2025-07-25 13:04 | Outpatient (REF) | payer MEDICARE, MEDICAID, SELFPAY ==
--- OUTSIDE RECORDS SUMMARY | 2025-07-25 16:49 | XMS_ITS | Encounter Summary ---
Author Organization [employer] Address [address] [facility] 7 [place] [address] Care Team Providers Care Electronic Warfare Technical Name Role Phone Araceli White MD Primary Care Provider [phone] Encounter Details Date Type Department Care Team (Late Contact Info) Description 01/20/2023 Orders Only [facility] MEDICINE [address] [place], [place] [phone] Araceli White MD [address] [place] [address] Prediabetes (Primary Dx) Social History Tobacco Use [...] Description 09/28/2025 10:30 AM EST Office Visit [facility] [address] [place] [address] Araceli White MD [address] [place] [address] documented as of this encounter Visit Diagnoses Diagnosis Prediabetes- Primary Other abnormal glucose documented in this encounter Additional Health Concerns Assessment Noted Time PHQ-9 Depression Total Score: 0 01/19/20 23 9:54 AM EDT documented as of this encounter Care Teams Electronic Warfare Technical Relationship Specialty Start Date End Date Araceli White MD [address] [place] [address] PCP - General Family Medicine 06/04/21 documented as of this encounter
--- OUTSIDE RECORDS SUMMARY | 2025-07-25 16:49 | XMS_ITS | Clinical Summary ---
Author Organization [facility] Address [address] [place] [address] Care Team Providers Care Meatman Name Role Phone Vic Ocampo MD Primary Care Provider [phone] Source Comments PLEASE NOTE, if this patient [...] Screen 10/11/2024 01/24/2016 Depression Annual Screen 10/11/2024 [id number] ( season) 2025 021, 03/08/2021 Imm-Influenza (#1) [...] GLYCATED HEMOGLOBIN A1C 4.9 <6.5 % [facility] ESTIMATED AVERAGE GLUCOSE 94 mg/dL [facility] Blood specimen (specimen) Blood / Unknown 01/24/2016 9:20 AM EDT 01/24/2016 11:13 AM EDT Narrative [facility] - 01/25/2016 11:31 AM EDT [facility] [address] [place] [address] PT ID [id number] ORD# [id number] Vic Ocampo MD LAB - BLOOD DRAW Final Result [facility] [address] [place] [address], [place] [phone] * (ABNORMAL) lipid future lab (01/24/2016 9:20 AM EDT) CHOLESTEROL 102 0 - 200 mg/dL [facility] TRIGLYCERIDES 66 0 - 150 mg/dL [facility] HDL CHOLESTEROL 36(L) >40 mg/dL [facility] LDL CALCULATED 53 0 - 100 mg/dL [facility] TC-HDLC RATIO 2.8 0 - 4.4 mg/dL [facility] Blood specimen (specimen) Blood / Unknown 01/24/2016 9:20 AM EDT 01/24/2016 11:13 AM EDT Narrative [facility] - 01/24/2016 4:00 PM EDT [facility] [address] [place] [address] PT ID [id number] ORD# [id number] Vic Ocampo MD LAB - BLOOD DRAW Final Result [facility] [address] [place] [address], [place] [phone] from Last 3 Months or Most Recently Relevant to Health Maintenance Insurance [facility] [employer] Member Subscriber Plan / Payer (Ef fective 2015-Present) Name:Krzysztof Moralez Relation to Subscriber:Self Name:Krzysztof Moralez Payer ID:[id number] Group ID:[id number] Type:Medicaid Address: [facility] [address] [place] [address] Care Teams Meatman Relationship Specialty Start Date End Date Vic Ocampo MD [address] [place] [address] PCP - General Internal Medicine 11/11/15
--- OUTSIDE RECORDS SUMMARY | 2025-07-25 16:49 | XMS_ITS | Clinical Summary ---
Author Organization [employer] Address [address] [place] [address] 7 [place] [address] Care Team Providers Care Director Of Clinical Services Name Role Phone Araceli White MD Primary Care Provider [phone] Allergies Active Allergy Reactions Criticality Noted Date [...] EDT): Awaiting possible spinal nerve stimulator from [facility] Continue rest, activity modification, medications for now [...] for therapy and medications Sacral fracture, closed ([facility]) 08/29/2022 Assessment & Plan (12/14/2023 10:30 AM EST): History of in 2019, which was the start of his back pain Tinnitus 08/29/2022 Hearing loss 08/29/2022 Resolved Problems Problem Noted Date Diagnosed Date Resolved Date Morbid obesity with BMI of 4 5.0-49.9, adult ([facility]) 07/12/2024 12/08/2024 Class 2 obesity 01/18/2023 12/08/2024 [...] Department Care Team Description 05/21/2025 Patient Outreach [facility] MED & PEDS [address] [place] [address] Araceli White MD Transition Of Care (Tcm) (HDF unscheduled. ) 05/09/2025 10:15 AM EDT Office Visit [facility] OPTOMETRY [address] [place] [address] Osmar, Enriqueta, OD Presbyopia (Primary Dx) from [...] Description 09/28/2025 10:30 AM EST Office Visit [facility] MEDICINE [address] [place] [address] Araceli White MD [address] [place] [address] Health Maintenance Due Date Last Done Comments [...] AM EDT) Hemoglobin A1c 5.5 <6.0 % [facility] Comment:Hemoglobin A1C Refer ence Range Adults: 4.8 - 6.0 % Non diabetic: < 6.0 % Goal: < 7.0 %Additional Action Suggested: > 8.0 %Note: Hemoglobin A1c results are invalid for patients with abnormal amounts of HbF. Blood transfusions may impact the HbA1c concentration in the patient sample. Estimated Average Glucose 111 mg/dL [facility] Comment:eAG = Estimated ave rage glucose which is %A1C expressed asaverage glucose, using the formula of the K4L-KjycumtBiypwjq Glucose study (ADAG), Diabetes Care, Vol.31,#8,2007 04/12/2025 9:44 AM EDT 04/12/2025 9:44 AM EDT Generic External Data Provider LAB BLOOD ORDERAB LES Final Result Performing Organization Address [facility]/ZIP Co de Phone Number [facility] [address] [place] [address] [phone] * (ABNORMAL) Lipid Panel, Standard (01/18/2025 9:14 AM EDT) Triglycerides 71 <150 mg/dL [facility] Comment:Desirable Triglyceri de: less than 150 mg/dLBorderline High Triglyceride 150-199 mg/dLHigh Triglyceride: 200-499 mg/dLVery High Triglyceride: greater than or equal to 5OO mg/dL Cholesterol 105 <200 mg/dL [facility] Comment:Desirable Cholestero l: less than 200 mg/dLBorderline High Cholesterol: 200-239 mg/dLHigh Cholesterol: greater than 239 mg/dL LDL Cholesterol Calculated 61 <100 mg/dL [facility] Comment:Desirable LDL: less than 100 mg/dLNear Optimal/Above Optimal LDL: 110- 129 mg/dLBorderline High LDL: 130-159 mg/dLHigh LDL: 160-189 mg/dLVery High LDL: greater than or equal to 190 mg/dL HDL Cholesterol 30(L) >40 mg/dL [facility] Comment:Desirable HDL: great er than 40 mg/dL Note: This HDL assay may give artificially low results in patients with liver disease. 01/18/2025 9:14 AM EDT 01/18/2025 9:20 AM EDT us Generic External Data Provider LAB BLOOD ORDERAB LES Final Result Performing Organization Address City/[facility]/ZIP Co de Phone Number [facility] [address] [place] [address] [phone] * HEPATITIS C AB W/REFL TO [...] a test for HCV RNA (test code 41965) is suggested. For additional information please refer to http://Bradford [employer].Wisegate/faq/FQC40m4 (This link is being provided for informational/ educational purposes only.) 12/29/2021 10:5 2 AM EDT Araceli White MD HISTORICAL/NON ORDERABLE LABS Final Result Performing Organization Address [facility] de Phone Number [facility] [address] * HIV 1/2 ANTIGEN/ANTIBODY,FOURTH GENERATION W/RFL [...] purpose. For additional information please refer to http://[employer].momondo.Scoopshot/faq/KMY198 (This link is being provided for informational/ educational purposes only.) The performance of this assay has not been clinically validated in patients less than 2 years old. 12/29/2021 10:5 2 AM EDT Araceli White MD LAB BLOOD ORDERABLES Final Res ult Performing Organization Address [facility] de Phone Number [facility] [address] from Last 3 Months or Most Recently Relevant to Health Maintenance Insurance [facility] STANDARD MEDICARE Care Teams Director Of Clinical Services Relationship Specialty Start Date End Date Araceli White MD [address] [place] [address] [phone] PCP - General Family Medicine 06/04/21
--- OUTSIDE RECORDS SUMMARY | 2025-07-25 16:49 | XMS_ITS | Encounter Summary ---
Author Organization [employer] Address [address] [facility] 7t [place] [address] Care Team Providers Care Director Of Career Services Name Role Phone Araceli White MD Primary Care Provider [phone] Reason for Referral * Consultation (Routine) - Closed Specialty Diagnoses / Procedures Referred By Contac t Referred To Contact Audiology Diagnoses Conductive hearing loss, bilateral Araceli White MD [address] [place] [address] Phone: tel: fax: [facility] Audiology [address] 1[address] Floor [place], [place] Phone: tel: fax: Referral ID Status Reason Start Date Expiration Date V isits Requested Visits Authorized [id number] Closed Specialty Services Required 02/06/2024 02/05/2025 1 1 Encounter Details Date Type Department Care Team (Late st Contact Info) Description 02/06/2024 Orders Only [facility] MEDICINE [address] [place] [address] [phone] Araceli White MD [address] [place], [place] [phone] Conductive hearing loss, bilateral (Primary Dx) Social [...] Description 09/28/2025 10:30 AM EST Office Visit [facility] [address] [place] [address] Araceli White MD [address] [place] [address] documented as of this encounter Procedures Procedure [...] of this encounter Care Teams Director Of Career Services Relationship Specialty Start Date End Date Araceli White MD [address] [place] [address] PCP - General Family Medicine 06/04/21 documented as of this encounter
--- OUTSIDE RECORDS SUMMARY | 2025-07-25 16:49 | XMS_ITS | Clinical Summary ---
Author Organization [facility] ity Address [address] [place] [address] Care Team Providers Care Special Projects Coordinator Name Role Phone Unavailable Primary Care Provider [...]
--- OUTSIDE RECORDS SUMMARY | 2025-07-25 16:49 | XMS_ITS | Encounter Summary ---
Author Organization [employer] Address [address] [facility] 7t [place] [address] Care Team Providers Care English Lecturer Name Role Phone Araceli White MD Primary Care Provider [phone] Encounter Details Date Type Department Care Team ([facility] st Contact Info) Description 09/27/2023 Telephone [facility] [address] [place], [place] [phone] Araceli White MD [address] [place], [place] [phone] Social History Tobacco Use Types Packs/Day Years [...] Description 09/28/2025 10:30 AM EST Office Visit [facility] [address] [place] [address] Araceli White MD [address] [place] [address] documented as of this encounter Visit Diagnoses Not on filedocumented in this encounter Additional Health Concerns Assessment Noted Time PHQ-9 Depression Total Score: 0 01/19/20 23 9:54 AM EDT documented as of this encounter Care Teams English Lecturer Relationship Specialty Start Date End Date Araceli White MD [address] [place], [place] [phone] PCP - General Family Medicine 06/04/21 documented as of this encounter
== END 2025-07-25 13:05 | disposition home or self-care (01) ==
LOC: HO.HAP 13:04
PROVIDERS: Visit Provider General Practice
DX: Z13.89 Encounter for screening for other disorder (principal)

== ENCOUNTER 2025-07-30 12:19 | Outpatient (AMB) | payer MEDICARE, MEDICAID, SELFPAY ==
--- NOTE | 2025-07-30 12:33 | MHC.OFFVISWM ---
VS Expanded 07/30/25 12:35 Height 5 ft 10 in Weight 220 lb BMI 31.6 Intake Visit Reasons: TV PO LSG 05/17/2025 Allergies morphine Allergy (Mild, Verified 06/15/25 11:11) Itching Medication List - Last Reconciled 07/30/25 by ANEGLO Saucedo docusate sodium (Colace) 100 mg PO DAILY escitalopram oxalate 10 mg PO QAM pantoprazole 40 mg PO DAILY sucralfate 10 mL PO BID HPI Comments Details: This?is a?44?yo M who is s/p LSG 05/17/2025. Presents for 2.5mo post op visit. Weight at last visit on 06/15/2025 was 241.4lbs; weight today is 220 lbs with BMI 31.6, representing 21.4lb weight loss. No complaints of nausea, emesis, abdominal pain or reflux, or constipation. Pt is very happy with how he feels and his improvement in overall health. Present meal plan includes: 1 protein bar- Celebrate 3 Celebrate shakes with 2 scoops each- Rebuild staying hydrated with water and Gatorade Zero Exercise routine includes: goes to gym- Mon-Fri 400 calories each time [facility] Medical History Cholelithiasis Insomnia Diabetes Anxiety Depression DJD (degenerative joint disease) Hyperlipidemia Sleep apnea treated with continuous positive airway pressure (CPAP) Non-insulin dependent type 2 diabetes mellitus Morbid obesity 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 Cauda equina compression Chronic pain syndrome Spondylosis of lumbar region without myelopathy or radiculopathy Surgical History History of surgery S/P epidural steroid injection Social History Household Members: None Housing: Apartment Are you a primary manager respiratory care to a significant other at home: No Do you presently have visiting nurse or other home services: No Patient Tobacco Use Status: Never used Tobacco Telehealth Telehealth Telehealth Platform: Telephone Location of provider rendering services: other Location of patient: address on file Patient Identification confirmed using: Name, : Yes Telehealth method: voice only Patient verbally consented to treatment: Yes Patient verbally consented to billing insurance company: Yes Patient informed of any privacy concerns related to visit: Yes Minutes spent on Phone/Video with Pt.: 16 Assessment & Plan Assessment & Plan (1) Obesity: Code(s): E66.9 - Obesity, unspecified Category: Medical (2) Status post sleeve gastrectomy: Code(s): Z90.3 - Acquired absence of stomach [part of] Category: Surgical Plan Congratulated pt on his excellent weight loss progress so far (100lb, max weight 320). He will continue same meal plan per Dr. Nielsen. He has increased his exercise to goal. RTC in Nov for 6mo visit. Will order labs at that time.
[2025-07-30 12:35] VITALS: BMI 31.6
== END 2025-07-30 13:21 | disposition home or self-care (01) ==
LOC: HO.HBS 12:19
PROVIDERS: Visit Provider Physician Assistant Surgical
DX: E66.9 Obesity, unspecified (principal); Z68.31 Body mass index [BMI] 31.0-31.9, adult; Z90.3 Acquired absence of stomach [part of]; Z98.84 Bariatric surgery status
CPT/HCPCS: 99024

== ENCOUNTER 2025-10-10 08:59 | Outpatient (REF) | payer MEDICARE, MEDICAID, SELFPAY ==
--- OUTSIDE RECORDS SUMMARY | 2025-10-10 09:07 | XMS_ITS | Encounter Summary ---
Author Organization [employer] Address [address] [facility] [address] [place] [address] Care Team Providers Care Treasury Specialist Name Role Phone Araceli White MD Primary Care Provider [phone] Reason for Referral * Consultation (Routine) - Closed Specialty Diagnoses / Procedures Referred By Contac t Referred To Contact Audiology Diagnoses Conductive hearing loss, bilateral Araceli White MD [address] [place] [phone] Phone: tel: fax: [facility] Audiology [address] 1[address] Floor [place], [place] Phone: tel: fax: Referral ID Status Reason Start Date Expiration Date V isits Requested Visits Authorized [id number] Closed Specialty Services Required 02/06/2024 02/05/2025 1 1 Encounter Details Date Type Department Care Team (Late st Contact Info) Description 02/06/2024 Orders Only [facility] [address] [place] [address] [phone] Araceli White MD [address] [place], [place] [phone] Conductive hearing loss, bilateral (Primary Dx) Social [...] documented as of this encounter Care Teams Treasury Specialist Relationship Specialty Start Date End Date Araceli White MD [address] [place] [phone] PCP - General Family Medicine 06/04/21 documented as of this encounter
--- OUTSIDE RECORDS SUMMARY | 2025-10-10 09:07 | XMS_ITS | Encounter Summary ---
Author Organization [employer] Address [address] [facility] 7t [place] [address] Care Team Providers Care Manager Progressive Care Name Role Phone Araceli White MD Primary Care Provider [phone] Encounter Details Date Type Department Care Team ([facility] st Contact Info) Description 09/27/2023 Telephone [facility] [address] [place], [place] [phone] Araceli White MD [address] [place], [place] [phone] Social History Tobacco Use Types Packs/Day Years [...] documented as of this encounter Care Teams Manager Progressive Care Relationship Specialty Start Date End Date Araceli White MD [address] [place] [address] PCP - General Family Medicine 06/04/21 documented as of this encounter
--- OUTSIDE RECORDS SUMMARY | 2025-10-10 09:07 | XMS_ITS | Encounter Summary ---
Author Organization [employer] Address [address] [facility] 7[address] [place] [address] Care Team Providers Care Interlocking Tower Operator Name Role Phone Araceli White MD Primary Care Provider [phone] Encounter Details Date Type Department Care Team ([facility] st Contact Info) Description 01/20/2023 Orders Only [facility] [address] [place], [place] [phone] Araceli White MD [address] [place], [place] [phone] Prediabetes (Primary Dx) Social History Tobacco Use [...] documented as of this encounter Care Teams Interlocking Tower Operator Relationship Specialty Start Date End Date Araceli White MD [address] [place] [address] PCP - General Family Medicine 06/04/21 documented as of this encounter
--- OUTSIDE RECORDS SUMMARY | 2025-10-10 09:07 | XMS_ITS | Clinical Summary ---
Author Organization [employer] Address [address] [place] [address] [address] [place] [address] Care Team Providers Care Sawmill Production Worker Name Role Phone Araceli White MD Primary Care Provider [phone] Allergies Active Allergy Reactions Criticality Noted Date Comments Morphine 07/22/2022 Medications clonazePAM (KlonoPIN) 0.5 MG tablet Take 0.5 mg by mouth if needed in the morning and at bedtime. 11/04/19 23 Active risperiDONE (RisperDAL) 2 MG tablet Take 2 mg by mouth at bedtime. 11/13/19 23 Active risperiDONE (RisperDAL) 0.5 MG tablet Take 0.5 mg by mouth in the morning. 12/12/19 23 Active risperiDONE (RisperDAL) 1 MG tablet Take 1 mg by mouth in the morning. 03/07/20 24 Active escitalopram (Lexapro) 10 MG tablet Take 10 mg by mouth in the morning. 11/15/19 25 Active zolpidem (Ambien) 10 MG tablet Take 10 mg by mouth if needed at bedtime for sleep. 11/15/19 25 Active Stool Softener 100 MG capsule Take 1 capsule by mouth Once per day. 05/26/20 25 Active ondansetron ODT (Zofran-ODT) 4 MG disintegrating tablet TAKE 1 TABLET EVERY 12 HOURS NEEDED 04/09/20 25 Active polyethylene glycol, PEG, 3350 (Glycolax) 17 GM/SCOOP powder 04/09/20 25 Active sucralfate (Carafate) 1 GM/10ML suspension SHAKE LIQUID AND TAKE 10 ML BY MOUTH TWICE DAILY 05/24/20 25 Active cholecalciferol (Vitamin D3) 25 MCG (1000 UT) tabletIndications :Vitamin D deficiency Take 1 tablet (25 mcg) by mouth in the morning. 90 tablet 3 09/28/20 25 Active BinaxNOW COVID-19 Ag Home Test kit TEST DIRECTED TODAY 05/27/20 22 2024 Discontinued(T herapy completed) ramelteon (Rozerem) 8 MG tablet Take 8 mg by mouth at bedtime. 12/12/19 23 2024 Discontinued(T herapy completed) cholecalciferol (Vitamin D3) 25 MCG (1000 UT) tabletIndications :Vitamin D deficiency Take 1 tablet (25 mcg) by mouth in the morning. 90 tablet 3 04/10/20 24 2024 Discontinued(R eorder (will not trigger notification to Pharmacy)) metFORMIN (Glucophage) 500 MG tabletIndications :Type 2 diabetes mellitus without complication, without long-term current use of insulin (HCC) Take 1 tablet (500 mg) by mouth with breakfast and with evening meal. For weight loss 180 tablet 3 07/17/20 24 2024 Discontinued(T herapy completed) Dulaglutide 1.5 MG/0.5ML solution auto-injectorIndi cations:Type 2 diabetes mellitus without complication, without long-term current use of insulin (HCC) Inject 1.5 mg under the skin 1 (one) time per week. 2 mL 11 12/08/19 25 2024 Discontinued(T herapy completed) simvastatin (Zocor) 20 MG tablet Take 1 tablet (20 mg) by mouth at bedtime. 90 tablet 3 12/08/19 25 2024 Discontinued(T herapy completed) pantoprazole (ProtoNix) 40 MG EC tablet Take 1 tablet by mouth Once per day. 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 with body mass index (BMI) of 30.0 to 30.9 in adult 10/01/2025 Severe sleep apnea 04/10/2024 Assessment & Plan [...] with me after sleep study is obtained Acute pain of left knee 03/19/2023 Assessment [...] Awaiting possible spinal nerve stimulator from [facility] Continue rest, activity modification, medications for now [...] for therapy and medications Sacral fracture, closed ([facility]) 08/29/2022 Assessment & Plan (12/14/2023 10:30 AM EST): History of in 2019, which was the start of his back pain Tinnitus 08/29/2022 Hearing loss 08/29/2022 Resolved Problems Problem Noted Date Diagnosed Date Resolved Date Class 3 severe obesity with serious comorbidity and body mass index (BMI) of 40.0 to 44.9 in adult 12/08/2024 10/01/2025 Assessment & Plan (12/08/2024 3:22 PM EST): Increase Trulicity to 1.5mg weekly, no side effects noted Continue lifestyle management changes Will self-refer to weight management Morbid obesity with BMI of 4 5.0-49.9, adult ([facility]) 07/12/2024 12/08/2024 Type 2 diabetes mellitus wit hout complication, without long-term current use of insulin 10/19/2023 10/01/2025 Assessment & Plan (12/08/2024 3:19 PM EST): [...] <130 2 hour post prandial goal: <180 Class 2 obesity 01/18/2023 12/08/2024 Assessment & [...] Encounters Date Type Department Care Team Description 09/28/2025 11:15 AM EST Office Visit [facility] OPTOMET[facility] [address] [place] [address] Enriqueta Prasad OD Presbyopia (Primary Dx) 09/28/2025 10:30 AM EST Office Visit 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 MED[facility] [address] [place], [place] [phone] Araceli White MD 09/21/2025 Travel 09/19/2025 Patient Outreach [facility] [address] [place], [place] [phone] Araceli White MD Pre-visit Planning (SDOH screening negative and tobacco screening negative) from Last 3 Months Immunizations Immunization Administration Dates Next Due Hep A, Adult 07/22/2022,09/06/2019 Hep B, adult 07/22/2022,09/06/2019 Influenza injectable quadriv alent preservative free 07/14/2023,07/22/2022,08/18/2019 Influenza, seasonal, injecta ble, preservative free 09/28/2025 Pfizer Covid-19 Vaccine 12+ 03/31/2021, Pfizer Covid-19 [...] Answer Date Recorded Patient Health Questionnaire-9 Score 1 10/01/2025 Patient Health Questionnaire-9 Score 1 10/01/2025 Last PHQ-9: Questionnaire Data Not on file 1 12/02/2024 Housing Stability Answer Date Recorded What is [...] Date Recorded Patient Health Questionnaire-2 Score 0 10/01/2025 Internet Access Answer Date Recorded Internet Access [...] Sign Reading Time Taken Comments Blood Pressure 100/60 09/28/2025 10:53 AM EST Pulse 83 09/28/2025 10:53 AM EST Temperature 36.8 C (98.3 F) 09/28/2025 10:53 AM EST Respiratory Rate 18 09/28/2025 10:5 3 AM EST Oxygen Saturation 96% 09/28/2025 10: 53 AM EST Inhaled Oxygen Concentration - - Weight 96.1 kg (211 lb 12.8 oz) 025 10:53 AM EST Height 177.8 cm (5' 10 ) 09/28/2025 10: 53 AM EST Body Mass Index 30.39 09/28/2025 10:53 AM EST Plan of Treatment Health Maintenance Due Date Last Done Comments Diabetes: Foot Exam 1991 HPV Vaccines (1 - Male 3-dose series) 1996 Diabetes: Urine Protein Screening 2000 Hepatitis B Vaccines (3 of 3 - 19+ 3-dose series) 09/16/2022 07/22/2022, 09/06/2019 COVID-19 Vaccine ( season) 2025 11/20/2022, 12/29/2021, 03/31/2021, Additional history exists Diabetes: Hemoglobin A1C 10/13/2025 025, 01/18/2025, 12/08/2024, Additional history exists Alcohol/Substance Use Screening 12/08/2025 12/08/2024 Family Planning (PISQ) 12/08/2025 12/08/2024 Lipid Panel 01/18/2026 01/18/2025, 01/09, 12/29/2021, Additional history exists SDOH Screening 09/19/2026 09/19/2025 Disability Screening 09/21/2026 09/21/2025 Depression Screening 10/01/2026 10/01/2025, 10/01/20 25 Tobacco Screening 10/01/2026 10/01/2025 Eye Exam 04/09/2027 04/09/2025 DTaP/Tdap/Td Vaccines (3 [...] Patients (6 to 49) Years Completed 07/14/2024 Influenza Vaccine Completed 09/28/2025, , 07/22/2022, Additional history exists HIB Vaccines Aged Out No longer eligi [...] on patient's age to complete this topic Goals Goal Patient Goal Type Associated Problems Recent Progress Patient-Stated? Author Help patients manage their type 2 diabetes Care Plan Help patients manage their type 2 diabetes Idalmis Ross Patient has chronic kidney disease Care Plan Patient has chronic kidney disease No Idalmis Márquez Patient has chronic kidney disease Care Plan Patient has chronic kidney disease No Amelie Caldwell MA Patient has chronic kidney disease Care Plan Patient has chronic kidney disease No Aarceli White MD Patient has chronic kidney disease Care Plan Patient has chronic kidney disease No Enriqueta Prasad OD Procedures Procedure Name Priority Date/Time Associated Diagnosis Comments POCT GLUCOSE (CPT-11453) Routine 09/28/2025 10:52 AM EST Type 2 diabetes mellitus without complication, without long-term current use of insulin (HCC) HEMOGLOBIN A1C Routine 04/12/2025 9:44 AM EDT LIPID PANEL, STANDARD Routine 01/18/2025 9:14 AM EDT ZZZ HISTORICAL HEPATITIS C AB W/REFL TO HCV RNA, QN, PCR Routine 12/29/2021 10:52 AM EDT HIV 1/2 ANTIGEN/ANTIBODY, FOURTH GENERATION W/RFL Routine 12/29/2021 10:52 AM EDT from Last 3 Months or Most Recently Relevant to Health Maintenance Results * POCT Glucose (09/28/2025 10:52 AM EST) Glucose Blood, POC 102 60 - 200 mg/dL QC Media Lot # [id number] Lot# Expiration Date [id number] Blood Capillary blood specimen / Unknown 09/28/2025 10:52 AM EST us Araceli White MD POINT OF CARE TEST ENTER/EDIT ORDERABLES Final Result * Hemoglobin A1c (04/12/2025 9:44 AM EDT) Hemoglobin A1c 5.5 <6.0 % [facility] Comment:Hemoglobin A1C Refer ence Range Adults: 4.8 - 6.0 % Non diabetic: < 6.0 % Goal: < 7.0 %Additional Action Suggested: > 8.0 %Note: Hemoglobin A1c results are invalid for patients with abnormal amounts of HbF. Blood transfusions may impact the HbA1c concentration in the patient sample. Estimated Average Glucose 111 mg/dL [facility] Comment:eAG = Estimated ave rage glucose which is %A1C expressed asaverage glucose, using the formula of the M3B-SucaanyQnxymid Glucose study (ADAG), Diabetes Care, Vol.31,#8,May. 2007 04/12/2025 9:44 AM EDT 04/12/2025 9:44 AM EDT us Generic External Data Provider LAB BLOOD ORDERAB LES Final Result Performing Organization Address City/State/[facility] Co de Phone Number [facility] [address] [place] [phone] * (ABNORMAL) Lipid Panel, Standard (01/18/2025 9:14 AM EDT) Triglycerides 71 <150 mg/dL [facility] Comment:Desirable Triglyceri de: less than 150 mg/dLBorderline High Triglyceride 150-199 mg/dLHigh Triglyceride: 200-499 mg/dLVery High Triglyceride: greater than or equal to 5OO mg/dL Cholesterol 105 <200 mg/dL [facility] Comment:Desirable Cholestero l: less than 200 mg/dLBorderline High Cholesterol: 200-239 mg/dLHigh Cholesterol: greater than 239 mg/dL LDL Cholesterol Calculated 61 <100 mg/dL [facility] Comment:Desirable LDL: less than 100 mg/dLNear Optimal/Above Optimal LDL: 110- 129 mg/dLBorderline High LDL: 130-159 mg/dLHigh LDL: 160-189 mg/dLVery High LDL: greater than or equal to 190 mg/dL HDL Cholesterol 30(L) >40 mg/dL [facility] Comment:Desirable HDL: great er than 40 mg/dL Note: This HDL assay may give artificially low results in patients with liver disease. 01/18/2025 9:14 AM EDT 01/18/2025 9:20 AM EDT us Generic External Data Provider LAB BLOOD ORDERAB LES Final Result Performing Organization Address City/[facility]/ZIP Co de Phone Number [facility] [address] [place] [address] [phone] * HEPATITIS C AB W/REFL TO HCV RNA, QN, PCR (12/29/2021 10:52 AM EDT) HEPATITIS C ANTIBODY NON-REACT GERMAN NON-REACT GERMAN [facility] INDEX 0.03 <1.00 [facility] Comment: HCV antibody was non-reactive. There is no laboratory evidence of HCV infection. In most cases, no further action is required. However, if recent HCV exposure is suspected, a test for HCV RNA (test code 92791) is suggested. For additional information please refer to http://education.Xtium/faq/RJC70g4 (This link is being provided for informational/ educational purposes only.) 12/29/2021 10:5 2 AM EDT us Araceli White MD HISTORICAL/NON ORDERABLE LABS Final Result [facility] [address] * HIV 1/2 ANTIGEN/ANTIBODY,FOURTH GENERATION W/RFL (12/29/2021 10:52 AM EDT) HIV-1/2 ANTIGEN AND ANTIBODIES, 4TH GENERATION W/ REFLEX NON-REACT GERMAN NON-REACT [facility] Comment: HIV-1 antigen and HIV-1/HIV-2 [...] purpose. For additional information please refer to http://education.Xtium/faq/LTB616 (This link is being provided for informational/ educational purposes only.) The performance of this assay has not been clinically validated in patients less than 2 years old. 12/29/2021 10:5 2 AM EDT us Araceli White MD LAB BLOOD ORDERABLES Final Res ult [facility] Critical access hospital [address] from Last 3 Months or Most Recently Relevant to Health Maintenance Additional Health Concerns Active Problems Noted Date Diagnosed Date Help patients manage their type 2 diabetes 09/19 Patient has chronic kidney disease 09/19/2025 Patient has chronic kidney disease 09/27/2025 Patient has chronic kidney disease 09/27/2025 Patient has chronic kidney disease 10/03/[address] [place] [address] STANDARD MEDICARE Care Teams Sawmill Production Worker Relationship Specialty Start Date End Date Araceli White MD [address] [place] [phone] PCP - General Family Medicine 06/04/21
--- NOTE | 2025-10-10 09:23 | MHC.AU.HA3 ---
Hearing Instrument Follow-Up- Binaural Date of Visit: 10/10/25 Right Ear: Make, Model, Color, Serial Number: Yecenia Troncoso [id number] SN: [id number] Color: Velvet Black Radiographer Technologist Repair Warranty: 08/31/2027 Radiographer Technologist Loss and Damage Warranty: 08/31/2027 [facility] Service Plan: 08/25/2025 Battery Size: Rechargeable Electrical Timing Device Calibrator/Slim Tube: 1P Earmold/Dome/CShell/SlimTip:Cshell SN: [id number] Warranty 03/12/2025 Type of Wax Guard: Cerustop Dispensed By: [facility] Date of Fittin08/25/2024 Left Ear: Make, Model, Color, Serial Number: Yecenia Troncoso [id number] SN: [id number] Color: Velvet Black Radiographer Technologist Repair Warranty: 08/31/2027 Radiographer Technologist Loss and Damage Warranty: 08/31/2027 [facility] Service Plan: 08/25/2025 Battery Size: Rechargeable Electrical Timing Device Calibrator/Slim Tube: 1P Earmold/Dome/CShell/SlimTip: Cshell SN: [id number] Warranty 06/04/2025 Type of Wax Guard: Cerustop Dispensed By: [facility] Date of Fittin08/25/2024 Follow-Up Summary: Both HAs dropped off reporting . Wax guards occluded. Cleaned HAs (2). Cleaned EMs (2). Replaced wax guards (2) [phone] [phone]. Vacuumed microphones. Ran through dehumidifier. Listening check good, right; weak, left. Left crib pad maker detached and pushed into c-shell. Sent to [employer] for in-warranty repair. Right VILLANUEVA/EM to front for picker and sorter load and unload to use in the meantime. Recommendations: Patient will be contacted when materials have arrived. Diagnosis Code(s): Primary Diagnosis: H90.3 Bilateral Sensorineural Hearing Loss Signature: Provider: Antoinette Albrecht, [facility]
== END 2025-10-10 09:00 | disposition home or self-care (01) ==
LOC: HO.HAP 08:59
PROVIDERS: Visit Provider General Practice
DX: H90.3 Sensorineural hearing loss, bilateral (principal)
CPT/HCPCS: 92593; 99499